=== PATIENT | female | born 1940 | race Caucasian/White ===

== ENCOUNTER 2020-07-10 09:45 | Outpatient (REF) | payer OTHER, SELFPAY ==
--- NOTE | 2020-07-10 10:57 | XR_ITS ---
EXAMINATION: XR LUMBOSACRAL SPINE CLINICAL INFORMATION: Unspecified fall, trauma, pain COMPARISON: None TECHNIQUE: Three views of the lumbosacral spine. FINDINGS: There is normal lumbar segmentation with 5 nonrib-bearing lumbar vertebrae of normal height and normal lumbar lordosis. There is a gentle levocurvature lower lumbar spine. There is no lumbar vertebral compression or destructive process. No spondylolisthesis. There are degenerative disc changes greatest at L5-S1 but also involving L2-L3 and L4-L5. There is multi level facet degeneration, greatest L4-S1. The SI joints and visualized sacrum are unremarkable. IMPRESSION: 1. No vertebral compression or visible fracture. 2. Degenerative disc and degenerative facet changes.
--- NOTE | 2020-07-10 10:57 | XR_ITS ---
EXAMINATION: XR HIP, RIGHT CLINICAL INFORMATION: Unspecified fall, trauma, pain COMPARISON: None TECHNIQUE: Two views of the right hip. FINDINGS: Right hip shows no fracture or dislocation. There is no joint narrowing or erosive change. Soft tissue planes are unremarkable. IMPRESSION: Unremarkable right hip.
[2020-07-10 12:02] LABS: Eosinophils Percent Auto 0.2 % (0-4); MANUAL DIFF FLAG SCAN; Mean Corpuscular Volume 97.3 fL (80-98); Neutrophils Percent Auto 80.1 % (45-73); SCAN SMEAR FLAG 1
[2020-07-10 12:04] LABS: Hematocrit 36.1 % (37-47); Hemoglobin 11.7 g/dl (12.0-16.0); Imm Gran Abs Auto 0.07 X10*3/uL (0.00-0.03); Imm Gran Pct Auto 1.3 % (0.0-0.4); Lymphocytes Absolute Auto 0.6 X10*3/uL (1.2-4.9); Lymphocytes Percent Auto 10.8 % (20-40); Mean Corpuscular HGB Conc 32.4 g/dl (31.0-35.0); Mean Corpuscular Hemoglobin 31.5 pg (27.0-33.0); Mean Platelet Volume 13.1 fL (9.4-12.3); Monocytes Absolute Auto 0.4 X10*3/uL (0.1-1.2); Monocytes Percent Auto 7.6 % (2-11); Neutrophils Absolute Auto 4.3 X10*3/uL (2.0-8.3); Platelet Count 141 X10*3/uL (160-400); Red Blood Count 3.71 X10*6/uL (4.20-5.50); Red Cell Distribution Width 12.7 % (11.0-16.0); White Blood Count 5.4 X10*3/uL (4.8-10.8)
[2020-07-10 12:06] LABS: PLT ABN DIST 1
[2020-07-10 12:28] LABS: SLIDE REVIEW VERIFIED
[2020-07-10 12:39] LABS: Albumin Level 4.7 g/dL (3.5-5.0); Anion Gap 14 (12-20); Blood Urea Nitrogen 32 mg/dL (9-16); Carbon Dioxide 26 mmol/L (22-29); Chloride 105 mmol/L (96-108); Estimated Glomerular Filt Rate 27; Magnesium 2.2 mg/dL (1.6-2.6); Phosphorus 2.8 mg/dL (2.7-4.5); Potassium 4.9 mmol/l (3.3-5.1); Sodium 140 mmol/L (135-145)
[2020-07-10 12:43] LABS: Alanine Aminotransferase 12 U/L (0-31); Albumin Level 4.6 g/dL (3.5-5.0); Alkaline Phosphatase 105 U/L (39-117); Anion Gap 13 (12-20); Aspartate Amino Transferase 16 U/L (5-31); Bilirubin Total 0.5 mg/dL (0.0-1.0); Blood Urea Nitrogen 32 mg/dL (9-16); Calcium 9.5 mg/dL (8.4-10.2); Carbon Dioxide 27 mmol/L (22-29); Chloride 105 mmol/L (96-108); Cholesterol 143 mg/dL; Estimated Glomerular Filt Rate 27; Glucose Fasting 93 mg/dL (60-99); HDL Cholesterol 42 mg/dL; LDL Cholesterol Calculated 68 mg/dl; Potassium 4.9 mmol/l (3.3-5.1); Sodium 140 mmol/L (135-145); Total Protein 6.9 g/dL (6.5-8.0); Triglycerides 167 mg/dL
[2020-07-13 19:16] LABS: Calcium (PTHI) 9.7 mg/dL (8.6-10.4); PTHI 67 pg/mL (14-64)
== END 2020-07-10 09:46 | disposition home or self-care (01) ==
LOC: HO.LAB 09:45
PROVIDERS: PCP Internal Medicine; Visit Provider Internal Medicine Hypertension Specialist
DX: I13.0 Hypertensive heart and chronic kidney disease with heart failure and stage 1 through stage 4 chronic kidney disease, or unspecified chronic kidney disease (principal); N18.30 Chronic kidney disease, stage 3 unspecified; I50.9 Heart failure, unspecified; N28.9 Disorder of kidney and ureter, unspecified; E87.3 Alkalosis; E87.6 Hypokalemia
CPT/HCPCS: 36415; 72100; 73502; 80051; 80053; 80061; 82040; 82565; 83735; 83970; 84100; 84520; 85025

== ENCOUNTER 2020-07-12 10:28 | Emergency (ER) | payer OTHER, SELFPAY ==
--- NOTE | 2020-07-12 | US_ITS ---
EXAMINATION: ULTRASOUND VENOUS DUPLEX LOWER EXTREMITY RIGHT CLINICAL INFORMATION: Swelling COMPARISON: None TECHNIQUE: Doppler, color and grayscale evaluation of the veins of the right lower extremity FINDINGS: The right common femoral, superficial femoral, profunda, popliteal and visualized posterior tibial and peroneal veins in the calf are patent. There is no evidence of DVT. There is no Figueredo's cyst. The left common femoral vein is patent IMPRESSION: No evidence of DVT.
[2020-07-12 10:39] VITALS: BP 143/59; PULSE 85; RESP 16; TEMP 36.7; O2SAT 100; BMI 30.8
--- NOTE | 2020-07-12 11:01 | ED_ITS ---
HPI - Fall General Chief Complaint: Fall Stated Complaint: fell Time Seen by Provider: 07/12/20 10:58 Related Data Allergies Allergy/AdvReac Type Severity Reaction Status Date / Time aspirin [ASPIRIN] Allergy Unknown ANAPHYLAXIS Unverified 06/25/20 15:28 meperidine [From DEMEROL] Allergy Unknown ANAPHYLAXIS Unverified 06/25/20 15:28 penicillin V Allergy Unknown Unverified 05/27/20 00:00 Penicillins [PENICILLINS] Allergy Unknown ANAPHYLAXIS Unverified 06/25/20 15:28 Sulfa (Sulfonamide Allergy Unknown UNKNOWN Unverified 06/25/20 15:28 Antibiotics) [SULFA (SULFONAMIDE ANTIBIOTICS)] dairy Allergy Unknown Uncoded 10/18/18 00:00 lactose intolerance Allergy Unknown Uncoded 05/27/20 00:00 Review of Systems Review of Systems: Yes all other systems are reviewed and are negative Constitutional: Constitutional: Reports as per HPI ENT: Reports system reviewed and no additional complaints, except as documented Respiratory: Respiratory: Reports no additional respiratory complaints Gastrointestinal: Gastrointestinal: Reports no additional gastrointestinal complaints Genitourinary: Genitourinary: Reports no additional female genitourinary complaints Musculoskeletal: Musculoskeletal: Reports as per HPI Psychiatric: Psychiatric: Reports no additional psychiatric complaints Endocrine: Endocrine: Reports no additional endocrine complaints [facility] Past Medical History Medical History (Updated 07/12/20 @ 13:20 by Dayron Vergara MD) Hyperlipidemia Hypertension Social History Social History Advance Directives: No Advance Directives Information Provided: No Physical Exam Vital Signs and I&O and Narrative: Vital Signs and I&O: Vital Signs Temp 98.8 F 07/12/20 12:00 Pulse 73 07/12/20 12:00 Resp 17 07/12/20 12:00 BP 117/50 L 07/12/20 12:00 Pulse Ox 98 07/12/20 12:00 Intake & Output 07/11/20 07/12/20 07/12/20 18:59 06:59 18:59 Weight 89.358 kg Body Mass Index 30.8 Const: General: cooperative and healthy appearing Orientation/consciousness: oriented to person, oriented to place and oriented to time Limitations: no limitations HENMT: Head: Yes normal to inspection Eyes: General: appearance normal, both eyes and all related structures Neck: Neck: Yes normal visual inspection Chest: Chest palpation & inspection: normal inspection of the chest Resp: Effort & Inspection: normal respiratory effort Auscultation: clear to auscultation bilaterally Percussion: percussion normal Cardio: Jugular venous distension: no JVD Palpation: normal PMI Rate: regular rate Rhythm: regular rhythm Heart sounds: S1 normal heart sound present and S2 normal heart sound present GI: Inspection: Yes normal to inspection Percussion: Yes normal to percussion Rectal Exam - Female: deferred : General: Yes CVA tenderness and Yes no CVA tenderness Back/Spine/Pelvis: Other: area of ecchymosis at lower lumbar area and sacral area. Back: no CVA tenderness and CVA tenderness Coccyx: Coccyx tenderness present Skin: General skin exam: no rashes or lesions noted Trauma: no lacerations or abrasions Neuro: General: oriented to person, oriented to place, oriented to time and gait normal Cranial nerves: Yes CN's II-XII intact bilaterally Cognition (Neuro): normal cognition Extrem: General: Yes normal to inspection Course Course Hospital Course: 79-year-old female states sustained a mechanical fall, going down stairs with a cane and patient fell about 2 steps of stairs landed on her right-side 4 days ago, patient was seen in the emergency department and had x-rays that were unre markable, also seen at urgent care who appreciated right leg swelling patient was sent from urgent care to rule out DVT and right leg. Reevaluation(s) Reevaluation #1: patient had ultrasound which showed no DVT. Patient has stable vital signs. MDM - Fall MDM Narrative Medical decision making narrative: 79-year-old female status post fall 4 days ago with big ecchymosis on the right buttock, patient was seen and evaluated at an urgent care today he will concern of right lower extremities DVT patient was sent to the emergency department for rule out DVT. It Medical Records Attestation: I reviewed the patient's medical records. Imaging Data Venous US: Radiologist's impression: The right common femoral, superficial femoral, profunda, popliteal and visualized posterior tibial and peroneal veins in the calf are patent. There is no evidence of DVT. There is no Figueredo's cyst. The left common femoral vein is patent Discharge Plan Discharge Clinical Impression: Fall, Contusion of soft tissue Patient Disposition: Home, Self-Care Instructions: Contusion in Adults (ED) Referrals: Ned Alcantara MD [Primary Care Provider] - 2 days
--- NOTE | 2020-07-12 11:03 | PC.NURSE ---
PT HAS A LARGE HEMATOMA AND PURPLE DISCOLORATION TO R BUTTOCKS. AWARE.
[2020-07-12 12:00] VITALS: BP 117/50; PULSE 73; RESP 17; TEMP 37.1; O2SAT 98
== END 2020-07-12 13:50 | disposition home or self-care (01) ==
PROVIDERS: Emergency Provider Emergency Medicine; PCP Internal Medicine
DX: S30.0XXA Contusion of lower back and pelvis, initial encounter (principal); W10.8XXA Fall (on) (from) other stairs and steps, initial encounter; M53.3 Sacrococcygeal disorders, not elsewhere classified; I10 Essential (primary) hypertension; Y93.89 Activity, other specified; Y92.019 Unspecified place in single-family (private) house as the place of occurrence of the external cause; Y99.9 Unspecified external cause status; Z91.81 History of falling
CPT/HCPCS: 93971; 99284

== ENCOUNTER 2020-09-08 08:13 | Outpatient (REF) | payer OTHER, SELFPAY ==
--- NOTE | 2020-09-08 08:20 | XR_ITS ---
EXAMINATION: XR CHEST CLINICAL INFORMATION: Fall. COMPARISON: Chest 12/31/2015 TECHNIQUE: 2 views of the chest were obtained. FINDINGS: No significant abnormality is noted involving the heart, lungs, mediastinum, bony thorax or soft tissues. XR/XR chest 2V IMPRESSION: Unremarkable chest
== END 2020-09-08 08:14 | disposition home or self-care (01) ==
LOC: HO.XRAY 08:13
PROVIDERS: PCP Internal Medicine; Visit Provider Internal Medicine
DX: T14.8XXA Other injury of unspecified body region, initial encounter (principal)
CPT/HCPCS: 71046

== ENCOUNTER 2020-10-26 08:30 | Outpatient (REF) | payer OTHER, SELFPAY ==
[2020-10-26 09:55] LABS: Basophils Percent Auto 0.2 % (0-2); Eosinophils Percent Auto 0.4 % (0-4); MANUAL DIFF FLAG SCAN; Red Cell Distribution Width 12.8 % (11.0-16.0); SCAN SMEAR FLAG 1
[2020-10-26 09:57] LABS: Hematocrit 35.4 % (37-47); Imm Gran Abs Auto 0.06 X10*3/uL (0.00-0.03); Imm Gran Pct Auto 1.3 % (0.0-0.4); Lymphocytes Absolute Auto 0.6 X10*3/uL (1.2-4.9); Lymphocytes Percent Auto 13.4 % (20-40); Mean Corpuscular HGB Conc 33.9 g/dl (31.0-35.0); Mean Corpuscular Hemoglobin 32.5 pg (27.0-33.0); Mean Corpuscular Volume 95.9 fL (80-98); Mean Platelet Volume 13.5 fL (9.4-12.3); Monocytes Absolute Auto 0.4 X10*3/uL (0.1-1.2); Monocytes Percent Auto 7.7 % (2-11); Neutrophils Absolute Auto 3.7 X10*3/uL (2.0-8.3); Platelet Count 130 X10*3/uL (160-400); Red Blood Count 3.69 X10*6/uL (4.20-5.50); White Blood Count 4.8 X10*3/uL (4.8-10.8)
[2020-10-26 09:59] LABS: PLT ABN DIST 1
[2020-10-26 10:19] LABS: Alanine Aminotransferase 15 U/L (0-31); Albumin Level 4.5 g/dL (3.5-5.0); Alkaline Phosphatase 113 U/L (39-117); Anion Gap 14 (12-20); Aspartate Amino Transferase 18 U/L (5-31); Bilirubin Total 0.5 mg/dL (0.0-1.0); Blood Urea Nitrogen 35 mg/dL (9-16); Calcium 9.5 mg/dL (8.4-10.2); Carbon Dioxide 28 mmol/L (22-29); Chloride 104 mmol/L (96-108); Cholesterol 135 mg/dL; Estimated Glomerular Filt Rate 31; Glucose Fasting 97 mg/dL (60-99); HDL Cholesterol 46 mg/dL; LDL Cholesterol Calculated 62 mg/dl; Potassium 5.2 mmol/l (3.3-5.1); Sodium 141 mmol/L (135-145); Triglycerides 138 mg/dL
[2020-10-26 10:36] LABS: SLIDE REVIEW VERIFIED
== END 2020-10-26 08:31 | disposition home or self-care (01) ==
LOC: HO.LAB 08:30
PROVIDERS: Absent Provider Internal Medicine Hypertension Specialist; PCP Internal Medicine; Visit Provider Internal Medicine
DX: Z00.00 Encounter for general adult medical examination without abnormal findings (principal); N28.9 Disorder of kidney and ureter, unspecified; I13.0 Hypertensive heart and chronic kidney disease with heart failure and stage 1 through stage 4 chronic kidney disease, or unspecified chronic kidney disease; N18.30 Chronic kidney disease, stage 3 unspecified
CPT/HCPCS: 36415; 80053; 80061; 85025

== ENCOUNTER 2020-11-11 | Outpatient (REF) | payer OTHER, SELFPAY | END 2020-11-11 00:01 | disposition home or self-care (01) | LOC: HO.VC | PROVIDERS: Visit Provider Internal Medicine | DX: Z23 Encounter for immunization (principal) | CPT/HCPCS: 0011A ==

== ENCOUNTER 2020-12-08 | Outpatient (REF) | payer OTHER, SELFPAY | END 2020-12-08 00:01 | disposition home or self-care (01) | LOC: HO.VC | PROVIDERS: Visit Provider Internal Medicine | DX: Z23 Encounter for immunization (principal) | CPT/HCPCS: 0012A ==

== ENCOUNTER 2020-12-09 09:00 | Outpatient (RCR) | payer OTHER, SELFPAY ==
[2020-11-13 07:44] VITALS: BP 138/61; PULSE 72; O2SAT 98
--- NOTE | 2020-11-13 10:38 | MHC.PT.EP ---
[facility] [place] Office [place] Office [place] Office [address] Wilson Bryan [address] [phone] F: [phone] F: [phone] F: [phone] F: [phone] Physical Therapy Plan of Care Date of Evaluation: 11/13/20 Date of Surgery: Diagnosis: DORSALGIA, FREQUENT FALLS Assessment: 79 YO FEMALE REF TO PT W H/O FALLING 07/09/20- SHE HAS A LONG H/O LBP AND MILD SCOLIOSIS W LLD- SHE CURRENTLY AMB W A 3 POINT CANE WHEN OUTDOORS HOWEVER, STATES SHE FURNITURE/WALL WALKS INDOORS. Pt RESIDES ALONE AND HAS A FRIEND ASSISTING HER W HIGHER LEVEL ADLs. SHE RATED 0/10 LBP THIS AM, HER AROM IN TRUNK AND LEs IS ADEQUATE, SHE HAS WEAKNESS IN BILAT HIPS, NO OBVIOUS SENSORY OR MOTOR DEFICITS AT CURRENT. FUNCTIONAL LIMITATIONS INCLUDE DECR JUAN TO STANDING / STATIC BALANCE, AMB- SHE REQUIRES A SHOPPING CART TO LEAN ON OR USE OF HER CANE FOR SHORT DISTANCES, AND H/O NONEPILEPTIC SEIZURES CAUSING HER TO FALL- SHE NOTES DIFFIC GETTING UP FROM THE FLOOR. Pt WOULD BENEFIT FROM PT TO ADDRESS LEs STRENGTH, SAFETY AWARENESS W FUNCTIONAL ADLs, AND STATIC-> DYNAMIC BALANCE. Frequency and Duration: The patient will be seen 2x WK x 5 WKS Short Term Goals: Pt ADDISON IMPROVED GAIT MECH ON LEVEL AND STAIR TECHN W HER CANE IN 2 WKS Pt'S LBP DECR TO 2-3/10 AT MAX W REG ADLs IN 3 WKS Pt CARYON SAFE STATIC STAND W NARROW KATHARINE-> TANDEM STANCE x 10 SEC EACH IN 3 WKS Fpc Goals: Pt CARYON INCR LEs STRENGTH EVIDENT W MOBILITY ON/OFF EQIOP, MATS, SQUATS, 1/2 KNEEL POSITIONS IN 5 WKS Pt CARYON IMPROVED STATIC -> DYNAMIC BALANCE W SIMUL ADLs IN 5 WKS Pt INDEP W HEP AND BALANCE STRATEGIES EVIDENT IN IMPROVED ABC SCALE AND 4 STAGE BALANCE TEST IN 5 WKS Treatment Plan: Modalities to reduce pain, spasms and effusion. Manual therapy to restore motion and function. Therapeutic exercise to improve strength and flexibility. Neuromuscular re-education for posture and balance. Therapeutic activities to return to functional activities of daily living. Electronically signed by: Chanda Blake PT Please sign and return to therapist. Thank you for your referral.
--- NOTE | 2020-12-09 11:03 | MHC.PT.DC ---
[facility] [place] Office [place] [facility] [place] Office [address] Wilson Bryan [address] [phone] F: [phone] F: [phone] F: [phone] F: [phone] Physical Therapy Discharge Report Diagnosis: DORSALGIA, FREQUENT FALLS Date of Surgery: Date of Evaluation: 11/13/20 Date of Discharge: Treatments to Date: 8 Cancellations to Date: 0 No Shows to Date: 0 Discharge Status: Achieved Goals Improved Function Independent with HEP Discharge Summary: Pt was able to tolerate light perturbations during NBOS balance. She demonstrated getting off of the floor from a side sitting position to standing bracing her arms in a BSC last visit. She demonstrated good static balance in standing with a narrow KATHARINE. She has good LE strength noted with good squat control during the movement. Pt seems to have some dyskinesia in her movement which seems to worsen with exertion. It was recommended the patient followup with her medical MD regarding this movement. Pt is independent with her current exercise program. Her LE strength in bilateral hips and knees, and ankle DF was 5/5 throughout. She has met her goals. She is d/c from skilled PT at this time. Electronically signed by: Sheri Rivera PT DPT Please sign and return to therapist. Thank you for your referral.
== END 2020-12-10 08:19 | disposition other institution (70) ==
LOC: HO.PT 09:00
PROVIDERS: PCP Internal Medicine; Visit Provider Internal Medicine
DX: M54.9 Dorsalgia, unspecified (principal); R29.6 Repeated falls
CPT/HCPCS: 97110; 97112; 97162; 97530; 97535

== ENCOUNTER 2020-12-30 08:48 | Outpatient (REF) | payer OTHER, SELFPAY ==
[2020-12-30 09:37] LABS: MANUAL DIFF FLAG NO
[2020-12-30 09:48] LABS: Basophils Percent Auto 0.2 % (0-2); Eosinophils Percent Auto 0.4 % (0-4); Hematocrit 36.9 % (37-47); Hemoglobin 12.2 g/dl (12.0-16.0); Imm Gran Abs Auto 0.08 X10*3/uL (0.00-0.03); Imm Gran Pct Auto 1.6 % (0.0-0.4); Lymphocytes Absolute Auto 0.8 X10*3/uL (1.2-4.9); Mean Corpuscular HGB Conc 33.1 g/dl (31.0-35.0); Mean Corpuscular Hemoglobin 31.9 pg (27.0-33.0); Mean Corpuscular Volume 96.6 fL (80-98); Mean Platelet Volume 13.2 fL (9.4-12.3); Monocytes Absolute Auto 0.4 X10*3/uL (0.1-1.2); Monocytes Percent Auto 7.8 % (2-11); Neutrophils Absolute Auto 3.6 X10*3/uL (2.0-8.3); Platelet Count 145 X10*3/uL (160-400); Red Blood Count 3.82 X10*6/uL (4.20-5.50); Red Cell Distribution Width 12.7 % (11.0-16.0); White Blood Count 4.9 X10*3/uL (4.8-10.8)
[2020-12-30 10:12] LABS: Alanine Aminotransferase 12 U/L (0-31); Albumin Level 4.7 g/dL (3.5-5.0); Alkaline Phosphatase 124 U/L (39-117); Anion Gap 15 (12-20); Aspartate Amino Transferase 18 U/L (5-31); Bilirubin Total 0.4 mg/dL (0.0-1.0); Blood Urea Nitrogen 39 mg/dL (9-16); Calcium 9.6 mg/dL (8.4-10.2); Carbon Dioxide 26 mmol/L (22-29); Chloride 104 mmol/L (96-108); Cholesterol 139 mg/dL; Estimated Glomerular Filt Rate 29; Glucose Fasting 99 mg/dL (60-99); HDL Cholesterol 46 mg/dL; LDL Cholesterol Calculated 62 mg/dl; Potassium 4.4 mmol/L (3.3-5.1); Sodium 141 mmol/L (135-145); Total Protein 7.1 g/dL (6.5-8.0); Triglycerides 157 mg/dL
== END 2020-12-30 08:49 | disposition home or self-care (01) ==
LOC: HO.LAB 08:48
PROVIDERS: Absent Provider Internal Medicine Hypertension Specialist; PCP Internal Medicine; Visit Provider Internal Medicine
DX: Z00.00 Encounter for general adult medical examination without abnormal findings (principal); I13.0 Hypertensive heart and chronic kidney disease with heart failure and stage 1 through stage 4 chronic kidney disease, or unspecified chronic kidney disease; N18.30 Chronic kidney disease, stage 3 unspecified; E11.22 Type 2 diabetes mellitus with diabetic chronic kidney disease; I50.9 Heart failure, unspecified
CPT/HCPCS: 36415; 80053; 80061; 85025

== ENCOUNTER 2021-04-26 08:55 | Outpatient (REF) | payer OTHER, SELFPAY ==
[2021-04-26 10:14] LABS: Mean Corpuscular Volume 96.4 fL (80-98); SCAN SMEAR FLAG 1
[2021-04-26 10:15] LABS: Eosinophils Percent Auto 0.2 % (0-4); Hematocrit 37.4 % (37-47); Hemoglobin 12.5 g/dl (12.0-16.0); Imm Gran Abs Auto 0.08 X10*3/uL (0.00-0.03); Imm Gran Pct Auto 1.7 % (0.0-0.4); Lymphocytes Absolute Auto 0.6 X10*3/uL (1.2-4.9); Lymphocytes Percent Auto 12.8 % (20-40); Mean Corpuscular HGB Conc 33.4 g/dl (31.0-35.0); Mean Corpuscular Hemoglobin 32.2 pg (27.0-33.0); Mean Platelet Volume 13.7 fL (9.4-12.3); Monocytes Absolute Auto 0.4 X10*3/uL (0.1-1.2); Monocytes Percent Auto 7.8 % (2-11); Neutrophils Absolute Auto 3.6 X10*3/uL (2.0-8.3); Neutrophils Percent Auto 77.5 % (45-73); Platelet Count 131 X10*3/uL (160-400); Red Blood Count 3.88 X10*6/uL (4.20-5.50); White Blood Count 4.6 X10*3/uL (4.8-10.8)
[2021-04-26 10:27] LABS: PLT ABN DIST 1
[2021-04-26 10:42] LABS: Anion Gap 13 (12-20); Blood Urea Nitrogen 33 mg/dL (9-16); Calcium 10.1 mg/dL (8.4-10.2); Carbon Dioxide 28 mmol/L (22-29); Chloride 106 mmol/L (96-108); Cholesterol 136 mg/dL; Estimated Glomerular Filt Rate 29; Glucose Random 99 mg/dL (60-115); HDL Cholesterol 41 mg/dL; LDL Cholesterol Calculated 63 mg/dl; Potassium 4.7 mmol/L (3.3-5.1); Sodium 142 mmol/L (135-145); Triglycerides 164 mg/dL
[2021-04-26 11:05] LABS: TSH reflex Free T4 1.63 uIU/mL (0.32-4.0)
== END 2021-04-26 08:56 | disposition home or self-care (01) ==
LOC: HO.LAB 08:55
PROVIDERS: PCP Internal Medicine; Visit Provider Internal Medicine
DX: Z00.00 Encounter for general adult medical examination without abnormal findings (principal); I10 Essential (primary) hypertension; E78.5 Hyperlipidemia, unspecified
CPT/HCPCS: 36415; 80048; 80061; 84443; 85025

== ENCOUNTER 2021-07-01 08:17 | Outpatient (REF) | payer OTHER, SELFPAY ==
[2021-07-01 10:33] LABS: Basophils Percent Auto 0.2 % (0-2); Eosinophils Percent Auto 0.6 % (0-4); MANUAL DIFF FLAG SCAN; SCAN SMEAR FLAG 1
[2021-07-01 10:35] LABS: Hematocrit 35.3 % (37-47); Hemoglobin 11.8 g/dl (12.0-16.0); Imm Gran Abs Auto 0.06 X10*3/uL (0.00-0.03); Imm Gran Pct Auto 1.3 % (0.0-0.4); Lymphocytes Absolute Auto 0.7 X10*3/uL (1.2-4.9); Lymphocytes Percent Auto 14.1 % (20-40); Mean Corpuscular HGB Conc 33.4 g/dl (31.0-35.0); Mean Corpuscular Hemoglobin 32.4 pg (27.0-33.0); Mean Platelet Volume 13.1 fL (9.4-12.3); Monocytes Absolute Auto 0.4 X10*3/uL (0.1-1.2); Monocytes Percent Auto 7.6 % (2-11); Neutrophils Absolute Auto 3.6 X10*3/uL (2.0-8.3); Neutrophils Percent Auto 76.2 % (45-73); Platelet Count 130 X10*3/uL (160-400); Red Blood Count 3.64 X10*6/uL (4.20-5.50); Red Cell Distribution Width 13.1 % (11.0-16.0); White Blood Count 4.8 X10*3/uL (4.8-10.8)
[2021-07-01 10:39] LABS: PLT ABN DIST 1
[2021-07-01 10:43] LABS: Alanine Aminotransferase 12 U/L (0-31); Albumin Level 4.5 g/dL (3.5-5.0); Alkaline Phosphatase 99 U/L (39-117); Anion Gap 15 (12-20); Aspartate Amino Transferase 18 U/L (5-31); Bilirubin Total 0.3 mg/dL (0.0-1.0); Blood Urea Nitrogen 31 mg/dL (9-16); Calcium 9.9 mg/dL (8.4-10.2); Carbon Dioxide 26 mmol/L (22-29); Chloride 105 mmol/L (96-108); Cholesterol 138 mg/dL; Estimated Glomerular Filt Rate 30; Glucose Fasting 93 mg/dL (60-99); HDL Cholesterol 37 mg/dL; LDL Cholesterol Calculated 64 mg/dl; Potassium 4.8 mmol/L (3.3-5.1); Sodium 141 mmol/L (135-145); Total Protein 6.9 g/dL (6.5-8.0); Triglycerides 185 mg/dL
[2021-07-01 10:57] LABS: Thyroid Stimulating Hormone 2.08 uIU/mL (0.32-4.0)
[2021-07-01 12:05] LABS: SLIDE REVIEW VERIFIED
== END 2021-07-01 08:18 | disposition home or self-care (01) ==
LOC: HO.LAB 08:17
PROVIDERS: PCP Internal Medicine; Visit Provider Internal Medicine
DX: Z00.00 Encounter for general adult medical examination without abnormal findings (principal); E03.9 Hypothyroidism, unspecified; E11.9 Type 2 diabetes mellitus without complications
CPT/HCPCS: 36415; 80053; 80061; 84443; 85025

== ENCOUNTER 2021-09-08 08:42 | Outpatient (REF) | payer OTHER, SELFPAY ==
--- NOTE | ~2021-09-08 | XR_ITS ---
EXAMINATION: 1. RADIOGRAPHS RIGHT WRIST 2. RADIOGRAPHS LEFT WRIST CLINICAL INFORMATION: Pain COMPARISON: None TECHNIQUE: 4 views of each wrist were obtained. FINDINGS: Left wrist: Visualized portion of the distal radius and ulna demonstrate no fracture. Carpal rows are maintained. No carpal bone fracture. Minimal degenerative changes of the first carpal metacarpal joint. Visualized metacarpals demonstrate no fracture. No focal soft tissue swelling of the wrist. No radiopaque foreign body. Right wrist: Visualized portions of the distal radius and ulna demonstrate no fracture. Carpal rows are maintained. No carpal bone fracture. Visualized metacarpals demonstrate no fracture. No focal soft tissue swelling of the wrist. No radiopaque foreign body. XR/XR wrist LT 2V IMPRESSION: Grossly unremarkable radiographs of the bilateral wrists.
--- NOTE | ~2021-09-08 | XR_ITS ---
EXAMINATION: 1. RADIOGRAPHS RIGHT WRIST 2. RADIOGRAPHS LEFT WRIST CLINICAL INFORMATION: Pain COMPARISON: None TECHNIQUE: 4 views of each wrist were obtained. FINDINGS: Left wrist: Visualized portion of the distal radius and ulna demonstrate no fracture. Carpal rows are maintained. No carpal bone fracture. Minimal degenerative changes of the first carpal metacarpal joint. Visualized metacarpals demonstrate no fracture. No focal soft tissue swelling of the wrist. No radiopaque foreign body. Right wrist: Visualized portions of the distal radius and ulna demonstrate no fracture. Carpal rows are maintained. No carpal bone fracture. Visualized metacarpals demonstrate no fracture. No focal soft tissue swelling of the wrist. No radiopaque foreign body. XR/XR wrist RT 2V IMPRESSION: Grossly unremarkable radiographs of the bilateral wrists.
[2021-09-08 09:56] LABS: Anion Gap 14 (12-20); Blood Urea Nitrogen 33 mg/dL (9-16); Carbon Dioxide 25 mmol/L (22-29); Chloride 107 mmol/L (96-108); Estimated Glomerular Filt Rate 30; Potassium 5.4 mmol/L (3.3-5.1); Sodium 141 mmol/L (135-145)
[2021-09-08 09:57] LABS: Cholesterol 130 mg/dL; HDL Cholesterol 37 mg/dL; LDL Cholesterol Calculated 58 mg/dl; Triglycerides 179 mg/dL
== END 2021-09-08 08:43 | disposition home or self-care (01) ==
LOC: HO.XRAY 08:42
PROVIDERS: Absent Provider Internal Medicine Hypertension Specialist; PCP Internal Medicine; Visit Provider Internal Medicine
DX: Z00.00 Encounter for general adult medical examination without abnormal findings (principal); N18.4 Chronic kidney disease, stage 4 (severe); M25.531 Pain in right wrist; M25.532 Pain in left wrist
CPT/HCPCS: 36415; 73100; 80051; 80061; 82310; 82565; 84520

== ENCOUNTER 2021-09-27 09:14 | Emergency (ER) | payer OTHER, SELFPAY ==
--- NOTE | ~2021-09-27 | XR_ITS ---
EXAMINATION: XR CHEST CLINICAL INFORMATION: Right-sided chest pain COMPARISON: Chest x-ray 09/08/2020 TECHNIQUE: 2 views of the chest were obtained. FINDINGS: No significant abnormality is noted involving the heart, lungs, mediastinum, bony thorax or soft tissues. XR/XR chest 2V IMPRESSION: Unremarkable chest examination.
--- NOTE | ~2021-09-27 | CT_ITS ---
EXAMINATION: CT CHEST WITHOUT CONTRAST CLINICAL INFORMATION: Right-sided rib pain COMPARISON: Previous chest x-ray most recent from earlier the same day TECHNIQUE: Multidetector volumetric CT imaging of the chest was done. Axial MIP volume rendering provided. Sagittal and coronal reformatted images were obtained. This CT examination was performed using dose optimization techniques as appropriate, variously including the following: *Automated exposure control *Adjustment of mA and/or kV according to patient size (this includes techniques or standardized protocols for targeted exams where dose is matched to indication/reason for exam; i.e. extremities or head) *Use of iterative reconstruction technique DLP: 289 mGy-cm FINDINGS: LUNGS: There is anterior segment right upper lobe and medial segment right middle lobe bronchiectasis and atelectasis/small infiltrate. There are subtler changes seen in the inferior segment of the lingula. The lungs are otherwise clear. MEDIASTINUM: There is coronary artery calcification. There may be a small esophageal hernia. The mediastinum is otherwise normal. PLEURA: There is no pleural effusion. No pleural mass or thickening. AXILLA: No lymphadenopathy. UPPER ABDOMEN: Gallbladder is not completely imaged but appears prominent measuring 5.6 cm in transverse dimension. There is a low-attenuation lesion exophytic to the upper pole of the right kidney. These findings are not completely visualized. OSSEOUS STRUCTURES: No rib fracture or bone lesion is seen. There are degenerative changes of the spine. CT/CT chest wo con IMPRESSION: Atelectasis/small infiltrates and mild bronchiectasis in the anterior segment of the right upper lobe and medial segment of the right middle lobe. Coronary artery calcification and small esophageal hernia. Prominent gallbladder and low-attenuation lesion exophytic to the upper pole of the right kidney incompletely visualized. Fleischner guidelines were followed.
--- NOTE | ~2021-09-27 | XR_ITS ---
EXAMINATION: BILATERAL HAND X-RAY CLINICAL INFORMATION: Pain and swelling COMPARISON: Previous wrist x-rays from earlier this month TECHNIQUE: 3 views of each hand FINDINGS: Right: The bones are osteopenic. No fracture or dislocation is seen. There is mild arthritis at the DIP joint of the fifth finger. There is slight extension of the DIP joint of the second finger. There may be small cysts in the third and fourth metacarpal heads. Carpal bones are normal. Soft tissues are normal. Left: The bones are osteopenic. Bone alignment is normal. No fracture or dislocation is seen. There is mild arthritis at the IP joint of the thumb. There is a small soft tissue calcification adjacent to the ulnar dorsal DIP joint of the fifth finger. Carpal bones are normal. Soft tissues are normal. XR/XR hand RT min 3V IMPRESSION: Osteopenia. Mild degenerative changes.
--- NOTE | ~2021-09-27 | XR_ITS ---
EXAMINATION: BILATERAL HAND X-RAY CLINICAL INFORMATION: Pain and swelling COMPARISON: Previous wrist x-rays from earlier this month TECHNIQUE: 3 views of each hand FINDINGS: Right: The bones are osteopenic. No fracture or dislocation is seen. There is mild arthritis at the DIP joint of the fifth finger. There is slight extension of the DIP joint of the second finger. There may be small cysts in the third and fourth metacarpal heads. Carpal bones are normal. Soft tissues are normal. Left: The bones are osteopenic. Bone alignment is normal. No fracture or dislocation is seen. There is mild arthritis at the IP joint of the thumb. There is a small soft tissue calcification adjacent to the ulnar dorsal DIP joint of the fifth finger. Carpal bones are normal. Soft tissues are normal. XR/XR hand LT min 3V IMPRESSION: Osteopenia. Mild degenerative changes.
--- NOTE | ~2021-09-27 | NM_ITS ---
EXAMINATION: PULMONARY PERFUSION STUDY CLINICAL INFORMATION: Chest pain, elevated d-dimer. COMPARISON: No previous lung scan is available for comparison. Radiographs of the chest dated 09/27/[address] scan of the chest on the same date are available for comparison. TECHNIQUE: Following the intravenous injection of 3.1 mCi Tc-99m MAA, an 8-view perfusion study was performed using a gamma scintillation camera. FINDINGS: No segmental perfusion defects are present. There is minimal heterogeneity in the distribution of activity bilaterally. There are no focal anatomic appearing perfusion defects present. NM/NM pul perfusion IMPRESSION: Very low probability of pulmonary embolism.
[2021-09-27 09:33] VITALS: BP 128/43; PULSE 90; RESP 18; TEMP 36.6; O2SAT 97; BMI 29.2
--- NOTE | 2021-09-27 09:34 | ED.CHESTPAIN ---
HPI - Chest Pain General Chief Complaint: General Medical <BELÉN Berger Last Filed: 09/27/21 09:38> Stated Complaint: MULTIPLE COMPLAINTS <BELÉN Berger Last Filed: 09/27/21 09:38> Time Seen by Provider: 09/27/21 09:31 <BELÉN Berger Last Filed: 09/27/21 09:38> Source: patient <Ofelia Alvarenga DO - Last Filed: 09/27/21 15:09> Mode of arrival: ambulatory <Ofelia Alvarenga DO - Last Filed: 09/27/21 15:09> Limitations: no limitations <Ofelia Alvarenga DO - Last Filed: 09/27/21 15:09> History of Present Illness MD complaint: other (R rib pain from a cough, L bilateral hand MCP pain and swelling) <Ofelia Alvarenga DO - Last Filed: 09/27/21 15:09> Onset (ago): week(s) (1) <Ofelia Alvarenga DO - Last Filed: 09/27/21 15:09> Timing of current episode: constant <Ofelia Alvarenga DO - Last Filed: 09/27/21 15:09> Prior episodes: No <Ofelia Alvarenga DO - Last Filed: 09/27/21 15:09> Onset: other (after a hard cough she felt a pop in right chest now has pain) <Ofelia Alvarenga DO - Last Filed: 09/27/21 15:09> Pain location: right chest <Ofelia Alvarenga DO - Last Filed: 09/27/21 15:09> Pain radiation: none <Ofelia Alvarenga DO - Last Filed: 09/27/21 15:09> Severity: moderate <Ofelia Alvarenga DO - Last Filed: 09/27/21 15:09> Quality: sharp (well localized) <Ofelia Alvarenga DO - Last Filed: 09/27/21 15:09> Relieving factors: nothing <Ofelia Alvarenga DO - Last Filed: 09/27/21 15:09> Exacerbating factors: inspiration and movement <Ofelia Alvarenga DO - Last Filed: 09/27/21 15:09> Context: other (after a cough) <Ofelia Alvarenga DO - Last Filed: 09/27/21 15:09> Associated symptoms: other (both hands MCP joints swollen and painful no prior hx of RA) <Ofelia Alvarenga DO - Last Filed: 09/27/21 15:09> Treatment prior to arrival: none <Ofelia Alvarenga DO - Last Filed: 09/27/21 15:09> Related Data Home Medications: Home Medications Medication Instructions Recorded Confirmed tizanidine 2 mg tablet 2 mg PO Q8H PRN 07/23/20 09/16/21 dexamethasone 0.5 mg/5 mL oral ml PO 01/28/21 09/16/21 solution Previous Rx's Medication Instructions Recorded bupropion HCl 150 mg 24 hr tablet, 150 mg PO QAM #90 tab 09/22/20 extended release omeprazole 20 mg capsule,delayed 20 mg PO BID #180 cap 10/28/20 release sertraline 100 mg tablet 200 mg PO DAILY PRN 90 Days #180 04/30/21 tab loperamide 2 mg capsule 2 mg PO Q6H PRN 30 Days #90 cap 07/26/21 lorazepam 0.5 mg tablet 0.5 mg PO BID PRN #60 tab 08/11/21 clopidogrel 75 mg tablet 75 mg PO DAILY #90 tab 08/16/21 amitriptyline 50 mg tablet 50 mg PO BEDTIME #90 tab 08/23/21 lovastatin 40 mg tablet 40 mg PO DAILY #90 tab 08/27/21 tramadol 50 mg tablet 50 mg PO Q8H PRN 7 Days #20 tab 09/16/21 levofloxacin 500 mg tablet 500 mg PO DAILY #6 tab 09/27/21 <BELÉN Berger - Last Filed: 09/27/21 09:38> Allergies/Adverse Reactions: Allergies Allergy/AdvReac Type Severity Reaction Status Date / Time aspirin [ASPIRIN] Allergy Unknown ANAPHYLAXIS Verified 09/16/21 09:36 meperidine [From DEMEROL] Allergy Unknown ANAPHYLAXIS Verified 09/16/21 09:36 Penicillins [PENICILLINS] Allergy Unknown ANAPHYLAXIS Verified 09/16/21 09:36 Sulfa (Sulfonamide Allergy Unknown UNKNOWN Verified 09/16/21 09:36 Antibiotics) [SULFA (SULFONAMIDE ANTIBIOTICS)] dairy Allergy Unknown unknown Uncoded 07/22/20 14:00 lactose intolerance Allergy Unknown Unknown Uncoded 07/22/20 14:00 <BELÉN Berger - Last Filed: 09/27/21 09:38> Review of Systems Review of Systems: Constitutional : No Weight loss, No Fever, No Chills ENT/Mouth : No sore throat, No Rhinorrhea Eyes: No Eye Pain, No Swelling Cardiovascular : pos Chest Pain, no SOB, no Dyspnea on Exertion, No Orthopnea, No Edema, No Palpitations Respiratory : No Cough, No Sputum Gastrointestinal : no Nausea, No Vomiting, No Diarrhea, No abdominal Pain, No Hematochezia, No Melena Genitourinary : No Dysuria, No Urinary Frequency Musculoskeletal : pos joint pain, No Myalgias, pos Joint Swelling Skin : No Skin Lesions, No rash Neuro : No Weakness, No Numbness, No Dizziness, No Headache Psych : No Anxiety/Panic, No Depression Heme/Lymph: No Bruising, No Lymphadenopathy Endocrine : No Polyuria, No Polydipsia All other systems reviewed and are negative <Ofelia Alvarenga DO - Last Filed: 09/27/21 15:09> [facility]LY [facility] Past Medical History Attestation statement: The following information was validated with the patient. <Ofelia Alvarenga DO - Last Filed: 09/27/21 15:09> Medical History: Medical History Depression Fall Hyperlipidemia Hypertension Obesity Wrist pain <BELÉN Berger - Last Filed: 09/27/21 09:38> Surgical History: Surgical History History of appendectomy History of biopsy History of hysterectomy History of surgical removal of lesion <BELÉN Berger - Last Filed: 09/27/21 09:38> Family History Family History: Family History Father History of heart attack Mother Colon cancer <BELÉN Berger - Last Filed: 09/27/21 09:38> Social History Social History: Social History Housing: House Alcohol intake: never Patient Tobacco Use Status: Never used Tobacco e-Cigarette/Vaping Use: Never Used Second Hand Smoke Exposure: No Use of substances other than those prescribed or required for medical reasons: No Advance Directives: No Advance Directives Information Provided: Yes service: No Current occupational status: retired Cognitive needs: No Hearing needs: No Vision needs: No <BELÉN Berger - Last Filed: 09/27/21 09:38> Physical Exam Vital Signs: Vital Signs: Last Vital Signs Temp 98.0 F 09/27/21 13:12 Pulse 71 09/27/21 13:12 Resp 16 09/27/21 13:12 BP 140/61 H 09/27/21 13:12 Pulse Ox 97 09/27/21 13:12 BMI result Body Mass Index 29.2 <BELÉN Berger - Last Filed: 09/27/21 09:38> Vital Signs: Last Vital Signs Temp 98.0 F 09/27/21 13:12 Pulse 71 09/27/21 13:12 Resp 16 09/27/21 13:12 BP 140/61 H 09/27/21 13:12 Pulse Ox 97 09/27/21 13:12 BMI result Body Mass Index 29.2 <Ofelia Alvarenga DO - Last Filed: 09/27/21 15:09> Vital Signs: Last Vital Signs Temp 98.0 F 09/27/21 13:12 Pulse 71 09/27/21 13:12 Resp 16 09/27/21 13:12 BP 140/61 H 09/27/21 13:12 Pulse Ox 97 09/27/21 13:12 BMI result Body Mass Index 29.2 <Jennifer Bennett MD - Last Filed: 09/27/21 17:17> Appearance: Alert. Oriented X3. No acute distress. Eyes: Pupils equal, round and reactive to light. ENT: Pharynx normal. Neck: Normal inspection. Neck supple. CVS: Normal heart rate and rhythm. Pulses normal. Respiratory: No respiratory distress. Breath sounds normal. Abdomen: Soft and nontender. Skin: Skin warm and dry. Normal skin color. Normal skin turgor. Extremities: No lower extremity edema. bilateral mild swelling and tenderness to MCPs mild erythema mild warmth localized R wrist very mild swelling mild painful ROM Neuro: Oriented X 3. No motor deficit. No sensory deficit. <Ofelia Alvarenga DO - Last Filed: 09/27/21 15:09> Course Course Course Narrative: 9:30am - quick assessment. Patient alert and oriented x3. Vital signs are stable within normal limits. No deficits noted. Patient presenting to the ED with complaints of right-sided chest discomfort that started approximately 1 week ago after she sneezed and since then she has been having pain that is not reproducible. Reports that it radiates to her back. Reports it is worse with deep inspiration. Denies any trauma. Also reports bilateral shoulder/hand/arm pain. Denies any dizziness, headaches, paresthesias, SOB/ROBERTS, palpitations or abd pain. At this time will obtain labs, EKG and chest x-ray patient will be sent back to the waiting room at this time and will be called back when there is a room available. Patient understands agrees with this plan. <BELÉN Berger - Last Filed: 09/27/21 09:38> 9:30am - quick assessment. Patient alert and oriented x3. Vital signs are stable within normal limits. No deficits noted. Patient presenting to the ED with complaints of right-sided chest discomfort that started approximately 1 week ago after she sneezed and since then she has been having pain that is not reproducible. Reports that it radiates to her back. Reports it is worse with deep inspiration. Denies any trauma. Also reports bilateral shoulder/hand/arm pain. Denies any dizziness, headaches, paresthesias, SOB/ROBERTS, palpitations or abd pain. At this time will obtain labs, EKG and chest x-ray patient will be sent back to the waiting room at this time and will be called back when there is a room available. Patient understands agrees with this plan. 226pm at this time possible infection suspected lactic acid, cultures IV ceftriaxone ordered <Ofelia Alvarenga DO - Last Filed: 09/27/21 15:09> 9:30am - quick assessment. Patient alert and oriented x3. Vital signs are stable within normal limits. No deficits noted. Patient presenting to the ED with complaints of right-sided chest discomfort that started approximately 1 week ago after she sneezed and since then she has been having pain that is not reproducible. Reports that it radiates to her back. Reports it is worse with deep inspiration. Denies any trauma. Also reports bilateral shoulder/hand/arm pain. Denies any dizziness, headaches, paresthesias, SOB/ROBERTS, palpitations or abd pain. At this time will obtain labs, EKG and chest x-ray patient will be sent back to the waiting room at this time and will be called back when there is a room available. Patient understands agrees with this plan. 226pm at this time possible infection suspected lactic acid, cultures IV ceftriaxone ordered <Jennifer Bennett MD - Last Filed: 09/27/21 17:17> Reevaluation(s) Reevaluation #1: I received sign-out from Dr. Alvarenga. Patient has no chest pain, no shortness of breath, no lung popping sensation. V/Q scan shows low probability for PE. Patient will be discharged with antibiotic. <Jennifer Bennett MD - Last Filed: 09/27/21 17:17> Reevaluation #2: I was informed by the patient's nurse that the patient refused a 2nd set of cultures, no IV Levaquin was given. Her antibiotics were switched to p.o., 1st dose given in the ED 500 mg <Jennifer Bennett MD - Last Filed: 09/27/21 17:17> MDM - Chest Pain MDM Narrative Medical decision making narrative: 80 yo female with HTN, HLD, back pain< TIAs on plavix prior oral ulcers notes 1 week of R sided chest pain post cough on R side that hurts and makes it hard to breathe at this time labs ordered from waiting room - CT chest to r/o rib fractures, EKG troponin x 2, possible PE workup given pleuritic chest pain. Hand xrays given swollen joints possible rheumatologic issues she has not had prior RA in the past. No UE swelling to suggest DVT. Cannot take oral steroids given prior reaction in the past that has caused oral issues and extensive ulcers in the mouth. <Ofelia Alvarenga DO - Last Filed: 09/27/21 15:09> Lab Data Result diagrams: : 09/27/21 09:43 09/27/21 09:43 <BELÉN Berger - Last Filed: 09/27/21 09:38> Labs: Lab Results 09/27/21 09/27/21 09/27/21 Range/Units 09:43 09:43 09:43 WBC 5.7 (4.8-10.8) X10*3/uL RBC 3.61 L (4.20-5.50) X10*6/uL Hgb 11.6 L (12.0-16.0) g/dl Hct 35.0 L (37.0-47.0) % MCV 97.0 (80.0-98.0) fL MCH 32.1 (27.0-33.0) pg MCHC 33.1 (31.0-35.0) g/dl RDW 13.2 (11.0-16.0) % Plt Count 153 L (160-400) X10*3/uL MPV 13.0 H (9.4-12.3) fL Immature Gran % (Auto) 1.4 H (0.0-0.4) % Neut % (Auto) 79.6 H (45-73) % Lymph % (Auto) 10.5 L (20-40) % [place] % (Auto) 8.1 (2-11) % Eos % (Auto) 0.2 (0-4) % Baso % (Auto) 0.2 (0-2) % Lymph # (Auto) 0.6 L (1.2-4.9) X10*3/uL [place] # (Auto) 0.5 (0.1-1.2) X10*3/uL Eos # (Auto) 0.0 (0.0-0.4) X10*3/uL Baso # (Auto) 0.0 (0.0-0.2) X10*3/uL Abs Immat Gran (auto) 0.08 H (0.00-0.03) X10*3/uL Absolute Neuts (auto) 4.5 (2.0-8.3) x10*3/uL Absolute Nucleated RBC 0.000 (0.0-0.012) X10*3/uL Nucleated RBC % (auto) 0.0 (0.0-0.2) /100WBC PT 11.2 (9.9-13.0) SEC INR 1.0 (0.9-1.1) D-Dimer High Sensitivty 322 NG/ML Sodium 139 (135-145) mmol/L Potassium 5.3 H (3.3-5.1) mmol/L Chloride 106 (96-108) mmol/L Carbon Dioxide 26 (22-29) mmol/L Anion Gap 12 (12-20) BUN 36 H (9-16) mg/dL Creatinine 1.46 H (0.5-1.4) mg/dL Estim Creat Clear Calc 34.3 Estimated GFR 34 Random Glucose 100 (60-115) mg/dL Lactic Acid (0.5-2.0) mmol/L Uric Acid 4.6 (2.4-5.7) mg/dL Calcium 9.6 (8.4-10.2) mg/dL Magnesium 2.3 (1.6-2.6) mg/dL Total Bilirubin 0.3 (0.0-1.0) mg/dL AST 19 (5-31) U/L ALT 14 (0-31) U/L Alkaline Phosphatase 119 H D (39-117) U/L Troponin I High Sens (<3.5-17.0) ng/L B-Natriuretic Peptide (<100) pg/mL Total Protein 7.0 (6.5-8.0) g/dL Albumin 4.4 (3.5-5.0) g/dL COVID-19 ([facility]) (Negative) COVID-19 Clin Com 09/27/21 09/27/21 09/27/21 Range/Units 09:43 09:43 12:50 WBC (4.8-10.8) X10*3/uL RBC (4.20-5.50) X10*6/uL Hgb (12.0-16.0) g/dl Hct (37.0-47.0) % MCV (80.0-98.0) fL MCH (27.0-33.0) pg MCHC (31.0-35.0) g/dl RDW (11.0-16.0) % Plt Count (160-400) X10*3/uL MPV (9.4-12.3) fL Immature Gran % (Auto) (0.0-0.4) % Neut % (Auto) (45-73) % Lymph % (Auto) (20-40) % [place] % (Auto) (2-11) % Eos % (Auto) (0-4) % Baso % (Auto) (0-2) % Lymph # (Auto) (1.2-4.9) X10*3/uL [place] # (Auto) (0.1-1.2) X10*3/uL Eos # (Auto) (0.0-0.4) X10*3/uL Baso # (Auto) (0.0-0.2) X10*3/uL Abs Immat Gran (auto) (0.00-0.03) X10*3/uL Absolute Neuts (auto) (2.0-8.3) x10*3/uL Absolute Nucleated RBC (0.0-0.012) X10*3/uL Nucleated RBC % (auto) (0.0-0.2) /100WBC PT (9.9-13.0) SEC INR (0.9-1.1) D-Dimer High Sensitivty NG/ML Sodium (135-145) mmol/L Potassium (3.3-5.1) mmol/L Chloride (96-108) mmol/L Carbon Dioxide (22-29) mmol/L Anion Gap (12-20) BUN (9-16) mg/dL Creatinine (0.5-1.4) mg/dL Estim Creat Clear Calc Estimated GFR Random Glucose (60-115) mg/dL Lactic Acid (0.5-2.0) mmol/L Uric Acid (2.4-5.7) mg/dL Calcium (8.4-10.2) mg/dL Magnesium (1.6-2.6) mg/dL Total Bilirubin (0.0-1.0) mg/dL AST (5-31) U/L ALT (0-31) U/L Alkaline Phosphatase (39-117) U/L Troponin I High Sens 10.2 10.1 (<3.5-17.0) ng/L B-Natriuretic Peptide 112 H (<100) pg/mL Total Protein (6.5-8.0) g/dL Albumin (3.5-5.0) g/dL COVID-19 ([facility]) (Negative) COVID-19 Clin Com 09/27/21 09/27/21 Range/Units 12:50 15:37 WBC (4.8-10.8) X10*3/uL RBC (4.20-5.50) X10*6/uL Hgb (12.0-16.0) g/dl Hct (37.0-47.0) % MCV (80.0-98.0) fL MCH (27.0-33.0) pg MCHC (31.0-35.0) g/dl RDW (11.0-16.0) % Plt Count (160-400) X10*3/uL MPV (9.4-12.3) fL Immature Gran % (Auto) (0.0-0.4) % Neut % (Auto) (45-73) % Lymph % (Auto) (20-40) % [place] % (Auto) (2-11) % Eos % (Auto) (0-4) % Baso % (Auto) (0-2) % Lymph # (Auto) (1.2-4.9) X10*3/uL [place] # (Auto) (0.1-1.2) X10*3/uL Eos # (Auto) (0.0-0.4) X10*3/uL Baso # (Auto) (0.0-0.2) X10*3/uL Abs Immat Gran (auto) (0.00-0.03) X10*3/uL Absolute Neuts (auto) (2.0-8.3) x10*3/uL Absolute Nucleated RBC (0.0-0.012) X10*3/uL Nucleated RBC % (auto) (0.0-0.2) /100WBC PT (9.9-13.0) SEC INR (0.9-1.1) D-Dimer High Sensitivty NG/ML Sodium (135-145) mmol/L Potassium (3.3-5.1) mmol/L Chloride (96-108) mmol/L Carbon Dioxide (22-29) mmol/L Anion Gap (12-20) BUN (9-16) mg/dL Creatinine (0.5-1.4) mg/dL Estim Creat Clear Calc Estimated GFR Random Glucose (60-115) mg/dL Lactic Acid 2.1 H* (0.5-2.0) mmol/L Uric Acid (2.4-5.7) mg/dL Calcium (8.4-10.2) mg/dL Magnesium (1.6-2.6) mg/dL Total Bilirubin (0.0-1.0) mg/dL AST (5-31) U/L ALT (0-31) U/L Alkaline Phosphatase (39-117) U/L Troponin I High Sens (<3.5-17.0) ng/L B-Natriuretic Peptide (<100) pg/mL Total Protein (6.5-8.0) g/dL Albumin (3.5-5.0) g/dL COVID-19 ([facility]) Negative (Negative) COVID-19 Clin Com See Note <BELÉN Berger - Last Filed: 09/27/21 09:38> Lab Results 09/27/21 09/27/21 09/27/21 Range/Units 09:43 09:43 09:43 WBC 5.7 (4.8-10.8) X10*3/uL RBC 3.61 L (4.20-5.50) X10*6/uL Hgb 11.6 L (12.0-16.0) g/dl Hct 35.0 L (37.0-47.0) % MCV 97.0 (80.0-98.0) fL MCH 32.1 (27.0-33.0) pg MCHC 33.1 (31.0-35.0) g/dl RDW 13.2 (11.0-16.0) % Plt Count 153 L (160-400) X10*3/uL MPV 13.0 H (9.4-12.3) fL Immature Gran % (Auto) 1.4 H (0.0-0.4) % Neut % (Auto) 79.6 H (45-73) % Lymph % (Auto) 10.5 L (20-40) % [place] % (Auto) 8.1 (2-11) % Eos % (Auto) 0.2 (0-4) % Baso % (Auto) 0.2 (0-2) % Lymph # (Auto) 0.6 L (1.2-4.9) X10*3/uL [place] # (Auto) 0.5 (0.1-1.2) X10*3/uL Eos # (Auto) 0.0 (0.0-0.4) X10*3/uL Baso # (Auto) 0.0 (0.0-0.2) X10*3/uL Abs Immat Gran (auto) 0.08 H (0.00-0.03) X10*3/uL Absolute Neuts (auto) 4.5 (2.0-8.3) x10*3/uL Absolute Nucleated RBC 0.000 (0.0-0.012) X10*3/uL Nucleated RBC % (auto) 0.0 (0.0-0.2) /100WBC PT 11.2 (9.9-13.0) SEC INR 1.0 (0.9-1.1) D-Dimer High Sensitivty 322 NG/ML Sodium 139 (135-145) mmol/L Potassium 5.3 H (3.3-5.1) mmol/L Chloride 106 (96-108) mmol/L Carbon Dioxide 26 (22-29) mmol/L Anion Gap 12 (12-20) BUN 36 H (9-16) mg/dL Creatinine 1.46 H (0.5-1.4) mg/dL Estim Creat Clear Calc 34.3 Estimated GFR 34 Random Glucose 100 (60-115) mg/dL Lactic Acid (0.5-2.0) mmol/L Uric Acid 4.6 (2.4-5.7) mg/dL Calcium 9.6 (8.4-10.2) mg/dL Magnesium 2.3 (1.6-2.6) mg/dL Total Bilirubin 0.3 (0.0-1.0) mg/dL AST 19 (5-31) U/L ALT 14 (0-31) U/L Alkaline Phosphatase 119 H D (39-117) U/L Troponin I High Sens (<3.5-17.0) ng/L B-Natriuretic Peptide (<100) pg/mL Total Protein 7.0 (6.5-8.0) g/dL Albumin 4.4 (3.5-5.0) g/dL COVID-19 ([facility]) (Negative) COVID-19 Clin Com 09/27/21 09/27/21 09/27/21 Range/Units 09:43 09:43 12:50 WBC (4.8-10.8) X10*3/uL RBC (4.20-5.50) X10*6/uL Hgb (12.0-16.0) g/dl Hct (37.0-47.0) % MCV (80.0-98.0) fL MCH (27.0-33.0) pg MCHC (31.0-35.0) g/dl RDW (11.0-16.0) % Plt Count (160-400) X10*3/uL MPV (9.4-12.3) fL Immature Gran % (Auto) (0.0-0.4) % Neut % (Auto) (45-73) % Lymph % (Auto) (20-40) % [place] % (Auto) (2-11) % Eos % (Auto) (0-4) % Baso % (Auto) (0-2) % Lymph # (Auto) (1.2-4.9) X10*3/uL [place] # (Auto) (0.1-1.2) X10*3/uL Eos # (Auto) (0.0-0.4) X10*3/uL Baso # (Auto) (0.0-0.2) X10*3/uL Abs Immat Gran (auto) (0.00-0.03) X10*3/uL Absolute Neuts (auto) (2.0-8.3) x10*3/uL Absolute Nucleated RBC (0.0-0.012) X10*3/uL Nucleated RBC % (auto) (0.0-0.2) /100WBC PT (9.9-13.0) SEC INR (0.9-1.1) D-Dimer High Sensitivty NG/ML Sodium (135-145) mmol/L Potassium (3.3-5.1) mmol/L Chloride (96-108) mmol/L Carbon Dioxide (22-29) mmol/L Anion Gap (12-20) BUN (9-16) mg/dL Creatinine (0.5-1.4) mg/dL Estim Creat Clear Calc Estimated GFR Random Glucose (60-115) mg/dL Lactic Acid (0.5-2.0) mmol/L Uric Acid (2.4-5.7) mg/dL Calcium (8.4-10.2) mg/dL Magnesium (1.6-2.6) mg/dL Total Bilirubin (0.0-1.0) mg/dL AST (5-31) U/L ALT (0-31) U/L Alkaline Phosphatase (39-117) U/L Troponin I High Sens 10.2 10.1 (<3.5-17.0) ng/L B-Natriuretic Peptide 112 H (<100) pg/mL Total Protein (6.5-8.0) g/dL Albumin (3.5-5.0) g/dL COVID-19 ([facility]) (Negative) COVID-19 Clin Com 09/27/21 09/27/21 Range/Units 12:50 15:37 WBC (4.8-10.8) X10*3/uL RBC (4.20-5.50) X10*6/uL Hgb (12.0-16.0) g/dl Hct (37.0-47.0) % MCV (80.0-98.0) fL MCH (27.0-33.0) pg MCHC (31.0-35.0) g/dl RDW (11.0-16.0) % Plt Count (160-400) X10*3/uL MPV (9.4-12.3) fL Immature Gran % (Auto) (0.0-0.4) % Neut % (Auto) (45-73) % Lymph % (Auto) (20-40) % [place] % (Auto) (2-11) % Eos % (Auto) (0-4) % Baso % (Auto) (0-2) % Lymph # (Auto) (1.2-4.9) X10*3/uL [place] # (Auto) (0.1-1.2) X10*3/uL Eos # (Auto) (0.0-0.4) X10*3/uL Baso # (Auto) (0.0-0.2) X10*3/uL Abs Immat Gran (auto) (0.00-0.03) X10*3/uL Absolute Neuts (auto) (2.0-8.3) x10*3/uL Absolute Nucleated RBC (0.0-0.012) X10*3/uL Nucleated RBC % (auto) (0.0-0.2) /100WBC PT (9.9-13.0) SEC INR (0.9-1.1) D-Dimer High Sensitivty NG/ML Sodium (135-145) mmol/L Potassium (3.3-5.1) mmol/L Chloride (96-108) mmol/L Carbon Dioxide (22-29) mmol/L Anion Gap (12-20) BUN (9-16) mg/dL Creatinine (0.5-1.4) mg/dL Estim Creat Clear Calc Estimated GFR Random Glucose (60-115) mg/dL Lactic Acid 2.1 H* (0.5-2.0) mmol/L Uric Acid (2.4-5.7) mg/dL Calcium (8.4-10.2) mg/dL Magnesium (1.6-2.6) mg/dL Total Bilirubin (0.0-1.0) mg/dL AST (5-31) U/L ALT (0-31) U/L Alkaline Phosphatase (39-117) U/L Troponin I High Sens (<3.5-17.0) ng/L B-Natriuretic Peptide (<100) pg/mL Total Protein (6.5-8.0) g/dL Albumin (3.5-5.0) g/dL COVID-19 ([facility]) Negative (Negative) COVID-19 Clin Com See Note <Ofelia Alvarenga, DO - Last Filed: 09/27/21 15:09> Lab Results 09/27/21 09/27/21 09/27/21 Range/Units 09:43 09:43 09:43 WBC 5.7 (4.8-10.8) X10*3/uL RBC 3.61 L (4.20-5.50) X10*6/uL Hgb 11.6 L (12.0-16.0) g/dl Hct 35.0 L (37.0-47.0) % MCV 97.0 (80.0-98.0) fL MCH 32.1 (27.0-33.0) pg MCHC 33.1 (31.0-35.0) g/dl RDW 13.2 (11.0-16.0) % Plt Count 153 L (160-400) X10*3/uL MPV 13.0 H (9.4-12.3) fL Immature Gran % (Auto) 1.4 H (0.0-0.4) % Neut % (Auto) 79.6 H (45-73) % Lymph % (Auto) 10.5 L (20-40) % [place] % (Auto) 8.1 (2-11) % Eos % (Auto) 0.2 (0-4) % Baso % (Auto) 0.2 (0-2) % Lymph # (Auto) 0.6 L (1.2-4.9) X10*3/uL [place] # (Auto) 0.5 (0.1-1.2) X10*3/uL Eos # (Auto) 0.0 (0.0-0.4) X10*3/uL Baso # (Auto) 0.0 (0.0-0.2) X10*3/uL Abs Immat Gran (auto) 0.08 H (0.00-0.03) X10*3/uL Absolute Neuts (auto) 4.5 (2.0-8.3) x10*3/uL Absolute Nucleated RBC 0.000 (0.0-0.012) X10*3/uL Nucleated RBC % (auto) 0.0 (0.0-0.2) /100WBC PT 11.2 (9.9-13.0) SEC INR 1.0 (0.9-1.1) D-Dimer High Sensitivty 322 NG/ML Sodium 139 (135-145) mmol/L Potassium 5.3 H (3.3-5.1) mmol/L Chloride 106 (96-108) mmol/L Carbon Dioxide 26 (22-29) mmol/L Anion Gap 12 (12-20) BUN 36 H (9-16) mg/dL Creatinine 1.46 H (0.5-1.4) mg/dL Estim Creat Clear Calc 34.3 Estimated GFR 34 Random Glucose 100 (60-115) mg/dL Lactic Acid (0.5-2.0) mmol/L Uric Acid 4.6 (2.4-5.7) mg/dL Calcium 9.6 (8.4-10.2) mg/dL Magnesium 2.3 (1.6-2.6) mg/dL Total Bilirubin 0.3 (0.0-1.0) mg/dL AST 19 (5-31) U/L ALT 14 (0-31) U/L Alkaline Phosphatase 119 H D (39-117) U/L Troponin I High Sens (<3.5-17.0) ng/L B-Natriuretic Peptide (<100) pg/mL Total Protein 7.0 (6.5-8.0) g/dL Albumin 4.4 (3.5-5.0) g/dL COVID-19 ([facility]) (Negative) COVID-19 Clin Com 09/27/21 09/27/21 09/27/21 Range/Units 09:43 09:43 12:50 WBC (4.8-10.8) X10*3/uL RBC (4.20-5.50) X10*6/uL Hgb (12.0-16.0) g/dl Hct (37.0-47.0) % MCV (80.0-98.0) fL MCH (27.0-33.0) pg MCHC (31.0-35.0) g/dl RDW (11.0-16.0) % Plt Count (160-400) X10*3/uL MPV (9.4-12.3) fL Immature Gran % (Auto) (0.0-0.4) % Neut % (Auto) (45-73) % Lymph % (Auto) (20-40) % [place] % (Auto) (2-11) % Eos % (Auto) (0-4) % Baso % (Auto) (0-2) % Lymph # (Auto) (1.2-4.9) X10*3/uL [place] # (Auto) (0.1-1.2) X10*3/uL Eos # (Auto) (0.0-0.4) X10*3/uL Baso # (Auto) (0.0-0.2) X10*3/uL Abs Immat Gran (auto) (0.00-0.03) X10*3/uL Absolute Neuts (auto) (2.0-8.3) x10*3/uL Absolute Nucleated RBC (0.0-0.012) X10*3/uL Nucleated RBC % (auto) (0.0-0.2) /100WBC PT (9.9-13.0) SEC INR (0.9-1.1) D-Dimer High Sensitivty NG/ML Sodium (135-145) mmol/L Potassium (3.3-5.1) mmol/L Chloride (96-108) mmol/L Carbon Dioxide (22-29) mmol/L Anion Gap (12-20) BUN (9-16) mg/dL Creatinine (0.5-1.4) mg/dL Estim Creat Clear Calc Estimated GFR Random Glucose (60-115) mg/dL Lactic Acid (0.5-2.0) mmol/L Uric Acid (2.4-5.7) mg/dL Calcium (8.4-10.2) mg/dL Magnesium (1.6-2.6) mg/dL Total Bilirubin (0.0-1.0) mg/dL AST (5-31) U/L ALT (0-31) U/L Alkaline Phosphatase (39-117) U/L Troponin I High Sens 10.2 10.1 (<3.5-17.0) ng/L B-Natriuretic Peptide 112 H (<100) pg/mL Total Protein (6.5-8.0) g/dL Albumin (3.5-5.0) g/dL COVID-19 ([facility]) (Negative) COVID-19 Clin Com 09/27/21 09/27/21 Range/Units 12:50 15:37 WBC (4.8-10.8) X10*3/uL RBC (4.20-5.50) X10*6/uL Hgb (12.0-16.0) g/dl Hct (37.0-47.0) % MCV (80.0-98.0) fL MCH (27.0-33.0) pg MCHC (31.0-35.0) g/dl RDW (11.0-16.0) % Plt Count (160-400) X10*3/uL MPV (9.4-12.3) fL Immature Gran % (Auto) (0.0-0.4) % Neut % (Auto) (45-73) % Lymph % (Auto) (20-40) % [place] % (Auto) (2-11) % Eos % (Auto) (0-4) % Baso % (Auto) (0-2) % Lymph # (Auto) (1.2-4.9) X10*3/uL [place] # (Auto) (0.1-1.2) X10*3/uL Eos # (Auto) (0.0-0.4) X10*3/uL Baso # (Auto) (0.0-0.2) X10*3/uL Abs Immat Gran (auto) (0.00-0.03) X10*3/uL Absolute Neuts (auto) (2.0-8.3) x10*3/uL Absolute Nucleated RBC (0.0-0.012) X10*3/uL Nucleated RBC % (auto) (0.0-0.2) /100WBC PT (9.9-13.0) SEC INR (0.9-1.1) D-Dimer High Sensitivty NG/ML Sodium (135-145) mmol/L Potassium (3.3-5.1) mmol/L Chloride (96-108) mmol/L Carbon Dioxide (22-29) mmol/L Anion Gap (12-20) BUN (9-16) mg/dL Creatinine (0.5-1.4) mg/dL Estim Creat Clear Calc Estimated GFR Random Glucose (60-115) mg/dL Lactic Acid 2.1 H* (0.5-2.0) mmol/L Uric Acid (2.4-5.7) mg/dL Calcium (8.4-10.2) mg/dL Magnesium (1.6-2.6) mg/dL Total Bilirubin (0.0-1.0) mg/dL AST (5-31) U/L ALT (0-31) U/L Alkaline Phosphatase (39-117) U/L Troponin I High Sens (<3.5-17.0) ng/L B-Natriuretic Peptide (<100) pg/mL Total Protein (6.5-8.0) g/dL Albumin (3.5-5.0) g/dL COVID-19 (SEAN) Negative (Negative) COVID-19 Clin Com See Note <Jennifer Bennett MD - Last Filed: 09/27/21 17:17> Imaging Data V/Q scan: Radiologist's impression: COMPARISON: No previous lung scan is available for comparison. Radiographs of the chest dated 09/27/[address] scan of the chest on the same date are available for comparison. TECHNIQUE: Following the intravenous injection of 3.1 mCi Tc-99m MAA,? an 8-view perfusion study was performed using a gamma scintillation camera. FINDINGS: No segmental perfusion defects are present. There is minimal heterogeneity in the distribution of activity bilaterally. There are no focal anatomic appearing perfusion defects present. NM/NM pul perfusion IMPRESSION: Very low probability of pulmonary embolism. <Jennifer Bennett MD - Last Filed: 09/27/21 17:17> ECG Data ECG #1: Attestation: I personally reviewed and interpreted this ECG as follows: <Ofelia Alvarenga DO - Last Filed: 09/27/21 15:09> ECG interpretation date: 09/27/21 <Ofelia Alvarenga DO - Last Filed: 09/27/21 15:09> ECG interpretation time: 12:40 <Ofelia Alvarenga DO - Last Filed: 09/27/21 15:09> Interpretation: Rate: 71 Rhythm: NSR [place]: normal Normal P waves. Normal OUSMANE. Normal QRS complex. ST T wave : normal no DEYANIRA qTC: normal prior studies: no acute ischemia The study has been interpreted contemporaneously by me. . <Ofelia Alvarenga DO - Last Filed: 09/27/21 15:09> Discharge Plan Discharge Clinical Impression: Pneumonia Qualifiers: Pneumonia type: due to unspecified organism Laterality: bilateral Lung location: unspecified part of lung Qualified Code(s): J18.9 - Pneumonia, unspecified organism <BELÉN Berger - Last Filed: 09/27/21 09:38> Patient Disposition: Home, Self-Care <BELÉN Berger - Last Filed: 09/27/21 09:38> Instructions: Pneumonia (ED) <BELÉN Berger - Last Filed: 09/27/21 09:38> Additional Instructions: Please follow-up with your primary care physician tomorrow. If you have any worsening or new symptoms, please return to the emergency room or call 911 <BELÉN Berger - Last Filed: 09/27/21 09:38> Prescriptions: New levofloxacin 500 mg tablet 500 mg PO DAILY Qty: 6 RF: 0 No Action bupropion HCl 150 mg tablet extended release 24 hr 150 mg PO QAM Qty: 90 RF: 8 omeprazole 20 mg capsule,delayed release(DR/EC) 20 mg PO BID Qty: 180 RF: 8 loperamide 2 mg capsule 2 mg PO Q6H PRN (Reason: loose stool) 30 Days Qty: 90 RF: 8 lorazepam 0.5 mg tablet 0.5 mg PO BID PRN (Reason: anxiety) Qty: 60 RF: 5 clopidogrel 75 mg tablet 75 mg PO DAILY Qty: 90 RF: 1 amitriptyline 50 mg tablet 50 mg PO BEDTIME Qty: 90 RF: 8 lovastatin 40 mg tablet 40 mg PO DAILY Qty: 90 RF: 8 tizanidine 2 mg tablet 2 mg PO Q8H PRNRF: 0 dexamethasone 0.5 mg/5 mL solution PO RF: 0 sertraline 100 mg tablet 200 mg PO DAILY PRN (Reason: depression) 90 Days Qty: 180 RF: 4 tramadol 50 mg tablet 50 mg PO Q8H PRN (Reason: pain) 7 Days Qty: 20 RF: 0 <BELÉN Berger - Last Filed: 09/27/21 09:38>
[2021-09-27 09:47] LABS: MANUAL DIFF FLAG NO
[2021-09-27 09:51] LABS: Basophils Percent Auto 0.2 % (0-2); Eosinophils Percent Auto 0.2 % (0-4); Hemoglobin 11.6 g/dl (12.0-16.0); Imm Gran Abs Auto 0.08 X10*3/uL (0.00-0.03); Imm Gran Pct Auto 1.4 % (0.0-0.4); Lymphocytes Absolute Auto 0.6 X10*3/uL (1.2-4.9); Lymphocytes Percent Auto 10.5 % (20-40); Mean Corpuscular HGB Conc 33.1 g/dl (31.0-35.0); Mean Corpuscular Hemoglobin 32.1 pg (27.0-33.0); Monocytes Absolute Auto 0.5 X10*3/uL (0.1-1.2); Monocytes Percent Auto 8.1 % (2-11); Neutrophils Absolute Auto 4.5 x10*3/uL (2.0-8.3); Neutrophils Percent Auto 79.6 % (45-73); Platelet Count 153 X10*3/uL (160-400); Red Blood Count 3.61 X10*6/uL (4.20-5.50); Red Cell Distribution Width 13.2 % (11.0-16.0); White Blood Count 5.7 X10*3/uL (4.8-10.8)
[2021-09-27 10:06] LABS: Prothrombin Time 11.2 SEC (9.9-13.0)
[2021-09-27 10:12] LABS: Alanine Aminotransferase 14 U/L (0-31); Albumin Level 4.4 g/dL (3.5-5.0); Alkaline Phosphatase 119 U/L (39-117); Anion Gap 12 (12-20); Aspartate Amino Transferase 19 U/L (5-31); Bilirubin Total 0.3 mg/dL (0.0-1.0); Blood Urea Nitrogen 36 mg/dL (9-16); Calcium 9.6 mg/dL (8.4-10.2); Carbon Dioxide 26 mmol/L (22-29); Chloride 106 mmol/L (96-108); Creatinine Clr Calc Pharmacy 34.3; Estimated Glomerular Filt Rate 34; Glucose Random 100 mg/dL (60-115); Magnesium 2.3 mg/dL (1.6-2.6); Potassium 5.3 mmol/L (3.3-5.1); Sodium 139 mmol/L (135-145)
[2021-09-27 10:13] LABS: B Type Natriuretic Peptide 112 pg/mL (<100); Troponin-I High Sensitivity 10.2 ng/L (<3.5-17.0)
--- NOTE | 2021-09-27 12:15 | ECG_ITS ---
Test Reason : Swollen hands/ difficulty with deep breaths Blood Pressure : / mmHG Vent. Rate : 071 BPM Atrial Rate : 071 BPM P-R Int : 182 ms QRS Dur : 072 ms QT Int : 398 ms P-R-T Axes : 006 010 046 degrees QTc Int : 432 ms Normal sinus rhythm Normal ECG When compared with ECG of 09-MAY-2018 09:56, No significant changes seen Referred By: Ofelia Alvarenga Electronically Signed By:DRE PAINTER
[2021-09-27 12:33] LABS: D Dimer High Sensitivity 322 NG/ML
[2021-09-27 12:41] VITALS: BP 141/67; PULSE 72; RESP 16; TEMP 36.7; O2SAT 98
[2021-09-27 13:12] VITALS: BP 140/61; PULSE 71; RESP 16; TEMP 36.7; O2SAT 97
[2021-09-27 13:23] LABS: Troponin-I High Sensitivity 10.1 ng/L (<3.5-17.0)
[2021-09-27 13:29] LABS: COVID-19 Test Negative (Negative)
[2021-09-27 15:26] LABS: Uric Acid 4.6 mg/dL (2.4-5.7)
--- NOTE | 2021-09-27 16:02 | PC.NURSE ---
assumed care of this PT at 1500 - pt refused IV and blood work. attempted by several RNs. pt finally agreeable to IV - 22G placed in L forearm, lactic and first set of cultures obtained. pt then transported to Nuclear Medicine. will attempt second culture draw when pt returns. Levaquin order late due to blood culture refusal.
[2021-09-27 16:17] LABS: Lactic Acid 2.1 mmol/L (0.5-2.0)
--- NOTE | 2021-09-27 17:16 | PC.NURSE ---
pt continues to refuse second set of cultures. back from nuclear medicine and pt continues to refuse. d/c paperwork in and Dr. Bennett made aware of pts refusal of second culture set. aware and oked PO abx without second culture set drawn.
--- NOTE | 2021-09-27 17:33 | PC.NURSE ---
PO Levaquin ordered instead of IV as pt is going to be d/c following nuc. med
[2021-09-27] MEDS: levoFLOXacin 500 MG TABLET PO (17:37)
[2021-09-27 17:40] LABS: Reflex Lactate? Lactic Acid Added
== END 2021-09-27 17:50 | disposition home or self-care (01) ==
PROVIDERS: Emergency Medicine; Physician Assistant Medical; Emergency Provider Emergency Medicine; PCP Internal Medicine
DX: J18.9 Pneumonia, unspecified organism (principal); Z20.822 Contact with and (suspected) exposure to COVID-19; I10 Essential (primary) hypertension; Z86.73 Personal history of transient ischemic attack (TIA), and cerebral infarction without residual deficits
CPT/HCPCS: 36415; 71046; 71250; 73130; 78580; 80053; 83605; 83735; 83880; 84484; 84550; 85025; 85379; 85610; 87040; 87635; 93005; 96365; 99284; 99285; A9540

== ENCOUNTER 2021-10-04 09:32 | Outpatient (REF) | payer OTHER, SELFPAY ==
--- NOTE | ~2021-10-04 | XR_ITS ---
EXAMINATION: XR SHOULDER, RIGHT XR SHOULDER, LEFT CLINICAL INFORMATION: Pain in unspecified shoulder. COMPARISON: None TECHNIQUE: AP external, Grashey, scapular Y and axillary views (5 images on each side) of each shoulder are obtained. FINDINGS: Right Shoulder: There is no acute fracture or malalignment. There are marginal osteophytes involving the glenohumeral joint with no definite joint space narrowing. There is minor osteoarthritis of the acromioclavicular joint. Left Shoulder: There is no acute fracture or malalignment. There are marginal osteophytes involving the glenohumeral joint with mild joint space narrowing. There is minor osteoarthritis of the acromioclavicular joint. XR/XR shoulder RT min 2V IMPRESSION: Right Shoulder: Mild osteoarthritis of the glenohumeral joint and minor osteoarthritis of the acromioclavicular joint. Left Shoulder: Mild osteoarthritis of the glenohumeral joint and minor osteoarthritis of the acromioclavicular joint.
--- NOTE | ~2021-10-04 | XR_ITS ---
EXAMINATION: XR SHOULDER, RIGHT XR SHOULDER, LEFT CLINICAL INFORMATION: Pain in unspecified shoulder. COMPARISON: None TECHNIQUE: AP external, Grashey, scapular Y and axillary views (5 images on each side) of each shoulder are obtained. FINDINGS: Right Shoulder: There is no acute fracture or malalignment. There are marginal osteophytes involving the glenohumeral joint with no definite joint space narrowing. There is minor osteoarthritis of the acromioclavicular joint. Left Shoulder: There is no acute fracture or malalignment. There are marginal osteophytes involving the glenohumeral joint with mild joint space narrowing. There is minor osteoarthritis of the acromioclavicular joint. XR/XR shoulder LT min 2V IMPRESSION: Right Shoulder: Mild osteoarthritis of the glenohumeral joint and minor osteoarthritis of the acromioclavicular joint. Left Shoulder: Mild osteoarthritis of the glenohumeral joint and minor osteoarthritis of the acromioclavicular joint.
== END 2021-10-04 09:33 | disposition home or self-care (01) ==
LOC: HO.XRAY 09:32
PROVIDERS: PCP Internal Medicine; Visit Provider Internal Medicine
DX: M25.511 Pain in right shoulder (principal); M25.512 Pain in left shoulder; G89.29 Other chronic pain
CPT/HCPCS: 73030

== ENCOUNTER 2022-01-06 09:55 | Outpatient (REF) | payer OTHER, SELFPAY ==
[2022-01-06 10:37] LABS: MANUAL DIFF FLAG NO
[2022-01-06 11:04] LABS: Basophils Percent Auto 0.2 % (0-2); Eosinophils Absolute Auto 0.1 X10*3/uL (0.0-0.4); Eosinophils Percent Auto 1.3 % (0-4); Hematocrit 35.2 % (37.0-47.0); Hemoglobin 11.7 g/dl (12.0-16.0); Imm Gran Abs Auto 0.06 X10*3/uL (0.00-0.03); Imm Gran Pct Auto 1.3 % (0.0-0.4); Lymphocytes Absolute Auto 0.6 X10*3/uL (1.2-4.9); Lymphocytes Percent Auto 13.1 % (20-40); Mean Corpuscular HGB Conc 33.2 g/dl (31.0-35.0); Mean Corpuscular Hemoglobin 32.6 pg (27.0-33.0); Mean Corpuscular Volume 98.1 fL (80.0-98.0); Mean Platelet Volume 13.4 fL (9.4-12.3); Monocytes Absolute Auto 0.4 X10*3/uL (0.1-1.2); Monocytes Percent Auto 8.6 % (2-11); Neutrophils Absolute Auto 3.5 x10*3/uL (2.0-8.3); Neutrophils Percent Auto 75.5 % (45-73); Platelet Count 109 X10*3/uL (160-400); Red Blood Count 3.59 X10*6/uL (4.20-5.50); Red Cell Distribution Width 13.1 % (11.0-16.0); White Blood Count 4.7 X10*3/uL (4.8-10.8)
[2022-01-06 11:48] LABS: Alanine Aminotransferase 15 U/L (0-31); Albumin Level 4.7 g/dL (3.5-5.0); Alkaline Phosphatase 108 U/L (39-117); Anion Gap 15 (12-20); Aspartate Amino Transferase 19 U/L (5-31); Bilirubin Total 0.4 mg/dL (0.0-1.0); Blood Urea Nitrogen 42 mg/dL (9-16); Calcium 10.4 mg/dL (8.4-10.2); Carbon Dioxide 26 mmol/L (22-29); Chloride 104 mmol/L (96-108); Cholesterol 125 mg/dL; Estimated Glomerular Filt Rate 30; Glucose Fasting 99 mg/dL (60-99); HDL Cholesterol 39 mg/dL; LDL Cholesterol Calculated 60 mg/dl; Potassium 4.9 mmol/L (3.3-5.1); Sodium 140 mmol/L (135-145); Total Protein 7.3 g/dL (6.5-8.0); Triglycerides 132 mg/dL
[2022-01-06 11:54] LABS: Thyroid Stimulating Hormone 1.27 uIU/mL (0.32-4.0)
== END 2022-01-06 09:56 | disposition home or self-care (01) ==
LOC: HO.LAB 09:55
PROVIDERS: PCP Internal Medicine; Visit Provider Internal Medicine
DX: Z00.00 Encounter for general adult medical examination without abnormal findings (principal); Z13.0 Encounter for screening for diseases of the blood and blood-forming organs and certain disorders involving the immune mechanism
CPT/HCPCS: 36415; 80053; 80061; 84443; 85025

== ENCOUNTER 2022-04-07 09:54 | Outpatient (REF) | payer OTHER, SELFPAY ==
[2022-04-07 10:07] LABS: MANUAL DIFF FLAG NO
[2022-04-07 10:59] LABS: Basophils Percent Auto 0.2 % (0-2); Eosinophils Percent Auto 0.4 % (0-4); Hematocrit 35.6 % (37.0-47.0); Hemoglobin 11.7 g/dl (12.0-16.0); Imm Gran Abs Auto 0.07 X10*3/uL (0.00-0.03); Imm Gran Pct Auto 1.4 % (0.0-0.4); Lymphocytes Absolute Auto 0.6 X10*3/uL (1.2-4.9); Lymphocytes Percent Auto 12.2 % (20-40); Mean Corpuscular HGB Conc 32.9 g/dl (31.0-35.0); Mean Corpuscular Hemoglobin 32.3 pg (27.0-33.0); Mean Corpuscular Volume 98.3 fL (80.0-98.0); Mean Platelet Volume 13.2 fL (9.4-12.3); Monocytes Absolute Auto 0.4 X10*3/uL (0.1-1.2); Monocytes Percent Auto 8.7 % (2-11); Neutrophils Absolute Auto 3.7 x10*3/uL (2.0-8.3); Neutrophils Percent Auto 77.1 % (45-73); Platelet Count 129 X10*3/uL (160-400); Red Blood Count 3.62 X10*6/uL (4.20-5.50); Red Cell Distribution Width 13.6 % (11.0-16.0); White Blood Count 4.9 X10*3/uL (4.8-10.8)
[2022-04-07 11:47] LABS: Thyroid Stimulating Hormone 1.57 uIU/mL (0.32-4.0)
[2022-04-07 11:47] LABS: Anion Gap 14 (12-20); Blood Urea Nitrogen 44 mg/dL (9-16); Calcium 10.3 mg/dL (8.4-10.2); Carbon Dioxide 25 mmol/L (22-29); Chloride 106 mmol/L (96-108); Estimated Glomerular Filt Rate 28; Glucose Random 98 mg/dL (60-115); Potassium 4.9 mmol/L (3.3-5.1); Sodium 140 mmol/L (135-145)
[2022-04-07 11:50] LABS: Cholesterol 138 mg/dL; HDL Cholesterol 46 mg/dL; LDL Cholesterol Calculated 62 mg/dl; Triglycerides 151 mg/dL
== END 2022-04-07 09:55 | disposition home or self-care (01) ==
LOC: HO.LAB 09:54
PROVIDERS: Absent Provider Internal Medicine Hypertension Specialist; PCP Internal Medicine; Visit Provider Internal Medicine
DX: E03.9 Hypothyroidism, unspecified (principal); E78.5 Hyperlipidemia, unspecified; N18.32 Chronic kidney disease, stage 3b
CPT/HCPCS: 36415; 80048; 80061; 84443; 85025

== ENCOUNTER 2022-07-11 08:21 | Outpatient (REF) | payer OTHER, SELFPAY ==
[2022-07-11 10:08] LABS: Cholesterol 127 mg/dL; HDL Cholesterol 44 mg/dL; LDL Cholesterol Calculated 58 mg/dl; Triglycerides 128 mg/dL
== END 2022-07-11 08:22 | disposition home or self-care (01) ==
LOC: HO.LAB 08:21
PROVIDERS: Visit Provider Internal Medicine
DX: E78.5 Hyperlipidemia, unspecified (principal)
CPT/HCPCS: 36415; 80061

== ENCOUNTER 2022-09-19 09:55 | Outpatient (REF) | payer OTHER, SELFPAY ==
--- NOTE | 2022-09-19 11:46 | PFT_ITS ---
INDICATION: Dyspnea. SPIROMETRY: FEV1 to FVC of 85% with an FEV1 of 2.36 L, which is 109% predicted; FVC of 2.77 L, which is 95% predicted. No significant response to bronchodilators noted. Maximum voluntary ventilation 68% predicted. LUNG VOLUMES: Total lung capacity 92% predicted with an expiratory reserve volume of 21% predicted. DIFFUSION CAPACITY: DLCO of 59% predicted. COMPARISONS: None available. INTERPRETATION: No obstructive nor restrictive ventilatory defects identified. No significant response to bronchodilators noted. However, the patient does have a mild to moderate decrease in maximum voluntary ventilation secondary to deconditioning although cannot rule out neuromuscular conditions. Lung volumes are within normal limits except for decrease in the expiratory reserve volume, likely secondary to an elevated BMI. The patient, however, has isolated moderate diffusion impairment. Need to consider underlying pulmonary vascular conditions and/or occult interstitial lung conditions. Should also correct for hemoglobin. Clinical correlation warranted. MD KEANU Shultz/CHASE / [id number]
== END 2022-09-19 09:56 | disposition home or self-care (01) ==
LOC: HO.RESP 09:55
PROVIDERS: PCP Internal Medicine; Visit Provider Internal Medicine
DX: R06.09 Other forms of dyspnea (principal)
CPT/HCPCS: 94060; 94727; 94729

== ENCOUNTER 2022-10-14 09:22 | Outpatient (REF) | payer OTHER, SELFPAY ==
[2022-10-14 10:22] LABS: Basophils Percent Auto 0.4 % (0-2); Eosinophils Percent Auto 0.4 % (0-4); Hematocrit 34.1 % (37.0-47.0); Hemoglobin 11.4 g/dl (12.0-16.0); Imm Gran Pct Auto 1.8 % (0.0-0.4); Lymphocytes Absolute Auto 0.6 X10*3/uL (1.2-4.9); Lymphocytes Percent Auto 10.5 % (20-40); MANUAL DIFF FLAG SCAN; Mean Corpuscular HGB Conc 33.4 g/dl (31.0-35.0); Mean Corpuscular Hemoglobin 33.7 pg (27.0-33.0); Mean Corpuscular Volume 100.9 fL (80.0-98.0); Mean Platelet Volume 14.3 fL (9.4-12.3); Monocytes Absolute Auto 0.5 X10*3/uL (0.1-1.2); Monocytes Percent Auto 8.5 % (2-11); NRBC Pct Auto 0.4 /100WBC (0.0-0.2); Neutrophils Absolute Auto 4.4 x10*3/uL (2.0-8.3); Neutrophils Percent Auto 78.4 % (45-73); PLT CLUMP 1; Red Blood Count 3.38 X10*6/uL (4.20-5.50); SCAN SMEAR FLAG 1
[2022-10-14 10:23] LABS: White Blood Count 5.6 X10*3/uL (4.8-10.8)
[2022-10-14 10:24] LABS: Red Cell Distribution Width 13.1 % (11.0-16.0)
[2022-10-14 10:45] LABS: Platelet Count 112 X10*3/uL (160-400); SLIDE REVIEW VERIFIED
[2022-10-14 11:18] LABS: Alanine Aminotransferase 16 U/L (0-31); Albumin Level 4.8 g/dL (3.5-5.0); Alkaline Phosphatase 122 U/L (39-117); Anion Gap 17 (12-20); Aspartate Amino Transferase 20 U/L (5-31); Bilirubin Total 0.5 mg/dL (0.0-1.0); Blood Urea Nitrogen 41 mg/dL (9-16); Calcium 10.1 mg/dL (8.4-10.2); Carbon Dioxide 25 mmol/L (22-29); Chloride 106 mmol/L (96-108); Cholesterol 119 mg/dL; Estimated Glomerular Filt Rate 30; Glucose Fasting 100 mg/dL (60-99); HDL Cholesterol 43 mg/dL; LDL Cholesterol Calculated 48 mg/dl; Potassium 4.9 mmol/L (3.3-5.1); Sodium 143 mmol/L (135-145); Total Protein 7.2 g/dL (6.5-8.0); Triglycerides 140 mg/dL
== END 2022-10-14 09:23 | disposition home or self-care (01) ==
LOC: HO.LAB 09:22
PROVIDERS: PCP Internal Medicine; Visit Provider Internal Medicine
DX: E78.5 Hyperlipidemia, unspecified (principal); N28.9 Disorder of kidney and ureter, unspecified; D64.9 Anemia, unspecified
CPT/HCPCS: 36415; 80053; 80061; 85025

== ENCOUNTER → 2023-01-11 11:55 | Outpatient (BNVA) | payer OTHER, SELFPAY | PROVIDERS: PCP Internal Medicine; Referring Provider Internal Medicine; Visit Provider Internal Medicine | DX: Z13.89 Encounter for screening for other disorder (principal) ==

== ENCOUNTER 2023-01-20 08:52 | Outpatient (REF) | payer OTHER, SELFPAY ==
[2023-01-20 11:43] LABS: Cholesterol 120 mg/dL; HDL Cholesterol 40 mg/dL; LDL Cholesterol Calculated 51 mg/dl; Triglycerides 147 mg/dL
[2023-01-20 11:58] LABS: Alanine Aminotransferase 15 U/L (0-31); Albumin Level 4.8 g/dL (3.5-5.0); Alkaline Phosphatase 120 U/L (39-117); Anion Gap 16 (12-20); Aspartate Amino Transferase 21 U/L (5-31); Bilirubin Total 0.7 mg/dL (0.0-1.0); Blood Urea Nitrogen 35 mg/dL (9-16); Calcium 9.7 mg/dL (8.4-10.2); Carbon Dioxide 22 mmol/L (22-29); Chloride 109 mmol/L (96-108); Cholesterol 120 mg/dL; Estimated Glomerular Filt Rate 27; Glucose Fasting 98 mg/dL (60-99); HDL Cholesterol 39 mg/dL; LDL Cholesterol Calculated 52 mg/dl; Potassium 4.8 mmol/L (3.3-5.1); Sodium 142 mmol/L (135-145); Thyroid Stimulating Hormone 1.59 uIU/mL (0.32-4.0); Total Protein 7.1 g/dL (6.5-8.0); Triglycerides 149 mg/dL
[2023-01-20 12:06] LABS: Thyroid Stimulating Hormone 1.75 uIU/mL (0.32-4.0)
== END 2023-01-20 08:53 | disposition home or self-care (01) ==
LOC: HO.LAB 08:52
PROVIDERS: PCP Internal Medicine; Visit Provider Internal Medicine
DX: N28.9 Disorder of kidney and ureter, unspecified (principal); E03.9 Hypothyroidism, unspecified; E78.5 Hyperlipidemia, unspecified
CPT/HCPCS: 36415; 80053; 80061; 84443

== ENCOUNTER 2023-03-28 11:53 | Outpatient (REF) | payer OTHER, SELFPAY | END 2023-03-28 11:54 | disposition home or self-care (01) | LOC: HO.XRAY 11:53 | PROVIDERS: PCP Internal Medicine; Visit Provider Internal Medicine | DX: M25.551 Pain in right hip (principal) | CPT/HCPCS: 73502 ==

== ENCOUNTER 2023-04-20 10:22 | Outpatient (RCR) | payer OTHER, SELFPAY | END 2023-04-20 11:31 | disposition home or self-care (01) | LOC: HO.PT 10:22 | PROVIDERS: PCP Internal Medicine; Visit Provider Internal Medicine | DX: M25.551 Pain in right hip (principal) ==

== ENCOUNTER 2023-06-08 09:25 | Outpatient (AMB) | payer OTHER, SELFPAY ==
--- NOTE | 2023-06-08 09:34 | MHC.OFFVIS ---
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 Patient reports about 4 months ago she woke up to a loud snap in her right leg and felt a pulling sensation. Currently constant pain in her right groin area that travels to right hip area. Difficulty with lifting leg. She thinks its a tear and is requesting to have an MRI. Referred to PT but was not able to attend due to her pain. Tylenol with little to no relief. 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 in her right leg and felt a puling sensation, about 4 months ago. She states she has constant pain in her right groin region which radiates to her right hip. Her pain is aggravated with lifting and getting in the car. She also experiences difficulty lifting her leg. She was referred to physical therapy but was unable to attend due to her pain. She finds minimal relief with Tylenol. She would like to have an MRI performed on her right leg. [facility] Medical History Chronic pain of both shoulders Depression Dyspnea on exertion Fall Hyperlipidemia Hypertension Obesity Wrist pain Surgical History History of appendectomy History of biopsy History of hysterectomy History of surgical removal of lesion Hx of colonoscopy Family History Father History of heart attack Mother Colon cancer Social History Housing: House Alcohol intake: never Patient Tobacco Use Status: Never used Tobacco e-Cigarette/Vaping Use: Never Used Second Hand Smoke Exposure: No service: No Current occupational status: retired Cognitive needs: Yes (cane) Hearing needs: No Vision needs: Yes Review of Systems Const All systems reviewed & are unremarkable except as noted in HPI and below Physical Exam Vital Signs: BMI result Body Mass Index 30.2 Const General: cooperative, healthy appearing, comfortable, no acute distress, well developed and alert Orientation/consciousness: patient oriented x3 HEENT Head: Yes normal to inspection, Yes normocephalic and Yes atraumatic Eyes General: appearance normal, both eyes and all related structures Resp Effort & Inspection: normal respiratory effort and able to speak in complete sentences Cardio Rate: regular rate Peripheral pulses: Peripheral pulses 2+ throughout GI Palpation (GI): Soft to palpation Skin Lesions: no lesions Rashes: no rashes Neuro General: patient oriented x3 Extrem Other: Right hip: Normal to inspection. She has no pain with ROM of hip. She is unable to actively flex the hip. She can passively flex to 90 degrees. She has pain with extension of the knee. NVI. Results Reviewed Results Reviewed: X-rays of the right hip obtained on March 28 are negative for any acute fracture or dislocations. She does have osteophyte formation within the joint with some sclerosis formation. Assessment & Plan Assessment & Plan (1) Strain of right groin: Code(s): S76.211A - Strain of adductor muscle, fascia and tendon of right thigh, initial encounter Plan She was given a order for physical therapy by her PCP which she is been unable to attend because of her pain. I will order an MRI of the right hip to further evaluate the source of her pain. Once this is complete, I will see her back for the results. In the meantime, she will continue to use the voltaren gel which does seem to provide her relief. She will see me back as planned. Orders: Orders MR hip RT wo con Today S76.211A - Strain of adductor muscle, fascia and tendon of right thigh, initial encounter Patient Instructions: Scribed for Anca Kelly PA-C, by Mich Abhang, medical cost consultant, on 06/08/2023 at 10:00 AM Anca COLLINS PA-C, have personally reviewed and agree with the information entered by the scribe. Coding Level of Care Code New Pt Level 3 (38255) Diagnoses Strain of right groin S76.211A
[2023-06-08 09:43] VITALS: BMI 30.2
== END 2023-06-08 10:49 | disposition home or self-care (01) ==
PROVIDERS: PCP Internal Medicine; Visit Provider Physician Assistant
DX: S76.211A Strain of adductor muscle, fascia and tendon of right thigh, initial encounter (principal)
CPT/HCPCS: 99204

== ENCOUNTER → 2023-06-08 09:25 | Outpatient (BNVA) | payer OTHER, SELFPAY | PROVIDERS: PCP Internal Medicine; Visit Provider Physician Assistant ==

== ENCOUNTER 2023-06-30 12:55 | Outpatient (AMB) | payer OTHER, SELFPAY ==
[2023-06-30 13:00] VITALS: BP 126/62; PULSE 93; O2SAT 97; BMI 29.8
--- NOTE | 2023-06-30 13:00 | MHC.PC.OV ---
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 Accompanied by: Self / Same As Patient Allergies aspirin [ASPIRIN] Allergy (Unknown, Verified 06/30/23 13:01) ANAPHYLAXIS meperidine [From DEMEROL] Allergy (Unknown, Verified 06/30/23 13:01) ANAPHYLAXIS Penicillins [PENICILLINS] Allergy (Unknown, Verified 06/30/23 13:01) ANAPHYLAXIS Sulfa (Sulfonamide Antibiotics) [SULFA (SULFONAMIDE ANTIBIOTICS)] Allergy (Unknown, Verified 06/30/23 13:01) UNKNOWN dairy Allergy (Unknown, Uncoded 06/30/23 13:01) unknown lactose intolerance Allergy (Unknown, Uncoded 06/30/23 13:01) Unknown Medication List - Last Reconciled 06/30/23 by Ned Alcantara MD amitriptyline 50 mg PO BEDTIME bupropion HCl 150 mg PO QAM buspirone 10 mg PO BID clopidogrel 75 mg PO DAILY hydrochlorothiazide 25 mg PO DAILY lorazepam 0.5 mg PO BID lovastatin 40 mg PO DAILY omeprazole 20 mg PO BID 90 days oxcarbazepine 300 mg PO BID sertraline 200 mg (2 x 100 mg) PO DAILY PRN 90 days Tobacco use date assessed: 10/14/22 Fall risk assessment: No Falls in past year Last assessed Fall Risk: 06/30/23 Dental Screening Dental Screen Date: 06/30/23 Did you have a dental visit in the last 12 months?: Yes Did you have a dental problem in the last 6 months where you did not have access to dental care?: No Was dental information given to patient?: Patient has dentist HPI 3mth f/u HPI Details has HTN which has resolved and she should stop her HCTZ PFSH Medical History Dyspnea on exertion Chronic pain of both shoulders Wrist pain Obesity Depression Hyperlipidemia Hypertension Fall Surgical History Hx of colonoscopy History of biopsy History of surgical removal of lesion History of hysterectomy History of appendectomy Family History Father History of heart attack Mother Colon cancer Social History Housing: House Alcohol intake: never Patient Tobacco Use Status: Never used Tobacco e-Cigarette/Vaping Use: Never Used Second Hand Smoke Exposure: No service: No Current occupational status: retired Cognitive needs: Yes (cane) Hearing needs: No Vision needs: Yes Questionnaire PHQ-9 Over the last 2 weeks, how often have you been bothered by any of the following problems? 1. Little interest or pleasure in doing things: not at all 2. Feeling down, depressed, or hopeless: not at all 3. Trouble falling or staying asleep, or sleeping too much: not at all 4. Feeling tired or having little energy: not at all 5. Poor appetite or overeating: not at all 6. Feeling bad about yourself - or that you are a failure or have let yourself or your family down: not at all 7. Trouble concentrating on things, such as reading the newspaper or watching television: not at all 8. Moving or speaking so slowly that other people could have noticed. Or the opposite - being so fidgety or restless that you have been moving around a lot more than usual: not at all 9. Thoughts that you would be better off or of hurting yourself in some way: not at all Total score: 0 Depression Screening Interpretation: Negative Source: Developed by Drs. Mitchell De Oliveira, Rigoberto Morley and colleagues, with an educational romi from [employer]. Thrive Questionnaire Date Thrive assessed: 10/14/22 AUDIT C Alcohol Use Questionnaire (AUDIT-C) 1. How often do you have a drink containing alcohol?: Never 3. How often do you have six or more drinks on one occasion?: Never Total Score: 0 Score Reviewed/Action Taken: Yes HUMBERTO-7 AMB Questionnaire HUMBERTO-7 Date HUMBERTO - 7 assessed: 10/14/22 Source: Developed by Drs. Mitchell De Oliveira, Rigoberto Morley and colleagues, with an educational romi from [employer]. Review of Systems Const Denies chills, Denies headache(s) and Denies weight loss ENT Denies headache(s) Card Denies chest pain, Denies syncope, Denies irregular heart rhythm and Denies dyspnea Resp Denies chest congestion, Denies cough and Denies dyspnea GI Denies abdominal pain, Denies change in stool character, Denies nausea and Denies vomiting Musc Denies deformity and Denies joint swelling Neuro Denies syncope and Denies headache(s) Physical exam (Primary Care) Vital Signs: Last Vital Signs Pulse 93 06/30/23 13:00 BP 126/62 06/30/23 13:00 Pulse Ox 97 06/30/23 13:00 Oxygen Delivery Method Room Air 06/30/23 13:00 BMI result Body Mass Index 29.8 Tobacco/Smoking Status: Tobacco use Status Tobacco use date assessed 10/14/22 06/30/23 13:05 Patient Tobacco Use Status Never used Tobacco 06/30/23 13:05 e-Cigarette/Vaping Use Never Used 06/30/23 13:05 PHQ-9: PHQ-9 Score PHQ-9: Total score 0 06/30/23 13:05 Depression Screening Interpretation: Negative Thrive Assessment: Date of Thrive Assessment Date Thrive assessed 10/14/22 06/30/23 13:05 Const General: cooperative, comfortable, no acute distress and alert Neck Neck: Yes no lymphadenopathy Thyroid: Thyroid normal Resp Effort & Inspection: normal respiratory effort Auscultation: clear to auscultation bilaterally Percussion: percussion normal Cardio Jugular venous distension: no JVD Palpation: normal PMI Rate: regular rate Rhythm: regular rhythm Heart sounds: S1 normal heart sound present and S2 normal heart sound present GI Inspection: Yes normal to inspection Palpation (GI): No hepatosplenomegaly present Skin General skin exam: no rashes or lesions noted Extrem General: Yes no clubbing, cyanosis or edema Assessment and Plan Assessment & Plan (1) Hypertension: Code(s): I10 - Essential (primary) hypertension Plan: resolved; stop rx Coding Level of Care Code Est Pt Level 3 (46463) Diagnoses Hypertension I10
== END 2023-06-30 13:37 | disposition home or self-care (01) ==
PROVIDERS: PCP Internal Medicine; Visit Provider Internal Medicine
DX: I10 Essential (primary) hypertension (principal)
CPT/HCPCS: 99213

== ENCOUNTER 2023-07-15 13:17 | Outpatient (REF) | payer OTHER, SELFPAY | END 2023-07-15 13:18 | disposition home or self-care (01) | LOC: HO.MRI 13:17 | PROVIDERS: PCP Internal Medicine; Visit Provider Physician Assistant | DX: S76.211A Strain of adductor muscle, fascia and tendon of right thigh, initial encounter (principal) | CPT/HCPCS: 73721 ==

== ENCOUNTER 2023-08-21 09:37 | Outpatient (REF) | payer OTHER, SELFPAY ==
[2023-08-21 10:24] LABS: Basophils Percent Auto 0.4 % (0-2); Eosinophils Percent Auto 0.2 % (0-4); Hematocrit 34.6 % (37.0-47.0); Hemoglobin 11.4 g/dl (12.0-16.0); Imm Gran Abs Auto 0.15 X10*3/uL (0.00-0.03); Imm Gran Pct Auto 1.9 % (0.0-0.4); Lymphocytes Percent Auto 12.2 % (20-40); MANUAL DIFF FLAG SCAN; Mean Corpuscular HGB Conc 32.9 g/dl (31.0-35.0); Mean Corpuscular Hemoglobin 34.1 pg (27.0-33.0); Mean Corpuscular Volume 103.6 fL (80.0-98.0); Monocytes Absolute Auto 0.6 X10*3/uL (0.1-1.2); Monocytes Percent Auto 7.1 % (2-11); NRBC Pct Auto 0.5 /100WBC (0.0-0.2); Neutrophils Absolute Auto 6.3 x10*3/uL (2.0-8.3); Neutrophils Percent Auto 78.2 % (45-73); PLT CLUMP 1; Red Blood Count 3.34 X10*6/uL (4.20-5.50); Red Cell Distribution Width 14.1 % (11.0-16.0); SCAN SMEAR FLAG 1
[2023-08-21 10:47] LABS: Mean Platelet Volume 14.4 fL (9.4-12.3); Platelet Count 144 X10*3/uL (160-400); SLIDE REVIEW VERIFIED
[2023-08-21 10:54] LABS: Anion Gap 17 (12-20); Blood Urea Nitrogen 34 mg/dL (9-16); Calcium 10.4 mg/dL (8.4-10.2); Carbon Dioxide 25 mmol/L (22-29); Chloride 104 mmol/L (96-108); Cholesterol 130 mg/dL (<200); Estimated Glomerular Filt Rate 31; HDL Cholesterol 45 mg/dL (>40); Potassium 4.3 mmol/L (3.3-5.1); Sodium 142 mmol/L (135-145)
[2023-08-21 11:22] LABS: LDL Cholesterol Calculated 54 mg/dL (<100); Triglycerides 155 mg/dL (<150)
== END 2023-08-21 09:38 | disposition home or self-care (01) ==
LOC: HO.LAB 09:37
PROVIDERS: PCP Internal Medicine; Visit Provider Internal Medicine Hypertension Specialist
DX: E78.5 Hyperlipidemia, unspecified (principal); I12.9 Hypertensive chronic kidney disease with stage 1 through stage 4 chronic kidney disease, or unspecified chronic kidney disease; N18.30 Chronic kidney disease, stage 3 unspecified; I95.1 Orthostatic hypotension; E83.52 Hypercalcemia; D63.1 Anemia in chronic kidney disease
CPT/HCPCS: 36415; 80051; 80061; 82310; 82565; 84520; 85025

== ENCOUNTER 2023-08-21 13:29 | Outpatient (AMB) | payer OTHER, SELFPAY ==
--- NOTE | 2023-08-21 13:41 | HO.NEPHOV ---
HPI HPI Comments History of Present Illness Details Sarahy is a 82-year-old woman with a history of for CKD in a setting loss hypertension. In the past she had significant involuntary movements and she was on high dose of Neurontin. After stopping Neurontin the involuntary movements resolved. Recently she has been lightheadedness and she has imbalance when she walks. She is being evaluated by Cardiology Dr. Nieto [facility] Medical History Dyspnea on exertion Chronic pain of both shoulders Wrist pain Obesity Depression Hyperlipidemia Hypertension Fall Surgical History Hx of colonoscopy History of biopsy History of surgical removal of lesion History of hysterectomy History of appendectomy Family History Father History of heart attack Mother Colon cancer Social History Housing: House Alcohol intake: never Patient Tobacco Use Status: Never used Tobacco e-Cigarette/Vaping Use: Never Used Second Hand Smoke Exposure: No service: No Current occupational status: retired Cognitive needs: Yes (cane) Hearing needs: No Vision needs: Yes Vital Signs 08/21/23 13:43 Height 5 ft 7 in Weight 225 lb BMI 35.2 BP 112/62 Blood Pressure Location Lt brachial Position Sitting Pulse 94 Pulse Source Pulse Oximeter Pulse Oximetry (%) 97 Oxygen Delivery Method Room Air Physical Exam Vital Signs: Last Vital Signs Pulse 94 08/21/23 13:43 BP 112/62 08/21/23 13:43 Pulse Ox 97 08/21/23 13:43 Oxygen Delivery Method Room Air 08/21/23 13:43 BMI result Body Mass Index 35.2 Supine blood pressure 110/70 Sitting blood pressure 100/60 Standing blood pressure 80/50. Const General: comfortable Nutritional Appearance: well nourished Orientation/consciousness: patient oriented x3 HEENT Head: No normal to inspection Mouth: moist mucous membranes Neck Neck: Yes supple and Yes no JVD Resp Auscultation: clear to auscultation bilaterally, no rales and rub present Cardio Jugular venous distension: no JVD Palpation: no palpable S3 and no palpable S4 Heart sounds: no rubs GI Palpation (GI): Soft to palpation and nontender Percussion: No Fluid wave present General: Yes no CVA tenderness Back/Spine/Pelvis Back: no CVA tenderness Skin General skin exam: no rashes or lesions noted Neuro General: patient oriented x3 Extrem General: Yes no pedal edema and No clubbing Results Reviewed Results Reviewed: All results were reviewed Assessment & Plan Assessment & Plan (1) CKD (chronic kidney disease): Code(s): N18.9 - Chronic kidney disease, unspecified Plan: Chronic disease in the setting of longstanding hypertension. Renal function stable she has stage III B /stage IV CKD. Renal function is close to baseline. Goal is to slow the progression of renal disease. (2) Postural hypotension: Code(s): I95.1 - Orthostatic hypotension Plan: Significant orthostatic hypotension. This could be the reason for her dizziness. I will stop amitriptyline which she has been taking at nighttime for sleeping Add midodrine 2.5 mg once a day in the morning and reassess her blood pressure. Titrate dose as indicated. Check cortisol levels. Await Cardiology workup as well. (3) Hypercalcemia: Code(s): E83.52 - Hypercalcemia Plan: Mild asymptomatic hypercalcemia Check PTH prior to next visit (4) Anemia: Code(s): D64.9 - Anemia, unspecified Plan: Mild asymptomatic anemia with thrombocytopenia. Both are chronic. No indication for Epogen. Orders: Orders Electrolytes Today N18.9 - Chronic kidney disease, unspecified Blood Urea Nitrogen Today N18.9 - Chronic kidney disease, unspecified Creatinine Today N18.9 - Chronic kidney disease, unspecified Calcium Today N18.9 - Chronic kidney disease, unspecified Complete Blood Count Auto Diff Today N18.30 - Chronic kidney disease, stage 3 unspecified, N18.9 - Chronic kidney disease, unspecified Medications: New midodrine 2.5 mg PO DAILY 30 tabs 1RF Discontinued amitriptyline Discontinued Reason: Doctor's Order 50 mg PO BEDTIME 90 tabs 8RF Coding Level of Care Code Est Pt Level 4 (31696) Diagnoses CKD (chronic kidney disease) N18.9 Postural hypotension I95.1 Hypercalcemia E83.52 Anemia D64.9
[2023-08-21 13:43] VITALS: BP 112/62; PULSE 94; O2SAT 97; BMI 35.2
== END 2023-08-21 14:01 | disposition home or self-care (01) ==
PROVIDERS: PCP Internal Medicine; Visit Provider Internal Medicine Hypertension Specialist
DX: N18.4 Chronic kidney disease, stage 4 (severe) (principal); I95.1 Orthostatic hypotension; E83.52 Hypercalcemia; D63.1 Anemia in chronic kidney disease
CPT/HCPCS: 99214

== ENCOUNTER 2023-08-23 12:41 | Outpatient (AMB) | payer OTHER, SELFPAY ==
--- NOTE | 2023-08-23 12:45 | A.OFFVIS_ITS ---
Intake Vital Signs 08/23/23 12:48 Height 5 ft 7 in Weight 225 lb BMI 35.2 Intake Visit Reasons: MRI Results Intake Note: Liliana templeton 82 year old female presents today for an MRI review of right hip. Patient reports she is doing well, states her pain/discomfort has subsided. Allergies aspirin [ASPIRIN] Allergy (Unknown, Verified 08/23/23 12:48) ANAPHYLAXIS meperidine [From DEMEROL] Allergy (Unknown, Verified 08/23/23 12:48) ANAPHYLAXIS Penicillins [PENICILLINS] Allergy (Unknown, Verified 08/23/23 12:48) ANAPHYLAXIS Sulfa (Sulfonamide Antibiotics) [SULFA (SULFONAMIDE ANTIBIOTICS)] Allergy (Unknown, Verified 08/23/23 12:48) UNKNOWN dairy Allergy (Unknown, Uncoded 08/23/23 12:48) unknown lactose intolerance Allergy (Unknown, Uncoded 08/23/23 12:48) Unknown HPI MRI Results HPI Details 82-year-old female [facility]. She states she has improvement in her symptoms and reports her pain and discomfort has subsided. She is doing well overall. [facility] Medical History Dyspnea on exertion Chronic pain of both shoulders Wrist pain Obesity Depression Hyperlipidemia Hypertension Fall Surgical History Hx of colonoscopy History of biopsy History of surgical removal of lesion History of hysterectomy History of appendectomy Family History Father History of heart attack Mother Colon cancer Social History Housing: House Alcohol intake: never Patient Tobacco Use Status: Never used Tobacco e-Cigarette/Vaping Use: Never Used Second Hand Smoke Exposure: No service: No Current occupational status: retired Cognitive needs: Yes (cane) Hearing needs: No Vision needs: Yes Review of Systems Const All systems reviewed & are unremarkable except as noted in HPI and below Physical Exam Vital Signs: BMI result Body Mass Index 35.2 Extrem Other: Right hip: Normal to inspection. No pain with ROM of hip. No pain with hip flexion. NVI. Results Reviewed Results Reviewed: /MR hip RT wo con 07/15/23 IMPRESSION: 1. Nondisplaced undersurface tear of the anterosuperior labrum. 2. Mild right hip osteoarthritis and trace joint effusion. No stress reaction, fracture, or avascular necrosis. 3. Partially visualized degenerative disc disease and facet arthropathy within the lower lumbar spine. Assessment & Plan Assessment & Plan (1) Strain of right groin: Code(s): S76.211A - Strain of adductor muscle, fascia and tendon of right thigh, initial encounter Plan She will continue with increasing activity as tolerated. She does not need to see us back unless there are any questions or concerns. Patient Instructions: Scribed for Anca Kelly PA-C, by Mich Cali medical care administrator, on 08/23/2023 at 12:45 PM EST. I, Anca Kelly PA-C, have personally reviewed and agree with the information entered by the scribe. Coding Level of Care Code Est Pt Level 3 (72138) Diagnoses Strain of right groin S76.211A
[2023-08-23 12:48] VITALS: BMI 35.2
== END 2023-08-23 13:44 | disposition home or self-care (01) ==
PROVIDERS: PCP Internal Medicine; Visit Provider Physician Assistant
DX: S76.211A Strain of adductor muscle, fascia and tendon of right thigh, initial encounter (principal)
CPT/HCPCS: 99213

== ENCOUNTER → 2023-08-23 12:41 | Outpatient (BNVA) | payer OTHER, SELFPAY | PROVIDERS: PCP Internal Medicine; Visit Provider Physician Assistant ==

== ENCOUNTER 2023-09-06 08:52 | Outpatient (AMB) | payer OTHER, SELFPAY ==
[2023-09-06 08:54] VITALS: BP 124/62; PULSE 84; O2SAT 97
--- NOTE | 2023-09-06 08:54 | A.OFFPC_ITS ---
Vital Signs 09/06/23 08:54 Height 5 ft 7 in BP 124/62 Blood Pressure Location Lt brachial Position Sitting Pulse 84 Pulse Source Pulse Oximeter Pulse Oximetry (%) 97 Oxygen Delivery Method Room Air Intake Visit Reasons: concerns about growth on back Padder Cushion Required: No Software Test Specialist: Not Required per policy Accompanied by: Self / Same As Patient Allergies aspirin [ASPIRIN] Allergy (Unknown, Verified 09/06/23 08:54) ANAPHYLAXIS meperidine [From DEMEROL] Allergy (Unknown, Verified 09/06/23 08:54) ANAPHYLAXIS Penicillins [PENICILLINS] Allergy (Unknown, Verified 09/06/23 08:54) ANAPHYLAXIS Sulfa (Sulfonamide Antibiotics) [SULFA (SULFONAMIDE ANTIBIOTICS)] Allergy (Unknown, Verified 09/06/23 08:54) UNKNOWN dairy Allergy (Unknown, Uncoded 09/06/23 08:54) unknown lactose intolerance Allergy (Unknown, Uncoded 09/06/23 08:54) Unknown Medication List - Last Reconciled 09/06/23 by Ned Alcantara MD bupropion HCl 150 mg PO QAM buspirone 10 mg PO BID clopidogrel 75 mg PO DAILY lovastatin 40 mg PO DAILY midodrine 2.5 mg PO DAILY omeprazole 20 mg PO BID 90 days oxcarbazepine 300 mg PO BID sertraline 200 mg (2 x 100 mg) PO DAILY PRN 90 days Tobacco use date assessed: 10/14/22 Fall risk assessment: No Falls in past year Last assessed Fall Risk: 09/06/23 Dental Screening Dental Screen Date: 09/06/23 Did you have a dental visit in the last 12 months?: Yes Did you have a dental problem in the last 6 months where you did not have access to dental care?: No Was dental information given to patient?: Patient has dentist HPI concerns about growth on back HPI Details has a skin malignancy on her back which requires a topical cream from dermatology but patient unable to physically reach the area to apply the rx and has no social network to assist her [facility] Medical History Dyspnea on exertion Chronic pain of both shoulders Wrist pain Obesity Depression Hyperlipidemia Hypertension Fall Surgical History Hx of colonoscopy History of biopsy History of surgical removal of lesion History of hysterectomy History of appendectomy Family History Father History of heart attack Mother Colon cancer Social History Housing: House Alcohol intake: never Patient Tobacco Use Status: Never used Tobacco e-Cigarette/Vaping Use: Never Used Second Hand Smoke Exposure: No service: No Current occupational status: retired Cognitive needs: Yes (cane) Hearing needs: No Vision needs: Yes Questionnaire Thrive Questionnaire Date Thrive assessed: 10/14/22 HUMBERTO-7 AMB Questionnaire HUMBERTO-7 Date HUMBERTO - 7 assessed: 10/14/22 Source: Developed by Drs. Mitchell De Oliveira, Meryl Garcia, Rigoberto Post and colleagues, with an educational romi from [employer]. Review of Systems Const Denies chills, Denies headache(s) and Denies weight loss ENT Denies headache(s) Card Denies chest pain, Denies syncope, Denies irregular heart rhythm and Denies dyspnea Resp Denies chest congestion, Denies cough and Denies dyspnea GI Denies abdominal pain, Denies change in stool character, Denies nausea and Denies vomiting Musc Denies deformity and Denies joint swelling Neuro Denies syncope and Denies headache(s) Physical exam (Primary Care) Vital Signs: Last Vital Signs Pulse 84 09/06/23 08:54 BP 124/62 09/06/23 08:54 Pulse Ox 97 09/06/23 08:54 Oxygen Delivery Method Room Air 09/06/23 08:54 Tobacco/Smoking Status: Tobacco use Status Tobacco use date assessed 10/14/22 09/06/23 08:55 Patient Tobacco Use Status Never used Tobacco 09/06/23 08:55 e-Cigarette/Vaping Use Never Used 09/06/23 08:55 Thrive Assessment: Date of Thrive Assessment Date Thrive assessed 10/14/22 09/06/23 08:55 Const General: cooperative, comfortable, no acute distress and alert Neck Neck: Yes no lymphadenopathy Thyroid: Thyroid normal Resp Effort & Inspection: normal respiratory effort Auscultation: clear to auscultation bilaterally Percussion: percussion normal Cardio Jugular venous distension: no JVD Palpation: normal PMI Rate: regular rate Rhythm: regular rhythm Heart sounds: S1 normal heart sound present and S2 normal heart sound present GI Inspection: Yes normal to inspection Palpation (GI): No hepatosplenomegaly present Skin Other: quarter sized lesion on upper back Extrem General: Yes no clubbing, cyanosis or edema Assessment and Plan Assessment & Plan (1) Skin cancer: Code(s): C44.90 - Unspecified malignant neoplasm of skin, unspecified Plan: arrange vna for assistance Coding Level of Care Code Est Pt Level 3 (37959) Diagnoses Skin cancer C44.90
== END 2023-09-06 10:10 | disposition home or self-care (01) ==
PROVIDERS: PCP Internal Medicine; Visit Provider Internal Medicine
DX: C44.90 Unspecified malignant neoplasm of skin, unspecified (principal)
CPT/HCPCS: 99213

== ENCOUNTER 2023-10-06 13:08 | Outpatient (AMB) | payer OTHER, SELFPAY ==
[2023-10-06 13:26] VITALS: BP 130/58; PULSE 79; O2SAT 97; BMI 29.8
--- NOTE | 2023-10-06 13:26 | A.OFFPC_ITS ---
Vital Signs 10/06/23 13:26 Height 5 ft 7 in Weight 190 lb BMI 29.8 BP 130/58 L Blood Pressure Location Lt brachial Position Sitting Pulse 79 Pulse Source Pulse Oximeter Pulse Oximetry (%) 97 Oxygen Delivery Method Room Air Intake Visit Reasons: 3 Months F/U Workers Compensation Coordinator Required: No Panel Machine Operator: Not Required per policy Accompanied by: Self / Same As Patient Allergies aspirin [ASPIRIN] Allergy (Unknown, Verified 10/06/23 13:27) ANAPHYLAXIS meperidine [From DEMEROL] Allergy (Unknown, Verified 10/06/23 13:27) ANAPHYLAXIS Penicillins [PENICILLINS] Allergy (Unknown, Verified 10/06/23 13:27) ANAPHYLAXIS Sulfa (Sulfonamide Antibiotics) [SULFA (SULFONAMIDE ANTIBIOTICS)] Allergy (Unknown, Verified 10/06/23 13:27) UNKNOWN dairy Allergy (Unknown, Uncoded 10/06/23 13:27) unknown lactose intolerance Allergy (Unknown, Uncoded 10/06/23 13:27) Unknown Tobacco use date assessed: 10/14/22 Fall risk assessment: No Falls in past year Last assessed Fall Risk: 10/06/23 Dental Screening Dental Screen Date: 10/06/23 Did you have a dental visit in the last 12 months?: Yes Did you have a dental problem in the last 6 months where you did not have access to dental care?: No Was dental information given to patient?: Patient has dentist HPI 3 Months F/U HPI Details hyperlipidemia on rx; doing well; compliant [facility] Medical History Dyspnea on exertion Chronic pain of both shoulders Wrist pain Obesity Depression Hyperlipidemia Hypertension Fall Surgical History Hx of colonoscopy History of biopsy History of surgical removal of lesion History of hysterectomy History of appendectomy Family History Father History of heart attack Mother Colon cancer Social History Housing: House Alcohol intake: never Patient Tobacco Use Status: Never used Tobacco e-Cigarette/Vaping Use: Never Used Second Hand Smoke Exposure: No service: No Current occupational status: retired Cognitive needs: Yes (cane) Hearing needs: No Vision needs: Yes Questionnaire Thrive Questionnaire Date Thrive assessed: 10/14/22 HUMBERTO-7 AMB Questionnaire HUMBERTO-7 Date HUMBERTO - 7 assessed: 10/14/22 Source: Developed by Drs. Mitchell De Oliveira, Meryl Garcia, Rigoberto Post and colleagues, with an educational romi from [employer]. Review of Systems Const Denies chills, Denies headache(s) and Denies weight loss ENT Denies headache(s) Card Denies chest pain, Denies syncope, Denies irregular heart rhythm and Denies dyspnea Resp Denies chest congestion, Denies cough and Denies dyspnea GI Denies abdominal pain, Denies change in stool character, Denies nausea and Denies vomiting Musc Denies deformity and Denies joint swelling Neuro Denies syncope and Denies headache(s) Physical exam (Primary Care) Vital Signs: Last Vital Signs Pulse 79 10/06/23 13:26 BP 130/58 L 10/06/23 13:26 Pulse Ox 97 10/06/23 13:26 Oxygen Delivery Method Room Air 10/06/23 13:26 BMI result Body Mass Index 29.8 Tobacco/Smoking Status: Tobacco use Status Tobacco use date assessed 10/14/22 10/06/23 13:28 Patient Tobacco Use Status Never used Tobacco 10/06/23 13:28 e-Cigarette/Vaping Use Never Used 10/06/23 13:28 Thrive Assessment: Date of Thrive Assessment Date Thrive assessed 10/14/22 10/06/23 13:28 Const General: cooperative, comfortable, no acute distress and alert Neck Neck: Yes no lymphadenopathy Thyroid: Thyroid normal Resp Effort & Inspection: normal respiratory effort Auscultation: clear to auscultation bilaterally Percussion: percussion normal Cardio Jugular venous distension: no JVD Palpation: normal PMI Rate: regular rate Rhythm: regular rhythm Heart sounds: S1 normal heart sound present and S2 normal heart sound present GI Inspection: Yes normal to inspection Palpation (GI): No hepatosplenomegaly present Skin General skin exam: no rashes or lesions noted Extrem General: Yes no clubbing, cyanosis or edema Assessment and Plan Assessment & Plan (1) Hyperlipidemia: Code(s): E78.5 - Hyperlipidemia, unspecified Plan: stable; same rx Orders: Orders Lipid Panel Today E78.5 - Hyperlipidemia, unspecified Coding Level of Care Code Est Pt Level 3 (36178) Diagnoses Hyperlipidemia E78.5
== END 2023-10-06 14:01 | disposition home or self-care (01) ==
PROVIDERS: PCP Internal Medicine; Visit Provider Internal Medicine
DX: E78.5 Hyperlipidemia, unspecified (principal)
CPT/HCPCS: 99213

== ENCOUNTER 2023-10-10 14:00 | Outpatient (RCR) | payer OTHER, SELFPAY | END 2023-11-03 11:10 | disposition home or self-care (01) | LOC: HO.PT 14:00 | PROVIDERS: PCP Internal Medicine; Visit Provider Internal Medicine Cardiovascular Disease | DX: R55 Syncope and collapse (principal); R26.81 Unsteadiness on feet | CPT/HCPCS: 97110; 97162; 97530 ==

== ENCOUNTER 2023-10-13 12:22 | Outpatient (AMB) | payer OTHER, SELFPAY ==
--- NOTE | 2023-10-13 12:50 | MHC.PC.OV ---
Vital Signs 10/13/23 12:52 Height 5 ft 7 in BP 118/62 Blood Pressure Location Lt brachial Position Sitting Pulse 71 Pulse Source Pulse Oximeter Pulse Oximetry (%) 98 Oxygen Delivery Method Room Air Intake Visit Reasons: evaluation before continuing rehab CORE Intake Note: Patient is here today for evaluation before continuing CORE Rehab Professor Of Biological Sciences Required: No Size Changer: Not Required per policy Accompanied by: Self / Same As Patient Allergies aspirin [ASPIRIN] Allergy (Unknown, Verified 10/13/23 12:52) ANAPHYLAXIS meperidine [From DEMEROL] Allergy (Unknown, Verified 10/13/23 12:52) ANAPHYLAXIS Penicillins [PENICILLINS] Allergy (Unknown, Verified 10/13/23 12:52) ANAPHYLAXIS Sulfa (Sulfonamide Antibiotics) [SULFA (SULFONAMIDE ANTIBIOTICS)] Allergy (Unknown, Verified 10/13/23 12:52) UNKNOWN dairy Allergy (Unknown, Uncoded 10/13/23 12:52) unknown lactose intolerance Allergy (Unknown, Uncoded 10/13/23 12:52) Unknown Medication List - Last Reconciled 10/13/23 by Ned Alacntara MD bupropion HCl 150 mg PO QAM buspirone 10 mg PO BID clopidogrel 75 mg PO DAILY lovastatin 40 mg PO DAILY midodrine 2.5 mg PO DAILY omeprazole 20 mg PO BID 90 days oxcarbazepine 300 mg PO BID sertraline 200 mg (2 x 100 mg) PO DAILY PRN 90 days Tobacco use date assessed: 10/13/23 Fall risk assessment: No Falls in past year Last assessed Fall Risk: 10/13/23 Dental Screening Dental Screen Date: 10/13/23 Did you have a dental visit in the last 12 months?: Yes Did you have a dental problem in the last 6 months where you did not have access to dental care?: No Was dental information given to patient?: Patient has dentist HPI evaluation before continuing rehab CORE HPI Details pain left shoulder over deltoid; had a fall; abduction increases pain PFSH Medical History Dyspnea on exertion Chronic pain of both shoulders Wrist pain Obesity Depression Hyperlipidemia Hypertension Fall Surgical History Hx of colonoscopy History of biopsy History of surgical removal of lesion History of hysterectomy History of appendectomy Family History Father History of heart attack Mother Colon cancer Social History Housing: House Alcohol intake: never Patient Tobacco Use Status: Never used Tobacco e-Cigarette/Vaping Use: Never Used Second Hand Smoke Exposure: No service: No Current occupational status: retired Cognitive needs: Yes (cane) Hearing needs: No Vision needs: Yes Questionnaire PHQ-9 Over the last 2 weeks, how often have you been bothered by any of the following problems? 1. Little interest or pleasure in doing things: not at all 2. Feeling down, depressed, or hopeless: not at all 3. Trouble falling or staying asleep, or sleeping too much: not at all 4. Feeling tired or having little energy: not at all 5. Poor appetite or overeating: not at all 6. Feeling bad about yourself - or that you are a failure or have let yourself or your family down: not at all 7. Trouble concentrating on things, such as reading the newspaper or watching television: not at all 8. Moving or speaking so slowly that other people could have noticed. Or the opposite - being so fidgety or restless that you have been moving around a lot more than usual: not at all 9. Thoughts that you would be better off or of hurting yourself in some way: not at all Total score: 0 Depression Screening Interpretation: Negative Depression Screening Done: Yes Source: Developed by Drs. Mitchell De Oliveira, Meryl Garcia, Rigoberto Post and colleagues, with an educational romi from [employer]. Thrive Questionnaire Date Thrive assessed: 10/13/23 I am a: Patient What is your living situation today?: I have a steady place to live Within the past 12 months, did the food you bought not last and you didn't have the money to get more?: Never true Within the past 12 months, did you worry whether your food would run out before you got money to buy more?: Never true Do you have trouble paying for medicines?: No Do you have trouble getting transportation to medical appointments?: No Do you have trouble paying your heating and electricity bill?: No Do you have trouble taking care of your child, family member or friend?: No Do you have trouble with day-to-day activities such as bathing, preparing meals, shopping, managing finances, etc.?: No Are you currently unemployed and looking for a job?: No Are you interested in more education?: No Currently or been in a relationship where the following occur: no concerns reported AUDIT C Alcohol Use Questionnaire (AUDIT-C) 1. How often do you have a drink containing alcohol?: Never Total Score: 0 HUMBERTO-7 AMB Questionnaire HUMBERTO-7 Date HUMBERTO - 7 assessed: 10/13/23 Feeling nervous, anxious, or on edge: 0 = Not at all Not being able to stop or control worryin = Not at all Worrying too much about different things: 0 = Not at all Trouble relaxin = Not at all Being so restless that it is hard to sit still: 0 = Not at all Becoming easily annoyed or irritable: 0 = Not at all Feeling afraid as if something awful might happen: 0 = Not at all Total HUMBERTO-7 score (0-4 normal; 5-9 mild; 10-14 moderate; 15-21 severe): 0 Source: Developed by Drs. Mitchell De Oliveira, Meryl Garcia, Rigoberto Post and colleagues, with an educational romi from [employer]. Review of Systems Const Denies chills, Denies headache(s) and Denies weight loss ENT Denies headache(s) Card Denies chest pain, Denies syncope, Denies irregular heart rhythm and Denies dyspnea Resp Denies chest congestion, Denies cough and Denies dyspnea GI Denies abdominal pain, Denies change in stool character, Denies nausea and Denies vomiting Musc Denies deformity and Denies joint swelling Neuro Denies syncope and Denies headache(s) Physical exam (Primary Care) Vital Signs: Last Vital Signs Pulse 71 10/13/23 12:52 BP 118/62 10/13/23 12:52 Pulse Ox 98 10/13/23 12:52 Oxygen Delivery Method Room Air 10/13/23 12:52 Tobacco/Smoking Status: Tobacco use Status Tobacco use date assessed 10/13/23 10/13/23 12:55 Patient Tobacco Use Status Never used Tobacco 10/13/23 12:55 e-Cigarette/Vaping Use Never Used 10/13/23 12:55 PHQ-9: PHQ-9 Score PHQ-9: Total score 0 10/13/23 12:55 Depression Screening Interpretation: Negative Thrive Assessment: Date of Thrive Assessment Date Thrive assessed 10/13/23 10/13/23 12:55 Currently or been in a relationship where the following occur: no concerns reported Const General: cooperative, comfortable, no acute distress and alert Neck Neck: Yes no lymphadenopathy Thyroid: Thyroid normal Resp Effort & Inspection: normal respiratory effort Auscultation: clear to auscultation bilaterally Percussion: percussion normal Cardio Jugular venous distension: no JVD Palpation: normal PMI Rate: regular rate Rhythm: regular rhythm Heart sounds: S1 normal heart sound present and S2 normal heart sound present GI Inspection: Yes normal to inspection Palpation (GI): No hepatosplenomegaly present Skin General skin exam: no rashes or lesions noted Extrem Other: abduction left shoulder difficulat due to pain Assessment and Plan Assessment & Plan (1) Shoulder pain: Code(s): M25.519 - Pain in unspecified shoulder Orders: Orders XR shoulder LT min 2V Today M25.519 - Pain in unspecified shoulder Coding Level of Care Code Est Pt Level 3 (16164) Diagnoses Shoulder pain M25.519
[2023-10-13 12:52] VITALS: BP 118/62; PULSE 71; O2SAT 98
== END 2023-10-13 13:02 | disposition home or self-care (01) ==
PROVIDERS: PCP Internal Medicine; Visit Provider Internal Medicine
DX: M25.519 Pain in unspecified shoulder (principal)
CPT/HCPCS: 99213

== ENCOUNTER 2023-10-13 13:06 | Outpatient (REF) | payer OTHER, SELFPAY | END 2023-10-13 13:07 | disposition home or self-care (01) | LOC: HO.XRAY 13:06 | PROVIDERS: PCP Internal Medicine; Visit Provider Internal Medicine | DX: M25.512 Pain in left shoulder (principal) | CPT/HCPCS: 73030 ==

== ENCOUNTER 2023-10-31 13:10 | Outpatient (REF) | payer OTHER, SELFPAY ==
[2023-10-31 15:02] LABS: Parathyroid Hormone Intact 107.2 pg/mL (8.7-77.1)
[2023-10-31 15:11] LABS: Alanine Aminotransferase 12 U/L (0-31); Albumin Level 4.7 g/dL (3.5-5.0); Alkaline Phosphatase 101 U/L (39-117); Anion Gap 12 (12-20); Aspartate Amino Transferase 18 U/L (5-31); Bilirubin Total 0.4 mg/dL (0.0-1.0); Blood Urea Nitrogen 44 mg/dL (9-16); Calcium 10.4 mg/dL (8.4-10.2); Carbon Dioxide 25 mmol/L (22-29); Chloride 104 mmol/L (96-108); Estimated Glomerular Filt Rate 28; Glucose Random 102 mg/dL (60-115); Potassium 4.4 mmol/L (3.3-5.1); Sodium 137 mmol/L (135-145); Total Protein 7.5 g/dL (6.5-8.0)
[2023-10-31 15:33] LABS: Appearance Urine Cloudy; Color Urine Dark Yellow; Glucose Urine UA Negative (Negative); Leukocyte Esterase Urine Large (3+) (Negative); Nitrite Urine Negative (Negative); PH 5.5 (5.0-9.0); UMIC TRIGGER UA YES; Urine Blood Negative (Negative); Urine Ketones Negative (Negative); Urine Protein Negative (Neg-Trace)
[2023-10-31 16:50] LABS: Bacteria Urine Trace (None Seen); RBC Urine 0-2 /HPF (0-2); WBC Urine >50 /HPF (0-5)
[2023-11-05 15:54] LABS: Vitamin D 25-OH, D2 <4 ng/mL; Vitamin D 25-OH, D3 82 ng/mL; Vitamin D 25-OH, Total 82 ng/mL (30-100)
== END 2023-10-31 13:11 | disposition home or self-care (01) ==
LOC: HO.LAB 13:10
PROVIDERS: PCP Internal Medicine; Visit Provider Internal Medicine Hypertension Specialist
DX: N18.9 Chronic kidney disease, unspecified (principal); I95.1 Orthostatic hypotension; E83.52 Hypercalcemia; D64.9 Anemia, unspecified
CPT/HCPCS: 36415; 80053; 81001; 82306; 83970

== ENCOUNTER 2023-10-31 13:10 | Outpatient (AMB) | payer OTHER, SELFPAY ==
--- NOTE | 2023-10-31 13:29 | HO.NEPHOV_ITS ---
HPI HPI Comments History of Present Illness Details Sarahy is a 82-year-old woman with a history of for CKD in a setting loss hypertension. In the past she had significant involuntary movements and she was on high dose of Neurontin. After stopping Neurontin the involuntary movements resolved. Recently she has been lightheadedness and she has imbalance when she walks. She is being evaluated by Cardiology Dr. Nieto After adding Midodrine 2.5 mg QD, she feels much better c/o increased urinary frequency PFSH Medical History Dyspnea on exertion Chronic pain of both shoulders Wrist pain Obesity Depression Hyperlipidemia Hypertension Fall Surgical History Hx of colonoscopy History of biopsy History of surgical removal of lesion History of hysterectomy History of appendectomy Family History Father History of heart attack Mother Colon cancer Social History Housing: House Alcohol intake: never Patient Tobacco Use Status: Never used Tobacco e-Cigarette/Vaping Use: Never Used Second Hand Smoke Exposure: No service: No Current occupational status: retired Cognitive needs: Yes (cane) Hearing needs: No Vision needs: Yes Vital Signs 10/31/23 13:30 Height 5 ft 7 in Weight 187 lb BMI 29.3 BP 116/64 Blood Pressure Location Lt brachial Position Sitting Pulse 69 Pulse Source Pulse Oximeter Pulse Oximetry (%) 96 Oxygen Delivery Method Room Air Physical Exam Vital Signs: Last Vital Signs Pulse 69 10/31/23 13:30 BP 116/64 10/31/23 13:30 Pulse Ox 96 10/31/23 13:30 Oxygen Delivery Method Room Air 10/31/23 13:30 BMI result Body Mass Index 29.3 Supine blood pressure 110/70 Sitting blood pressure 100/60 Standing blood pressure 80/50. Const General: comfortable Nutritional Appearance: well nourished Orientation/consciousness: patient oriented x3 HEENT Head: No normal to inspection Mouth: moist mucous membranes Neck Neck: Yes supple and Yes no JVD Resp Auscultation: clear to auscultation bilaterally, no rales and rub present Cardio Jugular venous distension: no JVD Palpation: no palpable S3 and no palpable S4 Heart sounds: no rubs GI Palpation (GI): Soft to palpation and nontender Percussion: No Fluid wave present General: Yes no CVA tenderness Back/Spine/Pelvis Back: no CVA tenderness Skin General skin exam: no rashes or lesions noted Neuro General: patient oriented x3 Extrem General: Yes no pedal edema and No clubbing Assessment & Plan Assessment & Plan (1) CKD (chronic kidney disease): Code(s): N18.9 - Chronic kidney disease, unspecified Plan: Chronic disease in the setting of longstanding hypertension. Renal function stable she has stage III B /stage IV CKD. Renal function is close to baseline. Goal is to slow the progression of renal disease. (2) Postural hypotension: Code(s): I95.1 - Orthostatic hypotension Plan: h/o Significant orthostatic hypotension. Keep midodrine 2.5 mg once a day in the morning and reassess her blood pressure . Titrate dose as indicated. (3) Hypercalcemia: Code(s): E83.52 - Hypercalcemia Plan: Mild asymptomatic hypercalcemia Check PTH prior to next visit ? potential cause for increased urination. URine studies ordered (4) Anemia: Code(s): D64.9 - Anemia, unspecified Plan: Mild asymptomatic anemia with thrombocytopenia. Both are chronic. No indication for Epogen. Orders: Orders Parathyroid Hormone Intact Today E83.52 - Hypercalcemia, N18.9 - Chronic kidney disease, unspecified UA and rflx microscopic Today E83.52 - Hypercalcemia, N18.9 - Chronic kidney disease, unspecified Comprehensive Met. Panel Today E83.52 - Hypercalcemia, N18.9 - Chronic kidney disease, unspecified Vitamin D 25-OH (D2 and D3) Today E83.52 - Hypercalcemia, N18.9 - Chronic kidney disease, unspecified Coding Level of Care Code Est Pt Level 4 (87684) Diagnoses CKD (chronic kidney disease) N18.9 Postural hypotension I95.1 Hypercalcemia E83.52 Anemia D64.9 Results Reviewed Nephrology Results: Hgb 11.4 g/dl (12.0-16.0) L 08/21/23 WBC 8.0 X10*3/uL (4.8-10.8) 08/21/23 Plt Count 144 X10*3/uL (160-400) L 08/21/23 Sodium 142 mmol/L (135-145) 08/21/23 Potassium 4.3 mmol/L (3.3-5.1) 08/21/23 Chloride 104 mmol/L (96-108) 08/21/23 Carbon Dioxide 25 mmol/L (22-29) 08/21/23 BUN 34 mg/dL (9-16) H 08/21/23 Creatinine 1.61 mg/dL (0.5-1.4) H 08/21/23 Calcium 10.4 mg/dL (8.4-10.2) H 08/21/23
[2023-10-31 13:30] VITALS: BP 116/64; PULSE 69; O2SAT 96; BMI 29.3
== END 2023-10-31 13:51 | disposition home or self-care (01) ==
PROVIDERS: PCP Internal Medicine; Visit Provider Internal Medicine Hypertension Specialist
DX: N18.9 Chronic kidney disease, unspecified (principal); I95.1 Orthostatic hypotension; E83.52 Hypercalcemia; D64.9 Anemia, unspecified
CPT/HCPCS: 99214

== ENCOUNTER 2023-11-09 11:00 | Outpatient (RCR) | payer OTHER, SELFPAY ==
--- NOTE | 2023-11-03 10:49 | MHC.PT.EP ---
[facility] [place] Office [place] Office [place] Office [address] [place] [address] Dr Wilson Bryan [address] [phone] F: [phone] F: [phone] F: [phone] F: [phone] Physical Therapy Plan of Care Date of Evaluation: 11/03/23 Date of Surgery: NA Diagnosis: L SHOULDER PAIN Assessment: Pt IS 82 YO F REFERRED TO PT FROM DR DO WITH L SHLDER PAIN SEEMINGLY MUSCULAR IN NATURE (NEG XRAY, NEG IMPINGEMENT). 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 REPORTS AN INCIDENT WHEN SHE GOT STUCK BETWEEN COUCH AND WALL INJURING HER L SHLDER. PRESENTS WITH DECREASED END ROM L SHLDER AND DECREASED L SHLDER STRENGTH WITH PAIN REPORTED. SHOULD BENEFIT FROM PT TO ADDRESS THESE ISSUES. OF NOTE, Pt HAS VACATION (FLA/WATER) SCHEDULED December Frequency and Duration: The patient will be seen 2X/WK X 3 WKS THEN 1X/WK X 3 WKS Short Term Goals: 1. INCREASED POSTURE AWARENESS AND AWARENESS SHOULDER CARE 2. I HEP WITH DC EX PLAN Prison Goals: 1. INCREASED L SHLDER ROM 10 DEGREES ABDUCTION AND ER 2. DECREASED L SHLDER PAIN AT LEAST 50% WITH ADLS Treatment Plan: Modalities to reduce pain, spasms and effusion. Manual therapy to restore motion and function. Therapeutic exercise to improve strength and flexibility. Neuromuscular re-education for posture and balance. Therapeutic activities to return to functional activities of daily living. Electronically signed by: TAMMIE MORRISON PT Please sign and return to therapist. Thank you for your referral.
== END 2024-01-15 13:52 | disposition home or self-care (01) ==
LOC: HO.PT 11:00
PROVIDERS: PCP Internal Medicine; Visit Provider Internal Medicine
DX: M25.511 Pain in right shoulder (principal); M25.512 Pain in left shoulder; G89.29 Other chronic pain
CPT/HCPCS: 97110; 97161; 97535

== ENCOUNTER 2023-11-22 12:51 | Outpatient (AMB) | payer OTHER, SELFPAY ==
[2023-11-22 12:56] VITALS: BP 120/70; PULSE 73; O2SAT 98; BMI 28.8
--- NOTE | 2023-11-22 12:56 | A.OFFPC_ITS ---
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: Not Required per policy Accompanied by: Self / Same As Patient Allergies aspirin [ASPIRIN] Allergy (Unknown, Verified 11/22/23 12:57) ANAPHYLAXIS meperidine [From DEMEROL] Allergy (Unknown, Verified 11/22/23 12:57) ANAPHYLAXIS Penicillins [PENICILLINS] Allergy (Unknown, Verified 11/22/23 12:57) ANAPHYLAXIS Sulfa (Sulfonamide Antibiotics) [SULFA (SULFONAMIDE ANTIBIOTICS)] Allergy (Unknown, Verified 11/22/23 12:57) UNKNOWN dairy Allergy (Unknown, Uncoded 11/22/23 12:57) unknown lactose intolerance Allergy (Unknown, Uncoded 11/22/23 12:57) Unknown Medication List - Last Reconciled 11/23/23 by Ned Alcantara MD bupropion HCl 150 mg PO QAM buspirone 10 mg PO BID clopidogrel 75 mg PO DAILY lovastatin 40 mg PO DAILY midodrine 2.5 mg PO DAILY omeprazole 20 mg PO BID 90 days oxcarbazepine 300 mg PO BID sertraline 200 mg (2 x 100 mg) PO DAILY PRN 90 days Tobacco use date assessed: 10/13/23 Fall risk assessment: No Falls in past year Last assessed Fall Risk: 11/22/23 HPI 11/24 tooth extraction HPI Details having a tooth extracted under local anesth. Hypertension, hyperlipidemia and severe depression on rx; remote history of Sz but has a psychological overtone [facility] Medical History Dyspnea on exertion Chronic pain of both shoulders Wrist pain Obesity Depression Hyperlipidemia Hypertension Fall Surgical History Hx of colonoscopy History of biopsy History of surgical removal of lesion History of hysterectomy History of appendectomy Family History Father History of heart attack Mother Colon cancer Social History Housing: House Alcohol intake: never Patient Tobacco Use Status: Never used Tobacco e-Cigarette/Vaping Use: Never Used Second Hand Smoke Exposure: No service: No Current occupational status: retired Cognitive needs: Yes (cane) Hearing needs: No Vision needs: Yes Questionnaire Thrive Questionnaire Date Thrive assessed: 10/13/23 HUMBERTO-7 AMB Questionnaire HUMBERTO-7 Date HUMBERTO - 7 assessed: 10/13/23 Source: Developed by Drs. Mitchell De Oliveira, Meryl Garcia, Rigoberto Post and colleagues, with an educational romi from [email or web address]. Review of Systems Const Denies chills, Denies fatigue, Denies headache(s) and Denies weight loss Eyes Denies change in vision, Denies diplopia and Denies eye pain ENT Denies vertigo, Denies dizziness, Denies headache(s) and Denies nasal discharge Card Denies chest pain, Denies rapid heart rate and Denies dyspnea on exertion Resp Denies chest congestion, Denies cough, Denies pain with cough and Denies dyspnea on exertion GI Denies abdominal pain, Denies hematochezia and Denies change in bowel habits Musc Denies myalgias, Denies arthralgias and Denies joint swelling Skin/Breast Denies lesions and Denies unusual bruising Neuro Denies vertigo, Denies dizziness, Denies headache(s) and Denies focal weakness Endo Denies fatigue Physical exam (Primary Care) Vital Signs: Last Vital Signs Pulse 73 11/22/23 12:56 BP 120/70 11/22/23 12:56 Pulse Ox 98 11/22/23 12:56 Oxygen Delivery Method Room Air 11/22/23 12:56 BMI result Body Mass Index 28.8 Tobacco/Smoking Status: Tobacco use Status Tobacco use date assessed 10/13/23 11/22/23 12:58 Patient Tobacco Use Status Never used Tobacco 11/22/23 12:58 e-Cigarette/Vaping Use Never Used 11/22/23 12:58 Thrive Assessment: Date of Thrive Assessment Date Thrive assessed 10/13/23 11/22/23 12:58 Const General: cooperative, healthy appearing and no acute distress Orientation/consciousness: oriented to person, oriented to place and oriented to time HENMT Head: Yes normal to inspection, Yes normocephalic and Yes atraumatic Mouth: Normal oral and palatal mucosa present and tongue normal Throat: Yes posterior oropharynx normal and Yes uvula midline Eyes General: appearance normal, both eyes and all related structures Neck Neck: Yes normal visual inspection, Yes full ROM and Yes no lymphadenopathy Thyroid: Thyroid normal Carotids: normal carotid upstroke Chest Chest palpation & inspection: normal inspection of the chest Resp Effort & Inspection: normal respiratory effort and able to speak in complete sentences Auscultation: clear to auscultation bilaterally Cardio Jugular venous distension: no JVD Palpation: normal PMI Rate: regular rate Rhythm: regular rhythm Heart sounds: S1 normal heart sound present and S2 normal heart sound present GI Inspection: Yes normal to inspection Palpation (GI): Soft to palpation and No hepatosplenomegaly present Auscultation: normal bowel sounds General: Yes no CVA tenderness Back/Spine/Pelvis Back: no CVA tenderness Skin General skin exam: no rashes or lesions noted Neuro General: oriented to person, oriented to place and oriented to time Extrem General: Yes normal to inspection and Yes full ROM Assessment and Plan Assessment & Plan (1) Preop exam for internal medicine: Code(s): Z01.818 - Encounter for other preprocedural examination Plan: low risk of cardiovascular complications; cleared for extraction (2) Depression: Code(s): F32.9 - Major depressive disorder, single episode, unspecified Plan: stable; same rx (3) Hyperlipidemia: Code(s): E78.5 - Hyperlipidemia, unspecified Plan: stable; same rx (4) Hypertension: Code(s): I10 - Essential (primary) hypertension Plan: stable; same rx Coding Level of Care Code Est Pt Level 4 (40920) Diagnoses Preop exam for internal medicine Z01.818 Depression F32.9 Hyperlipidemia E78.5 Hypertension I10
== END 2023-11-22 13:24 | disposition home or self-care (01) ==
PROVIDERS: PCP Internal Medicine; Visit Provider Internal Medicine
DX: Z01.818 Encounter for other preprocedural examination (principal); E78.5 Hyperlipidemia, unspecified; I10 Essential (primary) hypertension; F33.2 Major depressive disorder, recurrent severe without psychotic features
CPT/HCPCS: 99214

== ENCOUNTER 2024-01-04 10:35 | Outpatient (AMB) | payer OTHER, SELFPAY ==
--- NOTE | 2024-01-04 10:38 | MHC.PC.OV ---
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: Not Required per policy Accompanied by: Self / Same As Patient Allergies aspirin [ASPIRIN] Allergy (Unknown, Verified 01/04/24 10:59) ANAPHYLAXIS meperidine [From DEMEROL] Allergy (Unknown, Verified 01/04/24 10:59) ANAPHYLAXIS Penicillins [PENICILLINS] Allergy (Unknown, Verified 01/04/24 10:59) ANAPHYLAXIS Sulfa (Sulfonamide Antibiotics) [SULFA (SULFONAMIDE ANTIBIOTICS)] Allergy (Unknown, Verified 01/04/24 10:59) UNKNOWN dairy Allergy (Unknown, Uncoded 01/04/24 10:59) unknown lactose intolerance Allergy (Unknown, Uncoded 01/04/24 10:59) Unknown Medication List - Last Reconciled 01/04/24 by Ned Alcantara MD bupropion HCl 150 mg PO QAM buspirone 10 mg PO BID clopidogrel 75 mg PO DAILY lorazepam 0.5 mg PO BID PRN lovastatin 40 mg PO DAILY midodrine 2.5 mg PO DAILY omeprazole 20 mg PO BID 90 days oxcarbazepine 300 mg PO BID sertraline 200 mg (2 x 100 mg) PO DAILY PRN 90 days Tobacco use date assessed: 10/13/23 HPI 3 month f/u HPI Details hyperlipidemia on rx; doing well and compliant [facility] Medical History Dyspnea on exertion Chronic pain of both shoulders Wrist pain Obesity Depression Hyperlipidemia Hypertension Fall Surgical History Hx of colonoscopy History of biopsy History of surgical removal of lesion History of hysterectomy History of appendectomy Family History Father History of heart attack Mother Colon cancer Social History Housing: House Alcohol intake: never Patient Tobacco Use Status: Never used Tobacco e-Cigarette/Vaping Use: Never Used Second Hand Smoke Exposure: No service: No Current occupational status: retired Cognitive needs: Yes (cane) Hearing needs: No Vision needs: Yes Questionnaire Thrive Questionnaire Date Thrive assessed: 10/13/23 HUMBERTO-7 AMB Questionnaire HUMBERTO-7 Date HUMBERTO - 7 assessed: 10/13/23 Source: Developed by Drs. Mitchell De Oliveira, Meryl Garcia, Rigoberto Post and colleagues, with an educational romi from [employer]. Review of Systems Const Denies chills, Denies headache(s) and Denies weight loss ENT Denies headache(s) Card Denies chest pain, Denies syncope, Denies irregular heart rhythm and Denies dyspnea Resp Denies chest congestion, Denies cough and Denies dyspnea GI Denies abdominal pain, Denies change in stool character, Denies nausea and Denies vomiting Musc Denies deformity and Denies joint swelling Neuro Denies syncope and Denies headache(s) Physical exam (Primary Care) Vital Signs: Last Vital Signs Pulse 63 01/04/24 10:39 BP 132/62 01/04/24 10:39 Pulse Ox 98 01/04/24 10:39 Oxygen Delivery Method Room Air 01/04/24 10:39 BMI result Body Mass Index 27.7 Tobacco/Smoking Status: Tobacco use Status Tobacco use date assessed 10/13/23 01/04/24 10:41 Patient Tobacco Use Status Never used Tobacco 01/04/24 10:41 e-Cigarette/Vaping Use Never Used 01/04/24 10:41 Thrive Assessment: Date of Thrive Assessment Date Thrive assessed 10/13/23 01/04/24 10:41 Const General: cooperative, comfortable, no acute distress and alert Neck Neck: Yes no lymphadenopathy Thyroid: Thyroid normal Resp Effort & Inspection: normal respiratory effort Auscultation: clear to auscultation bilaterally Percussion: percussion normal Cardio Jugular venous distension: no JVD Palpation: normal PMI Rate: regular rate Rhythm: regular rhythm Heart sounds: S1 normal heart sound present and S2 normal heart sound present GI Inspection: Yes normal to inspection Palpation (GI): No hepatosplenomegaly present Skin General skin exam: no rashes or lesions noted Extrem General: Yes no clubbing, cyanosis or edema Assessment and Plan Assessment & Plan (1) Hypertension: Code(s): I10 - Essential (primary) hypertension Plan: stabke Coding Level of Care Code Est Pt Level 3 (41029) Diagnoses Hypertension I10
[2024-01-04 10:39] VITALS: BP 132/62; PULSE 63; O2SAT 98; BMI 27.7
== END 2024-01-04 10:56 | disposition home or self-care (01) ==
PROVIDERS: PCP Internal Medicine; Visit Provider Internal Medicine
DX: I10 Essential (primary) hypertension (principal)
CPT/HCPCS: 99213

== ENCOUNTER 2024-01-04 11:22 | Outpatient (REF) | payer OTHER, SELFPAY ==
[2024-01-04 12:55] LABS: Cholesterol 115 mg/dL (<200); HDL Cholesterol 42 mg/dL (>40); LDL Cholesterol Calculated 47 mg/dL (<100); Triglycerides 134 mg/dL (<150)
== END 2024-01-04 11:23 | disposition home or self-care (01) ==
LOC: HO.LAB 11:22
PROVIDERS: PCP Internal Medicine; Visit Provider Internal Medicine
DX: E78.5 Hyperlipidemia, unspecified (principal)
CPT/HCPCS: 36415; 80061

== ENCOUNTER 2024-02-02 12:45 | Outpatient (AMB) | payer OTHER, SELFPAY ==
--- NOTE | 2024-02-02 12:52 | MHC.PC.OV ---
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 Required: No Accompanied by: Self / Same As Patient Allergies aspirin [ASPIRIN] Allergy (Unknown, Verified 02/02/24 12:57) ANAPHYLAXIS meperidine [From DEMEROL] Allergy (Unknown, Verified 02/02/24 12:57) ANAPHYLAXIS Penicillins [PENICILLINS] Allergy (Unknown, Verified 02/02/24 12:57) ANAPHYLAXIS Sulfa (Sulfonamide Antibiotics) [SULFA (SULFONAMIDE ANTIBIOTICS)] Allergy (Unknown, Verified 02/02/24 12:57) UNKNOWN dairy Allergy (Unknown, Uncoded 02/02/24 12:57) unknown lactose intolerance Allergy (Unknown, Uncoded 02/02/24 12:57) Unknown Medication List - Last Reconciled 02/02/24 by Ned Aclantara MD bupropion HCl XL 150 mg PO QAM buspirone 10 mg PO BID clopidogrel 75 mg PO DAILY lorazepam 0.5 mg PO BID PRN lovastatin 40 mg PO DAILY midodrine 2.5 mg PO DAILY omeprazole 20 mg PO BID 90 days oxcarbazepine 300 mg PO BID sertraline 200 mg (2 x 100 mg) PO DAILY PRN 90 days Tobacco use date assessed: 10/13/23 Fall risk assessment: No Falls in past year Last assessed Fall Risk: 02/02/24 Dental Screening Dental Screen Date: 02/02/24 Did you have a dental visit in the last 12 months?: No Did you have a dental problem in the last 6 months where you did not have access to dental care?: No Was dental information given to patient?: No HPI patient wants to discuss GI issues HPI Details intermittent lower abd cramps and diarrhea for several months; history of ulcerative colitis; no bleeding PFSH Medical History Dyspnea on exertion Chronic pain of both shoulders Wrist pain Obesity Depression Hyperlipidemia Hypertension Fall Surgical History Hx of colonoscopy History of biopsy History of surgical removal of lesion History of hysterectomy History of appendectomy Family History Father History of heart attack Mother Colon cancer Social History Housing: House Alcohol intake: never Patient Tobacco Use Status: Never used Tobacco e-Cigarette/Vaping Use: Never Used Second Hand Smoke Exposure: No service: No Current occupational status: retired Cognitive needs: Yes (cane) Hearing needs: No Vision needs: Yes Questionnaire Thrive Questionnaire Date Thrive assessed: 10/13/23 HUMBERTO-7 AMB Questionnaire HUMBERTO-7 Date HUMBERTO - 7 assessed: 10/13/23 Source: Developed by Drs. Mitchell De Oliveira, Meryl Garcia, Rigoberto Post and colleagues, with an educational romi from [employer]. Review of Systems Const Denies chills, Denies headache(s) and Denies weight loss ENT Denies headache(s) Card Denies chest pain, Denies syncope, Denies irregular heart rhythm and Denies dyspnea Resp Denies chest congestion, Denies cough and Denies dyspnea GI Denies nausea and Denies vomiting Musc Denies deformity and Denies joint swelling Neuro Denies syncope and Denies headache(s) Physical exam (Primary Care) Vital Signs: Last Vital Signs Pulse 83 02/02/24 12:53 BP 126/60 02/02/24 12:53 Pulse Ox 98 02/02/24 12:53 Oxygen Delivery Method Room Air 02/02/24 12:53 BMI result Body Mass Index 27.6 Tobacco/Smoking Status: Tobacco use Status Tobacco use date assessed 10/13/23 02/02/24 12:52 Patient Tobacco Use Status Never used Tobacco 02/02/24 12:52 e-Cigarette/Vaping Use Never Used 02/02/24 12:52 Thrive Assessment: Date of Thrive Assessment Date Thrive assessed 10/13/23 02/02/24 12:52 Assessment and Plan Assessment & Plan (1) Ulcerative colitis: Code(s): K51.90 - Ulcerative colitis, unspecified, without complications Plan: rx sent ; ref gi Orders: Referrals Gastroenterology Referral K51.90 - Ulcerative colitis, unspecified, without complications Medications: New diphenoxylate-atropine 2.5-0.025 mg (Lomotil) 1 tab PO TID PRN 30 tabs 0RF diarrhea Coding Level of Care Code Est Pt Level 3 (09165) Diagnoses Ulcerative colitis K51.90
[2024-02-02 12:53] VITALS: BP 126/60; PULSE 83; O2SAT 98; BMI 27.6
== END 2024-02-02 13:13 | disposition home or self-care (01) ==
PROVIDERS: PCP Internal Medicine; Visit Provider Internal Medicine
DX: K51.90 Ulcerative colitis, unspecified, without complications (principal)
CPT/HCPCS: 99213

== ENCOUNTER 2024-02-06 13:39 | Outpatient (AMB) | payer OTHER, SELFPAY ==
--- NOTE | 2024-02-06 13:41 | HO.NEPHOV ---
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: No Accompanied by: Self / Same As Patient Allergies aspirin [ASPIRIN] Allergy (Unknown, Verified 02/06/24 13:45) ANAPHYLAXIS meperidine [From DEMEROL] Allergy (Unknown, Verified 02/06/24 13:45) ANAPHYLAXIS Penicillins [PENICILLINS] Allergy (Unknown, Verified 02/06/24 13:45) ANAPHYLAXIS Sulfa (Sulfonamide Antibiotics) [SULFA (SULFONAMIDE ANTIBIOTICS)] Allergy (Unknown, Verified 02/06/24 13:45) UNKNOWN dairy Allergy (Unknown, Uncoded 02/02/24 12:57) unknown lactose intolerance Allergy (Unknown, Uncoded 02/02/24 12:57) Unknown HPI Comments Details: Sarahy is a 82-year-old woman with a history of for CKD in a setting loss hypertension. In the past she had significant involuntary movements and she was on high dose of Neurontin. After stopping Neurontin the involuntary movements resolved. Recently she has been lightheadedness and she has imbalance when she walks. She is being evaluated by Cardiology Dr. Nieto After adding Midodrine 2.5 mg QD, she feels much better 02/06/24 Having issues with UC Lomotil has been added [facility] Medical History Dyspnea on exertion Chronic pain of both shoulders Wrist pain Obesity Depression Hyperlipidemia Hypertension Fall Surgical History Hx of colonoscopy History of biopsy History of surgical removal of lesion History of hysterectomy History of appendectomy Family History Father History of heart attack Mother Colon cancer Social History Housing: House Alcohol intake: never Patient Tobacco Use Status: Never used Tobacco e-Cigarette/Vaping Use: Never Used Second Hand Smoke Exposure: No service: No Current occupational status: retired Cognitive needs: Yes (cane) Hearing needs: No Vision needs: Yes Physical Exam Vital Signs: Last Vital Signs Pulse 72 02/06/24 13:42 BP 124/60 02/06/24 13:42 Pulse Ox 96 02/06/24 13:42 Oxygen Delivery Method Room Air 02/06/24 13:42 BMI result Body Mass Index 28.0 Const General: comfortable Nutritional Appearance: well nourished Orientation/consciousness: patient oriented x3 HEENT Head: No normal to inspection Mouth: moist mucous membranes Neck Neck: Yes supple and Yes no JVD Resp Auscultation: clear to auscultation bilaterally, no rales and rub present Cardio Jugular venous distension: no JVD Palpation: no palpable S3 and no palpable S4 Heart sounds: no rubs GI Palpation (GI): Soft to palpation and nontender Percussion: No Fluid wave present General: Yes no CVA tenderness Back/Spine/Pelvis Back: no CVA tenderness Skin General skin exam: no rashes or lesions noted Neuro General: patient oriented x3 Extrem General: Yes no pedal edema and No clubbing Results Reviewed Nephrology Results: Sodium 137 mmol/L (135-145) 10/31/23 Potassium 4.4 mmol/L (3.3-5.1) 10/31/23 Chloride 104 mmol/L (96-108) 10/31/23 Carbon Dioxide 25 mmol/L (22-29) 10/31/23 BUN 44 mg/dL (9-16) H 10/31/23 Creatinine 1.76 mg/dL (0.5-1.4) H 10/31/23 Calcium 10.4 mg/dL (8.4-10.2) H 10/31/23 PTH Intact 107.2 pg/mL (8.7-77.1) H 10/31/23 Urine Protein Negative mg/dL (Neg-Trace) 10/31/23 Assessment & Plan Assessment & Plan (1) CKD (chronic kidney disease): Code(s): N18.9 - Chronic kidney disease, unspecified Category: Medical Plan: Chronic disease in the setting of longstanding hypertension. Renal function stable she has stage III B /stage IV CKD. Renal function is close to baseline. Goal is to slow the progression of renal disease. (2) Postural hypotension: Code(s): I95.1 - Orthostatic hypotension Category: Medical Plan: h/o Significant orthostatic hypotension. Keep midodrine 2.5 mg once a day in the morning and reassess her blood pressure. Titrate dose as indicated. (3) Hypercalcemia: Code(s): E83.52 - Hypercalcemia Category: Medical Plan: Mild asymptomatic hypercalcemia Mild hyperparathyroidism Follow PTH and Ca and will add Sensipar if needed (4) Anemia: Code(s): D64.9 - Anemia, unspecified Category: Medical Plan: Mild asymptomatic anemia with thrombocytopenia. Both are chronic. No indication for Epogen. Orders: Orders Complete Blood Count Auto Diff 4 Months N18.30 - Chronic kidney disease, stage 3 unspecified Comprehensive Met. Panel 4 Months N18.9 - Chronic kidney disease, unspecified Phosphorus 4 Months E83.52 - Hypercalcemia Parathyroid Hormone Intact 4 Months E83.52 - Hypercalcemia Coding Level of Care Code Est Pt Level 4 (99695) Diagnoses CKD (chronic kidney disease) N18.9 Postural hypotension I95.1 Hypercalcemia E83.52 Anemia D64.9
[2024-02-06 13:42] VITALS: BP 124/60; PULSE 72; O2SAT 96; BMI 28.0
== END 2024-02-06 14:18 | disposition home or self-care (01) ==
PROVIDERS: PCP Internal Medicine; Visit Provider Internal Medicine Hypertension Specialist
DX: N18.9 Chronic kidney disease, unspecified (principal); I95.1 Orthostatic hypotension; E83.52 Hypercalcemia; D64.9 Anemia, unspecified
CPT/HCPCS: 99214

== ENCOUNTER → 2024-02-06 13:39 | Outpatient (BNVA) | payer OTHER, SELFPAY | PROVIDERS: PCP Internal Medicine; Visit Provider Internal Medicine Hypertension Specialist ==

== ENCOUNTER 2024-03-20 08:12 | Outpatient (AMB) | payer OTHER, SELFPAY ==
[2024-03-20 08:14] VITALS: BP 110/52; PULSE 57; O2SAT 97; BMI 27.7
--- NOTE | 2024-03-20 08:14 | MHC.PC.OV ---
Vital Signs 03/20/24 08:14 Height 5 ft 7 in Weight 177 lb BMI 27.7 BP 110/52 L Blood Pressure Location Lt brachial Position Sitting Pulse 57 Pulse Source Pulse Oximeter Pulse Oximetry (%) 97 Oxygen Delivery Method Room Air Intake Visit Reasons: ed follow up ([facility]) Allergies aspirin [ASPIRIN] Allergy (Unknown, Verified 03/20/24 08:15) ANAPHYLAXIS meperidine [From DEMEROL] Allergy (Unknown, Verified 03/20/24 08:15) ANAPHYLAXIS Penicillins [PENICILLINS] Allergy (Unknown, Verified 03/20/24 08:15) ANAPHYLAXIS Sulfa (Sulfonamide Antibiotics) [SULFA (SULFONAMIDE ANTIBIOTICS)] Allergy (Unknown, Verified 03/20/24 08:15) UNKNOWN dairy Allergy (Unknown, Uncoded 03/20/24 08:15) unknown lactose intolerance Allergy (Unknown, Uncoded 03/20/24 08:15) Unknown Medication List - Last Reconciled 03/20/24 by Ned Alcantara MD bupropion HCl XL 150 mg PO QAM buspirone 10 mg PO BID clopidogrel 75 mg PO DAILY diphenoxylate-atropine 2.5-0.025 mg (Lomotil) 1 tab PO TID PRN lorazepam 0.5 mg PO BID PRN lovastatin 40 mg PO DAILY midodrine 2.5 mg PO DAILY omeprazole 20 mg PO BID 90 days oxcarbazepine 300 mg PO BID prednisolone 5 mg PO DAILY sertraline 200 mg (2 x 100 mg) PO DAILY PRN 90 days Tobacco use date assessed: 10/13/23 Fall risk assessment: No Falls in past year Last assessed Fall Risk: 03/20/24 Dental Screening Dental Screen Date: 02/02/24 HPI ed follow up ([facility]) HPI Details rash on upper back for a week PFSH Medical History Dyspnea on exertion Chronic pain of both shoulders Wrist pain Obesity Depression Hyperlipidemia Hypertension Fall Surgical History Hx of colonoscopy History of biopsy History of surgical removal of lesion History of hysterectomy History of appendectomy Family History Father History of heart attack Mother Colon cancer Social History Housing: House Alcohol intake: never Patient Tobacco Use Status: Never used Tobacco e-Cigarette/Vaping Use: Never Used Second Hand Smoke Exposure: No service: No Current occupational status: retired Cognitive needs: Yes (cane) Hearing needs: No Vision needs: Yes Questionnaire PHQ-9 Over the last 2 weeks, how often have you been bothered by any of the following problems? 1. Little interest or pleasure in doing things: not at all 2. Feeling down, depressed, or hopeless: not at all 3. Trouble falling or staying asleep, or sleeping too much: not at all 4. Feeling tired or having little energy: not at all 5. Poor appetite or overeating: not at all 6. Feeling bad about yourself - or that you are a failure or have let yourself or your family down: not at all 7. Trouble concentrating on things, such as reading the newspaper or watching television: not at all 8. Moving or speaking so slowly that other people could have noticed. Or the opposite - being so fidgety or restless that you have been moving around a lot more than usual: not at all 9. Thoughts that you would be better off or of hurting yourself in some way: not at all Total score: 0 Depression Screening Interpretation: Negative Depression Screening Done: Yes Source: Developed by Drs. Mitchell De Oliveira, Meryl Garcia, Rigoberto Post and colleagues, with an educational romi from [employer]. Thrive Questionnaire Date Thrive assessed: 10/13/23 AUDIT C Alcohol Use Questionnaire (AUDIT-C) 1. How often do you have a drink containing alcohol?: Never Total Score: 0 HUMBERTO-7 AMB Questionnaire HUMBERTO-7 Date HUMBERTO - 7 assessed: 10/13/23 Source: Developed by Drs. Mitchell De Oliveira, Meryl Garcia, Rigoberto Post and colleagues, with an educational romi from [employer]. Review of Systems Const Denies chills, Denies headache(s) and Denies weight loss ENT Denies headache(s) Card Denies chest pain, Denies syncope, Denies irregular heart rhythm and Denies dyspnea Resp Denies chest congestion, Denies cough and Denies dyspnea GI Denies abdominal pain, Denies change in stool character, Denies nausea and Denies vomiting Musc Denies deformity and Denies joint swelling Neuro Denies syncope and Denies headache(s) Physical exam (Primary Care) Vital Signs: Last Vital Signs Pulse 57 03/20/24 08:14 BP 110/52 L 03/20/24 08:14 Pulse Ox 97 03/20/24 08:14 Oxygen Delivery Method Room Air 03/20/24 08:14 BMI result Body Mass Index 27.7 Tobacco/Smoking Status: Tobacco use Status Tobacco use date assessed 10/13/23 03/20/24 08:21 Patient Tobacco Use Status Never used Tobacco 03/20/24 08:21 e-Cigarette/Vaping Use Never Used 03/20/24 08:21 PHQ-9: PHQ-9 Score PHQ-9: Total score 0 03/20/24 08:21 Depression Screening Interpretation: Negative Thrive Assessment: Date of Thrive Assessment Date Thrive assessed 10/13/23 03/20/24 08:21 Const General: cooperative, comfortable, no acute distress and alert Neck Neck: Yes no lymphadenopathy Thyroid: Thyroid normal Resp Effort & Inspection: normal respiratory effort Auscultation: clear to auscultation bilaterally Percussion: percussion normal Cardio Jugular venous distension: no JVD Palpation: normal PMI Rate: regular rate Rhythm: regular rhythm Heart sounds: S1 normal heart sound present and S2 normal heart sound present GI Inspection: Yes normal to inspection Palpation (GI): No hepatosplenomegaly present Skin Other: folliculitis on upper back Extrem General: Yes no clubbing, cyanosis or edema Assessment and Plan Assessment & Plan (1) Folliculitis: Code(s): L73.9 - Follicular disorder, unspecified Medications: New azithromycin take 500 mg today (day 1), then 250 mg for 4 days (days 2-5) PO 6 tabs 0RF Refilled bupropion HCl XL 150 mg PO QAM 90 tabs 8RF lovastatin 40 mg PO DAILY 90 tabs 8RF midodrine 2.5 mg PO DAILY 90 tabs 1RF Patient Instructions: rx sent Coding Level of Care Code Est Pt Level 3 (11646) Diagnoses Folliculitis L73.9
== END 2024-03-20 08:36 | disposition home or self-care (01) ==
PROVIDERS: PCP Internal Medicine; Visit Provider Internal Medicine
DX: L73.9 Follicular disorder, unspecified (principal)
CPT/HCPCS: 99213

== ENCOUNTER 2024-05-27 10:04 | Outpatient (REF) | payer OTHER, SELFPAY ==
[2024-05-27 10:58] LABS: Appearance Urine Cloudy; Color Urine Yellow; Glucose Urine UA Negative (Negative); Leukocyte Esterase Urine Large (3+) (Negative); Nitrite Urine Positive (Negative); PH 5.5 (5.0-9.0); Specific Gravity - Urine 1.015 (1.005-1.025); UMIC TRIGGER UA YES; Urine Blood Small (1+) (Negative); Urine Ketones Negative (Negative); Urine Protein Trace mg/dL (Neg-Trace)
[2024-05-27 11:03] LABS: Basophils Percent Auto 0.3 % (0-2); Eosinophils Percent Auto 0.3 % (0-4); Hemoglobin 10.6 g/dl (12.0-16.0); MANUAL DIFF FLAG SCAN; Mean Corpuscular Hemoglobin 36.2 pg (27.0-33.0); Monocytes Absolute Auto 0.5 X10*3/uL (0.1-1.2); Neutrophils Absolute Auto 4.3 x10*3/uL (2.0-8.3); Red Blood Count 2.93 X10*6/uL (4.20-5.50); SCAN SMEAR FLAG 1; White Blood Count 5.9 X10*3/uL (4.8-10.8)
[2024-05-27 11:04] LABS: PLT ABN DIST 1
[2024-05-27 11:07] LABS: Hematocrit 30.8 % (37.0-47.0); Imm Gran Abs Auto 0.09 X10*3/uL (0.00-0.03); Imm Gran Pct Auto 1.5 % (0.0-0.4); Lymphocytes Percent Auto 17.2 % (20-40); Mean Corpuscular HGB Conc 34.4 g/dl (31.0-35.0); Mean Corpuscular Volume 105.1 fL (80.0-98.0); Monocytes Percent Auto 8.6 % (2-11); NRBC Pct Auto 0.5 /100WBC (0.0-0.2); Neutrophils Percent Auto 72.1 % (45-73); PLT CLUMP 1
[2024-05-27 11:18] LABS: Bacteria Urine 4+ (None Seen); Hyaline Casts Urine 0-2 /LPF (0-2); RBC Urine 0-2 /HPF (0-2); WBC Urine >50 /HPF (0-5)
[2024-05-27 11:24] LABS: Parathyroid Hormone Intact 96.8 pg/mL (8.7-77.1)
[2024-05-27 11:26] LABS: Alanine Aminotransferase 9 U/L (0-31); Albumin Level 4.5 g/dL (3.5-5.0); Alkaline Phosphatase 97 U/L (39-117); Anion Gap 13 (12-20); Aspartate Amino Transferase 15 U/L (5-31); Bilirubin Total 0.5 mg/dL (0.0-1.0); Blood Urea Nitrogen 39 mg/dL (9-16); Calcium 10.5 mg/dL (8.4-10.2); Carbon Dioxide 27 mmol/L (22-29); Chloride 107 mmol/L (96-108); Estimated Glomerular Filt Rate 31; Glucose Random 102 mg/dL (60-115); Phosphorus 3.3 mg/dL (2.7-4.5); Potassium 4.6 mmol/L (3.3-5.1); Sodium 142 mmol/L (135-145); Total Protein 7.2 g/dL (6.5-8.0)
[2024-05-27 11:27] LABS: Platelet Count 112 X10*3/uL (160-400)
[2024-05-27 11:28] LABS: SLIDE REVIEW VERIFIED
== END 2024-05-27 10:05 | disposition home or self-care (01) ==
LOC: HO.LAB 10:04
PROVIDERS: PCP Internal Medicine; Visit Provider Internal Medicine Hypertension Specialist
DX: E83.52 Hypercalcemia (principal); N18.9 Chronic kidney disease, unspecified; N18.30 Chronic kidney disease, stage 3 unspecified
CPT/HCPCS: 36415; 80053; 81001; 83970; 84100; 85025

== ENCOUNTER 2024-06-04 14:50 | Outpatient (AMB) | payer OTHER, SELFPAY ==
--- NOTE | 2024-06-04 14:52 | HO.NEPHOV ---
Vital Signs 06/04/24 14:53 Height 5 ft 7 in Weight 175 lb BMI 27.4 BP 140/70 H Blood Pressure Location Lt brachial Position Sitting Pulse 71 Pulse Source Pulse Oximeter Pulse Oximetry (%) 96 Oxygen Delivery Method Room Air Intake Visit Reasons: CKD/ Conf [employer] Coxswain Required: No Accompanied by: Self / Same As Patient Allergies aspirin [ASPIRIN] Allergy (Unknown, Verified 06/04/24 14:55) ANAPHYLAXIS meperidine [From DEMEROL] Allergy (Unknown, Verified 06/04/24 14:55) ANAPHYLAXIS Penicillins [PENICILLINS] Allergy (Unknown, Verified 06/04/24 14:55) ANAPHYLAXIS Sulfa (Sulfonamide Antibiotics) [SULFA (SULFONAMIDE ANTIBIOTICS)] Allergy (Unknown, Verified 06/04/24 14:55) UNKNOWN dairy Allergy (Unknown, Uncoded 03/20/24 08:15) unknown lactose intolerance Allergy (Unknown, Uncoded 03/20/24 08:15) Unknown HPI Comments Details: Sarahy is a 82-year-old woman with a history of for CKD in a setting loss hypertension. In the past she had significant involuntary movements and she was on high dose of Neurontin. After stopping Neurontin the involuntary movements resolved. Recently she has been lightheadedness and she has imbalance when she walks. She is being evaluated by Cardiology Dr. Nieto After adding Midodrine 2.5 mg QD, she feels much better 02/06/24 Having issues with UC Lomotil has been added 06/04/2024 She is having difficulty walking with unsteady gait. [facility] Medical History Dyspnea on exertion Chronic pain of both shoulders Wrist pain Obesity Depression Hyperlipidemia Hypertension Fall Surgical History Hx of colonoscopy History of biopsy History of surgical removal of lesion History of hysterectomy History of appendectomy Family History Father History of heart attack Mother Colon cancer Social History Housing: House Alcohol intake: never Patient Tobacco Use Status: Never used Tobacco e-Cigarette/Vaping Use: Never Used Second Hand Smoke Exposure: No service: No Current occupational status: retired Cognitive needs: Yes (cane) Hearing needs: No Vision needs: Yes Physical Exam Vital Signs: Last Vital Signs Pulse 71 06/04/24 14:53 BP 140/70 H 06/04/24 14:53 Pulse Ox 96 06/04/24 14:53 Oxygen Delivery Method Room Air 06/04/24 14:53 BMI result Body Mass Index 27.4 Const General: comfortable Nutritional Appearance: well nourished Orientation/consciousness: patient oriented x3 HEENT Head: No normal to inspection Mouth: moist mucous membranes Neck Neck: Yes supple and Yes no JVD Resp Auscultation: clear to auscultation bilaterally, no rales and rub present Cardio Jugular venous distension: no JVD Palpation: no palpable S3 and no palpable S4 Heart sounds: no rubs GI Palpation (GI): Soft to palpation and nontender Percussion: No Fluid wave present General: Yes no CVA tenderness Back/Spine/Pelvis Back: no CVA tenderness Skin General skin exam: no rashes or lesions noted Neuro General: patient oriented x3 Extrem General: Yes no pedal edema and No clubbing Results Reviewed Nephrology Results: Hgb 10.6 g/dl (12.0-16.0) L 05/27/24 WBC 5.9 X10*3/uL (4.8-10.8) 05/27/24 Plt Count 112 X10*3/uL (160-400) L 05/27/24 Sodium 142 mmol/L (135-145) 05/27/24 Potassium 4.6 mmol/L (3.3-5.1) 05/27/24 Chloride 107 mmol/L (96-108) 05/27/24 Carbon Dioxide 27 mmol/L (22-29) 05/27/24 BUN 39 mg/dL (9-16) H 05/27/24 Creatinine 1.59 mg/dL (0.5-1.4) H 05/27/24 Calcium 10.5 mg/dL (8.4-10.2) H 05/27/24 Phosphorus 3.3 mg/dL (2.7-4.5) 05/27/24 PTH Intact 96.8 pg/mL (8.7-77.1) H 05/27/24 Urine Protein Trace mg/dL (Neg-Trace) 05/27/24 Assessment & Plan Assessment & Plan (1) CKD (chronic kidney disease): Code(s): N18.9 - Chronic kidney disease, unspecified Category: Medical Plan: Chronic disease in the setting of longstanding hypertension. Renal function stable she has stage III B /stage IV CKD. Renal function is close to baseline. Goal is to slow the progression of renal disease. (2) Postural hypotension: Code(s): I95.1 - Orthostatic hypotension Category: Medical Plan: h/o Significant orthostatic hypotension. Keep midodrine 2.5 mg once a day in the morning and reassess her blood pressure. Titrate dose as indicated. (3) Hypercalcemia: Code(s): E83.52 - Hypercalcemia Category: Medical Plan: Mild asymptomatic hypercalcemia Mild hyperparathyroidism Follow PTH and Ca and will add Sensipar if needed (4) Anemia: Code(s): D64.9 - Anemia, unspecified Category: Medical Plan: Mild asymptomatic anemia with thrombocytopenia. Both are chronic. No indication for Epogen. Plan Unsteady gait. 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
[2024-06-04 14:53] VITALS: BP 140/70; PULSE 71; O2SAT 96; BMI 27.4
== END 2024-06-04 15:09 | disposition home or self-care (01) ==
PROVIDERS: PCP Internal Medicine; Visit Provider Internal Medicine Hypertension Specialist
DX: N18.9 Chronic kidney disease, unspecified (principal); I95.1 Orthostatic hypotension; E83.52 Hypercalcemia; D64.9 Anemia, unspecified
CPT/HCPCS: 99214

== ENCOUNTER → 2024-06-04 14:50 | Outpatient (BNVA) | payer OTHER, SELFPAY | PROVIDERS: PCP Internal Medicine; Visit Provider Internal Medicine Hypertension Specialist ==

== ENCOUNTER 2024-07-09 15:43 | Outpatient (AMB) | payer OTHER, SELFPAY ==
[2024-07-09 15:51] VITALS: BP 138/62; PULSE 83; O2SAT 97; BMI 27.1
--- NOTE | 2024-07-09 15:51 | HO.NEPHOV ---
Vital Signs 07/09/24 15:51 Height 5 ft 7 in Weight 173 lb BMI 27.1 BP 138/62 Blood Pressure Location Rt brachial Position Sitting Pulse 83 Pulse Source Pulse Oximeter Pulse Oximetry (%) 97 Oxygen Delivery Method Room Air Intake Visit Reasons: Pt was admitted to [facility] ER 07/07/24 Compliance Officer Required: No Accompanied by: Self / Same As Patient Allergies aspirin [ASPIRIN] Allergy (Unknown, Verified 07/09/24 15:55) ANAPHYLAXIS meperidine [From DEMEROL] Allergy (Unknown, Verified 07/09/24 15:55) ANAPHYLAXIS Penicillins [PENICILLINS] Allergy (Unknown, Verified 07/09/24 15:55) ANAPHYLAXIS Sulfa (Sulfonamide Antibiotics) [SULFA (SULFONAMIDE ANTIBIOTICS)] Allergy (Unknown, Verified 07/09/24 15:55) UNKNOWN dairy Allergy (Unknown, Uncoded 03/20/24 08:15) unknown lactose intolerance Allergy (Unknown, Uncoded 03/20/24 08:15) Unknown Medication List - Last Reconciled 07/09/24 by Ronald Hunt MD bupropion HCl XL 150 mg PO QAM buspirone 10 mg PO BID cefdinir 300 mg PO BID clopidogrel 75 mg PO DAILY diphenoxylate-atropine 2.5-0.025 mg (Lomotil) 1 tab PO TID PRN lorazepam 0.5 mg PO BID PRN lovastatin 40 mg PO DAILY midodrine 2.5 mg PO DAILY omeprazole 20 mg PO BID 90 days oxcarbazepine 300 mg PO BID prednisolone 5 mg PO DAILY sertraline 200 mg (2 x 100 mg) PO DAILY PRN 90 days valacyclovir mg PO HPI Comments Details: Sarahy is a 82-year-old woman with a history of for CKD in a setting loss hypertension. In the past she had significant involuntary movements and she was on high dose of Neurontin. After stopping Neurontin the involuntary movements resolved. Recently she has been lightheadedness and she has imbalance when she walks. She is being evaluated by Cardiology Dr. Nieto After adding Midodrine 2.5 mg QD, she feels much better 02/06/24 Having issues with UC Lomotil has been added 06/04/2024 She is having difficulty walking with unsteady gait. 07/09/24 Recently in [facility] for UTI Says she has had 2 seizures [facility] Medical History Dyspnea on exertion Chronic pain of both shoulders Wrist pain Obesity Depression Hyperlipidemia Hypertension Fall Surgical History Hx of colonoscopy History of biopsy History of surgical removal of lesion History of hysterectomy History of appendectomy Family History Father History of heart attack Mother Colon cancer Social History Housing: House Alcohol intake: never Patient Tobacco Use Status: Never used Tobacco e-Cigarette/Vaping Use: Never Used Second Hand Smoke Exposure: No service: No Current occupational status: retired Cognitive needs: Yes (cane) Hearing needs: No Vision needs: Yes Physical Exam Vital Signs: Last Vital Signs Pulse 83 07/09/24 15:51 BP 138/62 07/09/24 15:51 Pulse Ox 97 07/09/24 15:51 Oxygen Delivery Method Room Air 07/09/24 15:51 BMI result Body Mass Index 27.1 Results Reviewed Nephrology Results: Hgb 10.6 g/dl (12.0-16.0) L 05/27/24 WBC 5.9 X10*3/uL (4.8-10.8) 05/27/24 Plt Count 112 X10*3/uL (160-400) L 05/27/24 Sodium 142 mmol/L (135-145) 05/27/24 Potassium 4.6 mmol/L (3.3-5.1) 05/27/24 Chloride 107 mmol/L (96-108) 05/27/24 Carbon Dioxide 27 mmol/L (22-29) 05/27/24 BUN 39 mg/dL (9-16) H 05/27/24 Creatinine 1.59 mg/dL (0.5-1.4) H 05/27/24 Calcium 10.5 mg/dL (8.4-10.2) H 05/27/24 Phosphorus 3.3 mg/dL (2.7-4.5) 05/27/24 PTH Intact 96.8 pg/mL (8.7-77.1) H 05/27/24 Urine Protein Trace mg/dL (Neg-Trace) 05/27/24 Assessment & Plan Assessment & Plan (1) CKD (chronic kidney disease): Code(s): N18.9 - Chronic kidney disease, unspecified Category: Medical Plan: Chronic disease in the setting of longstanding hypertension. Renal function stable she has stage III B /stage IV CKD. Renal function is close to baseline. Goal is to slow the progression of renal disease. (2) Postural hypotension: Code(s): I95.1 - Orthostatic hypotension Category: Medical Plan: h/o Significant orthostatic hypotension. Keep midodrine 2.5 mg once a day in the morning and reassess her blood pressure. Titrate dose as indicated. (3) Hypercalcemia: Code(s): E83.52 - Hypercalcemia Category: Medical Plan: Mild asymptomatic hypercalcemia Mild hyperparathyroidism Follow PTH and Ca and will add Sensipar if needed (4) Anemia: Code(s): D64.9 - Anemia, unspecified Category: Medical Plan: Mild asymptomatic anemia with thrombocytopenia. Both are chronic. No indication for Epogen. Plan Unsteady gait. With the permission I have referred her for Neurology evaluation Coding Level of Care Code Est Pt Level 4 (87968) Diagnoses CKD (chronic kidney disease) N18.9 Postural hypotension I95.1 Hypercalcemia E83.52 Anemia D64.9
== END 2024-07-09 16:15 | disposition home or self-care (01) ==
PROVIDERS: PCP Internal Medicine; Visit Provider Internal Medicine Hypertension Specialist
DX: N18.4 Chronic kidney disease, stage 4 (severe) (principal); I95.1 Orthostatic hypotension; E83.52 Hypercalcemia; D63.1 Anemia in chronic kidney disease
CPT/HCPCS: 99214

== ENCOUNTER → 2024-07-09 15:43 | Outpatient (BNVA) | payer OTHER, SELFPAY | PROVIDERS: PCP Internal Medicine; Visit Provider Internal Medicine Hypertension Specialist ==

== ENCOUNTER 2024-07-18 10:20 | Outpatient (REF) | payer OTHER, SELFPAY ==
--- NOTE | ~2024-07-18 | XR_ITS ---
EXAMINATION: XR RIBS, LEFT CLINICAL INFORMATION: Pain. COMPARISON: CT chest dated 09/27/2021. TECHNIQUE: 3 views of the left ribs were obtained. FINDINGS: No displaced fracture. No concerning lytic or blastic osseous lesion. No abnormal soft tissue calcification. The visualized lungs are clear. XR/XR ribs LT 2V IMPRESSION: No displaced fracture. Electronically signed by: Danielito Londono MD 07/18/2024 12:36 PM EDT
--- NOTE | ~2024-07-18 | XR_ITS ---
EXAMINATION: XR STERNUM CLINICAL INFORMATION: Chest pain. COMPARISON: CT chest dated 09/27/2021. TECHNIQUE: 2 views of the sternum were obtained. FINDINGS: No displaced fracture. No concerning lytic or blastic osseous lesion. Unremarkable sternoclavicular alignment. No abnormal soft tissue calcification. The visualized lungs are clear. XR/XR sternum min 2V IMPRESSION: No displaced fracture. Electronically signed by: Danielito Londono MD 07/18/2024 12:34 PM EDT
--- NOTE | ~2024-07-18 | XR_ITS ---
EXAMINATION: XR THORACIC SPINE CLINICAL INFORMATION: Back pain. COMPARISON: CT chest dated 09/27/2021. TECHNIQUE: 3 views of the thoracic spine were obtained. FINDINGS: Normal vertebral body alignment. The thoracic kyphosis is maintained. No acute fracture or subluxation. No loss of vertebral body height. Multilevel loss of intervertebral disc height with degenerative endplate osteophytes, unchanged. No concerning lytic or blastic osseous lesion. The visualized lungs are clear. XR/XR thoracic spine 2V IMPRESSION: Moderate multilevel degenerative disc disease, unchanged. Electronically signed by: Danielito Londono MD 07/18/2024 12:48 PM EDT
== END 2024-07-18 10:21 | disposition home or self-care (01) ==
LOC: HO.XRAY 10:20
PROVIDERS: PCP Internal Medicine; Visit Provider Internal Medicine
DX: R07.89 Other chest pain (principal); M54.9 Dorsalgia, unspecified; R07.81 Pleurodynia
CPT/HCPCS: 71100; 71120; 72070

== ENCOUNTER 2024-07-18 10:20 | Outpatient (AMB) | payer OTHER, SELFPAY ==
--- NOTE | 2024-07-18 10:22 | A.OFFPC_ITS ---
Vital Signs 07/18/24 10:23 Height 5 ft 7 in Weight 170 lb BMI 26.6 BP 142/64 H Blood Pressure Location Lt brachial Position Sitting Pulse 74 Pulse Source Pulse Oximeter Pulse Oximetry (%) 96 Oxygen Delivery Method Room Air Intake Visit Reasons: 3mo f/u Intake Note: Pt is here for ED f/u; was at [facility] ED 07/06. 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 Accompanied by: Self / Same As Patient Allergies aspirin [ASPIRIN] Allergy (Unknown, Verified 07/09/24 15:55) ANAPHYLAXIS meperidine [From DEMEROL] Allergy (Unknown, Verified 07/09/24 15:55) ANAPHYLAXIS Penicillins [PENICILLINS] Allergy (Unknown, Verified 07/09/24 15:55) ANAPHYLAXIS Sulfa (Sulfonamide Antibiotics) [SULFA (SULFONAMIDE ANTIBIOTICS)] Allergy (Unknown, Verified 07/09/24 15:55) UNKNOWN dairy Allergy (Unknown, Uncoded 03/20/24 08:15) unknown lactose intolerance Allergy (Unknown, Uncoded 03/20/24 08:15) Unknown Medication List - Last Reconciled 07/18/24 by Ned Alcantara MD bupropion HCl XL 150 mg PO QAM buspirone 10 mg PO BID cefdinir 300 mg PO BID clopidogrel 75 mg PO DAILY diphenoxylate-atropine 2.5-0.025 mg (Lomotil) 1 tab PO TID PRN lorazepam 0.5 mg PO BID PRN lovastatin 40 mg PO DAILY midodrine 2.5 mg PO DAILY omeprazole 20 mg PO BID 90 days oxcarbazepine 300 mg PO BID sertraline 200 mg (2 x 100 mg) PO DAILY PRN 90 days valacyclovir mg PO Tobacco use date assessed: 10/13/23 Fall risk assessment: 2 + Falls in past year Last assessed Fall Risk: 07/18/24 Dental Screening Dental Screen Date: 02/02/24 HPI 3mo f/u HPI Details pain over lower sternum for a week; no trauma PFSH Medical History Dyspnea on exertion Chronic pain of both shoulders Wrist pain Obesity Depression Hyperlipidemia Hypertension Fall Surgical History Hx of colonoscopy History of biopsy History of surgical removal of lesion History of hysterectomy History of appendectomy Family History Father History of heart attack Mother Colon cancer Social History Housing: House Alcohol intake: never Patient Tobacco Use Status: Never used Tobacco Tobacco use type: Cigarette e-Cigarette/Vaping Use: Never Used Second Hand Smoke Exposure: No service: No Current occupational status: retired Cognitive needs: Yes (cane) Hearing needs: No Vision needs: Yes Questionnaire Thrive Questionnaire Date Thrive assessed: 10/13/23 Are you currently unemployed and looking for a job?: Yes HUMBERTO-7 AMB Questionnaire HUMBERTO-7 Date HUMBERTO - 7 assessed: 10/13/23 Source: Developed by Drs. Mitchell De Oliveira, Meryl Garcia, Rigoberto Post and colleagues, with an educational romi from [employer]. Review of Systems Const Denies chills, Denies headache(s) and Denies weight loss ENT Denies headache(s) Card Denies chest pain, Denies syncope, Denies irregular heart rhythm and Denies dyspnea Resp Denies chest congestion, Denies cough and Denies dyspnea GI Denies abdominal pain, Denies change in stool character, Denies nausea and Denies vomiting Musc Denies deformity and Denies joint swelling Neuro Denies syncope and Denies headache(s) Physical exam (Primary Care) Vital Signs: Last Vital Signs Pulse 74 07/18/24 10:23 BP 142/64 H 07/18/24 10:23 Pulse Ox 96 07/18/24 10:23 Oxygen Delivery Method Room Air 07/18/24 10:23 BMI result Body Mass Index 26.6 Tobacco/Smoking Status: Tobacco use Status Tobacco use date assessed 10/13/23 07/18/24 10:26 Patient Tobacco Use Status Never used Tobacco 07/18/24 10:26 Tobacco use type Cigarette 07/18/24 10:31 e-Cigarette/Vaping Use Never Used 07/18/24 10:26 Thrive Assessment: Date of Thrive Assessment Date Thrive assessed 10/13/23 07/18/24 10:26 Const General: cooperative, comfortable, no acute distress and alert Neck Neck: Yes no lymphadenopathy Thyroid: Thyroid normal Resp Effort & Inspection: normal respiratory effort Auscultation: clear to auscultation bilaterally Percussion: percussion normal Cardio Jugular venous distension: no JVD Palpation: normal PMI Rate: regular rate Rhythm: regular rhythm Heart sounds: S1 normal heart sound present and S2 normal heart sound present GI Inspection: Yes normal to inspection Palpation (GI): No hepatosplenomegaly present Skin General skin exam: no rashes or lesions noted Extrem General: Yes no clubbing, cyanosis or edema Coding Level of Care Code Est Pt Level 3 (76127) Diagnoses Sternum pain R07.89 Assessment & Plan Assessment & Plan (1) Sternum pain: Code(s): R07.89 - Other chest pain Plan: xr ordered Orders: Orders XR thoracic spine 2V Today M54.9 - Dorsalgia, unspecified XR sternum min 2V Today R07.89 - Other chest pain XR ribs LT 2V Today R07.81 - Pleurodynia
[2024-07-18 10:23] VITALS: BP 142/64; PULSE 74; O2SAT 96; BMI 26.6
== END 2024-07-18 10:47 | disposition home or self-care (01) ==
PROVIDERS: PCP Internal Medicine; Visit Provider Internal Medicine
DX: R07.89 Other chest pain (principal)

== ENCOUNTER 2024-09-18 07:54 | Outpatient (REF) | payer OTHER, SELFPAY ==
[2024-09-18 10:21] LABS: Hematocrit 28.8 % (37.0-47.0); Hemoglobin 9.7 g/dl (12.0-16.0); Mean Corpuscular HGB Conc 33.7 g/dl (31.0-35.0); Mean Corpuscular Hemoglobin 33.7 pg (27.0-33.0); Mean Platelet Volume 14.1 fL (9.4-12.3); NRBC Pct Auto 0.5 /100WBC (0.0-0.2); Platelet Count 169 X10*3/uL (160-400); Red Blood Count 2.88 X10*6/uL (4.20-5.50); Red Cell Distribution Width 16.6 % (11.0-16.0); White Blood Count 6.7 X10*3/uL (4.8-10.8)
[2024-09-18 10:47] LABS: Parathyroid Hormone Intact 107.5 pg/mL (8.7-77.1)
[2024-09-18 10:56] LABS: Alanine Aminotransferase 15 U/L (0-31); Albumin Level 4.2 g/dL (3.5-5.0); Alkaline Phosphatase 91 U/L (39-117); Anion Gap 13 (12-20); Aspartate Amino Transferase 19 U/L (5-31); Bilirubin Total 0.4 mg/dL (0.0-1.0); Blood Urea Nitrogen 34 mg/dL (9-16); Calcium 10.4 mg/dL (8.4-10.2); Carbon Dioxide 24 mmol/L (22-29); Chloride 109 mmol/L (96-108); Cholesterol 111 mg/dL (<200); Estimated Glomerular Filt Rate 31; Glucose Fasting 105 mg/dL (60-99); HDL Cholesterol 30 mg/dL (>40); LDL Cholesterol Calculated 50 mg/dL (<100); Potassium 4.3 mmol/L (3.3-5.1); Sodium 142 mmol/L (135-145); Total Protein 7.3 g/dL (6.5-8.0); Triglycerides 157 mg/dL (<150)
[2024-09-18 10:59] LABS: SLIDE REVIEW MANUAL DIFF
[2024-09-18 11:07] LABS: Atypical Lymph Absolute Manual 0.3 x10*3/uL; Atypical Lymphs Percent Manual 5 % (0-6); Band Neutrophils Percent 16 % (3-5); Basophils Abs Manual 0.1 X10*3/uL (0.0-0.2); Basophils Percent Manual 1 % (0-2); Lymphocytes Absolute Manual 0.9 X10*3/uL (1.2-4.9); Lymphocytes Percent Manual 13 % (20-40); Myelocytes Absolute 0.1 X10*/uL; Myelocytes Percent 1 %; Neutrophils Absolute Manual 5.4 X10*3/uL (2.0-8.3); Neutrophils Percent Manual 64 % (45-73); Nucleated Red Blood Cells 4 /100WBC (0-0)
[2024-09-18 11:08] LABS: RBC Morphology NOTED
[2024-09-18 11:12] LABS: Macrocytosis 1+ (5-14) /OIF; Polychromasia 1+ (0-2) /OIF; Spherocytes 3+ (>5) /OIF; Tear Drop Cells 1+ (0-2) /OIF
[2024-09-18 11:13] LABS: Large Platelet PRESENT; Platelet Estimate NORMAL (NORMAL); Platelet Morphology Comment NOTED; Thyroid Stimulating Hormone 1.46 uIU/mL (0.32-4.0)
== END 2024-09-18 07:55 | disposition home or self-care (01) ==
LOC: HO.LAB 07:54
PROVIDERS: PCP Internal Medicine; Referring Provider Internal Medicine Hypertension Specialist; Visit Provider Internal Medicine
DX: E83.52 Hypercalcemia (principal); Z13.220 Encounter for screening for lipoid disorders; Z13.29 Encounter for screening for other suspected endocrine disorder; Z13.9 Encounter for screening, unspecified
CPT/HCPCS: 36415; 80053; 80061; 83970; 84443; 85007; 85025; 85027

== ENCOUNTER 2024-09-18 07:56 | Outpatient (AMB) | payer OTHER, SELFPAY ==
[2024-09-18 08:10] VITALS: BP 124/70; PULSE 93; O2SAT 97; BMI 25.8
--- NOTE | 2024-09-18 08:10 | MHC.PC.OV ---
Vital Signs 09/18/24 08:10 Height 5 ft 7 in Weight 165 lb BMI 25.8 BP 124/70 Blood Pressure Location Lt brachial Position Sitting Pulse 93 Pulse Source Pulse Oximeter Pulse Oximetry (%) 97 Oxygen Delivery Method Room Air Intake Visit Reasons: Med Review Allergies aspirin [ASPIRIN] Allergy (Unknown, Verified 09/18/24 08:10) ANAPHYLAXIS meperidine [From DEMEROL] Allergy (Unknown, Verified 09/18/24 08:10) ANAPHYLAXIS Penicillins [PENICILLINS] Allergy (Unknown, Verified 09/18/24 08:10) ANAPHYLAXIS Sulfa (Sulfonamide Antibiotics) [SULFA (SULFONAMIDE ANTIBIOTICS)] Allergy (Unknown, Verified 09/18/24 08:10) UNKNOWN dairy Allergy (Unknown, Uncoded 09/18/24 08:10) unknown lactose intolerance Allergy (Unknown, Uncoded 09/18/24 08:10) Unknown Medication List - Last Reconciled 09/18/24 by Ned Alcantara MD bupropion HCl XL 150 mg PO QAM buspirone 10 mg PO BID cefdinir 300 mg PO BID clopidogrel 75 mg PO DAILY diphenoxylate-atropine 2.5-0.025 mg (Lomotil) 1 tab PO TID PRN lorazepam 0.5 mg PO BID PRN lovastatin 40 mg PO DAILY midodrine 2.5 mg PO DAILY omeprazole 20 mg PO BID 90 days 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 As directed sertraline 200 mg (2 x 100 mg) PO DAILY PRN 90 days valacyclovir mg PO Tobacco use date assessed: 10/13/23 Fall risk assessment: No Falls in past year Last assessed Fall Risk: 09/18/24 Dental Screening Dental Screen Date: 02/02/24 HPI Med Review HPI Details went to [facility] ER with a cough and congestion; w/u neg and feels well now [facility] Medical History Dyspnea on exertion Chronic pain of both shoulders Wrist pain Obesity Depression Hyperlipidemia Hypertension Fall Surgical History Hx of colonoscopy History of biopsy History of surgical removal of lesion History of hysterectomy History of appendectomy Family History Father History of heart attack Mother Colon cancer Social History Housing: House Alcohol intake: never Patient Tobacco Use Status: Never used Tobacco Tobacco use type: Cigarette e-Cigarette/Vaping Use: Never Used Second Hand Smoke Exposure: No service: No Current occupational status: retired Cognitive needs: Yes (cane) Hearing needs: No Vision needs: Yes Questionnaire PHQ-9 Over the last 2 weeks, how often have you been bothered by any of the following problems? 1. Little interest or pleasure in doing things: not at all 2. Feeling down, depressed, or hopeless: not at all 3. Trouble falling or staying asleep, or sleeping too much: not at all 4. Feeling tired or having little energy: not at all 5. Poor appetite or overeating: not at all 6. Feeling bad about yourself - or that you are a failure or have let yourself or your family down: not at all 7. Trouble concentrating on things, such as reading the newspaper or watching television: not at all 8. Moving or speaking so slowly that other people could have noticed. Or the opposite - being so fidgety or restless that you have been moving around a lot more than usual: not at all 9. Thoughts that you would be better off or of hurting yourself in some way: not at all Total score: 0 Depression Screening Interpretation: Negative Depression Screening Done: Yes Source: Developed by Drs. Mitchell De Oliveira, Meryl Garcia, Rigoberto Post and colleagues, with an educational romi from [employer]. Thrive Questionnaire Date Thrive assessed: 10/13/23 Are you currently unemployed and looking for a job?: Yes AUDIT C Alcohol Use Questionnaire (AUDIT-C) 1. How often do you have a drink containing alcohol?: Never Total Score: 0 HUMBERTO-7 AMB Questionnaire HUMBERTO-7 Date HUMBERTO - 7 assessed: 10/13/23 Source: Developed by Drs. Mitchell De Oliveira, Meryl Garcia, Rigoberto Post and colleagues, with an educational romi from [employer]. Review of Systems Const Denies chills, Denies headache(s) and Denies weight loss ENT Denies headache(s) Card Denies chest pain, Denies syncope, Denies irregular heart rhythm and Denies dyspnea Resp Denies chest congestion, Denies cough and Denies dyspnea GI Denies abdominal pain, Denies change in stool character, Denies nausea and Denies vomiting Musc Denies deformity and Denies joint swelling Neuro Denies syncope and Denies headache(s) Physical exam (Primary Care) Vital Signs: Last Vital Signs Pulse 93 09/18/24 08:10 BP 124/70 09/18/24 08:10 Pulse Ox 97 09/18/24 08:10 Oxygen Delivery Method Room Air 09/18/24 08:10 BMI result Body Mass Index 25.8 Tobacco/Smoking Status: Tobacco use Status Tobacco use date assessed 10/13/23 09/18/24 08:15 Patient Tobacco Use Status Never used Tobacco 09/18/24 08:15 Tobacco use type Cigarette 09/18/24 08:15 e-Cigarette/Vaping Use Never Used 09/18/24 08:15 PHQ-9: PHQ-9 Score PHQ-9: Total score 0 09/18/24 08:15 Depression Screening Interpretation: Negative Thrive Assessment: Date of Thrive Assessment Date Thrive assessed 10/13/23 09/18/24 08:15 Const General: cooperative, comfortable, no acute distress and alert Neck Neck: Yes no lymphadenopathy Thyroid: Thyroid normal Resp Effort & Inspection: normal respiratory effort Auscultation: clear to auscultation bilaterally Percussion: percussion normal Cardio Jugular venous distension: no JVD Palpation: normal PMI Rate: regular rate Rhythm: regular rhythm Heart sounds: S1 normal heart sound present and S2 normal heart sound present GI Inspection: Yes normal to inspection Palpation (GI): No hepatosplenomegaly present Skin General skin exam: no rashes or lesions noted Extrem General: Yes no clubbing, cyanosis or edema Coding Level of Care Code Est Pt Level 3 (81343) Diagnoses Bronchitis J40 Assessment & Plan Assessment & Plan (1) Bronchitis: Code(s): J40 - Bronchitis, not specified as acute or chronic Plan: resolved Orders: Orders Lipid Panel Today Z13.220 - Encounter for screening for lipoid disorders Thyroid Stimulating Hormone Today Z13.29 - Encounter for screening for other suspected endocrine disorder Complete Blood Count Auto Diff Today Z13.0 - Encounter for screening for diseases of the blood and blood-forming organs and certain disorders involving the immune mechanism Comprehensive [place]. Panel Fast Today Z13.9 - Encounter for screening, unspecified
--- OUTSIDE RECORDS SUMMARY | 2024-09-18 22:54 | XMS_ITS | Data Portability ---
Author Organization BELÉN Mcginnis zeina [address] Address [address] [place] [address] Assessment No assessment recorded. Plan of Treatment Reminders Order Date Submit Date Provider Last Modified By Organization Details Last Modified Time Details Appointments None record ed. Lab None record ed. Referral None record ed. Procedures None record ed. Surgeries None record ed. Imaging None record ed. Medication Orders None record ed. Patient TargetsNo targets recorded. Patient Instructions Encounter Date Encounter Id Patient Instructions Last Modified By Organization Details Last Modified Time 01/31/2023 [id number] Exercise. Its important to have a regular exercise routine for many reasons, and decreasing pain is one of them. May take OTC Motrin/Tylenol when applicable as directed. Get some Rest. Drink plenty of fluids/stay hydrated. Apply Ice to affected region, or may try in-directed heat the the region. Elevate the injury of affected region. Do stretches. f/u with your pcp for complete resolution of your symptoms. [facility]2 weeks as needed. [email or web address] Not available 01/31/2023 16:45:07 Reason for Referral None Reported. Problems Name Problem SNOMED Code Status Onset Date Resolution Date Notes Provider Name and Address Organization Details Recorded Time Hyperlip idemia 84758701 Active 2022 BELÉN Eaton [facility] 16:32:31 Anxiety 60139867 Active 2022 BELÉN Eaton [facility] 3 16:37:20 Autoimmu ne disease 72322690 Active 2022 BELÉN Eaton [facility] 3 16:37:42 Chronic kidney disease stage 3 649150093 Active 2022 BELÉN Eaton [facility] 16:38:41 Clostrid ium difficil e colitis 427532059 Completed 202201/31/2023 Shayna mclcellan PA - [facility] 16:40:26 Seizure disorder 139911384 Active 2022 Psychogen ic Shayna mcclellan PA - [facility] 16:52:21 Depressi ve disorder 67771052 Active 2022 Shayna mcclellan PA - [facility] 16:39:44 Gastroes ophageal reflux disease 218819132 Active 2022 Shayna mcclellan PA - [facility] 16:39:51 Toxic shock syndrome 20918597 Completed 202201/31/2023 Shayna mcclellan PA - [facility] 16:40:20 Hyperten sive heart disease 52788570 Active 2022 Shayna mcclellan PA - [facility] 16:40:49 Dissocia tive convulsi ons 002419935 Active 2022 Shayna mcclellan PA - [facility] 16:41:14 Panic attack 828482566 Active 2022 Shayna mcclellan PA - [facility] 16:41:30 Pyogenic granulom a 423658157 Active 2022 Shayna mcclellan PA - [facility] 16:41:48 Orthosta tic hypotens ion 53706508 Active 2022 Shayna mcclellan, PA - [facility] 16:41:59 Problem Notes None recorded. Procedures Surgical History Date Name Laterality Status Provider Name and Address Organization Details Recorded Time Appendectomy completed Shayna Sorenson PA - [facility] 01/31/2023 16:42:52 arthroscopy of knee with lateral meniscectomy completed Shayna Sorenson PA - [facility] 01/31/2023 16:43:09 oophorectomy completed Shayna Sorenson PA - [facility] 01/31/2023 16:43:42 Xcapsl ctrc rmvl cplx wo ecp completed Shayna Sorenson PA - [facility] 01/31/2023 16:43:50 hysterectomy completed Shayna Sorenson PA - [facility] 01/31/2023 16:44:12 repair of musculotendinous cuff of shoulder completed Shayna Sorenson PA - [facility] 01/31/2023 16:44:23 tonsillectomy completed Shayna Sorenson PA - [facility] 01/31/2023 16:44:34 Imaging Results None recorded. Procedure Notes None recorded. Medical Equipment None Reported. Allergies Allergen ID Allergen Name Allergen Category Reaction Reaction Severity Criticality Documentation Date Start Date Code Code System Note Provider Name and Address Organization Details Recorded Time 595520 aspirin medicatio n Not available Not available Not available 01/31/2023 1191 RxNorm Shayna mcclellan, PA - [facility] 16:35:27 178585 lactase medicatio n Not available Not available Not available 01/31/2023 99452 RxNorm Shayna mcclellan, PA - [facility] 16:35:32 707152 Demerol medicatio n Not available Not available Not available 01/31/2023 72478 1 RxNorm Shayna mcclellan, PA - [facility] 16:36:41 738070 Medicinal product containin g penicilli n and acting as antibacte rial agent (product) medicatio n Not available Not available Not available 01/31/2023 15012 05 SNOMED Shayna mcclellan, PA - [facility] 16:36:58 Medications Name Sig Start Date Stop Date Status Note LastModified by Organization Details LastModified Time lovastatin 40 mg tablet TAKE 1 TABLET BY MOUTH EVERY DAY active Not Available Not Available No t Available sertraline 100 mg tablet TAKE 2 TABLETS BY MOUTH DAILY NEEDED FOR DEPRESSION FOR 90 DAYS active Not Available Not Available Not Available clopidogrel 75 mg tablet TAKE 1 TABLET BY MOUTH EVERY DAY active Not Available Not Available No t Available amitriptylin e 50 mg tablet TAKE 1 TABLET BY MOUTH AT BEDTIME active Not Available Not Available No t Available triamcinolon e acetonide 0.1 % topical cream APPLY 1 APPLICATION TOPICALLY TO THE RASH ON ARMS AND LEGS TWICE DAILY active Not Available Not Available No t Available dexamethason e 0.5 mg/5 mL oral solution SWISH 5 ML BY MOUTH TWICE A DAY FOR 2 MINS THEN EXPECTORATE active Not Available Not Available Not Available lorazepam 0.5 mg tablet TAKE 1 TABLET BY MOUTH 2 TIMES A DAY NEEDED FOR ANXIETY active Not Available Not Available Not Available triamcinolon e acetonide 0.1 % dental paste APPLY THIN SMEAR TO TONGUE LESIONS TWICE A DAY X 14 DAYS active Not Available Not Available No t Available omeprazole 20 mg capsule,ethan yed release TAKE 1 CAPSULE BY MOUTH TWICE A DAY active Not Available Not Available No t Available clobetasol 0.05 % topical ointment APPLY THIN SMEAR TO ORAL LESION TWICE DAILY. active Not Available Not Available No t Available bupropion HCl XL 150 mg 24 hr tablet, extended release TAKE 1 TABLET BY MOUTH EVERY MORNING active Not Available Not Available No t Available chlorhexidin e gluconate 0.12 % mouthwash PLEASE SEE ATTACHED FOR DETAILED DIRECTIONS active Not Available Not Available N ot Available GaviLyte-G 236 gram-22.74 gram-6.74 gram-5.86 gram oral solution TAKE 8 OUNCE BY MOUTH DIRECTED active Not Available Not Available No t Available Vitals Date Recorded Body height Body mass index (BMI) Body weight Oxygen saturation Oxygen saturation in Arterial blood by Pulse oximetry Heart rate Respiratory rate Body temperature Systolic blood pressure Diastolic blood pressure Provider Name and Address Organization Details Last Updated DateTime 3 170.18 cm 30.9 kg/m2 58505.7 g 99 % 99 % 81 /min 18 /min 97.2 [degF] 118 mm[Hg] 69 mm[Hg] Shayna [facility] 16:33:53 Social History Question Answer Notes LastModified by Organizat ion Details LastModified Time Tobacco Smoking Status Smoker, Current Status Unknown BELÉN Eaton [facility] 01/31/2023 16:42:32 What Is Your Level Of Alcohol Consumption? None [email or web address] Information not available 01/31/2023 Do You Use Any Illicit Or Recreational Drugs? No Information not available 01/31/2023 Sex: Unknown Functional Status None recorded. Mental Status None recorded. Family History Nothing Reported. Medical History No medical history recorded. Gynecological HistoryNo gynecological history recorded. Obstetrics History GPAL:G 0 P 0 0 0 0 Immunizations Vaccine Type Date Status Note Provider Nam e and Address Organization Details Recorded Time Influenza, adjuvanted, trivalent, PF 9 completed Shayna Sorenson null, PA - [facility] 01/31/2023 16:32:53 Influenza, adjuvanted, trivalent, PF 8 completed Shayna Sorenson null, PA - [facility] 01/31/2023 16:32:53 zoster recombinant 8 completed Shayna Sorenson null, PA - [facility] 01/31/2023 16:32:53 Influenza, high-dose, quadrivalent, PF 1 completed Shayna Sorenson null, PA - [facility] 01/31/2023 16:32:53 Influenza, high-dose, quadrivalent, PF 2 completed Shayna Sorenson null, PA - [facility] 01/31/2023 16:32:53 COVID-19, mRNA, LNP-S, PF, 100 mcg/0.5mL dose or 50 mcg/0.25mL dose 1 completed Shayna Sorenson null, PA - [facility] 01/31/2023 16:32:53 COVID-19, mRNA, LNP-S, PF, 100 mcg/0.5mL dose or 50 mcg/0.25mL dose 1 completed Shayna Sorenson null, PA - [facility] 01/31/2023 16:32:53 COVID-19, mRNA, LNP-S, PF, 100 mcg/0.5mL dose or 50 mcg/0.25mL dose 2 completed Shayna Sorenson null, PA - [facility] 01/31/2023 16:32:53 COVID-19, mRNA, LNP-S, PF, 100 mcg/0.5mL dose or 50 mcg/0.25mL dose 1 completed Shayna mcclellan, PA - [facility] 01/31/2023 16:32:53 COVID-19, mRNA, LNP-S, bivalent, PF, 50 mcg/0.5 mL or 25mcg/0.25 mL dose 2 completed Shayna mcclellan, PA - [facility] 01/31/2023 16:32:53 Pneumococcal conjugate PCV 13 6 completed Shayna Sorenson null, PA - [facility] 01/31/2023 16:32:53 Influenza, high-dose, trivalent, PF 6 completed Shayna Sorenson null, PA - [facility] 01/31/2023 16:32:53 Influenza, high-dose, trivalent, PF 6 completed Shayna mcclellan, PA - [facility] 01/31/2023 16:32:53 Influenza, high-dose, trivalent, PF 7 completed Shayna mcclellan, PA - [facility] 01/31/2023 16:32:53 Influenza, high-dose, trivalent, PF 6 completed Shayna mcclellan, PA - [facility] 01/31/2023 16:32:53 Past Encounters Encounter ID Performer Location Encounter Start Date Encounter Closed Date Diagnosis/Indication Diagnosis SNOMED-CT Code Diagnosis ICD10 Code [id number] [address] [place] [address] 09/14/2019 13:42:16 09/14/2019 14:25:00 [id number] [address] [place] [address] 11/09/2017 11:47:21 11/09/2017 13:12:08 [id number] [address] [place] [address] 07/30/2018 11:07:33 07/30/2018 12:24:33 [id number] [address] [place] [address] 08/31/2016 08:30:25 08/31/2016 09:21:21 [id number] [address] [facility], [place] [address] 04/03/2016 11:04:22 04/03/2016 12:26:32 [id number] [address] [facility] [place] [address] 07/06/2018 11:34:50 07/06/2018 13:31:29 [id number] [address] [facility] [place] [address] 01/28/2016 18:05:08 01/28/2016 19:07:56 [id number] [address] [facility] [place] [address] 02/10/2016 16:53:28 02/10/2016 17:58:03 [id number] [address] [facility] [place] [address] 12/27/2015 16:29:56 12/27/2015 17:29:07 [id number] [address] [facility] [place] [address] 09/30/2015 15:05:01 09/30/2015 16:05:08 [id number] [address] [facility] [place] [address] 02/21/2018 17:57:32 02/21/2018 19:08:50 [id number] [address] [facility] [place] [address] 07/11/2020 16:25:03 07/11/2020 18:19:21 [id number] [address] [facility] [place] [address] 04/29/2016 08:27:37 04/29/2016 09:19:25 [id number] [address] [facility] [place] [address] 10/04/2015 09:33:14 10/04/2015 10:43:28 [id number] [address] [place] [address] 01/09/2019 09:06:31 01/09/2019 10:08:57 [id number] [place] [address] [facility] [place] [address] 01/31/2023 15:37:57 01/31/2023 16:56:56 Pain in right hip joint 9849637621 38857 M25.551 Health Concerns Section Related Observation LastModified by Organization Detai ls LastModified Time None Recorded Concern Status LastModified by Organization Details LastModified Time None Recorded Advance Directives Directive None Recorded Payers Encounter Date Sequence Insurance Name Policy Number Policy Mcmullen Covered Member ID Mcmullen Member ID Guarantor Name 09/14/2019 1 [employer] [place] [id number] Liliana M Matt [id number] Liliana Matt 07/11/2020 1 [employer] [place] [id number] 6 Liliana M Matt [id number] Liliana Matt 01/31/2023 1 [employer] [place]) [id number] 6 Liliana M Matt [id number] Liliana Matt Notes Date Note Type Note Provider Name and Address Organization Details Recorded Time 3 text/html Thigh / HipReported bypatient.source of patient informationInformation obtained from patient; Patient arrived at Urgent Care ambulatory Location:right; anterior; medial Quality:aching Severity:mild Duration:1 months Timing:acute Context:cannot identify Alleviating Factors:nothing helps Aggravating Factors:cannot identify Associated Symptoms:no weakness; no numbness; no tingling; no swelling; no redness; no warmth; no ecchymosis; no catching/locking; no buckling; no grinding; no instability; no drainage; no fever; no chills;popping/clicking Previous Surgery:none Prior Imaging:none Previous Injections:none Previous PT:did not help Tommy Arroyo NP [address] [place], [address], PA - [facility] 01/31/2023 16:56:09 OBGyn Episode No OBEpisode recorded.
== END 2024-09-18 08:44 | disposition home or self-care (01) ==
PROVIDERS: PCP Internal Medicine; Visit Provider Internal Medicine
DX: J40 Bronchitis, not specified as acute or chronic (principal)

== ENCOUNTER 2024-10-31 09:35 | Outpatient (REF) | payer OTHER, SELFPAY ==
[2024-10-31 10:15] LABS: MANUAL DIFF FLAG NO
--- OUTSIDE RECORDS SUMMARY | 2024-10-31 10:55 | XMS_ITS | Data Portability ---
Author Organization BELÉN Mcginnis [facility] [address] Address [address] [place] [phone] Assessment No assessment recorded. Plan of Treatment [...] By Organization Details Last Modified Time 01/31/2023 [id number] Exercise. Its important to have a regular [...] Address Organization Details Recorded Time Hyperlip idemia 30966692 Active 2022 BELÉN Eaton [facility] 16:32:31 Anxiety 42972342 Active 2022 BELÉN Eaton [facility] 3 16:37:20 Autoimmu ne disease 12158698 Active 2022 BELÉN Eaton [facility] 16:37:42 Chronic kidney disease stage 3 669725464 Active 2022 BELÉN Eaton [facility] 16:38:41 Clostrid ium difficil e colitis 848776058 Completed 202201/31/2023 Shayna mcclellan PA - [facility] 16:40:26 Seizure disorder 205437504 Active 2022 Psychogen ic Shayna mcclellan PA - [facility] 16:52:21 Depressi ve disorder 10014845 Active 2022 Shayna mcclellan PA - [facility] 16:39:44 Gastroes ophageal reflux disease 063137528 Active 2022 Shayna mcclellan PA - [facility] 16:39:51 Toxic shock syndrome 35161571 Completed 202201/31/2023 Shayna mcclellan PA - [facility] 16:40:20 Hyperten sive heart disease 38128642 Active 2022 Shayna mcclellan PA - [facility] 16:40:49 Dissocia tive convulsi ons 241599746 Active 2022 Shayna mcclellan PA - [facility] 16:41:14 Panic attack 076481907 Active 2022 Shayna mcclellan PA - [facility] 16:41:30 Pyogenic granulom a 455496926 Active 2022 Shayna mcclellan PA - [facility] 16:41:48 Orthosta tic hypotens ion 14484179 Active 2022 Shayna mcclellan, [facility] - [facility] [...] Name and Address Organization Details Recorded Time 761199 aspirin medicatio n Not available Not available Not available 01/31/2023 1191 RxNorm Shayna mcclellan, PA - [facility] 16:35:27 165776 lactase medicatio n Not available Not available Not available 01/31/2023 14398 RxNorm Shayna mcclellan, PA - [facility] 16:35:32 069315 Demerol medicatio n Not available Not available Not available 01/31/2023 74829 1 RxNorm Shayna mcclellan, PA - [facility] 16:36:41 517885 Product containin g penicilli n and antibioti c (product) medicatio n Not available Not available Not available 01/31/2023 12730 05 SNOMED Shayna [facility]cclellan, [facility] - [facility] [...] t Available Vitals Date Recorded Body height Provider Name an d Address Organization Details Last Updated DateTime 01/31/2023 170.18 cm Shayna S[place]son [place] - [facility] 0 01/31/2023 16:33:39 Date Recorded Body mass index (BMI) Provider Name and Address Organization Details Last Updated DateTime 01/31/2023 30.9 kg/m2 Shayna S[place]son [place] [facility] 0 01/31/2023 16:33:39 Date Recorded Body weight Provider Name an d Address Organization Details Last Updated DateTime 01/31/2023 72760.7 g Shayna S[place]son [place] - [facility] 0 01/31/2023 16:33:38 Date Recorded Oxygen saturation Oxygen saturation in Arterial blood by Pulse oximetry Provider Name and Address Organization Details Last Updated DateTime 01/31/2023 99 % 99 % Shayna Sorenson PA - [facility] 01/31/2023 16:33:47 Date Recorded Heart rate Respiratory rate Provider N arvin and Address Organization Details Last Updated DateTime 01/31/2023 81 /min 18 /min Shaynabjorn Sorenson PA - [facility] 01/31/2023 16:34:00 Date Recorded Body temperature Provider Name a nd Address Organization Details Last Updated DateTime 01/31/2023 97.2 [degF] Shaynabjorn [place] PA - [facility] 01/31/2023 16:34:08 Date Recorded Pain severity - 0-10 verbal numeric rating [Score] - Reported Provider Name and Address Organization Details Last Updated DateTime 01/31/2023 0 Shaynabjorn [place]e PA - [facility] 0 01/31/2023 16:34:09 Date Recorded Systolic blood pressure Diastolic blood pressure Provider Name and Address Organization Details Last Updated DateTime 01/31/2023 118 mm[Hg] 69 mm[Hg] Shaynabjorn [place] PA - [facility] 01/31/2023 16:33:53 Social History Question Answer Notes LastModified by Organizat ion Details LastModified Time Tobacco Smoking Status Smoker, Current Status Unknown Shayna mcclellan, PA - [facility] 01/31/2023 16:42:32 What Is Your Level Of Alcohol Consumption? None [email or web address] Information not available 01/31/2023 Do You Use Any Illicit Or Recreational Drugs? No [email or web address] Information not available 01/31/2023 Sex: Unknown Functional Status None recorded. Mental Status None recorded. Family History Nothing Reported. Medical History No medical history recorded. Gynecological HistoryNo gynecological history recorded. Obstetrics History GPAL:G 0 P 0 0 0 0 Immunizations Vaccine Type Date Status Note Provider Nam e and Address Organization Details Recorded Time Influenza, adjuvanted, trivalent, PF 9 completed Shayna mcclellan PA - [facility] 01/31/2023 16:32:53 Influenza, adjuvanted, trivalent, PF 8 completed Shayna mcclellan PA - [facility] 01/31/2023 16:32:53 zoster recombinant 8 completed Shayna mcclellan PA - [facility] 01/31/2023 16:32:53 Influenza, high-dose, quadrivalent, PF 1 completed Shaynabjorn [place] null, PA - [facility] 01/31/2023 16:32:53 [...] or 25mcg/0.25 mL dose 2 completed Shayna Sorenson null, PA - [facility] 01/31/2023 16:32:53 Pneumococcal conjugate PCV 13 6 completed Shaynabjorn Sorenson null, PA - [facility] 01/31/2023 16:32:53 Influenza, high-dose, trivalent, PF 6 completed Shaynabjorn Sorenson null, PA - [facility] 01/31/2023 16:32:53 Influenza, high-dose, trivalent, PF 6 completed Shaynabjorn Sorenson null, PA - [facility] 01/31/2023 16:32:53 Influenza, high-dose, trivalent, PF 7 completed BELÉN Eaton [facility] 01/31/2023 16:32:53 Influenza, high-dose, trivalent, PF 6 completed BELÉN Eaton [facility] 01/31/2023 16:32:53 Past Encounters Encounter ID Performer Location Encounter Start Date Encounter Closed Date Diagnosis/Indication Diagnosis SNOMED-CT Code Diagnosis ICD10 Code Diagnosis Note [id number] [address] [place] [address] 09/14/2019 13:42:16 09/14/2019 14:25:00 [id number] [address] [place] [address] 11/09/2017 11:47:21 11/09/2017 13:12:08 [id number] [address] [place] [address] 07/30/2018 11:07:33 07/30/2018 12:24:33 [id number] [address] [place] [address] 08/31/2016 08:30:25 08/31/2016 09:21:21 [id number] [address] [place] [address] 04/03/2016 11:04:22 04/03/2016 12:26:32 [id number] [address] [place] [address] 07/06/2018 11:34:50 07/06/2018 13:31:29 [id number] [address] [place] [address] 01/28/2016 18:05:08 01/28/2016 19:07:56 [id number] [address] [place] [address] 02/10/2016 16:53:28 02/10/2016 17:58:03 [id number] [address] [facility], [place] [address] 12/27/2015 16:29:56 12/27/2015 17:29:07 [id number] [address] [facility], [place] [address] 09/30/2015 15:05:01 09/30/2015 16:05:08 [id number] [address] [facility], [place] [address] 02/21/2018 17:57:32 02/21/2018 19:08:50 [id number] [address] [facility], [place] [address] 07/11/2020 16:25:03 07/11/2020 18:19:21 [id number] [address] [facility] [place] [address] 04/29/2016 08:27:37 04/29/2016 09:19:25 [id number] [address] [facility], [place] [address] 10/04/2015 09:33:14 10/04/2015 10:43:28 [id number] [address] [facility], [place] [address] 01/09/2019 09:06:31 01/09/2019 10:08:57 [id number] Tommy Arroyo NP [address] [facility] [place] [address] 01/31/2023 15:37:57 01/31/2023 16:56:56 Pain in right hip joint [id number] 09948 M25.551 strongly encouraged to follow up with her PCP or orthopedic as previously scheduled. Health Concerns Section Related Observation LastModified by Organization Detai ls LastModified Time None Recorded Concern Status LastModified by Organization Details LastModified Time None Recorded Advance Directives Directive None Recorded Payers Encounter Date Sequence Insurance Name Policy Number Policy Mcmullen Covered Member ID Mcmullen Member ID Guarantor Name 09/14/2019 1 [facility] (PPO) [id number] Liliana Groves Matt [id number] Liliana Matt 07/11/2020 1 [facility] ([employer] [id number] 6 Liliana Groves Matt [id number] Liliana Matt 01/31/2023 1 [facility] [id number] 6 Liliana Groves Matt [id number] Liliana Matt Notes Date Note Type Note [...] Tommy Arroyo NP [address] [place], [address], [place] - [facility] 01/31/2023 16:56:09 OBGyn Episode No OBEpisode recorded.
[2024-10-31 11:07] LABS: Iron 142 mcg/dL (30-160); Percent Iron Saturation 45 % (15-50); Total Iron Binding Capacity 313 mcg/dL (228-428); Unsaturated Iron Binding 171 ug/dL
[2024-10-31 11:15] LABS: Basophils Absolute Auto 0.1 X10*3/uL (0.0-0.2); Basophils Percent Auto 0.7 % (0-2); Eosinophils Percent Auto 0.5 % (0-4); Hematocrit 31.7 % (37.0-47.0); Hemoglobin 10.7 g/dl (12.0-16.0); Imm Gran Abs Auto 0.21 X10*3/uL (0.00-0.03); Imm Gran Pct Auto 2.8 % (0.0-0.4); Mean Corpuscular HGB Conc 33.8 g/dl (31.0-35.0); Mean Corpuscular Hemoglobin 33.3 pg (27.0-33.0); Mean Corpuscular Volume 98.8 fL (80.0-98.0); Mean Platelet Volume 14.2 fL (9.4-12.3); Monocytes Absolute Auto 0.4 X10*3/uL (0.1-1.2); Monocytes Percent Auto 5.6 % (2-11); NRBC Pct Auto 0.4 /100WBC (0.0-0.2); Neutrophils Absolute Auto 5.8 x10*3/uL (2.0-8.3); Neutrophils Percent Auto 77.4 % (45-73); Platelet Count 162 X10*3/uL (160-400); Red Blood Count 3.21 X10*6/uL (4.20-5.50); Red Cell Distribution Width 16.3 % (11.0-16.0); White Blood Count 7.5 X10*3/uL (4.8-10.8)
== END 2024-10-31 09:36 | disposition home or self-care (01) ==
LOC: HO.LAB 09:35
PROVIDERS: PCP Internal Medicine; Visit Provider Internal Medicine
DX: Z13.0 Encounter for screening for diseases of the blood and blood-forming organs and certain disorders involving the immune mechanism (principal); E61.1 Iron deficiency
CPT/HCPCS: 36415; 83540; 85025

== ENCOUNTER 2024-11-11 13:23 | Outpatient (AMB) | payer OTHER, SELFPAY ==
[2024-11-11 13:36] VITALS: BP 122/62; PULSE 69; O2SAT 97; BMI 26.9
--- NOTE | 2024-11-11 13:36 | MHC.PC.OV ---
Vital Signs 11/11/24 13:36 Height 5 ft 7 in Weight 172 lb BMI 26.9 BP 122/62 Blood Pressure Location Lt brachial Position Sitting Pulse 69 Pulse Source Pulse Oximeter Pulse Oximetry (%) 97 Oxygen Delivery Method Room Air Intake Visit Reasons: Night terrors condition Allergies aspirin [ASPIRIN] Allergy (Unknown, Verified 11/11/24 13:37) ANAPHYLAXIS meperidine [From DEMEROL] Allergy (Unknown, Verified 11/11/24 13:37) ANAPHYLAXIS Penicillins [PENICILLINS] Allergy (Unknown, Verified 11/11/24 13:37) ANAPHYLAXIS Sulfa (Sulfonamide Antibiotics) [SULFA (SULFONAMIDE ANTIBIOTICS)] Allergy (Unknown, Verified 11/11/24 13:37) UNKNOWN dairy Allergy (Unknown, Uncoded 11/11/24 13:37) unknown lactose intolerance Allergy (Unknown, Uncoded 11/11/24 13:37) Unknown Medication List - Last Reconciled 11/11/24 by Ned Alcantara MD bupropion HCl XL 150 mg PO QAM buspirone 10 mg PO BID cefdinir 300 mg PO BID clopidogrel 75 mg PO DAILY diphenoxylate-atropine 2.5-0.025 mg (Lomotil) 1 tab PO TID PRN lorazepam 0.5 mg PO BID PRN lovastatin 40 mg PO DAILY midodrine 2.5 mg PO DAILY omeprazole 20 mg PO BID 90 days 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 As directed sertraline 200 mg (2 x 100 mg) PO DAILY PRN 90 days valacyclovir mg PO Tobacco use date assessed: 11/11/24 Fall risk assessment: 1 Fall in past year (fell early this morning) Last assessed Fall Risk: 11/11/24 Dental Screening Dental Screen Date: 11/11/24 Did you have a dental visit in the last 12 months?: No Did you have a dental problem in the last 6 months where you did not have access to dental care?: No Was dental information given to patient?: No HPI Night terrors condition HPI Details fell and injured right hip a week ago PFSH Medical History Dyspnea on exertion Chronic pain of both shoulders Wrist pain Obesity Depression Hyperlipidemia Hypertension Fall Surgical History Hx of colonoscopy History of biopsy History of surgical removal of lesion History of hysterectomy History of appendectomy Family History Father History of heart attack Mother Colon cancer Social History Housing: House Alcohol intake: never Patient Tobacco Use Status: Never used Tobacco Tobacco use type: Cigarette e-Cigarette/Vaping Use: Never Used Second Hand Smoke Exposure: No service: No Current occupational status: retired Cognitive needs: Yes (cane) Hearing needs: No Vision needs: Yes Questionnaire PHQ-9 Over the last 2 weeks, how often have you been bothered by any of the following problems? 1. Little interest or pleasure in doing things: not at all 2. Feeling down, depressed, or hopeless: not at all 3. Trouble falling or staying asleep, or sleeping too much: not at all 4. Feeling tired or having little energy: not at all 5. Poor appetite or overeating: not at all 6. Feeling bad about yourself - or that you are a failure or have let yourself or your family down: not at all 7. Trouble concentrating on things, such as reading the newspaper or watching television: not at all 8. Moving or speaking so slowly that other people could have noticed. Or the opposite - being so fidgety or restless that you have been moving around a lot more than usual: not at all 9. Thoughts that you would be better off or of hurting yourself in some way: not at all Total score: 0 Depression Screening Interpretation: Negative Depression Screening Done: Yes Source: Developed by Drs. Mitchell De Oliveira, Meryl Garcia, Rigoberto Post and colleagues, with an educational romi from [employer]. Thrive Questionnaire Date Thrive assessed: 11/11/24 I am a: Patient What is your living situation today?: I have a steady place to live Within the past 12 months, did the food you bought not last and you didn't have the money to get more?: Never true Within the past 12 months, did you worry whether your food would run out before you got money to buy more?: Never true Do you have trouble paying for medicines?: No Do you have trouble getting transportation to medical appointments?: No Do you have trouble paying your heating and electricity bill?: No Do you have trouble taking care of your child, family member or friend?: No Do you have trouble with day-to-day activities such as bathing, preparing meals, shopping, managing finances, etc.?: No Are you currently unemployed and looking for a job?: No Are you interested in more education?: No Currently or been in a relationship where the following occur: No concerns reported THRIVE Score: 0 AUDIT C Alcohol Use Questionnaire (AUDIT-C) 1. How often do you have a drink containing alcohol?: Never Total Score: 0 HUMBERTO-7 AMB Questionnaire HUMBERTO-7 Date HUMBERTO - 7 assessed: 11/11/24 Feeling nervous, anxious, or on edge: 0 = Not at all Not being able to stop or control worryin = Not at all Worrying too much about different things: 0 = Not at all Trouble relaxin = Not at all Being so restless that it is hard to sit still: 0 = Not at all Becoming easily annoyed or irritable: 0 = Not at all Feeling afraid as if something awful might happen: 0 = Not at all Total HUMBERTO-7 score (0-4 normal; 5-9 mild; 10-14 moderate; 15-21 severe): 0 Source: Developed by Drs. Mitchell De Oliveira, Meryl Garcia, Rigoberto Post and colleagues, with an educational romi from [employer]. Review of Systems Const Denies chills, Denies headache(s) and Denies weight loss ENT Denies headache(s) Card Denies chest pain, Denies syncope, Denies irregular heart rhythm and Denies dyspnea Resp Denies chest congestion, Denies cough and Denies dyspnea GI Denies abdominal pain, Denies change in stool character, Denies nausea and Denies vomiting Musc Denies deformity and Denies joint swelling Neuro Denies syncope and Denies headache(s) Physical exam (Primary Care) Vital Signs: Last Vital Signs Pulse 69 11/11/24 13:36 BP 122/62 11/11/24 13:36 Pulse Ox 97 11/11/24 13:36 Oxygen Delivery Method Room Air 11/11/24 13:36 BMI result Body Mass Index 26.9 Tobacco/Smoking Status: Tobacco use Status Tobacco use date assessed 11/11/24 11/11/24 13:42 Patient Tobacco Use Status Never used Tobacco 11/11/24 13:42 Tobacco use type Cigarette 11/11/24 13:42 e-Cigarette/Vaping Use Never Used 11/11/24 13:42 PHQ-9: PHQ-9 Score PHQ-9: Total score 0 11/11/24 13:42 Depression Screening Interpretation: Negative Thrive Assessment: Date of Thrive Assessment Date Thrive assessed 11/11/24 11/11/24 13:42 Currently or been in a relationship where the following occur: No concerns reported Const General: cooperative, comfortable, no acute distress and alert Neck Neck: Yes no lymphadenopathy Thyroid: Thyroid normal Resp Effort & Inspection: normal respiratory effort Auscultation: clear to auscultation bilaterally Percussion: percussion normal Cardio Jugular venous distension: no JVD Palpation: normal PMI Rate: regular rate Rhythm: regular rhythm Heart sounds: S1 normal heart sound present and S2 normal heart sound present GI Inspection: Yes normal to inspection Palpation (GI): No hepatosplenomegaly present Skin General skin exam: no rashes or lesions noted Extrem General: Yes no clubbing, cyanosis or edema Coding Level of Care Code Est Pt Level 3 (65664) Diagnoses Hip pain M25.559 Assessment & Plan Assessment & Plan (1) Hip pain: Code(s): M25.559 - Pain in unspecified hip Plan: ref pt Orders: Orders PT Evaluation and Treatment Today M25.551 - Pain in right hip Medications: New zolpidem (Ambien) 5 mg PO BEDTIME PRN 30 tabs 1RF sleep
--- OUTSIDE RECORDS SUMMARY | 2024-11-11 14:40 | XMS_ITS | Clinical Summary ---
Author Organization [facility] Address [address] [place] [address] Phone Care Team Providers Care Collections Agent Name Role Phone Ned Alcantara MD Primary Care Provider [phone] Allergies Active Allergy Reactions Criticality Noted Date Comments Aspirin Anaphylaxis,Other High 06/04/2018 Hydrochlorothiazide Low blood pressure 11/01/19 23 Lactobacillus Acidoph-Lactase Other 01/07/2021 Lactose GI intolerance,Nausea Only,Unknown Low 06/04/2018 Intolerance Meperidine Anaphylaxis,Other High 06/04/2018 Milk Containing Products (Dairy) 04/04/2023 Nsaids (Non-Steroidal Anti-Inflammatory Drug) Anaphylaxis High 07/05/2023 Penicillins Anaphylaxis,Other High 06/04/2018 Sulfa (Sulfonamide Antibiotics) Anaphylaxis,Other High 06/04/2018 Encounters Date Type Department Care Team Description 08/19/2024 11:14 AM EST - 08/19/2024 5:50 PM EST Emergency Emergency [address] [place] [address] Discharge Disposition: Home or Self Care from Last 3 Months Social History Tobacco Use Types Packs/Day Years Used Date Smoking Tobacco: Never Smokeless Tobacco: Never Alcohol Use Standard Drinks/Week Comments Never 0 (1 standard drink = 0.6 oz pur e alcohol) Sex and Gender Information Value Date Recorded Sex Assigned at Not on file Gender Identity Not on file Sexual Orientation Not on file Obstetrics History Last Filed Vital Signs Vital Sign Reading Time Taken Comments Blood Pressure 113/53 08/19/2024 11:22 AM EST Pulse 83 08/19/2024 11:22 AM EST Temperature 37 ??C (98.6 ??F) 08/19/2024 11:22 AM EST Respiratory Rate 20 08/19/2024 11:22 AM EST Oxygen Saturation 97% 08/19/2024 11:22 AM EST Inhaled Oxygen Concentration - - Weight 77.1 kg (170 lb) 08/19/2024 11:22 AM EST Height 170.2 cm (5' 7 ) 08/19/2024 11:22 AM EST Body Mass Index 26.63 08/19/2024 11:22 AM EST Plan of Treatment Health Maintenance Due Date Last Done Comments Pneumococcal Vaccine: 65+ Years (2 of 2 - PPSV23 or PCV20) 02/15/2017 02/16/2016, 10/13/2015 Zoster Vaccines (2 of 2) 09/23/2018 07/29/2018 Cholesterol Screening (Lipid Panel) 09/10/2022 Depression Screening 09/10/2022 Falls Risk Assessment 09/10/2022 Osteoporosis Screening (Bone Density Screening) 09/10/2022 Social Influencers of Health Screening 09/10/2022 Hypertension/CHF/CAD Annual BMP Blood Test 08/19/2025 08/19/2024 DTaP,Tdap,and Td Vaccines (2 - Td or Tdap) 07/05/2034 07/05/2024 RSV Immunization Patients 60+ Years Old Completed 07/04/2023 COVID-19 Vaccine Completed 06/27/2024, 10/2023, 07/11/2023, Additional history exists Influenza Vaccine Completed 06/27/2024, , 07/07/2022, Additional history exists HIB Vaccines Aged Out No longer eligi ble based on patient's age to complete this topic HPV Vaccines Aged Out No longer eligi ble based on patient's age to complete this topic Hepatitis A Vaccines Aged Out No long er eligible based on patient's age to complete this topic Hepatitis B Vaccines Aged Out No long er eligible based on patient's age to complete this topic IPV Vaccines Aged Out No longer eligi ble based on patient's age to complete this topic MMR Vaccines Aged Out No longer eligi ble based on patient's age to complete this topic Meningococcal ACWY Vaccine Aged Out N o longer eligible based on patient's age to complete this topic RSV Immunization Patients Under 20 months Aged Out No longer eligible based on patient's age to complete this topic Varicella Vaccines Aged Out No longer eligible based on patient's age to complete this topic Procedures Procedure Name Priority Date/Time Associated Diagnosis Comments XR CHEST 2 VIEWS STAT 08/19/2024 1:15 PM EST COMPLETE BLOOD COUNT STAT 08/19/2024 12:58 PM EST COMPREHENSIVE METABOLIC PANEL STAT 08/19/2024 12:58 PM EST from Last 3 Months Results * XR Chest 2 Views (08/19/2024 1:15 PM EST) Anatomical Region Laterality Modality Body Radiographic Adenike ging 08/19/2024 1:16 PM EST Impressions 08/19/2024 1:22 PM EST FINDINGS/IMPRESSION: No pneumonia or pulmonary edema. ??No pleural effusion or pneumothorax. ??Cardiac silhouette is normal in size. ??Degenerative changes seen throughout the spine. ??No acute displaced fracture. -------- FINAL REPORT -------- Dictated By: MAYRA GRIFFIN Dictated Date: 08/19/2024 13:16 ET Assigned Physician: MAYRA GRIFFIN Reviewed and Electronically Signed By: MAYRA GRIFFIN Signed Date: 08/19/2024 13:22 ET Workstation ID: [id number] Transcribed By: Self Edit Transcribed Date: 08/19/2024 13:16 ET Narrative 08/19/2024 1:22 PM EST XR CHEST 2 VIEWS INDICATION: ??Pneumonia TECHNIQUE: XR CHEST 2 VIEWS COMPARISON: 07/06/2024 Procedure Note Mayra Griffin MD - 08/19/2024 XR CHEST 2 VIEWS INDICATION: Pneumonia TECHNIQUE: XR CHEST 2 VIEWS COMPARISON: 07/06/2024 IMPRESSION: FINDINGS/IMPRESSION: No pneumonia or pulmonary edema. No pleural effusionor pneumothorax. Cardiac silhouette is normal in size. Degenerativechanges seen throughout the spine. No acute displaced fracture. -------- FINAL REPORT -------- Dictated By: MAYRA GRIFFIN Dictated Date: 08/19/2024 13:16 ET Assigned Physician: MAYRA GRIFFIN Reviewed and Electronically Signed By: MAYRA GRIFFIN Signed Date: 08/19/2024 13:22 ET Workstation ID: [id number] Transcribed By: Self Edit Transcribed Date: 08/19/2024 13:16 ET Jarod Malagon MD IMG XR PROCEDURES * (ABNORMAL) CBC (08/19/2024 12:58 PM EST) WBC 7.6 4.8 - 10.8 K/mcL LAB HEMETOLOGY METHOD 08/19/2024 1:29 PM [facility] RBC 3.10(L) 3.80 - 4.80 M/mcL LAB HEMETOLOGY METHOD 08/19/2024 1:29 PM [facility] Hemoglobin 10.6(L) 11.5 - 16.0 g/dL LAB HEMETOLOGY METHOD 08/19/2024 1:29 PM [facility] Hematocrit 32.8(L) 35.0 - 47.0 % LAB HEMETOLOGY METHOD 08/19/2024 1:29 PM [facility] MCV 104.5(H) 79.0 - 98.0 FL LAB HEMETOLOGY METHOD 08/19/2024 1:29 PM [facility] MCH 33.8(H) 27.0 - 32.0 pcg LAB HEMETOLOGY METHOD 08/19/2024 1:29 PM [facility] MCHC 32.3 32.0 - 37.0 g/dL LAB HEMETOLOGY METHOD 08/19/2024 1:29 PM [facility] RDW 16.8(H) 11.0 - 15.0 % LAB HEMETOLOGY METHOD 08/19/2024 1:29 PM [facility] Platelets 153 130 - 400 K/mcL LAB HEMETOLOGY METHOD 08/19/2024 1:29 PM [facility] MPV 14.3(H) 7.0 - 11.0 FL LAB HEMETOLOGY METHOD 08/19/2024 1:29 PM EST [facility] NRBC 0.5 <1.0 % LAB HEMETOLOGY METHOD 08/19/2024 1:29 PM EST [facility] NRBC Absolute 0.04 <0.10 K/mcL LAB HEMETOLOGY METHOD 08/19/2024 1:29 PM EST [facility] Blood Venous blood specimen / Unknown Venipuncture / Unknown 08/19/2024 12:58 PM EST 08/19/2024 1:17 PM EST Jarod Malagon MD LAB BLOOD ORDERABLES [facility] [address] [place] [address], * (ABNORMAL) Comprehensive metabolic panel (08/19/2024 12:58 PM EST) Sodium 139 133 - 145 mmol/L LAB CHEMISTRY METHOD 08/19/2024 1:52 PM [facility] Potassium 5.2 3.5 - 5.5 mmol/L LAB CHEMISTRY METHOD 08/19/2024 1:52 PM [facility] Chloride 106 96 - 110 mmol/L LAB CHEMISTRY METHOD 08/19/2024 1:52 PM [facility] CO2 25 21 - 32 mmol/L LAB CHEMISTRY METHOD 08/19/2024 1:52 PM [facility] Anion Gap 8 3 - 11 LAB CHEMISTRY METHOD 08/19/2024 1:52 PM [facility] Glucose 107(H) 70 - 100 mg/dL LAB CHEMISTRY METHOD 08/19/2024 1:52 PM [facility] BUN 47(H) 5 - 25 mg/dL LAB CHEMISTRY METHOD 08/19/2024 1:52 PM [facility] Creatinine 1.69(H) 0.50 - 1.10 mg/dL LAB CHEMISTRY METHOD 08/19/2024 1:52 PM [facility] eGFR 30(L) >=60 mL/min/1. 73m2 LAB CHEMISTRY METHOD 08/19/2024 1:52 PM [facility] Comment:Calculation based on the??Chronic Kidney Disease Epidemiology Collaboration (CKD-EPI) equation refit??without adjustment for race. BUN/Creatinine Ratio 27.8 LAB CHEMISTRY METHOD 08/19/2024 1:52 PM [facility] Calcium 10.3 8.5 - 10.5 mg/dL LAB CHEMISTRY METHOD 08/19/2024 1:52 PM [facility] AST (SGOT) 23 10 - 42 unit/L LAB CHEMISTRY METHOD 08/19/2024 1:52 PM [facility] ALT (SGPT) 26 10 - 60 unit/L LAB CHEMISTRY METHOD 08/19/2024 1:52 PM [facility] Alkaline Phosphatase 138(H) 42 - 121 unit/L LAB CHEMISTRY METHOD 08/19/2024 1:52 PM [facility] Total Protein 7.4 6.0 - 8.0 g/dL LAB CHEMISTRY METHOD 08/19/2024 1:52 PM [facility] Albumin 4.3 3.2 - 5.0 g/dL LAB CHEMISTRY METHOD 08/19/2024 1:52 PM [facility] Total Bilirubin 0.5 0.0 - 1.4 mg/dL LAB CHEMISTRY METHOD 08/19/2024 1:52 PM [facility] Blood Venous blood specimen / Unknown Venipuncture / Unknown 08/19/2024 12:58 PM EST 08/19/2024 1:17 PM EST Jarod Malagon MD LAB BLOOD ORDERABLES [facility] [address] [place] [address], from Last 3 Months Advance Directives Documents on File Type Date Recorded Patient General Magistrate Expl anation Health Care Decision (hx) 12/29/2015 AD [place] DIRECTIVE Health Care Decision (hx) 12/29/2015 AD [place]ON DIRECTIVE Health Care Decision (hx) 12/29/2015 AD [place]ON DIRECTIVE Health Care Decision (hx) 12/29/2015 AD [place] DIRECTIVE Health Care Decision (hx) 12/29/2015 AD [place] DIRECTIVE Health Care Decision (hx) 12/29/2015 AD [place] DIRECTIVE Health Care Decision (hx) 12/29/2015 AD [place] DIRECTIVE Health Care Decision (hx) 12/29/2015 AD [place]ON DIRECTIVE Health Care Decision (hx) 12/29/2015 AD [place] DIRECTIVE Health Care Decision (hx) 12/23/2015 AD [place] DIRECTIVE Health Care Decision (hx) 12/23/2015 AD [place] DIRECTIVE Health Care Decision (hx) 12/23/2015 AD [place] DIRECTIVE Health Care Decision (hx) 12/23/2015 AD [place] DIRECTIVE Health Care Decision (hx) 12/23/2015 AD [place]ON DIRECTIVE Health Care Decision (hx) 12/23/2015 AD [place] DIRECTIVE Health Care Decision (hx) 12/23/2015 AD [place]ON DIRECTIVE Health Care Decision (hx) 12/23/2015 AD NE[place]ON DIRECTIVE Health Care Decision (hx) 12/23/2015 AD [place]ON DIRECTIVE Care Teams Collections Agent Relationship Specialty Start Date End Date Ned Alcantara MD [address] [place] [id number] PCP - General 10/27/21
--- OUTSIDE RECORDS SUMMARY | 2024-11-11 14:40 | XMS_ITS ---
Author Organization [facility] Address Unknown Allergies, Adverse Reactions, Alerts Substance Reaction Status Noted Date Resolved Date Lactose Intolerant active 05/04/2016 Problems Problem Status Start Date End Date ENCOUNTER FOR OTHER ORTHOPED IC AFTERCARE (Primary) (Z47.89 - ICD-10-CM) ACTIVE 04/29/2016 HISTORY OF FALLING (Z91.81 - ICD-10-CM) ACTIVE 0 04/29/2016 UNSPECIFIED FRACTURE OF SHAF T OF LEFT FIBULA, SEQUELA (S82.402S - ICD-10-CM) ACTIVE 04/29/2016 OTHER LACK OF COORDINATION (R27.8 - ICD-10-CM) ACTIVE 04/29/2016 DIFFICULTY IN WALKING, NOT E LSEWHERE CLASSIFIED (R26.2 - ICD-10-CM) ACTIVE 04/29/2016 Encounters Encounter Performer Performer Role Encounter Diagnoses Location Date Discharge - Discharged / Transferred to home under care of organized home health service organization - Private home/apt. with home health services [facility] 04/29/2016 12:00 am EDT - 05/10/2016 01:00 pm EDT Immunizations Vaccine Date Influenza Pneumovax Dose 1 Social History
--- OUTSIDE RECORDS SUMMARY | 2024-11-11 14:40 | XMS_ITS | Data Portability ---
Author Organization BELÉN Mcginnis zeina [address] Address [address] [place] [address] Assessment No assessment recorded. Plan of Treatment [...] By Organization Details Last Modified Time 01/31/2023 [id number] Exercise. Its important to have a regular [...] Address Organization Details Recorded Time Hyperlip idemia 29353135 Active 2022 BELÉN Eaton [facility] 16:32:31 Anxiety 29065610 Active 2022 BELÉN Eaton [facility] 16:37:20 Autoimmu ne disease 94235549 Active 2022 BELÉN Eaton [facility] 16:37:42 Chronic kidney disease stage 3 570454618 Active 2022 BELÉN Eaton [facility] 16:38:41 Clostrid ium difficil e colitis 454303760 Completed 202201/31/2023 Shayna mcclellan PA - [facility] 16:40:26 Seizure disorder 607014016 Active 2022 Psychogen ic Shayna mcclellan PA - [facility] 16:52:21 Depressi ve disorder 84676587 Active 2022 Shayna mcclellan PA - [facility] 16:39:44 Gastroes ophageal reflux disease 561658221 Active 2022 Shayna mcclellan PA - [facility] 16:39:51 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 Completed 202201/31/2023 Shayna mcclellan PA - [facility] 16:40:20 Hyperten sive heart disease 87574739 Active 2022 Shayna mcclellan PA - [facility] 16:40:49 Dissocia tive convulsi ons 492872262 Active 2022 Shayna mcclellan PA - [facility] 16:41:14 Panic attack 539200197 Active 2022 Shayna mcclellan PA - [facility] 16:41:30 Pyogenic granulom a 091212295 Active 2022 Shayna mcclellan PA - [facility] 16:41:48 Orthosta tic hypotens ion 71171936 Active 2022 Shayna mcclellan, [facility] - [facility] [...] Name and Address Organization Details Recorded Time 178696 aspirin medicatio n Not available Not available Not available 01/31/2023 1191 RxNorm Shayna mcclellan, PA - [facility] 16:35:27 362875 lactase medicatio n Not available Not available Not available 01/31/2023 94444 RxNorm Shayna mcclellan, PA - [facility] 16:35:32 910408 Demerol medicatio n Not available Not available Not available 01/31/2023 38579 1 RxNorm Shayna mcclellan, PA - [facility] 16:36:41 363131 Product containin g penicilli n and antibioti c (product) medicatio n Not available Not available Not available 01/31/2023 60168 05 SNOMED Shayna [facility]cclellan, [facility] - [facility] [...] oximetry Heart rate Respiratory rate Body temperature Pain severity - 0-10 verbal numeric rating [Score] - Reported Systolic blood pressure Diastolic blood pressure Provider Name and Address Organization Details Last Updated DateTime 3 170.18 cm 30.9 kg/m2 54445.7 g 99 % 99 % 81 /min 18 /min 97.2 [degF] 0 118 mm[Hg] 69 mm[Hg] Shayna Márquez [facility] 16:33:53 Social History Question Answer Notes LastModified by Organizat ion Details LastModified Time Tobacco Smoking Status Smoker, Current Status Unknown [facility] 01/31/2023 16:42:32 What Is Your Level Of Alcohol Consumption? None [email or web address] Information not available 01/31/2023 Do You Use Any Illicit Or Recreational Drugs? No [email or web address] Information not available 01/31/2023 Sex: Unknown Functional [...] mL or 25mcg/0.25 mL dose 2 completed Shaynabjorn Sorenson null, PA - [facility] 01/31/2023 16:32:53 Pneumococcal conjugate PCV 13 6 completed Shaynabjorn Sorenson null, PA - [facility] 01/31/2023 16:32:53 Influenza, high-dose, trivalent, PF 6 completed Shaynabjorn Sorenson null, PA - [facility] 01/31/2023 16:32:53 Influenza, high-dose, trivalent, PF 6 completed Shayna Sorenson null, PA - [facility] 01/31/2023 16:32:53 Influenza, high-dose, trivalent, PF 7 completed Shayna Sorenson null, PA - [facility] 01/31/2023 16:32:53 Influenza, high-dose, trivalent, PF 6 completed Shaynabjorn mcclellan, PA - [facility] 01/31/2023 16:32:53 Past Encounters Encounter ID Performer Location Encounter Start Date Encounter Closed Date Diagnosis/Indication Diagnosis SNOMED-CT Code Diagnosis ICD10 Code Diagnosis Note [id number] [address] [facility] [place] [address] 09/14/2019 13:42:16 09/14/2019 14:25:00 [id number] [address] [facility] [place] [address] 11/09/2017 11:47:21 11/09/2017 13:12:08 [id number] [address] [facility] [place] [address] 07/30/2018 11:07:33 07/30/2018 12:24:33 [id number] [address] [facility] [place] [address] 08/31/2016 08:30:25 08/31/2016 09:21:21 [id number] [address] [facility], [place] [address] 04/03/2016 11:04:22 04/03/2016 12:26:32 [id number] [address] [facility], [place] [address] 07/06/2018 11:34:50 07/06/2018 13:31:29 [id number] [address] [facility], [place] [address] 01/28/2016 18:05:08 01/28/2016 19:07:56 [id number] [address] [facility], [place] [address] 02/10/2016 16:53:28 02/10/2016 17:58:03 [id number] [address] [facility], [place] [address] 12/27/2015 16:29:56 12/27/2015 17:29:07 [id number] [address] [facility], [place] [address] 09/30/2015 15:05:01 09/30/2015 16:05:08 [id number] [address] [facility], [place] [address] 02/21/2018 17:57:32 02/21/2018 19:08:50 [id number] [address] [facility], [place] [address] 07/11/2020 16:25:03 07/11/2020 18:19:21 [id number] [address] [facility], [place] [address] 04/29/2016 08:27:37 04/29/2016 09:19:25 [id number] [address] [facility], [place] [address] 10/04/2015 09:33:14 10/04/2015 10:43:28 [id number] [address] [facility] [place] [address] 01/09/2019 09:06:31 01/09/2019 10:08:57 [id number] [place] [address] [facility] [place] [address] 01/31/2023 15:37:57 01/31/2023 16:56:56 Pain in right hip joint 3737674712 26727 M25.551 strongly encouraged to follow up with [...] ID Guarantor Name 09/14/2019 1 [employer] - [facility] ([facility] [id number] Liliana M Matt [id number] Liliana Matt 07/11/2020 1 [employer] - [facility] (PPO) [id number] 6 Liliana M Matt [id number] Liliana Matt 01/31/2023 1 [employer] - [facility] (PPO) [id number] Liliana M Matt [id number] Liliana Matt Notes Date Note Type Note [...] Previous Injections:none Previous PT:did not help Tommy Cruz, [employer] [address] [place], [address], PA - [facility] 01/31/2023 16:56:09 OBGyn Episode No OBEpisode recorded.
--- OUTSIDE RECORDS SUMMARY | 2024-11-11 14:40 | XMS_ITS | Clinical Summary ---
Author Organization [facility] Address [address] [place] [address] Phone Care Team Providers Care Video And Sound Recorder Name Role Phone Ned Alcantara MD Primary Care Provider [phone] Allergies Active Allergy Reactions Criticality Noted Date Comments Aspirin Other (see comments) 01/07/2021 Bacid Other (see comments) 01/07/2021 Lactose GI intolerance 06/04/2018 Intolerance Meperidine Anaphylaxis,Other (s ee comments) High 06/04/2018 Penicillins Anaphylaxis,Other (s ee comments) High 06/04/2018 Sulfa Antibiotics Other (see comments) 04/27/20 21 Medications acetaminophen (TYLENOL 8 HOUR) 650 MG 8 hr tablet Take 1 tablet by mouth 2 (two) times a day Active amitriptyline (ELAVIL) 25 MG tablet Take 2 tablets by mouth 1 (one) time each day 04/25/2018 Active buPROPion XL (WELLBUTRIN XL) 150 MG 24 hr tablet Take 150 mg by mouth 1 (one) time each day 12/22/2020 Active clopidogrel (PLAVIX) 75 MG tablet Take 1 tablet by mouth 1 (one) time each day 03/13/2018 Active LORazepam (ATIVAN) 0.5 MG tablet Take 1 tablet by mouth 1 (one) time each day Active lovastatin (MEVACOR) 40 MG tablet Take 40 mg by mouth 1 (one) time each day 11/17/2020 Active sertraline (ZOLOFT) 100 MG tablet Take 150 mg by mouth 1 (one) time each day 04/01/2018 Active clobetasol (TEMOVATE) 0.05 % ointment APPLY THIN SMEAR TO ORAL LESION TWICE DAILY. 07/04/2022 Active OXcarbazepine (TRILEPTAL) 300 MG tablet Take 300 mg by mouth in the morning and 300 mg in the evening. Active Active Problems Problem Noted Date Diagnosed Date Hypercalcemia 07/14/2022 Alkalosis 01/07/2021 Chronic kidney disease stage 3 01/07/2021 Disorder of kidney and/or ureter 01/07/2021 Hypertensive heart and renal disease with (congestive) heart failure 01/07/2021 Hypokalemia 01/07/2021 Immunizations Name Administration Dates Next Due Pneumococcal Conjugate 13-Valent 02/16/2016 Family History Medical History Relation Comments Heart disease Father Cancer Mother colon cancer Hypertension Mother Relation Status Comments Father Mother Social History Tobacco Use Types Packs/Day Years Used Date Smoking Tobacco: Never Smokeless Tobacco: Never Tobacco Cessation:Counseling Given: Not Answered Alcohol Use Standard Drinks/Week Comments No 0 (1 standard drink = 0.6 oz pur e alcohol) Comments Unknown Sex and Gender Information Value Date Recorded Sex Assigned at Not on file Legal Sex Female 4:45 PM EST Gender Identity Not on file Sexual Orientation Not on file Last Filed Vital Signs Vital Sign Reading Time Taken Comments Blood Pressure 120/70 02/09/2023 4:34 PM EDT Pulse 74 07/14/2022 3:09 PM EDT Temperature - - Respiratory Rate - - Oxygen Saturation 94% 07/14/2022 3:09 PM EDT Inhaled Oxygen Concentration - - Weight 88.1 kg (194 lb 3.2 oz) 02/09/2023 4:34 P M EDT Height 170.2 cm (5' 7 ) 02/09/2023 4:34 PM EDT Body Mass Index 30.42 02/09/2023 4:34 PM EDT Plan of Treatment Health Maintenance Due Date Last Done Comments Pneumococcal Vaccine: 65+ Ye ars (2 of 2 - PPSV23 or PCV20) 04/12/2016 02/16/2016 Influenza Vaccine (#1) 2024 Hepatitis B Vaccine Aged Out No longe r eligible based on patient's age to complete this topic [place] [address] [facility] Care Teams Video And Sound Recorder Relationship Specialty Start Date End Date Ned Alcantara MD [address] [place] PCP - General 10/19/20
--- OUTSIDE RECORDS SUMMARY | 2024-11-11 14:40 | XMS_ITS | Clinical Summary ---
Author Organization [facility] Address [address] [place] [address] Care Team Providers Care Manager Continuous Improvement Name Role Phone Debbi Beckham Primary Care Provider [phone] Allergies Active Allergy Reactions Criticality Noted Date Comments Aspirin Anaphylaxis High 06/04/2018 Meperidine Anaphylaxis High 06/04/2018 Lactose GI intolerance 06/04/2018 Intolerance Penicillins Anaphylaxis High 06/04/2018 Sulfa (Sulfonamide Antibiotics) Anaphylaxis High Medications buPROPion XL (WELLBUTRIN XL) 150 mg 24 hr tablet 05/13/2018 Active amitriptyline (ELAVIL) 25 mg tablet 04/25/2018 Active clopidogrel (PLAVIX) 75 mg tablet 03/13/2018 Active hydroCHLOROthiazid e (HYDRODIURIL) tablet 04/04/2018 Active LORazepam (ATIVAN) 1 mg tablet 04/03/2018 Active lovastatin (MEVACOR) 40 mg tablet 03/13/2018 Active sertraline (ZOLOFT) 100 mg tablet 04/01/2018 Active Active Problems No known active problems Social History Tobacco Use Types Packs/Day Years Used Date Smoking Tobacco: Never Smokeless Tobacco: Never Alcohol Use Standard Drinks/Week Comments No 0 (1 standard drink = 0.6 oz pur e alcohol) Comments No Sex and Gender Information Value Date Recorded Sex Assigned at Not on file Legal Sex Female 12:10 PM EST Gender Identity Not on file Sexual Orientation Not on file Last Filed Vital Signs Vital Sign Reading Time Taken Comments Blood Pressure 125/60 06/06/2018 12:00 PM EDT Pulse 72 06/06/2018 12:00 PM EDT Temperature 36.1 ??C (96.9 ??F) 06/06/2018 10:20 AM E DT Respiratory Rate 17 06/06/2018 12:00 PM EDT Oxygen Saturation 90% 06/06/2018 12:00 PM EDT Inhaled Oxygen Concentration - - Weight 86.2 kg (190 lb) 06/04/2018 2:53 PM EDT Height 170.2 cm (5' 7 ) 06/04/2018 2:53 PM EDT Body Mass Index 29.76 06/04/2018 2:53 PM EDT Plan of Treatment Health Maintenance Due Date Last Done Comments Bone Density Screening 1940 HIV Screening 1940 DTaP,Tdap,and Td Vaccines (1 - Tdap) 1958 Zoster Vaccines (1 of 2) 1990 Pneumococcal Vaccine, 65+ Ye ars (1 of 1 - PCV) 2005 COVID-19 Vaccine (1 - 2023-2 5 season) 2024 Influenza Vaccine (#1) 2024 HPV Vaccines Aged Out No longer eligi ble based on patient's age to complete this topic Hepatitis A Vaccines Aged Out No long er eligible based on patient's age to complete this topic Meningococcal Vaccine Aged Out No katlyn kwame eligible based on patient's age to complete this topic Insurance [facility] Advance Directives For more information, please contact: [phone] Documents on File Type Date Recorded Patient Belt Back Operator Expl anation Advance Directives 06/07/2018 2:23 PM Healthcare Agents on File Name Relationship Healthcare Agent Relationshi p Communication Kirsten Jairo Friend POA for [facility] prior to 07/09/2006 Care Teams Manager Continuous Improvement Relationship Specialty Start Date End Date Debbi Beckham PA [address] [id number] PCP - General Family Medicine 05/23/18
== END 2024-11-11 14:08 | disposition home or self-care (01) ==
PROVIDERS: PCP Internal Medicine; Visit Provider Internal Medicine
DX: M25.559 Pain in unspecified hip (principal)

== ENCOUNTER → 2024-11-11 13:23 | Outpatient (BNVA) | payer OTHER, SELFPAY | PROVIDERS: PCP Internal Medicine; Visit Provider Internal Medicine ==

== ENCOUNTER 2024-12-10 09:06 | Emergency (ER) | payer OTHER, SELFPAY ==
[2024-12-10 09:14] VITALS: BP 118/40; PULSE 95; RESP 16; TEMP 37.1; O2SAT 97; BMI 26.1
[2024-12-10 09:34] LABS: Basophils Percent Auto 0.1 % (0-2); Hemoglobin 8.4 g/dl (12.0-16.0); Mean Corpuscular Volume 96.8 fL (80.0-98.0); Neutrophils Percent Auto 80.2 % (45-73); Red Cell Distribution Width 15.3 % (11.0-16.0); SCAN SMEAR FLAG 1
[2024-12-10 09:36] LABS: Eosinophils Percent Auto 0.1 % (0-4); Hematocrit 24.1 % (37.0-47.0); Imm Gran Abs Auto 0.13 X10*3/uL (0.00-0.03); Imm Gran Pct Auto 1.7 % (0.0-0.4); Lymphocytes Absolute Auto 0.4 X10*3/uL (1.2-4.9); Lymphocytes Percent Auto 4.9 % (20-40); MANUAL DIFF FLAG SCAN; Mean Corpuscular HGB Conc 34.9 g/dl (31.0-35.0); Mean Corpuscular Hemoglobin 33.7 pg (27.0-33.0); Neutrophils Absolute Auto 6.1 x10*3/uL (2.0-8.3); PLT CLUMP 1; Red Blood Count 2.49 X10*6/uL (4.20-5.50)
[2024-12-10 09:52] LABS: Alanine Aminotransferase 25 U/L (0-31); Albumin Level 3.9 g/dL (3.5-5.0); Alkaline Phosphatase 88 U/L (39-117); Anion Gap 14 (12-20); Aspartate Amino Transferase 37 U/L (5-31); Bilirubin Total 0.4 mg/dL (0.0-1.0); Blood Urea Nitrogen 46 mg/dL (9-16); Calcium 9.5 mg/dL (8.4-10.2); Carbon Dioxide 20 mmol/L (22-29); Chloride 108 mmol/L (96-108); Creatinine Clr Calc Pharmacy 24.5; Estimated Glomerular Filt Rate 26; Glucose Random 120 mg/dL (60-115); Potassium 4.2 mmol/L (3.3-5.1); Sodium 138 mmol/L (135-145); Total Protein 7.3 g/dL (6.5-8.0)
[2024-12-10 09:55] LABS: PLT ABN DIST 1
[2024-12-10 10:57] LABS: Platelet Count 111 X10*3/uL (160-400); White Blood Count 7.6 X10*3/uL (4.8-10.8)
[2024-12-10 10:58] LABS: SLIDE REVIEW VERIFIED
--- OUTSIDE RECORDS SUMMARY | 2024-12-10 20:25 | XMS_ITS | Data Portability ---
Author Organization BELÉN Mcginnis [facility]ina [address] Address [address] [place] [address] Assessment No assessment recorded. Plan of Treatment [...] By Organization Details Last Modified Time 01/31/2023 [id number] Exercise. Its important to have a regular [...] Address Organization Details Recorded Time Hyperlip idemia 71372133 Active 2022 BELÉN Eaton [facility] 16:32:31 Anxiety 37370162 Active 2022 BELÉN Eaton [facility] 3 16:37:20 Autoimmu ne disease 51401250 Active 2022 BELÉN Eaton [facility] 3 16:37:42 Chronic kidney disease stage 3 807175436 Active 2022 BELÉN Eaton [facility] 16:38:41 Clostrid ium difficil e colitis 349155087 Completed 202201/31/2023 Shayna mcclellan PA - [facility] 16:40:26 Seizure disorder 568229068 Active 2022 Psychogen ic Shayna mcclellan PA - [facility] 16:52:21 Depressi ve disorder 64175990 Active 2022 Shayna mcclellan PA - [facility] 16:39:44 Gastroes ophageal reflux disease 507145916 Active 2022 Shayna mcclellan PA - [facility] 16:39:51 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 Completed 202201/31/2023 Shayna mcclellan PA - [facility] 16:40:20 Hyperten sive heart disease 49769940 Active 2022 Shayna mcclellan PA - [facility] 16:40:49 Dissocia tive convulsi ons 285804170 Active 2022 Shayna mcclellan PA - [facility] 16:41:14 Panic attack 219712266 Active 2022 Shayna mcclellan PA - [facility] 16:41:30 Pyogenic granulom a 792174608 Active 2022 Shayna mcclellan PA - [facility] 16:41:48 Orthosta tic hypotens ion 78813899 Active 2022 Shayna mcclellan, [facility] - [facility] [...] Name and Address Organization Details Recorded Time 237834 aspirin medicatio n Not available Not available Not available 01/31/2023 1191 RxNorm Shayna mcclellan, PA - [facility] 3 16:35:27 045665 lactase medicatio n Not available Not available Not available 01/31/2023 39421 RxNorm Shayna mcclellan, PA - [facility] 16:35:32 378483 Demerol medicatio n Not available Not available Not available 01/31/2023 99506 1 RxNorm Shayna mcclellan, PA - [facility] 16:36:41 390689 Product containin g penicilli n (product) medicatio n Not available Not available Not available 01/31/2023 82739 8001 SNOMED Shayna mcclellan, PA - [facility] 3 16:36:58 Medications Name Sig Start Date Stop [...] Updated DateTime 3 170.18 cm 30.9 kg/m2 06043.7 g 99 % 99 % 81 /min 18 /min 97.2 [degF] 0 118 mm[Hg] 69 mm[Hg] Shayna Forde [facility] 16:33:53 Social History Question Answer Notes LastModified by Organizat ion Details LastModified Time Tobacco Smoking Status Smoker, Current Status Unknown BELÉN Eaton [facility] 01/31/2023 16:42:32 What Is Your Level Of Alcohol Consumption? None [email or web address] Information not available 01/31/2023 Do You Use Any Illicit Or Recreational Drugs? No [email or web address] Information not available 01/31/2023 Sex: Unknown Functional [...] or 50 mcg/0.25mL dose 1 completed Shayna Sorneson null, PA - [facility] 01/31/2023 16:32:53 [...] null, PA - [facility] 01/31/2023 16:32:53 Past Encounters Encounter ID Performer Location Encounter Start Date Encounter Closed Date Diagnosis/Indication Diagnosis SNOMED-CT Code Diagnosis ICD10 Code Diagnosis Note [id number] [address] [place] [address] 09/14/2019 13:42:16 09/14/2019 14:25:00 [id number] [address] [place] [address] 11/09/2017 11:47:21 11/09/2017 13:12:08 [id number] [address] [place] [address] 07/30/2018 11:07:33 07/30/2018 12:24:33 [id number] [address] [place] [address] 08/31/2016 08:30:25 08/31/2016 09:21:21 [id number] [address] [facility] [place] [address] 04/03/2016 11:04:22 04/03/2016 12:26:32 [id number] [address] [facility] [place] [address] 07/06/2018 11:34:50 07/06/2018 13:31:29 [id number] [address] [facility] [place] [address] 01/28/2016 18:05:08 01/28/2016 19:07:56 [id number] [address] [facility], [place] [address] 02/10/2016 16:53:28 02/10/2016 17:58:03 [id number] [address] [facility] [place] [address] 12/27/2015 16:29:56 12/27/2015 17:29:07 [id number] [address] [facility] [place] [address] 09/30/2015 15:05:01 09/30/2015 16:05:08 [id number] [address] [facility], [place] [address] 02/21/2018 17:57:32 02/21/2018 19:08:50 [id number] [address] [facility] [place] [address] 07/11/2020 16:25:03 07/11/2020 18:19:21 [id number] [address] [facility] [place] [address] 04/29/2016 08:27:37 04/29/2016 09:19:25 [id number] [address] [facility] [place] [address] 10/04/2015 09:33:14 10/04/2015 10:43:28 [id number] [facility] [address] [facility] [place] [address] 01/09/2019 09:06:31 01/09/2019 10:08:57 [id number] [place] [address] [facility] [address] [facility] [address] [facility] [place] [address] 01/31/2023 15:37:57 01/31/2023 16:56:56 Pain in right hip joint [id number] 23466 M25.551 strongly encouraged to follow up with her PCP or orthopedic as previously scheduled. Health Concerns Section Related Observation LastModified by Organization Detai ls LastModified Time None Recorded Concern Status LastModified by Organization Details LastModified Time None Recorded Advance Directives Directive None Recorded Payers Encounter Date Sequence Insurance Name Policy Number Policy Mcmullen Covered Member ID Mcmullen Member ID Guarantor Name 09/14/2019 1 [facility] (PPO) [id number] 6 Liliana M Mtat [id number] Liliana Matt 07/11/2020 1 [employer] - [facility] (PPO) [id number] 6 Liliana M Matt [id number] Liliana Matt 01/31/2023 1 [facility] (PPO) [id number] 6 Liliana M Matt [id number] Liliana Matt Notes Date Note Type Note [...] PT:did not help Tommy Arroyo NP [address] [place], [address], PA - [facility] 01/31/2023 16:56:09 OBGyn Episode No OBEpisode recorded.
--- OUTSIDE RECORDS SUMMARY | 2024-12-10 20:25 | XMS_ITS | Clinical Summary ---
Author Organization [facility] Address [address] [place] [address] Phone Care Team Providers Care Butcher Assistant Name Role Phone Ned Alcantara MD Primary Care Provider Allergies Active Allergy Reactions Criticality Noted Date Comments Aspirin Anaphylaxis,Other High 06/04/2018 Hydrochlorothiazide Low blood pressure 11/01/19 23 Lactobacillus Acidoph-Lactase Other 01/07/2021 Lactose GI intolerance,Nausea Only,Unknown Low 06/04/2018 Intolerance Meperidine Anaphylaxis,Other High 06/04/2018 Milk Containing Products (Dairy) 04/04/2023 Nsaids (Non-Steroidal Anti-Inflammatory Drug) Anaphylaxis High 07/05/2023 Penicillins Anaphylaxis,Other High 06/04/2018 Sulfa (Sulfonamide Antibiotics) Anaphylaxis,Other High 06/04/2018 Social History Tobacco Use Types Packs/Day Years Used Date Smoking Tobacco: Never Smokeless Tobacco: Never Alcohol Use Standard Drinks/Week Comments Never 0 (1 standard drink = 0.6 oz pur e alcohol) Comments Unknown Sex and Gender Information Value Date Recorded Sex Assigned at Not on file Legal Sex Female 10:22 PM EST Gender Identity Not on file [...] Due Date Last Done Comments Pneumococcal Vaccine: 50+ Years (2 of 2 - PPSV23) 02/15/2017 02/16/2016, 10/13/2015 Zoster Vaccines (2 of [...] patient's age to complete this topic Meningococcal B Vacine Aged Out No lo nger eligible based on patient's age to complete this topic RSV Immunization Patients Under 20 months Aged Out No longer eligible based on patient's age to complete this topic Varicella Vaccines Aged Out No longer eligible based on patient's age to complete this topic Procedures Procedure Name Priority Date/Time Associated Diagnosis Comments COMPREHENSIVE METABOLIC PANEL STAT 08/19/2024 12:58 PM EST from Last 3 Months or Most Recently Relevant to Health Maintenance Results * (ABNORMAL) Comprehensive metabolic panel (08/19/2024 12:58 PM EST) Sodium 139 133 - 145 mmol/L LAB CHEMISTRY METHOD 08/19/2024 1:52 PM [facility] Potassium 5.2 3.5 - 5.5 mmol/L LAB CHEMISTRY METHOD 08/19/2024 1:52 PM [facility] Chloride 106 96 - 110 mmol/L LAB CHEMISTRY METHOD 08/19/2024 1:52 PM [facility] CO2 25 21 - 32 mmol/L LAB CHEMISTRY METHOD 08/19/2024 1:52 PM [facility] Anion Gap 8 3 - 11 LAB CHEMISTRY METHOD 08/19/2024 1:52 PM [facility] Glucose 107(H) 70 - 100 mg/dL LAB CHEMISTRY METHOD 08/19/2024 1:52 PM [facility] BUN 47(H) 5 - 25 mg/dL LAB CHEMISTRY METHOD 08/19/2024 1:52 PM [facility] Creatinine 1.69(H) 0.50 - 1.10 mg/dL LAB CHEMISTRY METHOD 08/19/2024 1:52 PM [facility] eGFR 30(L) >=60 mL/min/1. 73m2 LAB CHEMISTRY METHOD 08/19/2024 1:52 PM [facility] Comment:Calculation based on the??Chronic Kidney Disease Epidemiology Collaboration (CKD-EPI) equation refit??without adjustment for race. BUN/Creatinine Ratio 27.8 LAB CHEMISTRY METHOD 08/19/2024 1:52 PM [facility] Calcium 10.3 8.5 - 10.5 mg/dL LAB CHEMISTRY METHOD 08/19/2024 1:52 PM [facility] AST (SGOT) 23 10 - 42 unit/L LAB CHEMISTRY METHOD 08/19/2024 1:52 PM [facility] ALT (SGPT) 26 10 - 60 unit/L LAB CHEMISTRY METHOD 08/19/2024 1:52 PM [facility] Alkaline Phosphatase 138(H) 42 - 121 unit/L LAB CHEMISTRY METHOD 08/19/2024 1:52 PM [facility] Total Protein 7.4 6.0 - 8.0 g/dL LAB CHEMISTRY METHOD 08/19/2024 1:52 PM [facility] Albumin 4.3 3.2 - 5.0 g/dL LAB CHEMISTRY METHOD 08/19/2024 1:52 PM [facility] Total Bilirubin 0.5 0.0 - 1.4 mg/dL LAB CHEMISTRY METHOD 08/19/2024 1:52 PM [facility] Blood Venous blood specimen / Unknown Venipuncture / Unknown 08/19/2024 12:58 PM EST 08/19/2024 1:17 PM EST Jarod Malagon MD LAB BLOOD ORDERABLES Final Res ult [facility] [address] [place] [address], from Last 3 Months or Most Recently Relevant to Health Maintenance [place] [address] Advance Directives Documents on File Type Date Recorded Patient Filling Machine Operator Expl anation Health Care Decision (hx) 12/29/2015 [...] (hx) 12/23/2015 AD NEWTON DIRECTIVE Care Teams Butcher Assistant Relationship Specialty Start Date End Date Ned Alcantara MD [address] [place] [address] PCP - General 10/27/21
--- OUTSIDE RECORDS SUMMARY | 2024-12-10 20:25 | XMS_ITS | Clinical Summary ---
Author Organization [facility] Address [address] [place] [address] Care Team Providers Care Dementia Program Director Name Role Phone Debbi Beckham Primary Care Provider [phone] Allergies Active Allergy Reactions Criticality Noted Date [...] patient's age to complete this topic Insurance [facility] Advance Directives For more information, please contact: [phone] Documents on File Type Date Recorded Patient Larry Operator Expl anation Advance Directives 06/07/2018 2:23 PM Healthcare Agents on File Name Relationship Healthcare Agent Relationshi p Communication Kirsten Jairo Friend POA for [facility] prior to 07/09/2006 Care Teams Dementia Program Director Relationship Specialty Start Date End Date Debbi Beckham PA [address] [phone] PCP - General Family Medicine 05/23/18
--- OUTSIDE RECORDS SUMMARY | 2024-12-10 20:25 | XMS_ITS | Clinical Summary ---
Author Organization [facility] Address [address] [place] [address] Phone Care Team Providers Care Bowl Attendant Name Role Phone Ned Alcantara MD Primary Care Provider [phone] Allergies Active Allergy Reactions Criticality Noted Date [...] patient's age to complete this topic Insurance [place] [address] [facility] Care Teams Bowl Attendant Relationship Specialty Start Date End Date Ned Alcantara MD [address] [place] PCP - General 10/19/20
== END 2024-12-10 17:14 | disposition left against medical advice (07) ==
PROVIDERS: Emergency Medicine; Emergency Provider Emergency Medicine; PCP Internal Medicine
DX: J00 Acute nasopharyngitis [common cold] (principal)
CPT/HCPCS: 36415; 80053; 85025; 99281

== ENCOUNTER 2024-12-18 10:52 | Outpatient (AMB) | payer OTHER, SELFPAY ==
[2024-12-18 10:55] VITALS: BP 122/70; PULSE 92; O2SAT 98; BMI 26.5
--- NOTE | 2024-12-18 10:55 | MHC.PC.OV ---
Vital Signs 12/18/24 10:55 Height 5 ft 7 in Weight 169 lb BMI 26.5 BP 122/70 Blood Pressure Location Lt brachial Position Sitting Pulse 92 Pulse Source Pulse Oximeter Pulse Oximetry (%) 98 Oxygen Delivery Method Room Air Intake Visit Reasons: 3mth f/u Pierogi Maker Required: No Accompanied by: Self / Same As Patient Allergies aspirin [ASPIRIN] Allergy (Unknown, Verified 12/18/24 10:56) ANAPHYLAXIS meperidine [From DEMEROL] Allergy (Unknown, Verified 12/18/24 10:56) ANAPHYLAXIS Penicillins [PENICILLINS] Allergy (Unknown, Verified 12/18/24 10:56) ANAPHYLAXIS Sulfa (Sulfonamide Antibiotics) [SULFA (SULFONAMIDE ANTIBIOTICS)] Allergy (Unknown, Verified 12/18/24 10:56) UNKNOWN dairy Allergy (Unknown, Uncoded 12/18/24 10:56) unknown lactose intolerance Allergy (Unknown, Uncoded 12/18/24 10:56) Unknown Medication List - Last Reconciled 12/18/24 by Ned Alcantara MD bupropion HCl XL 150 mg PO QAM buspirone 10 mg PO BID cefdinir 300 mg PO BID clopidogrel 75 mg PO DAILY diphenoxylate-atropine 2.5-0.025 mg (Lomotil) 1 tab PO TID PRN lorazepam 0.5 mg PO BID PRN lovastatin 40 mg PO DAILY midodrine 2.5 mg PO DAILY omeprazole 20 mg PO BID 90 days 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 As directed sertraline 200 mg (2 x 100 mg) PO DAILY PRN 90 days valacyclovir mg PO zolpidem (Ambien) 5 mg PO BEDTIME PRN Tobacco use date assessed: 12/18/24 Fall risk assessment: 2 + Falls in past year Last assessed Fall Risk: 12/18/24 Dental Screening Dental Screen Date: 12/18/24 Did you have a dental visit in the last 12 months?: Yes Did you have a dental problem in the last 6 months where you did not have access to dental care?: No Was dental information given to patient?: Patient has dentist HPI 3mth f/u HPI Details depression and right shoulder pain; wants to see a therapist [facility] Medical History Dyspnea on exertion Chronic pain of both shoulders Wrist pain Obesity Depression Hyperlipidemia Hypertension Fall Surgical History Hx of colonoscopy History of biopsy History of surgical removal of lesion History of hysterectomy History of appendectomy Family History Father History of heart attack Mother Colon cancer Social History Housing: House Alcohol intake: never Patient Tobacco Use Status: Never used Tobacco Tobacco use type: Cigarette e-Cigarette/Vaping Use: Never Used Second Hand Smoke Exposure: No service: No Current occupational status: retired Cognitive needs: Yes (cane) Hearing needs: No Vision needs: Yes Questionnaire PHQ-9 Over the last 2 weeks, how often have you been bothered by any of the following problems? 1. Little interest or pleasure in doing things: not at all 2. Feeling down, depressed, or hopeless: not at all 3. Trouble falling or staying asleep, or sleeping too much: not at all 4. Feeling tired or having little energy: not at all 5. Poor appetite or overeating: not at all 6. Feeling bad about yourself - or that you are a failure or have let yourself or your family down: not at all 7. Trouble concentrating on things, such as reading the newspaper or watching television: not at all 8. Moving or speaking so slowly that other people could have noticed. Or the opposite - being so fidgety or restless that you have been moving around a lot more than usual: not at all 9. Thoughts that you would be better off or of hurting yourself in some way: not at all Total score: 0 Depression Screening Interpretation: Negative Depression Screening Done: Yes Source: Developed by Drs. Mitchell De Oliveira, Meryl Garcia, Rigoberto Post and colleagues, with an educational romi from [employer]. Thrive Questionnaire Date Thrive assessed: 12/18/24 I am a: Patient What is your living situation today?: I have a steady place to live Within the past 12 months, did the food you bought not last and you didn't have the money to get more?: Never true Within the past 12 months, did you worry whether your food would run out before you got money to buy more?: Never true Do you have trouble paying for medicines?: No Do you have trouble getting transportation to medical appointments?: No Do you have trouble paying your heating and electricity bill?: No Do you have trouble taking care of your child, family member or friend?: No Do you have trouble with day-to-day activities such as bathing, preparing meals, shopping, managing finances, etc.?: No Are you currently unemployed and looking for a job?: No Are you interested in more education?: No Please select the resources that you would like help with: None Currently or been in a relationship where the following occur: No concerns reported THRIVE Score: 0 AUDIT C Alcohol Use Questionnaire (AUDIT-C) 1. How often do you have a drink containing alcohol?: Never 3. How often do you have six or more drinks on one occasion?: Never Total Score: 0 HUMBERTO-7 AMB Questionnaire HUMBERTO-7 Date HUMBERTO - 7 assessed: 12/18/24 Feeling nervous, anxious, or on edge: 0 = Not at all Not being able to stop or control worryin = Not at all Worrying too much about different things: 0 = Not at all Trouble relaxin = Not at all Being so restless that it is hard to sit still: 0 = Not at all Becoming easily annoyed or irritable: 0 = Not at all Feeling afraid as if something awful might happen: 0 = Not at all Total HUMBERTO-7 score (0-4 normal; 5-9 mild; 10-14 moderate; 15-21 severe): 0 Source: Developed by Drs. Mitchell De Oliveira, Meryl Garcia, Rigoberto Post and colleagues, with an educational romi from [employer]. Review of Systems Const Denies chills, Denies headache(s) and Denies weight loss ENT Denies headache(s) Card Denies chest pain, Denies syncope, Denies irregular heart rhythm and Denies dyspnea Resp Denies chest congestion, Denies cough and Denies dyspnea GI Denies abdominal pain, Denies change in stool character, Denies nausea and Denies vomiting Musc Denies deformity and Denies joint swelling Neuro Denies syncope and Denies headache(s) Physical exam (Primary Care) Vital Signs: Last Vital Signs Pulse 92 12/18/24 10:55 BP 122/70 12/18/24 10:55 Pulse Ox 98 12/18/24 10:55 Oxygen Delivery Method Room Air 12/18/24 10:55 BMI result Body Mass Index 26.5 Tobacco/Smoking Status: Tobacco use Status Tobacco use date assessed 12/18/24 12/18/24 10:59 Patient Tobacco Use Status Never used Tobacco 12/18/24 10:59 Tobacco use type Cigarette 12/18/24 10:59 e-Cigarette/Vaping Use Never Used 12/18/24 10:59 PHQ-9: PHQ-9 Score PHQ-9: Total score 0 12/18/24 10:59 Depression Screening Interpretation: Negative Thrive Assessment: Date of Thrive Assessment Date Thrive assessed 12/18/24 12/18/24 10:59 Currently or been in a relationship where the following occur: No concerns reported Const General: cooperative, comfortable, no acute distress and alert Neck Neck: Yes no lymphadenopathy Thyroid: Thyroid normal Resp Effort & Inspection: normal respiratory effort Auscultation: clear to auscultation bilaterally Percussion: percussion normal Cardio Jugular venous distension: no JVD Palpation: normal PMI Rate: regular rate Rhythm: regular rhythm Heart sounds: S1 normal heart sound present and S2 normal heart sound present GI Inspection: Yes normal to inspection Palpation (GI): No hepatosplenomegaly present Skin General skin exam: no rashes or lesions noted Extrem General: Yes no clubbing, cyanosis or edema Coding Level of Care Code Est Pt Level 3 (23791) Diagnoses Depression F32.A Shoulder pain M25.519 Assessment & Plan Assessment & Plan (1) Depression: Code(s): F32.A - Depression, unspecified Category: Medical Plan: referred (2) Shoulder pain: Code(s): M25.519 - Pain in unspecified shoulder Category: Medical Plan: xr and referral Orders: Orders XR shoulder RT min 2V Today M25.519 - Pain in unspecified shoulder Referrals Orthopedics Referral M25.519 - Pain in unspecified shoulder Psychiatry Outpatient Consultation Service F32.A - Depression, unspecified
--- OUTSIDE RECORDS SUMMARY | 2024-12-18 12:38 | XMS_ITS | Clinical Summary ---
Author Organization [facility] Address [address] [place] [address] Phone Care Team Providers Care State Wildlife Officer Name Role Phone Ned Alcantara MD Primary [...] patient's age to complete this topic [place] [address] [facility] Care Teams State Wildlife Officer Relationship Specialty Start Date End Date Ned Alcantara MD [address] [place] PCP - General 10/19/20
--- OUTSIDE RECORDS SUMMARY | 2024-12-18 12:38 | XMS_ITS | Clinical Summary ---
Author Organization [facility] Address [address] [place] [address] Care Team Providers Care Welfare Eligibility Interviewer Name Role Phone Debbi Beckham Primary Care Provider [phone] Allergies Active Allergy Reactions Criticality Noted Date [...] patient's age to complete this topic Insurance [facility] Advance Directives For more information, please contact: [phone] Documents on File Type Date Recorded Patient Manager Life Expl anation Advance Directives 06/07/2018 2:23 PM Healthcare Agents on File Name Relationship Healthcare Agent Relationshi p Communication Kirsten Jairo Friend POA for [facility] prior to 07/09/2006 Care Teams Welfare Eligibility Interviewer Relationship Specialty Start Date End Date Debbi Beckham PA [address] [phone] PCP - General Family Medicine 05/23/18
--- OUTSIDE RECORDS SUMMARY | 2024-12-18 12:38 | XMS_ITS ---
Author Organization [facility] Care Team Providers Care Clerical Supervisor Name Role Phone Glenys Mast Unavailable Unavailable Erika Gonzalez Unavailable Unavailable Susie Cheatham Unavailable Unavailable Clara [place] Unavailable Unavailable Aura Prado Unavailable Unavailable Allergies and adverse reactions Code CodeSystem Substance Reaction Severity StartDate Concern Status Lactose Intolerant Unknown 05/04/2016 ac tive Care Team Name Role Address Phone Organization Dates Susie Cheatham PCP [address], [place], [address], [place] (Office): [facility] 04/29/2016 - 05/10/2016 Glenys Mast Attending Physician [address] [place] [address], [address], [facility] (Office): [facility] 04/29/2016 - 05/10/2016 Erika Gonzalez Attending Physician [address] [place] [address], [place], [address], [place] (Office): [facility] 04/29/2016 - 05/10/2016 Clara [place] Attending Physician [address] [place] [address], [place], [address], [facility] (Office): [facility] 04/29/2016 - 05/10/2016 Aura Prado Attending Physician [address] [place], [address], [place] (Office): [facility] 04/29/2016 - 05/10/2016 Immunizations Immunization Status Vaccine Details Vaccine Code CodeSystem Guerrero e Notes Influenza cancelled Influenza, split virus, trivalent, injectable, contains preservative 141 CVX created date: 05/04/2016 consent date: 05/03/2016 Pneumovax Dose 1 cancelled cre ated date: 05/04/2016 consent date: 05/03/2016 Mental Status Section Date Assessment Total Score Description 05/10/2016 BIMS 15 cognitively int act PHQ-9 00 05/05/2016 BIMS 15 cognitively int act PHQ-9 00 Problems Problem # Description Date of onset Resolved Date Code CodeSystem Concern Status 1 DIFFICULTY IN WALKING, NOT ELSEWHERE CLASSIFIED 04/29/[address] active 2 ENCOUNTER FOR OTHER ORTHOPEDIC AFTERCARE 04/29/[address] active 3 HISTORY OF FALLING 04/29/[address] active 4 OTHER LACK OF COORDINATION 04/29/[address] active 5 UNSPECIFIED FRACTURE OF SHAFT OF LEFT FIBULA, SEQUELA 04/29/[address] active Reason for Referral No Reasons for Referral Entered Social History Social History Observation Description Start Date End Date Code Code System Current Smoking Status Tobacco smoking consumption unknown 454518972 SNOMED CT Sex Assigned At Female 1940 [address]4 [facility] Vital Signs Code Code System Vitals Name Values and Units Timing Information 9279-1 LOINC Respiratory Rate Value=14.0 Units=/m in 05/09/2016 8462-4 LOINC Blood Pressure-Diastolic Value=56 Un its=mmHg 05/09/2016 8480-6 LOINC Blood Pressure-Systolic Gtqgc=911 Un its=mmHg 05/09/2016 8310-5 LOINC Body Temperature Value=97.2 Units=?? F 05/09/2016 8867-4 LOINC Heart rate Value=70.0 Units=/min 10/2015 62544-8 INC O2 % BldC Oximetry Value=95.0 Units= % 05/09/2016 8302-2 LOINC Height Value=67.0 Units=Inches 05/04/2016 68587-7 LOINC Weight Dpvjd=625.2 Units=Lbs
--- OUTSIDE RECORDS SUMMARY | 2024-12-18 12:38 | XMS_ITS | Clinical Summary ---
Author Organization [facility] Address [address] [place] [phone] Phone Care Team Providers Care Litigation Manager Name Role Phone Ned Alcantara MD Primary Care Provider [phone] Allergies Active Allergy Reactions Criticality Noted Date [...] mmol/L LAB CHEMISTRY METHOD 08/19/2024 1:52 PM [facility] Potassium 5.2 3.5 - 5.5 mmol/L LAB CHEMISTRY METHOD 08/19/2024 1:52 PM [facility] Chloride 106 96 - 110 mmol/L LAB CHEMISTRY METHOD 08/19/2024 1:52 PM [facility] CO2 25 21 - 32 mmol/L LAB CHEMISTRY METHOD 08/19/2024 1:52 PM [facility] Anion Gap 8 3 - 11 LAB CHEMISTRY METHOD 08/19/2024 1:52 PM [facility] Glucose 107(H) 70 - 100 mg/dL LAB CHEMISTRY METHOD 08/19/2024 1:52 PM [facility] BUN 47(H) 5 - 25 mg/dL LAB CHEMISTRY METHOD 08/19/2024 1:52 PM [facility] Creatinine 1.69(H) 0.50 - 1.10 mg/dL LAB CHEMISTRY METHOD 08/19/2024 1:52 PM [facility] eGFR 30(L) >=60 mL/min/1. 73m2 LAB CHEMISTRY METHOD 08/19/2024 1:52 PM [facility] Comment:Calculation based on the??Chronic Kidney Disease Epidemiology Collaboration (CKD-EPI) equation refit??without adjustment for race. BUN/Creatinine Ratio 27.8 LAB CHEMISTRY METHOD 08/19/2024 1:52 PM [facility] Calcium 10.3 8.5 - 10.5 mg/dL LAB CHEMISTRY METHOD 08/19/2024 1:52 PM [facility] AST (SGOT) 23 10 - 42 unit/L LAB CHEMISTRY METHOD 08/19/2024 1:52 PM [facility] ALT (SGPT) 26 10 - 60 unit/L LAB CHEMISTRY METHOD 08/19/2024 1:52 PM [facility] Alkaline Phosphatase 138(H) 42 - 121 unit/L LAB CHEMISTRY METHOD 08/19/2024 1:52 PM [facility] Total Protein 7.4 6.0 - 8.0 g/dL LAB CHEMISTRY METHOD 08/19/2024 1:52 PM [facility] Albumin 4.3 3.2 - 5.0 g/dL LAB CHEMISTRY METHOD 08/19/2024 1:52 PM [facility] Total Bilirubin 0.5 0.0 - 1.4 mg/dL LAB CHEMISTRY METHOD 08/19/2024 1:52 PM [facility] Blood Venous blood specimen / Unknown Venipuncture / Unknown 08/19/2024 12:58 PM EST 08/19/2024 1:17 PM EST Jarod Malagon MD LAB BLOOD ORDERABLES Final Res ult [facility] [address] [place] [address], from Last 3 Months or Most Recently Relevant to Health Maintenance [place] [address] [address] [place] [address] Advance Directives Documents on File Type Date Recorded Patient Senior Geologist Expl anation Health Care Decision (hx) 12/29/2015 [...] (hx) 12/23/2015 AD NEWTON DIRECTIVE Care Teams Litigation Manager Relationship Specialty Start Date End Date Ned Alcantara MD [address] [place] [address] PCP - General 10/27/21
--- OUTSIDE RECORDS SUMMARY | 2024-12-18 12:38 | XMS_ITS | Data Portability ---
Author Organization BELÉN Mcginnis zeina [address] Address [address] [place] [id number] Assessment No assessment recorded. Plan of Treatment [...] By Organization Details Last Modified Time 01/31/2023 [id number] Exercise. Its important to have a regular [...] Address Organization Details Recorded Time Hyperlip idemia 97028748 Active 2022 BELÉN Eaton [facility] 16:32:31 Anxiety 46233376 Active 2022 BELÉN Eaton [facility] 3 16:37:20 Autoimmu ne disease 02371613 Active 2022 BELÉN Eaton [facility] 3 16:37:42 Chronic kidney disease stage 3 712215053 Active 2022 BELÉN Eaton [facility] 16:38:41 Clostrid ium difficil e colitis 910676651 Completed 202201/31/2023 Shayna mcclellan PA - [facility] 16:40:26 Seizure disorder 538856233 Active 2022 Psychogen ic Shayna mcclellan PA - [facility] 16:52:21 Depressi ve disorder 53096627 Active 2022 Shayna mcclellan PA - [facility] 16:39:44 Gastroes ophageal reflux disease 255980475 Active 2022 Shayna mcclellan PA - [facility] 16:39:51 Toxic shock syndrome 73863686 Completed 202201/31/2023 Shayna mcclellan PA - [facility] 16:40:20 Hyperten sive heart disease 67811408 Active 2022 Shayna mcclellan PA - [facility] 16:40:49 Dissocia tive convulsi ons 281584831 Active 2022 Shayna mcclellan PA - [facility] 16:41:14 Panic attack 516190438 Active 2022 Shayna mcclellan PA - [facility] 16:41:30 Pyogenic granulom a 519529604 Active 2022 Shayna mcclellan PA - [facility] 16:41:48 Orthosta tic hypotens ion 02375190 Active 2022 Shayna mcclellan, PA - [facility] 16:41:59 Problem Notes None recorded. Procedures Surgical History Date Name Laterality Status Provider Name and Address Organization Details Recorded Time Appendectomy completed Shayna Sorenson PA - [facility] 01/31/2023 16:42:52 arthroscopy of knee with lateral meniscectomy completed Shanya Sorenson PA - [facility] 01/31/2023 16:43:09 [...] Name and Address Organization Details Recorded Time 089243 aspirin medicatio n Not available Not available Not available 01/31/2023 1191 RxNorm Shayna mcclellan, PA - [facility] 3 16:35:27 560216 lactase medicatio n Not available Not available Not available 01/31/2023 31303 RxNorm Shayna mcclellan, PA - [facility] 16:35:32 469807 Demerol medicatio n Not available Not available Not available 01/31/2023 82792 1 RxNorm Shayna mcclellan, PA - [facility] 16:36:41 209186 Product containin g penicilli n (product) medicatio n Not available Not available Not available 01/31/2023 30036 8001 SNOMED Shayna mcclellan, PA - [facility] [...] Updated DateTime 3 170.18 cm 30.9 kg/m2 78711.7 g 99 % 99 % 81 /min 18 /min 97.2 [degF] 0 118 mm[Hg] 69 mm[Hg] Shayna Forde [facility] 16:33:53 Social History Question Answer Notes LastModified by Organizat ion Details LastModified Time Tobacco Smoking Status Smoker, Current Status Unknown BELÉN Eaton [facility] 01/31/2023 16:42:32 What Is Your Level Of Alcohol Consumption? None [email or web address] Information not available 01/31/2023 Do You Use Any Illicit Or Recreational Drugs? No [email or web address] Information not available 01/31/2023 Sex: Unknown Functional [...] SNOMED-CT Code Diagnosis ICD10 Code Diagnosis Note [id number] [address] [place] [address] 09/14/2019 13:42:16 09/14/2019 14:25:00 [id number] [address] [place] [address] 11/09/2017 11:47:21 11/09/2017 13:12:08 [id number] [address] [place] [address] 07/30/2018 11:07:33 07/30/2018 12:24:33 [id number] [address] [place] [address] 08/31/2016 08:30:25 08/31/2016 09:21:21 [id number] [address] [facility], [place] [address] 04/03/2016 11:04:22 04/03/2016 12:26:32 [id number] [address] [facility], [place] [address] 07/06/2018 11:34:50 07/06/2018 13:31:29 [id number] [address] [facility], [place] [address] 01/28/2016 18:05:08 01/28/2016 19:07:56 [id number] [address] [facility], [place] [address] 02/10/2016 16:53:28 02/10/2016 17:58:03 [id number] [address] [facility], [place] [address] 12/27/2015 16:29:56 12/27/2015 17:29:07 [id number] [address] [facility], [place] [address] 09/30/2015 15:05:01 09/30/2015 16:05:08 [id number] [address] [facility], [place] [address] 02/21/2018 17:57:32 02/21/2018 19:08:50 [id number] [address] [facility], [place] [address] 07/11/2020 16:25:03 07/11/2020 18:19:21 [id number] [address] [facility], [place] [address] 04/29/2016 08:27:37 04/29/2016 09:19:25 [id number] [address] [facility], [place] [address] 10/04/2015 09:33:14 10/04/2015 10:43:28 [id number] [address] [place] [address] 01/09/2019 09:06:31 01/09/2019 10:08:57 [id number] [place] [address] [place] [address] 01/31/2023 15:37:57 01/31/2023 16:56:56 Pain in right hip joint [id number] 79833 M25.551 strongly encouraged to follow up with her PCP or orthopedic as previously scheduled. Health Concerns Section Related Observation LastModified by Organization Detai ls LastModified Time None Recorded Concern Status LastModified by Organization Details LastModified Time None Recorded Advance Directives Directive None Recorded Payers Encounter Date Sequence Insurance Name Policy Number Policy Mcmullen Covered Member ID Mcmullen Member ID Guarantor Name 09/14/2019 1 [facility] (PPO[facility] [id number] 6 Liliana M Matt [id number] Liliana Matt 07/11/2020 1 [employer] [facility] (PPO) [id number] 6 Liliana M Matt [id number] Liliana Matt 01/31/2023 1 [facility] (PPO) [id number] 6 Liliana M Matt [id number] Liliana Matt Notes Date Note Type Note [...] Tommy Arroyo NP [address] [place], [address], PA - [facility] 01/31/2023 16:56:09 OBGyn Episode No OBEpisode recorded.
== END 2024-12-18 11:36 | disposition home or self-care (01) ==
LOC: HO.HMCH 10:53
PROVIDERS: PCP Internal Medicine; Visit Provider Internal Medicine
DX: F32.A Depression, unspecified (principal); M25.519 Pain in unspecified shoulder

== ENCOUNTER → 2024-12-18 10:52 | Outpatient (BNVA) | payer OTHER, SELFPAY | PROVIDERS: PCP Internal Medicine; Visit Provider Internal Medicine ==

== ENCOUNTER 2025-01-28 15:14 | Outpatient (AMB) | payer OTHER, SELFPAY ==
--- NOTE | 2025-01-28 15:20 | HO.NEPHOV_ITS ---
Vital Signs 01/28/25 15:21 Height 5 ft 7 in Weight 171 lb 8 oz BMI 26.9 BP 132/58 L Blood Pressure Location Rt brachial Position Sitting Pulse 72 Pulse Source Pulse Oximeter Pulse Oximetry (%) 97 Oxygen Delivery Method Room Air Intake Visit Reasons: Anemia/ Conf Allergies aspirin [ASPIRIN] Allergy (Unknown, Verified 01/28/25 15:21) ANAPHYLAXIS meperidine [From DEMEROL] Allergy (Unknown, Verified 01/28/25 15:21) ANAPHYLAXIS Penicillins [PENICILLINS] Allergy (Unknown, Verified 01/28/25 15:21) ANAPHYLAXIS Sulfa (Sulfonamide Antibiotics) [SULFA (SULFONAMIDE ANTIBIOTICS)] Allergy ( Unknown, Verified 01/28/25 15:21) UNKNOWN dairy Allergy (Unknown, Uncoded 01/28/25 15:21) unknown lactose intolerance Allergy (Unknown, Uncoded 01/28/25 15:21) Unknown Medication List - Last Reconciled 01/28/25 by Ronald Hunt MD bupropion HCl XL 150 mg PO QAM buspirone 10 mg PO BID cefdinir 300 mg PO BID clopidogrel 75 mg PO DAILY diphenoxylate-atropine 2.5-0.025 mg (Lomotil) 1 tab PO TID PRN lorazepam 0.5 mg PO BID PRN lovastatin 40 mg PO DAILY midodrine 2.5 mg PO DAILY omeprazole 20 mg PO BID 90 days 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 As directed sertraline 200 mg (2 x 100 mg) PO DAILY PRN 90 days valacyclovir mg PO zolpidem (Ambien) 5 mg PO BEDTIME PRN HPI Comments Details: Sarahy is a 84-year-old woman with a history of for CKD in a setting loss hypertension. In the past she had significant involuntary movements and she was on high dose of Neurontin. After stopping Neurontin the involuntary movements resolved. Recently she has been lightheadedness and she has imbalance when she walks. She is being evaluated by Cardiology Dr. Nieto After adding Midodrine 2.5 mg QD, she feels much better 02/06/24 ; Having issues with UC ;Lomotil has been added 06/04/2024 ;She is having difficulty walking with unsteady gait. 07/09/24;Recently in [facility] for UTI ; Says she has had 2 seizures 01/28/25 Here for follow up Went to ER in December but does not remeber the event or the reason for the visit [facility]LY [facility], [facility] Medical History Dyspnea on exertion Chronic pain of both shoulders Wrist pain Obesity Depression Hyperlipidemia Hypertension Fall Surgical History Hx of colonoscopy History of biopsy History of surgical removal of lesion History of hysterectomy History of appendectomy Family History Father History of heart attack Mother Colon cancer Social History Housing: House Alcohol intake: never Patient Tobacco Use Status: Never used Tobacco Tobacco use type: Cigarette e-Cigarette/Vaping Use: Never Used Second Hand Smoke Exposure: No service: No Current occupational status: retired Cognitive needs: Yes (cane) Hearing needs: No Vision needs: Yes Physical Exam Vital Signs: Last Vital Signs Pulse 72 01/28/25 15:21 BP 132/58 L 01/28/25 15:21 Pulse Ox 97 01/28/25 15:21 Oxygen Delivery Method Room Air 01/28/25 15:21 BMI result Body Mass Index 26.9 Const General: comfortable Nutritional Appearance: well nourished Orientation/consciousness: patient oriented x3 HEENT Head: No normal to inspection Mouth: moist mucous membranes Neck Neck: Yes supple and Yes no JVD Resp Auscultation: clear to auscultation bilaterally and no rales Cardio Jugular venous distension: no JVD Palpation: no palpable S3 and no palpable S4 Heart sounds: no rubs GI Palpation (GI): Soft to palpation and nontender Percussion: No Fluid wave present General: Yes no CVA tenderness Back/Spine/Pelvis Back: no CVA tenderness Skin General skin exam: no rashes or lesions noted Neuro General: patient oriented x3 Extrem General: Yes no pedal edema and No clubbing Results Reviewed Nephrology Results: Hgb 8.4 g/dl (12.0-16.0) L 12/10/24 WBC 7.6 X10*3/uL (4.8-10.8) 12/10/24 Plt Count 111 X10*3/uL (160-400) L 12/10/24 Sodium 138 mmol/L (135-145) 12/10/24 Potassium 4.2 mmol/L (3.3-5.1) 12/10/24 Chloride 108 mmol/L (96-108) 12/10/24 Carbon Dioxide 20 mmol/L (22-29) L 12/10/24 BUN 46 mg/dL (9-16) H 12/10/24 Creatinine 1.84 mg/dL (0.5-1.4) H 12/10/24 Calcium 9.5 mg/dL (8.4-10.2) 12/10/24 PTH Intact 107.5 pg/mL (8.7-77.1) H 09/18/24 Assessment & Plan Assessment & Plan (1) CKD (chronic kidney disease): Code(s): N18.9 - Chronic kidney disease, unspecified Category: Medical Plan: Chronic disease in the setting of longstanding hypertension. Renal function stable she has stage III B /stage IV CKD. Renal function is close to baseline. eGFR 26- 30 ml/mt Goal is to slow the progression of renal disease. (2) Postural hypotension: Code(s): I95.1 - Orthostatic hypotension Category: Medical Plan: h/o Significant orthostatic hypotension. Keep midodrine 2.5 mg once a day in the morning and reassess her blood pressure. Titrate dose as indicated. (3) Hypercalcemia: Code(s): E83.52 - Hypercalcemia Category: Medical Plan: Mild asymptomatic hypercalcemia Mild hyperparathyroidism Follow PTH and Ca and will add Sensipar if needed Repeat Ca is normal (4) Anemia: Code(s): D64.9 - Anemia, unspecified Category: Medical Plan: Mild asymptomatic anemia with thrombocytopenia. Both are chronic. No indication for Epogen. Plan Unsteady gait. With the permission I have referred her for Neurology evaluation Orders: Orders Basic Metabolic Panel 6 Months N18.9 - Chronic kidney disease, unspecified Coding Level of Care Code Est Pt Level 4 (57335) Diagnoses CKD (chronic kidney disease) N18.9 Postural hypotension I95.1 Hypercalcemia E83.52 Anemia D64.9
[2025-01-28 15:21] VITALS: BP 132/58; PULSE 72; O2SAT 97; BMI 26.9
--- OUTSIDE RECORDS SUMMARY | 2025-01-28 18:09 | XMS_ITS | Data Portability ---
Author Organization BELÉN Mcginnis zeina [address] Address [address] [place] [address] Assessment No assessment recorded. Plan of Treatment [...] By Organization Details Last Modified Time 01/31/2023 [id number] Exercise. Its important to have a regular [...] Address Organization Details Recorded Time Hyperlip idemia 14092710 Active 2022 BELÉN Eaton [facility] 16:32:31 Anxiety 53085052 Active 2022 BELÉN Eaton [facility] 3 16:37:20 Autoimmu ne disease 20540502 Active 2022 BELÉN Eaton [facility] 3 16:37:42 Chronic kidney disease stage 3 229842995 Active 2022 BELÉN Eaton [facility] 16:38:41 Clostrid ium difficil e colitis 553893699 Completed 202201/31/2023 Shayna mcclellan PA - [facility] 16:40:26 Seizure disorder 936178539 Active 2022 Psychogen ic Shayna mcclellan PA - [facility] 16:52:21 Depressi ve disorder 76069410 Active 2022 Shayna mcclellan PA - [facility] 16:39:44 Gastroes ophageal reflux disease 334275240 Active 2022 Shayna mcclellan PA - [facility] 16:39:51 Toxic shock syndrome 46938371 Completed 202201/31/2023 Shayna mcclellan PA - [facility] 16:40:20 Hyperten sive heart disease 34229657 Active 2022 Shayna mcclellan PA - [facility] 16:40:49 Dissocia tive convulsi ons 458337030 Active 2022 Shayna mcclellan PA - [facility] 16:41:14 Panic attack 709997163 Active 2022 Shayna mcclellan PA - [facility] 16:41:30 Pyogenic granulom a 702210159 Active 2022 Shayna mcclellan PA - [facility] 16:41:48 Orthosta tic hypotens ion 48502169 Active 2022 Shayna mcclellan, PA - [facility] [...] Name and Address Organization Details Recorded Time 307661 aspirin medicatio n Not available Not available Not available 01/31/2023 1191 RxNorm Shayna mcclellan, PA - [facility] 3 16:35:27 456296 lactase medicatio n Not available Not available Not available 01/31/2023 54393 RxNorm Shayna mcclellan, PA - [facility] 16:35:32 440612 Demerol medicatio n Not available Not available Not available 01/31/2023 53273 1 RxNorm Shayna mcclellan, PA - [facility] 16:36:41 238058 Product containin g penicilli n (product) medicatio n Not available Not available Not available 01/31/2023 03184 8001 SNOMED Shayna mcclellan, PA - [facility] [...] Updated DateTime 3 170.18 cm 30.9 kg/m2 77693.7 g 99 % 99 % 81 /min 18 /min 97.2 [degF] 0 118 mm[Hg] 69 mm[Hg] Shayna Forde [facility] 16:33:53 Social History Question Answer Notes LastModified by Organizat ion Details LastModified Time Tobacco Smoking Status Smoker, Current Status Unknown BELÉN Eaton [facility] 01/31/2023 16:42:32 What Is Your Level Of Alcohol Consumption? None [email or web address] Information not available 01/31/2023 Do You Use Any Illicit Or Recreational Drugs? No [email or web address] Information not available 01/31/2023 Sex: Unknown Functional [...] mL or 25mcg/0.25 mL dose 2 completed Shanya Sorenson null, PA - [facility] 01/31/2023 [...] SNOMED-CT Code Diagnosis ICD10 Code Diagnosis Note [id number] [address] [place] [address] 09/14/2019 13:42:16 09/14/2019 14:25:00 [id number] [address] [place] [address] 11/09/2017 11:47:21 11/09/2017 13:12:08 [id number] [address] [place] [address] 07/30/2018 11:07:33 07/30/2018 12:24:33 [id number] [address] [place] [address] 08/31/2016 08:30:25 08/31/2016 09:21:21 [id number] [address] [facility] [place] [address] 04/03/2016 11:04:22 04/03/2016 12:26:32 [id number] [address] [facility], [place] [address] 07/06/2018 11:34:50 07/06/2018 13:31:29 [id number] [address] [facility], [place] [address] 01/28/2016 18:05:08 01/28/2016 19:07:56 [id number] [address] [facility], [place] [address] 02/10/2016 16:53:28 02/10/2016 17:58:03 [id number] [address] [facility], [place] [address] 12/27/2015 16:29:56 12/27/2015 17:29:07 [id number] [address] [facility], [place] [address] 09/30/2015 15:05:01 09/30/2015 16:05:08 [id number] [address] [facility], [place] [address] 02/21/2018 17:57:32 02/21/2018 19:08:50 [id number] [address] [facility], [place] [address] 07/11/2020 16:25:03 07/11/2020 18:19:21 [id number] [address] [facility], [place] [address] 04/29/2016 08:27:37 04/29/2016 09:19:25 [id number] [address] [facility], [place] [address] 10/04/2015 09:33:14 10/04/2015 10:43:28 [id number] [address] [facility] [address] [place] [address] 01/09/2019 09:06:31 01/09/2019 10:08:57 [id number] [place] [address] [facility] [address] [place] [address] 01/31/2023 15:37:57 01/31/2023 16:56:56 Pain in right hip joint [id number] 63095 M25.551 strongly encouraged to follow up with her PCP or orthopedic as previously scheduled. Health Concerns Section Related Observation LastModified by Organization Detai ls LastModified Time None Recorded Concern Status LastModified by Organization Details LastModified Time None Recorded Advance Directives Directive None Recorded Payers Encounter Date Sequence Insurance Name Policy Number Policy Mcmullen Covered Member ID Mcmullen Member ID Guarantor Name 09/14/2019 1 [facility] (PPO) [id number] 6 Liliana M Matt [id number] Liliana Matt 07/11/2020 1 [facility] (PPO) [id number] 6 Liliana M Matt [id number] Liliana Matt 01/31/2023 1 [facility] (PPO) [id number] 6 Liliana M Matt [id number] Liliana Matt Notes Date Note Type Note [...] Tommy Arroyo NP [address] [place], [address], PA - [facility] 01/31/2023 16:56:09 OBGyn Episode No OBEpisode recorded.
--- OUTSIDE RECORDS SUMMARY | 2025-01-28 18:09 | XMS_ITS | Clinical Summary ---
Author Organization [facility] Address [address] [place] [address] Phone Care Team Providers Care Car Parker Name Role Phone Ned Alcantara MD Primary Care Provider [phone] Allergies Active Allergy Reactions Criticality Noted Date [...] 09/10/2022 Social Influencers of Health Screening 09/10/2022 COVID-19 Vaccine ( season) 2024 06/27/2024, 04/08/2024, 07/11/2023, Additional history exists Hypertension/CHF/CAD Annual BMP Blood Test 08/19/2025 08/19/2024 DTaP,Tdap,and Td Vaccines (2 - Td or Tdap) 07/05/2034 07/05/2024 RSV Immunization Adult Patients Completed 07/04/2023 Influenza Vaccine Completed 06/27/2024, , 07/07/2022, Additional [...] age to complete this topic Meningococcal B Vaccine Aged Out No l onger eligible based on patient's age to complete [...] mmol/L LAB CHEMISTRY METHOD 08/19/2024 1:[address] [facility] Potassium 5.2 3.5 - 5.5 mmol/L LAB CHEMISTRY METHOD 08/19/2024 1:[address] [facility] Chloride 106 96 - 110 mmol/L LAB CHEMISTRY METHOD 08/19/2024 1:[address] [facility] CO2 25 21 - 32 mmol/L LAB CHEMISTRY METHOD 08/19/2024 1:[address] [facility] Anion Gap 8 3 - 11 LAB CHEMISTRY METHOD 08/19/2024 1:[address] [facility] Glucose 107(H) 70 - 100 mg/dL LAB CHEMISTRY METHOD 08/19/2024 1:[address] [facility] BUN 47(H) 5 - 25 mg/dL LAB CHEMISTRY METHOD 08/19/2024 1:[address] [facility] Creatinine 1.69(H) 0.50 - 1.10 mg/dL LAB CHEMISTRY METHOD 08/19/2024 1:[address] [facility] eGFR 30(L) >=60 mL/min/1. 73m2 LAB CHEMISTRY METHOD 08/19/2024 1:[address] [facility] Comment:Calculation based on the??Chronic Kidney Disease Epidemiology Collaboration (CKD-EPI) equation refit??without adjustment for race. BUN/Creatinine Ratio 27.8 LAB CHEMISTRY METHOD 08/19/2024 1:[address] [facility] Calcium 10.3 8.5 - 10.5 mg/dL LAB CHEMISTRY METHOD 08/19/2024 1:[address] [facility] AST (SGOT) 23 10 - 42 unit/L LAB CHEMISTRY METHOD 08/19/2024 1:[address] [facility] ALT (SGPT) 26 10 - 60 unit/L LAB CHEMISTRY METHOD 08/19/2024 1:[address] [facility] Alkaline Phosphatase 138(H) 42 - 121 unit/L LAB CHEMISTRY METHOD 08/19/2024 1:[address] [facility] Total Protein 7.4 6.0 - 8.0 g/dL LAB CHEMISTRY METHOD 08/19/2024 1:[address] [facility] Albumin 4.3 3.2 - 5.0 g/dL LAB CHEMISTRY METHOD 08/19/2024 1:[address] [facility] Total Bilirubin 0.5 0.0 - 1.4 mg/dL LAB CHEMISTRY METHOD 08/19/2024 1:[address] [facility] Blood Venous blood specimen / Unknown Venipuncture / Unknown 08/19/2024 12:58 PM EST 08/19/2024 1:17 PM EST Jarod Malagon MD LAB BLOOD ORDERABLES Final Res ult [facility] [address] [place] [address], from Last 3 Months or Most Recently Relevant to Health Maintenance Insurance [facility] Advance Directives Documents on File Type Date Recorded Patient Control Clerk Food And Beverage Expl anation Health Care Decision (hx) 12/29/2015 [...] (hx) 12/23/2015 AD [place] DIRECTIVE Care Teams Car Parker Relationship Specialty Start Date End Date Ned Alcantara MD [address] [place] [address] PCP - General 10/27/21
--- OUTSIDE RECORDS SUMMARY | 2025-01-28 18:09 | XMS_ITS | Clinical Summary ---
Author Organization [facility] Address [address] [place] [address] Care Team Providers Care Supervisor Major Appliance Assembly Name Role Phone Debbi Beckham Primary Care Provider [phone] Allergies Active Allergy Reactions Criticality Noted Date [...] DTaP,Tdap,and Td Vaccines (1 - Tdap) 1958 Pneumococcal Vaccine, 50+ Ye ars (1 of 1 - PCV) 1990 Zoster Vaccines (1 of 2) 1990 COVID-19 Vaccine (1 - 2023-2 5 season) 2024 Influenza Vaccine (Season Ended) 2025 HPV Vaccines Aged Out No longer eligi ble based on patient's age to complete this topic Hepatitis A Vaccines Aged Out No long er eligible based on patient's age to complete this topic Meningococcal Vaccine Aged Out No katlyn kwame eligible based on patient's age to complete this topic Insurance [facility] Advance Directives For more information, please contact: [phone] Documents on File Type Date Recorded Patient Superintendent Greens Expl anation Advance Directives 06/07/2018 2:23 PM Healthcare Agents on File Name Relationship Healthcare Agent Relationshi p Communication Kirsten Jairo Friend POA for [facility] prior to 07/09/2006 Care Teams Supervisor Major Appliance Assembly Relationship Specialty Start Date End Date Debbi Beckham PA [address] [phone] PCP - General Family Medicine 05/23/18
--- OUTSIDE RECORDS SUMMARY | 2025-01-28 18:09 | XMS_ITS | Clinical Summary ---
Author Organization [facility] Address [address] [place] [address] Phone Care Team Providers Care Automotive Service Professional Name Role Phone Ned Alcantara MD Primary Care Provider [phone] Allergies Active Allergy Reactions Criticality Noted Date [...] (congestive) heart failure 01/07/2021 Hypokalemia 01/07/2021 Immunizations Immunization Administration Dates Next Due Pneumococcal Conjugate 13-Valent [...] Date Last Done Comments Pneumococcal Vaccine: 50+ Ye ars (2 of 2 - PPSV23) 04/12/2016 02/16/2016 Influenza Vaccine (Season Ended) 2025 Pneumococcal Vaccine: Peds ( 0 to 5 Years) and At-Risk Patients (6 to 49 Years) Discontinued 02/16/2016 Hepatitis B Vaccine Aged Out No longe r eligible based on patient's age to complete this topic Insurance [facility] Care Teams Automotive Service Professional Relationship Specialty Start Date End Date Ned Alcantara MD [address] [place], [place] PCP - General 10/19/20
== END 2025-01-28 15:44 | disposition home or self-care (01) ==
LOC: HO.HKA 15:15
PROVIDERS: PCP Internal Medicine; Visit Provider Internal Medicine Hypertension Specialist
DX: N18.9 Chronic kidney disease, unspecified (principal); I95.1 Orthostatic hypotension; E83.52 Hypercalcemia; D64.9 Anemia, unspecified
CPT/HCPCS: 99214

== ENCOUNTER 2025-02-06 15:07 | Outpatient (AMB) | payer OTHER, SELFPAY ==
--- NOTE | 2025-02-06 15:23 | A.OFFPSYCH_ITS ---
Intake Intake Visit Reasons: consultation Chartered Financial Analyst Required: No Allergies aspirin [ASPIRIN] Allergy (Unknown, Verified 01/28/25 15:21) ANAPHYLAXIS meperidine [From DEMEROL] Allergy (Unknown, Verified 01/28/25 15:21) ANAPHYLAXIS Penicillins [PENICILLINS] Allergy (Unknown, Verified 01/28/25 15:21) ANAPHYLAXIS Sulfa (Sulfonamide Antibiotics) [SULFA (SULFONAMIDE ANTIBIOTICS)] Allergy (Unknown, Verified 01/28/25 15:21) UNKNOWN dairy Allergy (Unknown, Uncoded 01/28/25 15:21) unknown lactose intolerance Allergy (Unknown, Uncoded 01/28/25 15:21) Unknown Medication List - Last Reconciled 02/06/25 by Jailyn Tang, APRIL bupropion HCl XL 150 mg PO QAM buspirone 10 mg PO BID clopidogrel 75 mg PO DAILY diphenoxylate-atropine 2.5-0.025 mg (Lomotil) 1 tab PO TID PRN lorazepam 0.5 mg PO BID PRN midodrine 2.5 mg PO DAILY omeprazole 20 mg PO BID 90 days 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 As directed sertraline 200 mg (2 x 100 mg) PO DAILY PRN 90 days valacyclovir mg PO zolpidem (Ambien) 5 mg PO BEDTIME PRN HPI- Psychiatric Chief Complaint: consultation HPI Narrative: pt referred by PCP for evaluation of depression, anxiety, 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 Pt reports some depression and anxiety due to current physical limitations; she is working with PT to improve strength and balance. She is struggling at times with the limitations her body creates. She is blind in her left eye which makes it difficult to do things after dark. She has a long history of depression since childhood. She worked with psychiatrist Dr Correia for many years and felt it was very helpful. She feels her meds are helpful. she denies side effects. no sedation. no dizziness, from medications; she feels she needs to have the trileptal and the lorazepam to prevent the non epileptic seizures. Her current PHQ9= 13 and her GAD7= 12. She has had suicidal ideation in past but none now and says she would never hurt herself because of her 2 yo cat named Barb. Past Psychiatric History: outpt tx since childhood. Subjective Subjective Subjective Medication Compliance: Yes Side effects from medications: No Review of Systems Medical Review of Systems: unchanged Mental Status Exam Mental Status Exam Patient Appearance: Well Grooomed and Appropriate Patient Orientation: Person, Place, Time and Situation Level of Consciousness: Awake and Appropriate Patient Behavior: Appropriate and Cooperative Mood Description: Anxious Affect Description: Anxious Patient Cognition Impaired: No Ability to Follow Directions: Good Speech Pattern: Clear and Appropriate Memory Description: Intact Hallucinations: None Delusions: Not Present Thought Process: Intact Thought Content: positive for Intact Judgement: Good Assessment and Plan Assessment & Plan (1) Major depressive disorder, recurrent, moderate: Status: Acute Code(s): F33.1 - Major depressive disorder, recurrent, moderate (2) Generalized anxiety disorder with panic attacks: Status: Acute Code(s): F41.1 - Generalized anxiety disorder; F41.0 - Panic disorder [episodic paroxysmal anxiety] (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 Self Management counseling: Mod caffeine/ETOH intake, Nutrition education and improvement, Sleep hygiene, Behavior activation and Problem solving Medication management counseling: Effectiveness, Side effects, Dosing range, Duration, Drug interaction and Adherence Diagnosis and Prognosis Counseling: Accuracy of diagnosis, Prognosis over time, Impact of diagnosis on life functions, Problematic behaviors secondary to diagnosis and Adequacy of current interventions Details: I spent 70 minutes reviewing the record, seeing the patient and documenting in the medical record. Counseling provided to the patient/caregiver as outlined below. Addressed patient/caregiver concerns regarding current medication regime including effective adherence. Addressed patient/caregiver concerns regarding diagnosis and prognosis including accuracy of diagnosis, prognosis over time, impact of diagnosis. Addressed patient/caregiver concerns regarding impact of recent stressors. [facility] Medical History Dyspnea on exertion Chronic pain of both shoulders Wrist pain Obesity Depression Hyperlipidemia Hypertension Fall Surgical History Hx of colonoscopy History of biopsy History of surgical removal of lesion History of hysterectomy History of appendectomy Family History Father History of heart attack Mother Colon cancer Social History Housing: House Alcohol intake: never Patient Tobacco Use Status: Never used Tobacco Tobacco use type: Cigarette e-Cigarette/Vaping Use: Never Used Second Hand Smoke Exposure: No service: No Current occupational status: retired Cognitive needs: Yes (cane) Hearing needs: No Vision needs: Yes Social History: lives alone, never , no children, rest of family ; pt reports she does not like to socialize. she enjoys her cat. 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
--- OUTSIDE RECORDS SUMMARY | 2025-02-06 17:00 | XMS_ITS | Clinical Summary ---
Author Organization [facility] Address [address] [place] [phone] Phone Care Team Providers Care Pediatric Physician Name Role Phone Ned Alcantara MD Primary Care Provider [phone] Allergies Active Allergy Reactions Criticality Noted Date [...] mmol/L LAB CHEMISTRY METHOD 08/19/2024 1:52 PM [facility] Potassium 5.2 3.5 - 5.5 mmol/L LAB CHEMISTRY METHOD 08/19/2024 1:52 PM [facility] Chloride 106 96 - 110 mmol/L LAB CHEMISTRY METHOD 08/19/2024 1:52 PM [facility] CO2 25 21 - 32 mmol/L LAB CHEMISTRY METHOD 08/19/2024 1:52 PM [facility] Anion Gap 8 3 - 11 LAB CHEMISTRY METHOD 08/19/2024 1:52 PM [facility] Glucose 107(H) 70 - 100 mg/dL LAB CHEMISTRY METHOD 08/19/2024 1:52 PM [facility] BUN 47(H) 5 - 25 mg/dL LAB CHEMISTRY METHOD 08/19/2024 1:52 PM [facility] Creatinine 1.69(H) 0.50 - 1.10 mg/dL LAB CHEMISTRY METHOD 08/19/2024 1:52 PM [facility] eGFR 30(L) >=60 mL/min/1. 73m2 LAB CHEMISTRY METHOD 08/19/2024 1:52 PM [facility] Comment:Calculation based on the??Chronic Kidney Disease Epidemiology Collaboration (CKD-EPI) equation refit??without adjustment for race. BUN/Creatinine Ratio 27.8 LAB CHEMISTRY METHOD 08/19/2024 1:52 PM [facility] Calcium 10.3 8.5 - 10.5 mg/dL LAB CHEMISTRY METHOD 08/19/2024 1:52 PM [facility] AST (SGOT) 23 10 - 42 unit/L LAB CHEMISTRY METHOD 08/19/2024 1:52 PM [facility] ALT (SGPT) 26 10 - 60 unit/L LAB CHEMISTRY METHOD 08/19/2024 1:52 PM [facility] Alkaline Phosphatase 138(H) 42 - 121 unit/L LAB CHEMISTRY METHOD 08/19/2024 1:52 PM [facility] Total Protein 7.4 6.0 - 8.0 g/dL LAB CHEMISTRY METHOD 08/19/2024 1:52 PM [facility] Albumin 4.3 3.2 - 5.0 g/dL LAB CHEMISTRY METHOD 08/19/2024 1:52 PM [facility] Total Bilirubin 0.5 0.0 - 1.4 mg/dL LAB CHEMISTRY METHOD 08/19/2024 1:52 PM [facility] Blood Venous blood specimen / Unknown Venipuncture / Unknown 08/19/2024 12:58 PM EST 08/19/2024 1:17 PM EST Jarod Malagon MD LAB BLOOD ORDERABLES Final Res ult [facility] [address] [place] [address], from Last 3 Months or Most Recently Relevant to Health Maintenance Insurance [facility] Advance Directives Documents on File Type Date Recorded Patient Reinstatement Clerk Expl anation Health Care Decision (hx) 12/29/2015 [...] (hx) 12/23/2015 AD [place] DIRECTIVE Care Teams Pediatric Physician Relationship Specialty Start Date End Date Ned Alcantara MD [address] [place] [id number] PCP - General 10/27/21
--- OUTSIDE RECORDS SUMMARY | 2025-02-06 17:00 | XMS_ITS | Clinical Summary ---
Author Organization [facility] Address [address] [place] [id number] Care Team Providers Care Skin Care Technician Name Role Phone Debbi Beckham Primary Care Provider [phone] Allergies Active Allergy Reactions Criticality Noted Date [...] to complete this topic Insurance [facility] Advance Directives For more information, please contact: [phone] Documents on File Type Date Recorded Patient In Tube Conversion Technician Expl anation Advance Directives 06/07/2018 2:23 PM Healthcare Agents on File Name Relationship Healthcare Agent Relationshi p Communication Kirsten Jairo Friend POA for [employer] [facility] prior to 07/09/2006 Care Teams Skin Care Technician Relationship Specialty Start Date End Date Debbi Beckham PA [address] [phone] PCP - General Family Medicine 05/23/18
--- OUTSIDE RECORDS SUMMARY | 2025-02-06 17:00 | XMS_ITS | Clinical Summary ---
Author Organization [facility] Address [address] [place] [address] Phone Care Team Providers Care Feed Weigher Name Role Phone Ned Alcantara MD Primary Care Provider [phone] Allergies Active Allergy Reactions Criticality Noted Date [...] age to complete this topic Insurance [facility] Care Teams Feed Weigher Relationship Specialty Start Date End Date Ned Alcantara MD [address] [place], [place] PCP - General 10/19/20
--- OUTSIDE RECORDS SUMMARY | 2025-02-06 17:00 | XMS_ITS | Data Portability ---
Author Organization [facility] [address] Address [address] [place] [phone] Assessment No assessment recorded. Plan of Treatment [...] By Organization Details Last Modified Time 01/31/2023 [id number] Exercise. Its important to have a regular [...] Address Organization Details Recorded Time Hyperlip idemia 14627211 Active 2022 BELÉN Eaton [facility] 16:32:31 Anxiety 17887840 Active 2022 BELÉN Eaton [facility] 3 16:37:20 Autoimmu ne disease 45652190 Active 2022 BELÉN Eaton [facility] 3 16:37:42 Chronic kidney disease stage 3 246717325 Active 2022 BELÉN Eaton [facility] 16:38:41 Clostrid ium difficil e colitis 262323071 Completed 202201/31/2023 Shayna mcclellan PA - [facility] 16:40:26 Seizure disorder 412749565 Active 2022 Psychogen ic Shayna mcclellan PA - [facility] 16:52:21 Depressi ve disorder 97770389 Active 2022 Shayna mcclellan PA - [facility] 16:39:44 Gastroes ophageal reflux disease 363554083 Active 2022 Shayna mcclellan PA - [facility] 16:39:51 Toxic shock syndrome 49858006 Completed 202201/31/2023 Shayna mcclellan PA - [facility] 16:40:20 Hyperten sive heart disease 14694729 Active 2022 Shayna mcclellan PA - [facility] 16:40:49 Dissocia tive convulsi ons 125245845 Active 2022 Shayna mcclellan PA - [facility] 16:41:14 Panic attack 473377558 Active 2022 Shayna mcclellan PA - [facility] 16:41:30 Pyogenic granulom a 138193239 Active 2022 Shayna mcclellan PA - [facility] 16:41:48 Orthosta tic hypotens ion 66386367 Active 2022 Shayna mcclellan, PA - [facility] [...] Name and Address Organization Details Recorded Time 285461 aspirin medicatio n Not available Not available Not available 01/31/2023 1191 RxNorm Shayna mcclellan, PA - [facility] 3 16:35:27 633404 lactase medicatio n Not available Not available Not available 01/31/2023 72756 RxNorm Shayna mcclellan, PA - [facility] 16:35:32 699093 Demerol medicatio n Not available Not available Not available 01/31/2023 56094 1 RxNorm Shayna mcclellan, PA - [facility] 16:36:41 604412 Product containin g penicilli n (product) medicatio n Not available Not available Not available 01/31/2023 96413 8001 SNOMED Shayna mcclellan, [facility] - [facility] [...] Updated DateTime 3 170.18 cm 30.9 kg/m2 80167.7 g 99 % 99 % 81 /min 18 /min 97.2 [degF] 0 118 mm[Hg] 69 mm[Hg] Shayna Forde [facility] 16:33:53 Social History Question Answer Notes LastModified by Organizat ion Details LastModified Time Tobacco Smoking Status Smoker, Current Status Unknown [facility] Eaton [facility] 01/31/2023 16:42:32 What Is Your Level Of Alcohol Consumption? None [email or web address] Information not available 01/31/2023 Do You Use Any Illicit Or Recreational Drugs? No [email or web address] Information not available 01/31/2023 Sex: Unknown Functional [...] SNOMED-CT Code Diagnosis ICD10 Code Diagnosis Note [id number] [address] [place] [address] 09/14/2019 13:42:16 09/14/2019 14:25:00 [id number] [address] [place] [address] 11/09/2017 11:47:21 11/09/2017 13:12:08 [id number] [address] [place] [address] 07/30/2018 11:07:33 07/30/2018 12:24:33 [id number] [address] [facility] [place] [address] 08/31/2016 08:30:25 08/31/2016 09:21:21 [id number] [address] [facility] [place] [address] 04/03/2016 11:04:22 04/03/2016 12:26:32 [id number] [address] [facility] [place] [address] 07/06/2018 11:34:50 07/06/2018 13:31:29 [id number] [address] [facility] [place] [address] 01/28/2016 18:05:08 01/28/2016 19:07:56 [id number] [address] [facility] [place] [address] 02/10/2016 16:53:28 02/10/2016 17:58:03 [id number] [address] [facility] [place] [address] 12/27/2015 16:29:56 12/27/2015 17:29:07 [id number] [address] [facility] [place] [address] 09/30/2015 15:05:01 09/30/2015 16:05:08 [id number] [address] [facility] [place] [address] 02/21/2018 17:57:32 02/21/2018 19:08:50 [id number] [address] [facility] [place] [address] 07/11/2020 16:25:03 07/11/2020 18:19:21 [id number] [address] [facility] [place] [address] 04/29/2016 08:27:37 04/29/2016 09:19:25 [id number] [address] [facility] [place] [address] 10/04/2015 09:33:14 10/04/2015 10:43:28 [id number] [address] [facility] [place] [address] 01/09/2019 09:06:31 01/09/2019 10:08:57 [id number] Tommy Arroyo, COMMUNITY LEADER [address] [facility] [place] [address] 01/31/2023 15:37:57 01/31/2023 16:56:56 Pain of right hip joint 2625205322 20871 M25.551 strongly encouraged to follow up with her PCP or orthopedic as previously scheduled. Health Concerns Section Related Observation LastModified by Organization Detai ls LastModified Time None Recorded Concern Status LastModified by Organization Details LastModified Time None Recorded Advance Directives Directive None Recorded Payers Encounter Date Sequence Insurance Name Policy Number Policy Mcmullen Covered Member ID Mcmullen Member ID Guarantor Name 09/14/2019 1 [facility] (PPO) [id number] Liliana Groves Matt [id number] Liliana Matt 07/11/2020 1 [facility] (PPO) [id number] Liliana Groves Matt [id number] Liliana Matt 01/31/2023 1 [facility] (PPO) [id number] Liliana Groves Matt [id number] Liliana Matt Notes Date Note Type Note [...] PT:did not help Tommy Arroyo NP [address] [place], [address], [place] - [facility] 01/31/2023 16:56:09 OBGyn Episode No OBEpisode recorded.
== END 2025-02-06 16:30 | disposition home or self-care (01) ==
LOC: HO.HOP 15:07
PROVIDERS: PCP Internal Medicine; Visit Provider Clinical Nurse Specialist Psychiatric/Mental Health
DX: F33.1 Major depressive disorder, recurrent, moderate (principal); F41.1 Generalized anxiety disorder; F41.0 Panic disorder [episodic paroxysmal anxiety]; R56.1 Post traumatic seizures
CPT/HCPCS: 90792

== ENCOUNTER → 2025-02-06 15:07 | Outpatient (BNVA) | payer OTHER, SELFPAY | PROVIDERS: PCP Internal Medicine; Visit Provider Clinical Nurse Specialist Psychiatric/Mental Health | DX: F33.1 Major depressive disorder, recurrent, moderate (principal); F41.1 Generalized anxiety disorder; F41.0 Panic disorder [episodic paroxysmal anxiety]; R56.1 Post traumatic seizures; R56.9 Unspecified convulsions; Z71.89 Other specified counseling | CPT/HCPCS: 90792 ==

== ENCOUNTER 2025-02-12 12:27 | Outpatient (AMB) | payer OTHER, SELFPAY ==
--- NOTE | 2025-02-12 13:28 | MHC.OFFVIS ---
Vital Signs 02/12/25 13:34 Height 5 ft 7 in Weight 171 lb BMI 26.8 Intake Visit Reasons: Newprob-Pain in the right shoulder Intake Note: Liliana 84 yr old female presents today for a new patient visit for her right shoulder pain. Patient reports her pain has been present quite a while, stating that she had a fall on her left side. States her shoulder was dislocated. Currently her pain is located in her shoulder and travels down her under arm. She has been attending ART physical therapy. No numbness or tingling. Allergies aspirin [ASPIRIN] Allergy (Unknown, Verified 02/12/25 13:35) ANAPHYLAXIS meperidine [From DEMEROL] Allergy (Unknown, Verified 02/12/25 13:35) ANAPHYLAXIS Penicillins [PENICILLINS] Allergy (Unknown, Verified 02/12/25 13:35) ANAPHYLAXIS Sulfa (Sulfonamide Antibiotics) [SULFA (SULFONAMIDE ANTIBIOTICS)] Allergy (Unknown, Verified 02/12/25 13:35) UNKNOWN dairy Allergy (Unknown, Uncoded 02/12/25 13:35) unknown lactose intolerance Allergy (Unknown, Uncoded 02/12/25 13:35) Unknown Medication List - Last Reconciled 02/12/25 by Anca Kelly PA-C bupropion HCl XL 150 mg PO QAM buspirone 10 mg PO BID clopidogrel 75 mg PO DAILY diphenoxylate-atropine 2.5-0.025 mg (Lomotil) 1 tab PO TID PRN lorazepam 0.5 mg PO BID PRN midodrine 2.5 mg PO DAILY omeprazole 20 mg PO BID 90 days 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 As directed sertraline 200 mg (2 x 100 mg) PO DAILY PRN 90 days valacyclovir mg PO zolpidem (Ambien) 5 mg PO BEDTIME PRN HPI HPI Newprob-Pain in the right shoulder: Details: 84 yo female presents to the office today for right shoulder pain. She had a history of right shoulder dislocation. States she had a rotator cuff repair with subacromial decompression and distal clavicle excision many years ago. She states she has been attending PT and feels some pain in the right arm that extends down her arm. No sensations of instability. No weakness. [facility] Medical History Dyspnea on exertion Chronic pain of both shoulders Wrist pain Obesity Depression Hyperlipidemia Hypertension Fall Surgical History Hx of colonoscopy History of biopsy History of surgical removal of lesion History of hysterectomy History of appendectomy Family History Father History of heart attack Mother Colon cancer Social History Housing: House Alcohol intake: never Patient Tobacco Use Status: Never used Tobacco Tobacco use type: Cigarette e-Cigarette/Vaping Use: Never Used Second Hand Smoke Exposure: No service: No Current occupational status: retired Cognitive needs: Yes (cane) Hearing needs: No Vision needs: Yes Review of Systems Const All systems reviewed & are unremarkable except as noted in HPI and below Physical Exam Vital Signs: BMI result Body Mass Index 26.8 Const General: cooperative and no acute distress Orientation/consciousness: patient oriented x3 Resp Effort & Inspection: normal respiratory effort and able to speak in complete sentences Cardio Peripheral pulses: Peripheral pulses 2+ throughout Neuro General: patient oriented x3 Extrem Other: Right shoulder normal to inspection. Full range of motion in all planes. She has 5/5 rotator cuff strength. Mild tenderness over the AC joint. Negative cross-body adduction. Neurovascularly intact. Results Reviewed Results Reviewed: X-rays of the right shoulder obtained in the office today and reviewed by me show mild glenohumeral joint arthritis Assessment & Plan Assessment & Plan (1) Arthritis of right shoulder: Code(s): M19.011 - Primary osteoarthritis, right shoulder Category: Medical Plan: We discussed options today which includes continued conservative management with physical therapy. I briefly discussed the benefits of steroid injection in the AC joint which she is not interested in at this time. She will continue with activities as tolerated. If symptoms persist or worsen or there is any concerns she will contact our office to discuss other options otherwise follow up as needed. Orders: Orders XR shoulder RT min 2V Today M25.511 - Pain in right shoulder Coding Level of Care Code Est Pt Level 3 (57464) Complex EM visit Add On G2211 Diagnoses Arthritis of right shoulder M19.011
[2025-02-12 13:34] VITALS: BMI 26.8
--- OUTSIDE RECORDS SUMMARY | 2025-02-12 13:38 | XMS_ITS | Data Portability ---
Author Organization BELÉN Mcginnis zeina [address] Address [address] [place] [address] Assessment No assessment recorded. Plan of Treatment [...] By Organization Details Last Modified Time 01/31/2023 [id number] Exercise. Its important to have a regular [...] Address Organization Details Recorded Time Hyperlip idemia 53284718 Active 2022 BELÉN Eaton [facility] 16:32:31 Anxiety 96518943 Active 2022 BELÉN Eaton [facility] 3 16:37:20 Autoimmu ne disease 03367044 Active 2022 BELÉN Eaton [facility] 3 16:37:42 Chronic kidney disease stage 3 842434565 Active 2022 BELÉN Eaton [facility] 16:38:41 Clostrid ium difficil e colitis 636269777 Completed 202201/31/2023 Shayna mcclellan PA - [facility] 16:40:26 Seizure disorder 959083201 Active 2022 Psychogen ic Shayna mcclellan PA - [facility] 16:52:21 Depressi ve disorder 11797789 Active 2022 Shayna mcclellan PA - [facility] 16:39:44 Gastroes ophageal reflux disease 811636396 Active 2022 Shayna mcclellan PA - [facility] 16:39:51 Toxic shock syndrome 57436082 Completed 202201/31/2023 Shayna mcclellan PA - [facility] 16:40:20 Hyperten sive heart disease 72239303 Active 2022 Shayna mcclellan PA - [facility] 16:40:49 Dissocia tive convulsi ons 430888502 Active 2022 Shayna mcclellan PA - [facility] 16:41:14 Panic attack 457584623 Active 2022 Shayna mcclellan PA - [facility] 16:41:30 Pyogenic granulom a 284948955 Active 2022 Shayna mcclellan PA - [facility] 16:41:48 Orthosta tic hypotens ion 45033545 Active 2022 Shayna mcclellan, PA - [facility] [...] Name and Address Organization Details Recorded Time 085454 aspirin medicatio n Not available Not available Not available 01/31/2023 1191 RxNorm Shayna mcclellan, PA - [facility] 3 16:35:27 105292 lactase medicatio n Not available Not available Not available 01/31/2023 06031 RxNorm Shayna mcclellan, PA - [facility] 16:35:32 726241 Demerol medicatio n Not available Not available Not available 01/31/2023 49740 1 RxNorm Shayna mcclellan, PA - [facility] 16:36:41 932968 Product containin g penicilli n (product) medicatio n Not available Not available Not available 01/31/2023 35397 8001 SNOMED Shayna mcclellan, PA - [facility] [...] Updated DateTime 3 170.18 cm 30.9 kg/m2 65532.7 g 99 % 99 % 81 /min 18 /min 97.2 [degF] 0 118 mm[Hg] 69 mm[Hg] Shayna Forde [facility] 16:33:53 Social History Question Answer Notes LastModified by Organizat ion Details LastModified Time Tobacco Smoking Status Smoker, Current Status Unknown BELÉN Eaton [facility] 01/31/2023 16:42:32 What Is Your Level Of Alcohol Consumption? None [email or web address] Information not available 01/31/2023 Do You Use Any Illicit Or Recreational Drugs? No [email or web address] Information not available 01/31/2023 Sex: Unknown Functional [...] 16:32:53 Influenza, adjuvanted, trivalent, PF 8 completed Shyana Sorenson null, PA - [facility] 01/31/2023 [...] SNOMED-CT Code Diagnosis ICD10 Code Diagnosis Note [id number] [address] [place] [address] 09/14/2019 13:42:16 09/14/2019 14:25:00 [id number] [address] [place] [address] 11/09/2017 11:47:21 11/09/2017 13:12:08 [id number] [address] [place] [address] 07/30/2018 11:07:33 07/30/2018 12:24:33 [id number] [address] [place] [address] 08/31/2016 08:30:25 08/31/2016 09:21:21 [id number] [address] [place] [address] 04/03/2016 11:04:22 04/03/2016 12:26:32 [id number] [address] [place] [address] 07/06/2018 11:34:50 07/06/2018 13:31:29 [id number] [address] [place] [address] 01/28/2016 18:05:08 01/28/2016 19:07:56 [id number] [address] [place] [address] 02/10/2016 16:53:28 02/10/2016 17:58:03 [id number] [address] [facility] [place] [address] 12/27/2015 16:29:56 12/27/2015 17:29:07 [id number] [address] [place] [address] 09/30/2015 15:05:01 09/30/2015 16:05:08 [id number] [address] [place] [address] 02/21/2018 17:57:32 02/21/2018 19:08:50 [id number] [address] [place] [address] 07/11/2020 16:25:03 07/11/2020 18:19:21 [id number] [address] [place] [address] 04/29/2016 08:27:37 04/29/2016 09:19:25 [id number] [address] [place] [address] 10/04/2015 09:33:14 10/04/2015 10:43:28 [id number] [address] [place] [address] 01/09/2019 09:06:31 01/09/2019 10:08:57 [id number] Tommy Arroyo, HAND LENS POLISHER [address] [place] [address] 01/31/2023 15:37:57 01/31/2023 16:56:56 Pain of right hip joint 2782644584 85514 M25.551 strongly encouraged to follow up with her PCP or orthopedic as previously scheduled. Health Concerns Section Related Observation LastModified by Organization Detai ls LastModified Time None Recorded Concern Status LastModified by Organization Details LastModified Time None Recorded Advance Directives Directive None Recorded Payers Insurance Date Sequence Insurance Name Policy Number Policy Mcmullen Covered Member ID Mcmullen Member ID Guarantor Name 01/31/2023 1 [facility] [id number] Liliana Gutierrez [id number] Liliana Gutierrez Notes Date Note Type Note Provider Name [...] Arroyo NP [address] [place], [address], PA - [facility] 01/31/2023 16:56:09 OBGyn Episode No OBEpisode recorded.
--- OUTSIDE RECORDS SUMMARY | 2025-02-12 13:38 | XMS_ITS | Clinical Summary ---
Author Organization [facility] Address [address] [place] [address] Care Team Providers Care Explosive Ordnance Manager Name Role Phone Debbi Beckham Primary Care Provider [phone] Allergies Active Allergy Reactions Criticality Noted Date [...] age to complete this topic Insurance [facility] Advance Directives For more information, please contact: [phone] Documents on File Type Date Recorded Patient Car Conditioner Expl anation Advance Directives 06/07/2018 2:23 PM Healthcare Agents on File Name Relationship Healthcare Agent Relationshi p Communication Kirsten Jairo Friend POA for [facility] prior to 07/09/2006 Care Teams Explosive Ordnance Manager Relationship Specialty Start Date End Date Debbi Beckham PA [address] [phone] PCP - General Family Medicine 05/23/18
--- OUTSIDE RECORDS SUMMARY | 2025-02-12 13:38 | XMS_ITS | Clinical Summary ---
Author Organization [facility] Address [address] [place] [address] Phone Care Team Providers Care Director Of Leadership Development Name Role Phone Ned Alcantara MD Primary Care Provider [phone] Allergies Active Allergy Reactions Criticality Noted Date [...] age to complete this topic Insurance [facility] Care Teams Director Of Leadership Development Relationship Specialty Start Date End Date Ned Alcantara MD [address] [place], [place] PCP - General 10/19/20
--- OUTSIDE RECORDS SUMMARY | 2025-02-12 13:38 | XMS_ITS | Clinical Summary ---
Author Organization [facility] Address [address] [place] [address] Phone Care Team Providers Care Packing House Supervisor Name Role Phone Ned Alcantara MD Primary Care Provider [phone] Allergies Active Allergy Reactions Criticality Noted Date [...] mmol/L LAB CHEMISTRY METHOD 08/19/2024 1:52 PM [facility] Potassium 5.2 3.5 - 5.5 mmol/L LAB CHEMISTRY METHOD 08/19/2024 1:52 PM [facility] Chloride 106 96 - 110 mmol/L LAB CHEMISTRY METHOD 08/19/2024 1:52 PM [facility] CO2 25 21 - 32 mmol/L LAB CHEMISTRY METHOD 08/19/2024 1:52 PM [facility] Anion Gap 8 3 - 11 LAB CHEMISTRY METHOD 08/19/2024 1:52 PM [facility] Glucose 107(H) 70 - 100 mg/dL LAB CHEMISTRY METHOD 08/19/2024 1:52 PM [facility] BUN 47(H) 5 - 25 mg/dL LAB CHEMISTRY METHOD 08/19/2024 1:52 PM [facility] Creatinine 1.69(H) 0.50 - 1.10 mg/dL LAB CHEMISTRY METHOD 08/19/2024 1:52 PM [facility] eGFR 30(L) >=60 mL/min/1. 73m2 LAB CHEMISTRY METHOD 08/19/2024 1:52 PM [facility] Comment:Calculation based on the??Chronic Kidney Disease Epidemiology Collaboration (CKD-EPI) equation refit??without adjustment for race. BUN/Creatinine Ratio 27.8 LAB CHEMISTRY METHOD 08/19/2024 1:52 PM [facility] Calcium 10.3 8.5 - 10.5 mg/dL LAB CHEMISTRY METHOD 08/19/2024 1:52 PM [facility] AST (SGOT) 23 10 - 42 unit/L LAB CHEMISTRY METHOD 08/19/2024 1:52 PM [facility] ALT (SGPT) 26 10 - 60 unit/L LAB CHEMISTRY METHOD 08/19/2024 1:52 PM [facility] Alkaline Phosphatase 138(H) 42 - 121 unit/L LAB CHEMISTRY METHOD 08/19/2024 1:52 PM [facility] Total Protein 7.4 6.0 - 8.0 g/dL LAB CHEMISTRY METHOD 08/19/2024 1:52 PM [facility] Albumin 4.3 3.2 - 5.0 g/dL LAB CHEMISTRY METHOD 08/19/2024 1:52 PM [facility] Total Bilirubin 0.5 0.0 - 1.4 mg/dL LAB CHEMISTRY METHOD 08/19/2024 1:52 PM [facility] Blood Venous blood specimen / Unknown Venipuncture / Unknown 08/19/2024 12:58 PM EST 08/19/2024 1:17 PM EST Jarod Malagon MD LAB BLOOD ORDERABLES Final Res ult [facility] [address] [place] [address], from Last 3 Months or Most Recently Relevant to Health Maintenance Insurance [facility] Advance Directives Documents on File Type Date Recorded Patient Conveyor Monitor Expl anation Health Care Decision (hx) 12/29/2015 [...] (hx) 12/23/2015 AD [place]WT[place] DIRECTIVE Care Teams Packing House Supervisor Relationship Specialty Start Date End Date Ned Alcantara MD [address] [place] [phone] PCP - General 10/27/21
== END 2025-02-12 13:50 | disposition home or self-care (01) ==
LOC: HO.HOS 12:27
PROVIDERS: PCP Internal Medicine; Visit Provider Physician Assistant
DX: M19.011 Primary osteoarthritis, right shoulder (principal)
CPT/HCPCS: 99213

== ENCOUNTER → 2025-02-12 12:52 | Outpatient (BNV) | payer OTHER, SELFPAY | PROVIDERS: Visit Provider Radiology Diagnostic Radiology | DX: M25.511 Pain in right shoulder (principal) | CPT/HCPCS: 73030 ==

== ENCOUNTER 2025-02-12 15:22 | Outpatient (REF) | payer OTHER, SELFPAY ==
--- NOTE | ~2025-02-12 | XR_ITS ---
EXAMINATION: XR SHOULDER, RIGHT CLINICAL INFORMATION: M25.511 - Pain in right shoulder COMPARISON: October 04, 2021. TECHNIQUE: AP external rotation, Grashey, scapular Y, and axillary views of the right shoulder. FINDINGS: No acute cortical disruption or malalignment. No lytic or blastic lesions. Minimal subchondral cyst formation in the humeral head glenoid of the scapula. Calcified plaques in the thoracic aortic arch. XR/XR shoulder RT min 2V IMPRESSION: Mild degenerative changes. Electronically signed by: Jameel Singer MD 02/12/2025 02:12 PM EDT
--- OUTSIDE RECORDS SUMMARY | 2025-02-13 15:57 | XMS_ITS | Clinical Summary ---
Author Organization [facility] Address [address] [place] [address] Care Team Providers Care Matcher Name Role Phone Debbi Beckham Primary Care Provider [phone] Allergies Active Allergy Reactions Criticality Noted Date [...] Advance Directives For more information, please contact: [phone] Documents on File Type Date Recorded Patient Division Director Expl anation Advance Directives 06/07/2018 2:23 PM Healthcare Agents on File Name Relationship Healthcare Agent Relationshi p Communication Kirsten Jairo Friend POA for [facility] prior to 07/09/2006 Care Teams Matcher Relationship Specialty Start Date End Date Debbi Beckham PA [address] [phone] PCP - General Family Medicine 05/23/18
--- OUTSIDE RECORDS SUMMARY | 2025-02-13 15:57 | XMS_ITS | Clinical Summary ---
Author Organization [facility] Address [address] [place] [address] Phone Care Team Providers Care Senior Strategy Analyst Name Role Phone Ned Alcantara MD Primary Care Provider [phone] Allergies Active Allergy Reactions Criticality Noted Date [...] age to complete this topic Insurance [facility]are [facility] Care Teams Senior Strategy Analyst Relationship Specialty Start Date End Date Ned Alcantara MD [address] [place], [place] PCP - General 10/19/20
--- OUTSIDE RECORDS SUMMARY | 2025-02-13 15:57 | XMS_ITS | Clinical Summary ---
Author Organization [facility] Address [address] [place] [address] Phone Care Team Providers Care Focus Puller Name Role Phone Ned Alcantara MD Primary Care Provider [phone] Allergies Active Allergy Reactions Criticality Noted Date [...] mmol/L LAB CHEMISTRY METHOD 08/19/2024 1:52 PM [facility] Potassium 5.2 3.5 - 5.5 mmol/L LAB CHEMISTRY METHOD 08/19/2024 1:52 PM [facility] Chloride 106 96 - 110 mmol/L LAB CHEMISTRY METHOD 08/19/2024 1:52 PM [facility] CO2 25 21 - 32 mmol/L LAB CHEMISTRY METHOD 08/19/2024 1:52 PM [facility] Anion Gap 8 3 - 11 LAB CHEMISTRY METHOD 08/19/2024 1:52 PM [facility] Glucose 107(H) 70 - 100 mg/dL LAB CHEMISTRY METHOD 08/19/2024 1:52 PM [facility] BUN 47(H) 5 - 25 mg/dL LAB CHEMISTRY METHOD 08/19/2024 1:52 PM [facility] Creatinine 1.69(H) 0.50 - 1.10 mg/dL LAB CHEMISTRY METHOD 08/19/2024 1:52 PM [facility] eGFR 30(L) >=60 mL/min/1. 73m2 LAB CHEMISTRY METHOD 08/19/2024 1:52 PM [facility] Comment:Calculation based on the??Chronic Kidney Disease Epidemiology Collaboration (CKD-EPI) equation refit??without adjustment for race. BUN/Creatinine Ratio 27.8 LAB CHEMISTRY METHOD 08/19/2024 1:52 PM [facility] Calcium 10.3 8.5 - 10.5 mg/dL LAB CHEMISTRY METHOD 08/19/2024 1:52 PM [facility] AST (SGOT) 23 10 - 42 unit/L LAB CHEMISTRY METHOD 08/19/2024 1:52 PM [facility] ALT (SGPT) 26 10 - 60 unit/L LAB CHEMISTRY METHOD 08/19/2024 1:52 PM [facility] Alkaline Phosphatase 138(H) 42 - 121 unit/L LAB CHEMISTRY METHOD 08/19/2024 1:52 PM [facility] Total Protein 7.4 6.0 - 8.0 g/dL LAB CHEMISTRY METHOD 08/19/2024 1:52 PM [facility] Albumin 4.3 3.2 - 5.0 g/dL LAB CHEMISTRY METHOD 08/19/2024 1:52 PM [facility] Total Bilirubin 0.5 0.0 - 1.4 mg/dL LAB CHEMISTRY METHOD 08/19/2024 1:52 PM [facility] Blood Venous blood specimen / Unknown Venipuncture / Unknown 08/19/2024 12:58 PM EST 08/19/2024 1:17 PM EST Jarod Malagon MD LAB BLOOD ORDERABLES Final Res ult [facility] [address] [place] [address], from Last 3 Months or Most Recently Relevant to Health Maintenance Insurance [facility] Advance Directives Documents on File Type Date Recorded Patient 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
--- OUTSIDE RECORDS SUMMARY | 2025-02-13 15:57 | XMS_ITS | Data Portability ---
Author Organization BELÉN Mcginnis [facility]ina [address] Address [address] [place] [address] Assessment No assessment recorded. Plan of Treatment [...] By Organization Details Last Modified Time 01/31/2023 [id number] Exercise. Its important to have a regular [...] Address Organization Details Recorded Time Hyperlip idemia 83642263 Active 2022 BELÉN Eaton [facility] 16:32:31 Anxiety 91038548 Active 2022 BELÉN Eaton [facility] 3 16:37:20 Autoimmu ne disease 46957840 Active 2022 BELÉN Eaton [facility] 3 16:37:42 Chronic kidney disease stage 3 204347591 Active 2022 BELÉN Eaton [facility] 16:38:41 Clostrid ium difficil e colitis 214085409 Completed 202201/31/2023 Shayna mcclellan PA - [facility] 16:40:26 Seizure disorder 130216011 Active 2022 Psychogen ic Shayna mcclellan PA - [facility] 16:52:21 Depressi ve disorder 76763841 Active 2022 Shayna mcclellan PA - [facility] 16:39:44 Gastroes ophageal reflux disease 347211079 Active 2022 Shayna mcclellan PA - [facility] 16:39:51 Toxic shock syndrome 91292853 Completed 202201/31/2023 Shayna mcclellan PA - [facility] 16:40:20 Hyperten sive heart disease 83282066 Active 2022 Shayna mcclellan PA - [facility] 16:40:49 Dissocia tive convulsi ons 563711760 Active 2022 Shayna mcclellan PA - [facility] 16:41:14 Panic attack 645718400 Active 2022 Shayna mcclellan PA - [facility] 16:41:30 Pyogenic granulom a 366495284 Active 2022 Shayna mcclellan PA - [facility] 16:41:48 Orthosta tic hypotens ion 63846335 Active 2022 Shayna mcclellan, PA - [facility] [...] Name and Address Organization Details Recorded Time 050527 aspirin medicatio n Not available Not available Not available 01/31/2023 1191 RxNorm Shayna mcclellan, PA - [facility] 3 16:35:27 440673 lactase medicatio n Not available Not available Not available 01/31/2023 83449 RxNorm Shayna mcclellan, PA - [facility] 16:35:32 812317 Demerol medicatio n Not available Not available Not available 01/31/2023 89230 1 RxNorm Shayna mcclellan, PA - [facility] 16:36:41 482126 Product containin g penicilli n (product) medicatio n Not available Not available Not available 01/31/2023 22061 8001 SNOMED Shayna mcclellan, PA - [facility] [...] Updated DateTime 3 170.18 cm 30.9 kg/m2 83226.7 g 99 % 99 % 81 /min 18 /min 97.2 [degF] 0 118 mm[Hg] 69 mm[Hg] Shayna Forde [facility] 16:33:53 Social History Question Answer Notes LastModified by Organizat ion Details LastModified Time Tobacco Smoking Status Smoker, Current Status Unknown BELÉN Eaton [facility] 01/31/2023 16:42:32 What Is Your Level Of Alcohol Consumption? None [email or web address] Information not available 01/31/2023 Do You Use Any Illicit Or Recreational Drugs? No [email or web address] Information not available 01/31/2023 Sex: Unknown Functional [...] SNOMED-CT Code Diagnosis ICD10 Code Diagnosis Note [id number] [address] [place] [address] 09/14/2019 13:42:16 09/14/2019 14:25:00 [id number] [address] [place] [address] 11/09/2017 11:47:21 11/09/2017 13:12:08 [id number] [address] [place] [address] 07/30/2018 11:07:33 07/30/2018 12:24:33 [id number] [address] [facility] [address] 08/31/2016 08:30:25 08/31/2016 09:21:21 [id number] [address] [place] [address] 04/03/2016 11:04:22 04/03/2016 12:26:32 [id number] [address] [place] [address] 07/06/2018 11:34:50 07/06/2018 13:31:29 [id number] [address] [place] [address] 01/28/2016 18:05:08 01/28/2016 19:07:56 [id number] [address] [place] [address] 02/10/2016 16:53:28 02/10/2016 17:58:03 [id number] [address] [place] [address] 12/27/2015 16:29:56 12/27/2015 17:29:07 [id number] [address] [place] [address] 09/30/2015 15:05:01 09/30/2015 16:05:08 [id number] [address] [place] [address] 02/21/2018 17:57:32 02/21/2018 19:08:50 [id number] [address] [place] [address] 07/11/2020 16:25:03 07/11/2020 18:19:21 [id number] [address] [place] [address] 04/29/2016 08:27:37 04/29/2016 09:19:25 [id number] [address] [place] [address] 10/04/2015 09:33:14 10/04/2015 10:43:28 [id number] [address] [place] [address] 01/09/2019 09:06:31 01/09/2019 10:08:57 [id number] Tommy Arroyo, DRAMATIC COACH [address] [place] [address] 01/31/2023 15:37:57 01/31/2023 16:56:56 Pain of right hip joint 2714507866 15809 M25.551 strongly encouraged to follow up with her PCP or orthopedic as previously scheduled. Health Concerns Section Related Observation LastModified by Organization Detai ls LastModified Time None Recorded Concern Status LastModified by Organization Details LastModified Time None Recorded Advance Directives Directive None Recorded Payers Insurance Date Sequence Insurance Name Policy Number Policy Mcmullen Covered Member ID Mcmullen Member ID Guarantor Name 01/31/2023 1 [facility] [id number] Liliana Gutierrez [id number] Liliana Gutierrez Notes Date Note Type Note [...] Arroyo NP [address] [place], [address], PA - [facility] 01/31/2023 16:56:09 OBGyn Episode No OBEpisode recorded.
== END 2025-02-12 15:23 | disposition home or self-care (01) ==
LOC: HO.HOSX 15:22
PROVIDERS: Visit Provider Physician Assistant
DX: M19.011 Primary osteoarthritis, right shoulder (principal)
CPT/HCPCS: 73030

== ENCOUNTER 2025-02-24 10:43 | Inpatient (IN) | payer OTHER, SELFPAY ==
[2025-02-24] VITALS (10 sets, daily range): BP systolic 89–139; BP diastolic 29–56; PULSE 74–92; RESP 14–21; TEMP 36.2–37.1; O2SAT 92–98; BMI 26.6; BMI 26.9
--- NOTE | ~2025-02-24 | XR_ITS ---
EXAMINATION: XR CHEST CLINICAL INFORMATION: chest pain COMPARISON: September 27, 2021. TECHNIQUE: 2 views of the chest were obtained. FINDINGS: No consolidation, pleural effusion or pneumothorax. Cardiomediastinal silhouette size is normal. Calcified plaque thoracic aortic arch. Multilevel thoracic spondylosis. XR/XR chest 2V IMPRESSION: No acute airspace disease. Spondylosis, thoracic spine.. Electronically signed by: Jameel Singer MD 02/24/2025 02:57 PM EDT
--- NOTE | ~2025-02-24 | CT_ITS ---
CLINICAL HISTORY: epigastric pain CT abdomen and pelvis without contrast Comparison: None Findings: Examination is limited by without contrast. Lung bases are clear. No pleural effusion. Liver, Pancreas, Spleen and both adrenals show normal size, shape and attenuation on present unenhanced scan. No CBD dilatation. No calcified gallstone in the gallbladder. Cortical scarring of the bilateral kidneys. Limited evaluation of the right renal cysts. There is fat stranding surrounding the left kidney. No kidney stone or hydronephrosis. There are multiple prominent left retroperitoneal lymph nodes. The IVC, aorta and portal vein are within normal position and caliber. Atherosclerosis calcification of the aorta. Mild wall thickening of the proximal transverse colon and sigmoid colon. Colonic diverticulosis. No evidence of acute appendicitis. Urinary bladder reveals normal lumen and rosenberg. Post hysterectomy. Visualized osseous structures appear unremarkable. No lytic or sclerotic bony lesion. IMPRESSION: Fat stranding surrounding the left kidney concerning for UTIs. No kidney stone or hydronephrosis. Limited evaluation of the kidney without contrast. Correlation with ultrasound findings as indicated to exclude other possibilities. Prominent left retroperitoneal lymph nodes are probably reactive. Colonic diverticulosis. Mild wall thickening of the proximal transverse colon and sigmoid colon could be due to nondistention. Acute diverticulitis can not be excluded. Correlation with colonoscopy findings as indicated. This document has been electronically signed by: Law Broosk MD on 02/24/2025 17:46:21
--- NOTE | ~2025-02-24 | XR_ITS ---
EXAMINATION: XR CHEST CLINICAL INFORMATION: aspiration COMPARISON: February 24, 2025. TECHNIQUE: Frontal view of the chest was obtained. FINDINGS: Questionable patchy opacity left retrocardiac. No pneumothorax. No gross pleural effusion. Cardiomediastinal silhouette overlaps the left hemithorax due to patient's positioning. Calcified plaque aortic arch. Multilevel thoracic spondylosis. XR/XR chest 1V IMPRESSION: Questionable airspace disease, left retrocardiac/left lung base. Electronically signed by: Jameel Singer MD 02/26/2025 10:04 AM EDT
--- NOTE | 2025-02-24 10:44 | ECG_ITS ---
Test Reason : chest pain Blood Pressure : */* mmHG Vent. Rate : 74 BPM Atrial Rate : 74 BPM P-R Int : 162 ms QRS Dur : 68 ms QT Int : 338 ms P-R-T Axes : 27 25 63 degrees QTcB Int : 375 ms Normal sinus rhythm Normal ECG When compared with ECG of 27-Sep-2021 12:32, QT has shortened Referred By: Generic ED Physician Electronically Signed By: Joseph Vogel
--- NOTE | 2025-02-24 14:35 | ED_ITS ---
HPI - General Adult General Chief complaint: Weakness Stated complaint: chest pain passed out yesterday Time Seen by Provider: 02/24/25 15:33 Source: patient and old records reviewed Mode of arrival: ambulatory Limitations: no limitations History of Present Illness ED Provider: ROGER CARSON narrative: 84 yo female with PMH of arthritis, UC, movement disorder, seizures, depression, CKD, vertigo, HTN, HLD, on orthostatic VS and midodrine here with c/o weakness all day yesterday. The patient notes she got out of bed and felt weak she notes she had a brief LOC but woke up on her bed. She states this happens frequently. She has been in bed all day. She notes she had chest pain all night last night as well which is in the epigastric area. It sounds like the epigastric pain started first. She has some pain in the R shoulder now. She denies n/v/d, black or bloody stools. She is drinking coca cola. She felt weak and tired all day yesterday. MD complaint: epigastric pain, syncope Onset (ago): day(s) (last night. ) Location: abdomen Radiation: non-radiation Severity: moderate Quality: aching Pain Consistency: now resolved Relieving factors: none Exacerbating factors: none Associated symptoms: other (syncope) Treatments prior to arrival: none Related Data Home Medications ?Medication ?Instructions ?Recorded ?Confirmed bupropion HCl 150 mg 24 hr tablet, 150 mg PO DAILY 02/24/25 02/24/25 extended release omeprazole 20 mg tablet,delayed 20 mg PO BID@0630,1630 02/24/25 02/24/25 release sertraline 100 mg tablet 200 mg PO DAILY depression 02/24/25 02/24/25 Previous Rx's ?Medication ?Instructions ?Recorded sacroiliac belt #1 ea 08/25/24 clopidogrel 75 mg tablet 75 mg PO DAILY #90 tabs 10/29/24 midodrine 2.5 mg tablet 2.5 mg PO DAILY #90 tabs 11/13/24 lorazepam 0.5 mg tablet 0.5 mg PO BID PRN anxiety #60 tabs 02/06/25 buspirone 10 mg tablet 10 mg PO BID #180 tabs 02/10/25 Allergies Allergy/AdvReac Type Severity Reaction Status Date / Time aspirin [ASPIRIN] Allergy Unknown ANAPHYLAXIS Verified 02/24/25 11:12 meperidine [From DEMEROL] Allergy Unknown ANAPHYLAXIS Verified 02/12/25 13:35 Penicillins [PENICILLINS] Allergy Unknown ANAPHYLAXIS Verified 02/12/25 13:35 Sulfa (Sulfonamide Allergy Unknown UNKNOWN Verified 02/12/25 13:35 Antibiotics) [SULFA (SULFONAMIDE ANTIBIOTICS)] dairy Allergy Unknown unknown Uncoded 02/12/25 13:35 lactose intolerance Allergy Unknown Unknown Uncoded 02/12/25 13:35 Review of Systems 2 Review of Systems: Constitutional : No Weight loss, No Fever, No Chills ENT/Mouth : No sore throat, No Rhinorrhea Eyes: No Eye Pain, No Swelling Cardiovascular : pos Chest Pain, no SOB, no Dyspnea on Exertion, No Orthopnea, No Edema, No Palpitations Respiratory : No Cough, No Sputum Gastrointestinal : no Nausea, No Vomiting, No Diarrhea, No abdominal Pain, No Hematochezia, No Melena Genitourinary : No Dysuria, No Urinary Frequency Musculoskeletal : No joint pain, No Myalgias, No Joint Swelling Skin : No Skin Lesions, No rash Neuro : No Weakness, No Numbness, No Dizziness, No Headache, pos syncope Psych : No Anxiety/Panic, No Depression All other systems reviewed and are negative PMFSH Past Medical History Attestation statement: The following information was validated with the patient. Source: old records reviewed Medical History Dyspnea on exertion Chronic pain of both shoulders Wrist pain Obesity Depression Hyperlipidemia Hypertension Fall Surgical History Hx of colonoscopy History of biopsy History of surgical removal of lesion History of hysterectomy History of appendectomy Family History Family History Father History of heart attack Mother Colon cancer Social History Social History Household Members: None Housing: House Do you presently have visiting nurse or other home services: No Alcohol intake: never Patient Tobacco Use Status: Never used Tobacco Tobacco use type: Cigarette e-Cigarette/Vaping Use: Never Used Second Hand Smoke Exposure: No Have you been hit, kicked, punched, or otherwise hurt by someone within the past year? If so, by whom?: No Do you feel safe in your current relationship?: No Current Relationship Is there a partner from a previous relationship who is making you feel unsafe now?: No Are you made to feel afraid or neglected: No [facility] Practices: Amish Advance Directives: No Advance Directives Information Provided: Yes Do you have a plan to hurt others: No Plan Recently lost weight without trying: Yes How much weight loss: 24-33 pounds Eating poorly because of decreased appetite: Yes Nutrition screen score: 6 Nutrition Risks: Poor intake 0-25% >4 days Patient : No : No Poor oral hygiene: No service: No Current occupational status: retired Cognitive needs: Yes (cane) Hearing needs: No Vision needs: Yes Physical Exam ED Vital Signs: Vital Signs - 24 hr 02/24/25 11:11 02/24/25 17:27 02/24/25 17:57 Temperature 97.1 F 98.7 F Pulse Rate 79 74 Respiratory Rate 18 18 Blood Pressure 117/29 L 139/53 L 125/40 L Pulse Oximetry 98 93 Oxygen Delivery Method Room Air Room Air 02/24/25 18:00 02/24/25 18:01 Temperature Pulse Rate Respiratory Rate Blood Pressure 89/55 L 107/34 L Pulse Oximetry Oxygen Delivery Method BMI result Body Mass Index 26.6 Appearance: Alert. Oriented X3. No acute distress. Flat affect Eyes: Pupils equal, round and reactive to light. ENT: Pharynx normal. Neck: Normal inspection. Neck supple. CVS: Normal heart rate and rhythm. Pulses normal. Respiratory: No respiratory distress. Breath sounds normal. Abdomen: Soft and nontender. Has area in epigastric area that she states feels weird to her when she touches it but has no pain Skin: Skin warm and dry. Normal skin color. Normal skin turgor. Extremities: No lower extremity edema. No calf ttp Neuro: Oriented X 3. No motor deficit. No sensory deficit. CN2-12 intact Course Course Course Narrative: RME performed by Zhanna Gutierrez PA-C. Patient is an 84 year old assigned female at presenting to the emergency department with weakness. Patient states that she has been feeling generally unwell. Detailed physical exam and review of systems are deferred to the physician primary care sports medicine. EKG, labs, imaging, and swabs ordered. Patient placed back in the waiting room pending room availability and results. Reevaluation(s) Reevaluation #1: 450pm currently refusing IVs Reevaluation #2: K is 5.8 but hemolyzed will give lokelma low dose mild AVINASH on CKD refusing IV Reevaluation #3: + ortho VS again continues to refuse IVF. 635pm finally agrees to labs and IVF along with IV levofloxacin. At this time start treatment window as she initially refused IV repeatedly. I did tell her she would have to sign out AMA and she finally decided that she wanted to stay. She had delay in care due to her refusal. Additional Reevaluation(s): no belly pain to suggest diverticulitis Medications Administered Generic Name Dose Route Start Last Admin Trade Name Freq PRN Reason Stop Dose Admin Acetaminophen 650 mg 02/24/25 19:54 02/24/25 23:13 Acetaminophen 325 Mg Tablet PO 650 mg Q6H PRN Administration Pain, Mild 1-3,fever,headache Buspirone HCl 10 mg 02/24/25 22:25 02/24/25 23:13 Buspirone Hcl 10 Mg Tablet PO 10 mg BID ROHINI Administration Enoxaparin Sodium 30 mg 02/24/25 21:00 02/24/25 21:16 Enoxaparin Sodium 30 Mg/0.3 Ml Syringe SUBCUT 30 mg Q24H ROHINI Administration Lorazepam 0.5 mg 02/24/25 22:24 02/24/25 23:13 Lorazepam 0.5 Mg Tablet PO 0.5 mg BID PRN Administration anxiety Discontinued Medications Generic Name Dose Route Start Last Admin Trade Name Freq PRN Reason Stop Dose Admin Lactated Ringer's 1,000 mls @ 999 mls/hr 02/24/25 16:05 02/24/25 17:15 Lr IV 02/24/25 17:05 Not Given .Q1H1M ONE Sodium Chloride 500 mls @ 500 mls/hr 02/24/25 17:46 02/24/25 18:10 Ns IV 02/24/25 18:45 Not Given .Q1H ONE Levofloxacin 500 mg in 100 mls @ 100 mls/hr 02/24/25 18:31 02/24/25 20:59 Levaquin IV 02/24/25 19:30 Infused ONCE ONE Infusion Lactated Ringer's 2,307 mls @ 2,307 mls/hr 02/24/25 18:37 02/24/25 20:58 Lr 30 ml/kg infuse over 1 hr (2307 ml) 02/24/25 19:36 Infused IV Infusion .Q1H ONE Levofloxacin 250 mg in 50 mls @ 50 mls/hr 02/24/25 21:15 02/24/25 21:55 Levaquin IV 02/24/25 22:14 50 mls/hr ONCE ONE Administration Midodrine 2.5 mg 02/24/25 20:11 02/24/25 20:20 Midodrine Hcl 2.5 Mg Tablet PO 02/24/25 20:12 2.5 mg ONCE ONE Administration Sodium Zirconium Cyclosilicate 5 gm 02/24/25 17:03 02/24/25 17:20 Sodium Zirconium Cyclosilicate 5 Gm Powd.Pack PO 02/24/25 17:04 5 gm ONCE ONE Administration Medical Decision Making Medical Decision Making MDM Narrative: 84 yo female with PMH of arthritis, UC, movement disorder, seizures, depression, CKD, vertigo, HTN, HLD, on orthostatic VS and midodrine here with c/o having epigastric pain last night then had syncopal episode onto the bed. She denies injuries and has no associated GI or symptoms. She denies headache, she is not altered. She feels there is something in the epigastric area - at this time will obtain trop x 2 since chest pain last night, EKG, CT scan of abdomen. She denies need for pain medications. Differential Diagnosis Differential Diagnoses: The differential diagnosis associated with the presentation includes syncope, dehydration, anemia, gastritis, biliary colic, ACS low susp for VTE Admission/Observation Consideration of admission/observation: Escalation of care including admission/observation considered admit given CT scan wbc count, UA and increased Cr Consult Healthcare Provider Management of the patient was discussed with: Hospitalist (will admit) Lab Data MDM Lab Attestation statement: I reviewed the patient's lab results. 02/24/25 15:10 02/24/25 15:10 Labs: Lab Results 02/24/25 02/24/25 02/24/25 Range/Units 15:10 16:38 18:17 WBC 13.6 H (4.8-10.8) X10*3/uL RBC 2.63 L (4.20-5.50) X10*6/uL Hgb 9.1 L (12.0-16.0) g/dl Hct 26.4 L (37.0-47.0) % MCV 100.4 H (80.0-98.0) fL MCH 34.6 H (27.0-33.0) pg MCHC 34.5 (31.0-35.0) g/dl RDW 16.5 H (11.0-16.0) % Plt Count 103 L (160-400) X10*3/uL MPV 14.6 H (9.4-12.3) fL Immature Gran % (Auto) 1.3 H (0.0-0.4) % Neut % (Auto) 81.0 H (45-73) % Lymph % (Auto) 6.7 L (20-40) % [place] % (Auto) 10.8 (2-11) % Eos % (Auto) 0.1 (0-4) % Baso % (Auto) 0.1 (0-2) % Lymph # (Auto) 0.9 L (1.2-4.9) X10*3/uL [place] # (Auto) 1.5 H (0.1-1.2) X10*3/uL Eos # (Auto) 0.0 (0.0-0.4) X10*3/uL Baso # (Auto) 0.0 (0.0-0.2) X10*3/uL Abs Immat Gran (auto) 0.18 H (0.00-0.03) X10*3/uL Absolute Neuts (auto) 11.0 H (2.0-8.3) x10*3/uL Absolute Nucleated RBC 0.060 H (0.0-0.012) X10*3/uL Nucleated RBC % (auto) 0.4 H (0.0-0.2) /100WBC PT 12.7 H (10.9-12.4) SEC INR 1.1 (0.9-1.1) Sodium 136 (135-145) mmol/L Potassium 5.8 H D (3.3-5.1) mmol/L Serum Potassium 5.8 H (3.3-5.1) mmol/L Chloride 105 (96-108) mmol/L Carbon Dioxide 20 L (22-29) mmol/L Anion Gap 17 (12-20) BUN 59 H (9-16) mg/dL Creatinine 2.19 H (0.5-1.4) mg/dL Estim Creat Clear Calc 20.4 Estimated GFR 21 Random Glucose 111 (60-115) mg/dL Calcium 10.0 (8.4-10.2) mg/dL Magnesium 2.4 (1.6-2.6) mg/dL Total Bilirubin 0.7 (0.0-1.0) mg/dL AST 43 H (5-31) U/L ALT 17 (0-31) U/L Alkaline Phosphatase 90 (39-117) U/L Total Creatine Kinase 24 L (26-140) U/L Troponin I High Sens 10.9 9.7 (<3.5-17.0) ng/L C-Reactive Protein 26.16 H (< or = 0.50) mg/dL Total Protein 7.7 (6.5-8.0) g/dL Albumin 4.4 (3.5-5.0) g/dL Urine Color Yellow Urine Appearance Cloudy Urine pH 5.5 (5.0-9.0) Ur Specific [place] 1.015 (1.005-1.025) Urine Protein 30 (1+) H (Neg-Trace) mg/dL Urine Glucose (UA) Negative (Negative) mg/dL Urine Ketones Negative (Negative) mg/dL Urine Blood Small (1+) H (Negative) Urine Nitrite Negative (Negative) Ur Leukocyte Esterase Large (3+) H (Negative) Urine RBC 0-2 (0-2) /HPF Urine WBC >50 H (0-5) /HPF Ur Squamous Epith Cells 3-5 (0-2) /HPF Urine Bacteria 1+ (None Seen) Hyaline Casts 0-2 (0-2) /LPF Influenza Type A (PCR) NEGATIVE (Negative) Influenza Type B (PCR) NEGATIVE (Negative) RSV RNA Qual (PCR) NEGATIVE (Negative) SARS-CoV-2 RNA (RT-PCR) NEGATIVE (Negative) Independent Interpretation I performed an independent interpretation of an: EKG, Plain X-Ray (normal ) and CT Scan (L kidney inflammation) Interpretation: Rate: 74 Rhythm: NSR Carlton: normal Normal P waves. Normal OUSMANE. Normal QRS complex. ST T wave : flat t wave ant leads no DEYANIRA qTC: 375 prior studies: no acute ischemia The study has been interpreted contemporaneously by me. . Radiology Impression Discussion of test interpretation with radiology: I have reviewed the radiologist's reading. External Record Review External record reviewed: Outpatient record Discharge Plan Discharge Clinical Impression: Acute dehydration, Orthostatic hypotension, Acute UTI Patient Disposition: Admitted As Inpatient Interventions: Admission Worksheet (ED) Last Done: 02/24/25 20:50 Discharge Date/Time: 02/24/25 21:33
--- OUTSIDE RECORDS SUMMARY | 2025-02-24 15:16 | XMS_ITS | Data Portability ---
Author Organization BELÉN Mcginnis [facility] [address] Address [address] [place] [id number] Assessment No assessment recorded. Plan of Treatment [...] By Organization Details Last Modified Time 01/31/2023 [id number] Exercise. Its important to have a regular [...] Address Organization Details Recorded Time Hyperlip idemia 34797824 Active 2022 BELÉN Eaton [facility] 16:32:31 Anxiety 91379340 Active 2022 BELÉN Eaton [facility] 3 16:37:20 Autoimmu ne disease 02778749 Active 2022 BELÉN Eaton [facility] 16:37:42 Chronic kidney disease stage 3 185987465 Active 2022 BELÉN Eaton [facility] 16:38:41 Clostrid ium difficil e colitis 674053913 Completed 202201/31/2023 Shayna mcclellan PA - [facility] 16:40:26 Seizure disorder 039190761 Active 2022 Psychogen ic Shayna mcclellan PA - [facility] 16:52:21 Depressi ve disorder 15694341 Active 2022 Shayna mcclellan PA - [facility] 16:39:44 Gastroes ophageal reflux disease 414075256 Active 2022 Shayna mcclellan PA - [facility] 16:39:51 Toxic shock syndrome 55204264 Completed 202201/31/2023 Shayna mcclellan PA - [facility] 16:40:20 Hyperten sive heart disease 72454499 Active 2022 Shayna mcclellan PA - [facility] 16:40:49 Dissocia tive convulsi ons 355668620 Active 2022 Shayna mcclellan PA - [facility] 16:41:14 Panic attack 700843410 Active 2022 Shayna mcclellan PA - [facility] 16:41:30 Pyogenic granulom a 178636446 Active 2022 Shayna mcclellan PA - [facility] 16:41:48 Orthosta tic hypotens ion 05329630 Active 2022 Shayna mcclellan, [facility] - [facility] [...] Name and Address Organization Details Recorded Time 600731 aspirin medicatio n Not available Not available Not available 01/31/2023 1191 RxNorm Shayna mcclellan, PA - [facility] 3 16:35:27 011416 lactase medicatio n Not available Not available Not available 01/31/2023 44288 RxNorm Shayna mcclellan, PA - [facility] 16:35:32 268040 Demerol medicatio n Not available Not available Not available 01/31/2023 25343 1 RxNorm Shayna mcclellan, PA - [facility] 16:36:41 888923 Product containin g penicilli n (product) medicatio n Not available Not available Not available 01/31/2023 93187 8001 SNOMED Shayna mcclellan, [facility] - [facility] [...] Updated DateTime 3 170.18 cm 30.9 kg/m2 93300.7 g 99 % 99 % 81 /min 18 /min 97.2 [degF] 118 mm[Hg] 69 mm[Hg] Shayna Sorenson [place] - [facility] 3 16:33:53 Social History None recorded. Functional Status Question Answer Note LastModified by Organizat ion Details LastModified Time Do you use any illicit or recreational drugs? No [email or web address] Information not available 01/31/2023 What is your level of alcohol consumption? None Information not available 01/31/2023 Mental Status None recorded. Family History Nothing [...] or 50 mcg/0.25mL dose 1 completed Shayna Hawleye null, PA - [facility] 01/31/2023 [...] SNOMED-CT Code Diagnosis ICD10 Code Diagnosis Note [id number] [address] [place] [address] 09/14/2019 13:42:16 09/14/2019 14:25:00 [id number] [address] [place] [address] 11/09/2017 11:47:21 11/09/2017 13:12:08 [id number] [address] [place] [address] 07/30/2018 11:07:33 07/30/2018 12:24:33 [id number] [address] [place] [address] 08/31/2016 08:30:25 08/31/2016 09:21:21 [id number] [address] [facility], [place] [address] 04/03/2016 11:04:22 04/03/2016 12:26:32 [id number] [address] [facility], [place] [address] 07/06/2018 11:34:50 07/06/2018 13:31:29 [id number] [address] [facility], [place] [address] 01/28/2016 18:05:08 01/28/2016 19:07:56 [id number] [address] [facility] [place] [address] 02/10/2016 16:53:28 02/10/2016 17:58:03 [id number] [address] [facility] [place] [address] 12/27/2015 16:29:56 12/27/2015 17:29:07 [id number] [address] [facility] [place] [address] 09/30/2015 15:05:01 09/30/2015 16:05:08 [id number] [address] [facility] [place] [address] 02/21/2018 17:57:32 02/21/2018 19:08:50 [id number] [address] [facility] [place] [address] 07/11/2020 16:25:03 07/11/2020 18:19:21 [id number] [address] [facility] [place] [address] 04/29/2016 08:27:37 04/29/2016 09:19:25 [id number] [address] [facility] [place] [address] 10/04/2015 09:33:14 10/04/2015 10:43:28 [id number] [address] [facility] [place] [address] 01/09/2019 09:06:31 01/09/2019 10:08:57 [id number] Tommy Arroyo, FURNITURE REFINISHER [address] [facility] [place] [address] 01/31/2023 15:37:57 01/31/2023 16:56:56 Pain of right hip joint [id number] 50504 M25.551 strongly encouraged to follow up with her PCP or orthopedic as previously scheduled. Health Concerns Section Related Observation LastModified by Organization Detai ls LastModified Time None Recorded Concern Status LastModified by Organization Details LastModified Time None Recorded Advance Directives Directive None Recorded Payers Insurance Date Sequence Insurance Name Policy Number Policy Mcmullen Covered Member ID Mcmullen Member ID Guarantor Name 01/31/2023 1 [facility] [id number] Liliana Gutierrez [id number] Liliana Gutirerez Notes Date Note Type Note Provider Name [...] Arroyo NP [address] [place], [address], PA - [facility] 01/31/2023 16:56:09 OBGyn Episode No OBEpisode recorded.
--- OUTSIDE RECORDS SUMMARY | 2025-02-24 15:16 | XMS_ITS | Clinical Summary ---
Author Organization [facility] Address [address] [place] [address] Phone Care Team Providers Care Insurance Claims Supervisor Name Role Phone Ned Alcantara MD Primary Care Provider [phone] Allergies Active Allergy Reactions Criticality Noted Date [...] 50+ Ye ars (2 of 2 - PPSV23, PCV20, or PCV21) 04/12/2016 02/16/2016 Influenza Vaccine (Season Ended) 2025 Pneumococcal Vaccine: Peds ( 0 to 5 Years) and At-Risk Patients (6 to 49 Years) Discontinued 02/16/2016 Hepatitis B Vaccine Aged Out No longe r eligible based on patient's age to complete this topic Insurance [address] [place], [place] [address] [place] [address] [place] [address] Care Teams Insurance Claims Supervisor Relationship Specialty Start Date End Date Ned Alcantara MD [address] [place] [address] PCP - General 10/19/20
--- OUTSIDE RECORDS SUMMARY | 2025-02-24 15:16 | XMS_ITS | Clinical Summary ---
Author Organization [facility] Address [address] [place] [id number] Care Team Providers Care Bleach Boiler Puller Name Role Phone Debbi Beckham Primary Care Provider [phone] Allergies Active Allergy Reactions Criticality Noted Date [...] age to complete this topic Insurance [facility] Advance Directives For more information, please contact: [phone] Documents on File Type Date Recorded Patient Time Piece Repairer Expl anation Advance Directives 06/07/2018 2:23 PM Healthcare Agents on File Name Relationship Healthcare Agent Relationshi p Communication Kirsten Jairo Friend POA for [facility] prior to 07/09/2006 Care Teams Bleach Boiler Puller Relationship Specialty Start Date End Date Debbi Beckham PA [address] [phone] PCP - General Family Medicine 05/23/18
[2025-02-24 15:17] LABS: MANUAL DIFF FLAG NO
--- OUTSIDE RECORDS SUMMARY | 2025-02-24 15:17 | XMS_ITS | Clinical Summary ---
Author Organization [facility] Address [address] [place] [address] Phone Care Team Providers Care Grease Machine Worker Name Role Phone Ned Alcantara MD Primary Care Provider [phone] Allergies Active Allergy Reactions Criticality Noted Date [...] Res ult [facility] [address] [place] [address], from Last 3 Months or Most Recently Relevant to Health Maintenance Insurance [facility] Advance Directives Documents on File Type Date Recorded Patient Pet Adoption Counselor Expl anation Health Care Decision (hx) 12/29/2015 [...] (hx) 12/23/2015 AD [place] DIRECTIVE Care Teams Grease Machine Worker Relationship Specialty Start Date End Date Ned Alcantara MD [address] [place] [id number] PCP - General 10/27/21
[2025-02-24 15:26] LABS: Basophils Percent Auto 0.1 % (0-2); Eosinophils Percent Auto 0.1 % (0-4); Hematocrit 26.4 % (37.0-47.0); Hemoglobin 9.1 g/dl (12.0-16.0); INTERNATIONAL NORM RATIO 1.1 (0.9-1.1); Imm Gran Abs Auto 0.18 X10*3/uL (0.00-0.03); Imm Gran Pct Auto 1.3 % (0.0-0.4); Lymphocytes Absolute Auto 0.9 X10*3/uL (1.2-4.9); Lymphocytes Percent Auto 6.7 % (20-40); Mean Corpuscular HGB Conc 34.5 g/dl (31.0-35.0); Mean Corpuscular Hemoglobin 34.6 pg (27.0-33.0); Mean Corpuscular Volume 100.4 fL (80.0-98.0); Mean Platelet Volume 14.6 fL (9.4-12.3); Monocytes Absolute Auto 1.5 X10*3/uL (0.1-1.2); Monocytes Percent Auto 10.8 % (2-11); NRBC Pct Auto 0.4 /100WBC (0.0-0.2); Platelet Count 103 X10*3/uL (160-400); Prothrombin Time 12.7 SEC (10.9-12.4); Red Blood Count 2.63 X10*6/uL (4.20-5.50); Red Cell Distribution Width 16.5 % (11.0-16.0); White Blood Count 13.6 X10*3/uL (4.8-10.8)
[2025-02-24 15:39] LABS: Alanine Aminotransferase 17 U/L (0-31); Albumin Level 4.4 g/dL (3.5-5.0); Anion Gap 17 (12-20); Aspartate Amino Transferase 43 U/L (5-31); Bilirubin Total 0.7 mg/dL (0.0-1.0); Blood Urea Nitrogen 59 mg/dL (9-16); Carbon Dioxide 20 mmol/L (22-29); Chloride 105 mmol/L (96-108); Creatinine Clr Calc Pharmacy 20.4; Estimated Glomerular Filt Rate 21; Glucose Random 111 mg/dL (60-115); Magnesium 2.4 mg/dL (1.6-2.6); Potassium 5.8 mmol/L (3.3-5.1); Sodium 136 mmol/L (135-145); Total Protein 7.7 g/dL (6.5-8.0)
[2025-02-24 15:45] LABS: Troponin-I High Sensitivity 10.9 ng/L (<3.5-17.0)
[2025-02-24 15:57] LABS: Influenza A PCR NEGATIVE (Negative); Influenza B PCR NEGATIVE (Negative); Resp Syncy Virus RNA Qual PCR NEGATIVE (Negative); SARS COV2 PCR INHOUSE NEGATIVE (Negative)
[2025-02-24 16:38] LABS: Alkaline Phosphatase 90 U/L (39-117)
--- NOTE | 2025-02-24 16:46 | PC.NURSE ---
patient refusing IV at this time, stating that she has only one good vein and everything else is scar tissue. states that if we attempt another site that she will have a seizure.
[2025-02-24 17:02] LABS: Potassium, Serum 5.8 mmol/L (3.3-5.1)
[2025-02-24 17:06] LABS: Troponin-I High Sensitivity 9.7 ng/L (<3.5-17.0)
[2025-02-24] MEDS: Sodium Zirconium Cyclosilicate 5 GM POWD.PACK PO (17:20)
[2025-02-24 18:01] LABS: C Reactive Protein 26.16 mg/dL (< or = 0.50)
--- NOTE | 2025-02-24 18:10 | PC.NURSE ---
patient continues to refuse IV at this time, provider aware.
[2025-02-24 18:23] LABS: Appearance Urine Cloudy; Color Urine Yellow; Glucose Urine UA Negative (Negative); Leukocyte Esterase Urine Large (3+) (Negative); Nitrite Urine Negative (Negative); PH 5.5 (5.0-9.0); Specific Gravity - Urine 1.015 (1.005-1.025); UMIC TRIGGER UACC YES; Urine Blood Small (1+) (Negative); Urine Ketones Negative (Negative); Urine Protein 30 (1+) mg/dL (Neg-Trace)
[2025-02-24 18:33] LABS: Bacteria Urine 1+ (None Seen); Hyaline Casts Urine 0-2 /LPF (0-2); RBC Urine 0-2 /HPF (0-2); UACC Culture Trigger YES; WBC Urine >50 /HPF (0-5)
[2025-02-24] MEDS: levoFLOXacin/D5W 500 MG/100 ML PIGGYBACK 100 MG IV (19:14)
[2025-02-24] MEDS: LACTATED RINGERS 2307 ML IV (19:20)
[2025-02-24 19:28] LABS: Lactic Acid 1.1 mmol/L (0.5-2.0)
--- NOTE | 2025-02-24 19:29 | PC.NURSE ---
assumed care for pt atthis time, pt alert and oriented speaking in full clear sentences. it was noted in report pt was being a difficult stick and needed second set of cultures and lactic. IV access obtained, cultures lactic and started fluids and abx. pts needs met at this time. VSS. plan of care ongoing
--- NOTE | 2025-02-24 19:55 | PM.IMHP ---
History of Present Illness Date of Service: 02/24/25 Chief Complaint: Chest pain/flank pain This is a 84-year-old female with pertinent history of CKD stage IIIB/stage IV, orthostatic hypotension, mood disorder, mixed hyperlipidemia, gastroesophageal reflux disease, seizure disorder who presents to the emergency department for evaluation of syncope. Patient states she passed out while she was trying to get up from the bed. Patient got dizzy and lightheaded before passing out and falling back on the bed. Patient states she had an episode of chest pain and epigastric pain which was intermittent, nonradiating, nonprogressive 1 day prior to presentation. No associated nausea or vomiting. No sweating. Denies fever, chills, diarrhea. Endorses poor p.o. intake and has been feeling weak with easy fatigability. No dysuria but noticed change in color of urine. No chest pain, palpitations, shortness of breath, changes in bowel habits. In the emergency department, patient was found to have AVINASH with creatinine 2.19. Potassium 5.8. Imaging with fat stranding around the left kidney. Orthostatic vital signs noted to be positive in the ER Review of Systems Constitutional: Constitutional: Reports fatigue, Reports malaise, Reports poor appetite and Reports weakness Cardiovascular: Cardiovascular: Reports chest pain Respiratory: Respiratory: Reports no additional respiratory complaints Gastrointestinal: Gastrointestinal: Reports no additional gastrointestinal complaints Genitourinary: Comments: Change in color of urine Neurologic: Reports weakness Endocrine: Endocrine: Reports fatigue [facility] Medical History Dyspnea on exertion Chronic pain of both shoulders Wrist pain Obesity Depression Hyperlipidemia Hypertension Fall Family History Father History of heart attack Mother Colon cancer Surgical History Hx of colonoscopy History of biopsy History of surgical removal of lesion History of hysterectomy History of appendectomy Social History Housing: House Alcohol intake: never Patient Tobacco Use Status: Never used Tobacco Tobacco use type: Cigarette e-Cigarette/Vaping Use: Never Used Second Hand Smoke Exposure: No Advance Directives: No Advance Directives Information Provided: Yes service: No Current occupational status: retired Cognitive needs: Yes (cane) Hearing needs: No Vision needs: Yes Meds Allergies Allergy/AdvReac Type Severity Reaction Status Date / Time aspirin [ASPIRIN] Allergy Unknown ANAPHYLAXIS Verified 02/24/25 11:12 meperidine [From DEMEROL] Allergy Unknown ANAPHYLAXIS Verified 02/12/25 13:35 Penicillins [PENICILLINS] Allergy Unknown ANAPHYLAXIS Verified 02/12/25 13:35 Sulfa (Sulfonamide Allergy Unknown UNKNOWN Verified 02/12/25 13:35 Antibiotics) [SULFA (SULFONAMIDE ANTIBIOTICS)] dairy Allergy Unknown unknown Uncoded 02/12/25 13:35 lactose intolerance Allergy Unknown Unknown Uncoded 02/12/25 13:35 Home Medications ?Medication ?Instructions ?Recorded ?Confirmed ?Last Taken ?Type bupropion HCl 150 mg 24 hr tablet, 150 mg PO DAILY 02/24/25 02/24/25 02/23/25 History extended release omeprazole 20 mg tablet,delayed 20 mg PO BID@0630,1630 02/24/25 02/24/25 02/23/25 History release sertraline 100 mg tablet 200 mg PO DAILY depression 02/24/25 02/24/25 02/23/25 History Physical Exam Vital Signs and Narrative: Vital Signs: Last Vital Signs Temp 98.6 F 02/24/25 19:27 Pulse 81 02/24/25 19:27 Resp 16 02/24/25 19:27 BP 128/36 L 02/24/25 19:27 Pulse Ox 97 02/24/25 19:27 O2 Del Method Room Air 02/24/25 19:27 BMI result Body Mass Index 26.6 Elderly female lying in bed in no distress Neck supple, no JVD Regular rate and rhythm, S1-S2 heard Regular breath sounds bilaterally, no wheezing or crackles appreciated Abdomen soft nontender, no guarding, no rigidity, no CVA tenderness Patient is awake, alert and oriented to self, place, time and person ; no focal motor deficit Psych: Normal mood No pedal edema Results Labs 02/24/25 15:10 02/24/25 15:10 Labs: Laboratory Results - last 24 hr 02/24/25 02/24/25 02/24/25 15:10 16:38 18:17 MCV 100.4 H MCH 34.6 H MCHC 34.5 RDW 16.5 H Plt Count 103 L MPV 14.6 H Immature Gran % (Auto) 1.3 H Neut % (Auto) 81.0 H Lymph % (Auto) 6.7 L [place] % (Auto) 10.8 Eos % (Auto) 0.1 Baso % (Auto) 0.1 Lymph # (Auto) 0.9 L [place] # (Auto) 1.5 H Eos # (Auto) 0.0 Baso # (Auto) 0.0 Abs Immat Gran (auto) 0.18 H Absolute Neuts (auto) 11.0 H Absolute Nucleated RBC 0.060 H Nucleated RBC % (auto) 0.4 H PT 12.7 H INR 1.1 Serum Potassium 5.8 H Anion Gap 17 Estim Creat Clear Calc 20.4 Estimated GFR 21 Random Glucose 111 Lactic Acid Calcium 10.0 Magnesium 2.4 Total Bilirubin 0.7 AST 43 H ALT 17 Alkaline Phosphatase 90 Total Creatine Kinase 24 L C-Reactive Protein 26.16 H Total Protein 7.7 Albumin 4.4 Urine Color Yellow Urine Appearance Cloudy Urine pH 5.5 Ur Specific [place] 1.015 Urine Protein 30 (1+) H Urine Glucose (UA) Negative Urine Ketones Negative Urine Blood Small (1+) H Urine Nitrite Negative Ur Leukocyte Esterase Large (3+) H Urine RBC 0-2 Urine WBC >50 H Ur Squamous Epith Cells 3-5 Urine Bacteria 1+ Hyaline Casts 0-2 Influenza Type A (PCR) NEGATIVE Influenza Type B (PCR) NEGATIVE RSV RNA Qual (PCR) NEGATIVE SARS-CoV-2 RNA (RT-PCR) NEGATIVE 02/24/25 19:08 MCV MCH MCHC RDW Plt Count MPV Immature Gran % (Auto) Neut % (Auto) Lymph % (Auto) [place] % (Auto) Eos % (Auto) Baso % (Auto) Lymph # (Auto) [place] # (Auto) Eos # (Auto) Baso # (Auto) Abs Immat Gran (auto) Absolute Neuts (auto) Absolute Nucleated RBC Nucleated RBC % (auto) PT INR Serum Potassium Anion Gap Estim Creat Clear Calc Estimated GFR Random Glucose Lactic Acid 1.1 Calcium Magnesium Total Bilirubin AST ALT Alkaline Phosphatase Total Creatine Kinase C-Reactive Protein Total Protein Albumin Urine Color Urine Appearance Urine pH Ur Specific [place] Urine Protein Urine Glucose (UA) Urine Ketones Urine Blood Urine Nitrite Ur Leukocyte Esterase Urine RBC Urine WBC Ur Squamous Epith Cells Urine Bacteria Hyaline Casts Influenza Type A (PCR) Influenza Type B (PCR) RSV RNA Qual (PCR) SARS-CoV-2 RNA (RT-PCR) Imaging Radiologist's Impressions: Impressions Chest X-Ray 02/24/25 14:37 IMPRESSION: No acute airspace disease. Spondylosis, thoracic spine.. Electronically signed by: Jameel Singer MD 02/24/2025 02:57 PM EDT RP Assessment and Plan (1) Syncope: Status: Acute (2) Orthostatic hypotension: Status: Acute (3) Acute UTI: Status: Acute (4) Acute dehydration: Status: Acute Plan This is a 84-year-old female with pertinent history of CKD stage IIIB/stage IV, orthostatic hypotension, mood disorder, mixed hyperlipidemia, gastroesophageal reflux disease, seizure disorder who presents to the emergency department for evaluation of syncope. #. Syncope, orthostatic: Will admit patient with cardiac monitoring. Orthostatic vital signs noted to be positive in the ER. Does have history of orthostatic hypotension. Resuscitated with IV crystalloids. Continue home midodrine. Repeat orthostatics in a.m. #. Acute kidney injury on CKD stage IIIB/stage IV: Monitor creatinine urine output with crystalloid resuscitation. Avoid nephrotoxins. Patient requesting nephro consult while inpatient #. Hyperkalemia in the setting of above: Also hemolysis noted. Repeat. Lokelma given in the ER. No EKG changes #. Acute UTI: IV Levaquin while in the hospital. Urine culture pending. Imaging with fat stranding around left kidney and possible acute diverticulitis but patient without flank tenderness or left lower quadrant tenderness. #. Chest pain, atypical: Trend troponins. #. Mood disorder/seizure disorder: Continue home mood stabilizers and home antiepileptics #. Mixed hyperlipidemia: On statin #. Gastroesophageal reflux disease: On PPI Med rec pending DVT prophylaxis: Lovenox Full code. Discussed with patient at bedside Admit as inpatient and will require two night minimum hospital stay for IV antibiotics, monitoring of kidney function (as above), which is not possible in a lesser acute setting. Quality Stroke Does the patient have a stroke diagnosis?: No VTE Prior VTE?: No VTE Risk Level:: Medical - moderate - high VTE Device Contraindication: Treatment Not Indicated VTE Drug Contraindication: N/A - Med Ordered
--- NOTE | 2025-02-24 20:19 | PHA.MEDREC ---
Addendum entered by Fady Chance [facility] ED 02/24/25 21:58: MED REC CHECKED BY [facility] Original Note: Pharmacy Consult ? Medication Reconciliation Pharmacy has completed the medication reconciliation. Spoke to patient to confirm med list. Patient states she is no longer taking Diphenoxylate-atropine 2.5 mg-0.025mg, Lovastatin 40 mg (States Dr said she was to old to take), Oxcarbazepine 300 mg, Valacyclovir 500 mg, and Zolpidem 5 mg. Patient states she last had her medications yesterday.
[2025-02-24] MEDS: Midodrine HCl 2.5 MG TABLET PO (20:20)
[2025-02-24] MEDS: Enoxaparin Sodium 30 MG/0.3 ML SYRINGE SUBCUT (21:16)
[2025-02-24] MEDS: levoFLOXacin/D5W 250 MG/50 ML PIGGYBACK 50 MG IV (21:55)
[2025-02-24] MEDS: LORazepam 0.5 MG TABLET PO (23:13)
[2025-02-24] MEDS: Acetaminophen 325 MG TABLET 650 MG PO (23:13)
[2025-02-24] MEDS: busPIRone HCl 10 MG TABLET PO (23:13)
[2025-02-25] VITALS (9 sets, daily range): BP systolic 111–156; BP diastolic 55–67; PULSE 62–91; RESP 17–20; TEMP 36.2–36.6; O2SAT 93–99
--- NOTE | 2025-02-25 04:09 | PC.NURSE ---
Pt admitted with weakness. Had positive orthostatic vitals in ED. Patient states she frequently falls back however patient currently refusing bed alarms. Patient educated on importance of bed alarms. Patient attempted to walk to bathroom however became very pale. Denies dizziness or lightheadedness. Patient brought back to bed. Bp 130s/60s. Patient continues to refuse bed alarms.
[2025-02-25] MEDS: Omeprazole 20 MG CAPSULE.DR PO ×2 (06:33→17:22)
--- NOTE | 2025-02-25 07:34 | HO.PM.IMPN ---
Subjective Subjective Date of Service: 02/25/25 Interval History: f/u on orthostatic hypotension, syncope, uti and wiliam overall better, Physical Exam Vital Signs: Vital Signs: Last Vital Signs Temp 97.5 F 02/25/25 07:10 Pulse 65 02/25/25 07:10 Resp 17 02/25/25 07:10 BP 146/63 H 02/25/25 07:10 Pulse Ox 93 02/25/25 07:10 O2 Del Method Room Air 02/25/25 07:10 BMI result Body Mass Index 26.9 Const: Other: General: AO X 3, no acute distress Resp: CTA bilateral CVS: S1,S2,RRR GI: +BS, NT, no distention Skin: No rash Neuro: motor grossly intact Psych: appropriate affect Objective Data Active Medications Acetaminophen (Acetaminophen 325 Mg Tablet) 650 mg PO Q6H PRN PRN Reason: Pain, Mild 1-3,fever,headache Last Admin: 02/24/25 23:13 Dose: 650 mg Documented By: LAURA Bupropion HCl (Bupropion Hcl Xl 150 Mg Tab.Er.24h) 150 mg PO DAILY [facility] Buspirone HCl (Buspirone Hcl 10 Mg Tablet) 10 mg PO BID [facility] Last Admin: 02/24/25 23:13 Dose: 10 mg Documented By: LAURA Calcium Carbonate (Calcium Carbonate 750 Mg Tab.Chew) 750 mg PO Q4H PRN PRN Reason: Heartburn Clopidogrel Bisulfate (Clopidogrel Bisulfate 75 Mg Tablet) 75 mg PO DAILY [facility] Enoxaparin Sodium (Enoxaparin Sodium 30 Mg/0.3 Ml Syringe) 30 mg SUBCUT Q24H [facility] Last Admin: 02/24/25 21:16 Dose: 30 mg Documented By: JUDE Levofloxacin (Levaquin) 750 mg in 150 mls @ 100 mls/hr IV Q48H [facility] Lorazepam (Lorazepam 0.5 Mg Tablet) 0.5 mg PO BID PRN PRN Reason: anxiety Last Admin: 02/24/25 23:13 Dose: 0.5 mg Documented By: LAURA Magnesium Hydroxide (Milk Of Magnesia 30 Ml Oral.Susp) 30 ml PO DAILY PRN PRN Reason: Constipation Melatonin (Melatonin 3 Mg Tablet) 6 mg PO BEDTIME PRN PRN Reason: Insomnia Midodrine (Midodrine Hcl 2.5 Mg Tablet) 2.5 mg PO DAILY [facility] Omeprazole (Omeprazole 20 Mg Capsule.Dr) 20 mg PO BID@0630,1630 [facility] Last Admin: 02/25/25 06:33 Dose: 20 mg Documented By: LAURA Ondansetron HCl (Ondansetron Hcl 4 Mg/2 Ml Vial) 4 mg IVPUSH Q8H PRN PRN Reason: Nausea and Vomiting Sertraline HCl (Sertraline Hcl 100 Mg Tablet) 200 mg PO DAILY [facility] Sodium Chloride (0.9 % Sodium Chloride Flush 3 Ml Syringe) 3 ml IVFLUSH QSHIFT [facility] Last Admin: 02/25/25 00:34 Dose: Not Given Documented By: LAURA Non-Admin Reason: Previously Administered Labs 02/25/25 09:22 02/25/25 09:22 Labs: Laboratory Results - last 24 hr 02/24/25 02/24/25 02/24/25 15:10 16:38 18:17 MCV 100.4 H MCH 34.6 H MCHC 34.5 RDW 16.5 H Plt Count 103 L MPV 14.6 H Immature Gran % (Auto) 1.3 H Neut % (Auto) 81.0 H Lymph % (Auto) 6.7 L [place] % (Auto) 10.8 Eos % (Auto) 0.1 Baso % (Auto) 0.1 Lymph # (Auto) 0.9 L [place] # (Auto) 1.5 H Eos # (Auto) 0.0 Baso # (Auto) 0.0 Abs Immat Gran (auto) 0.18 H Absolute Neuts (auto) 11.0 H Absolute Nucleated RBC 0.060 H Nucleated RBC % (auto) 0.4 H PT 12.7 H INR 1.1 Serum Potassium 5.8 H Anion Gap 17 Estim Creat Clear Calc 20.4 Estimated GFR 21 Random Glucose 111 Lactic Acid Calcium 10.0 Magnesium 2.4 Total Bilirubin 0.7 AST 43 H ALT 17 Alkaline Phosphatase 90 Total Creatine Kinase 24 L C-Reactive Protein 26.16 H Total Protein 7.7 Albumin 4.4 Urine Color Yellow Urine Appearance Cloudy Urine pH 5.5 Ur Specific [place] 1.015 Urine Protein 30 (1+) H Urine Glucose (UA) Negative Urine Ketones Negative Urine Blood Small (1+) H Urine Nitrite Negative Ur Leukocyte Esterase Large (3+) H Urine RBC 0-2 Urine WBC >50 H Ur Squamous Epith Cells 3-5 Urine Bacteria 1+ Hyaline Casts 0-2 Influenza Type A (PCR) NEGATIVE Influenza Type B (PCR) NEGATIVE RSV RNA Qual (PCR) NEGATIVE SARS-CoV-2 RNA (RT-PCR) NEGATIVE 02/24/25 19:08 MCV MCH MCHC RDW Plt Count MPV Immature Gran % (Auto) Neut % (Auto) Lymph % (Auto) [place] % (Auto) Eos % (Auto) Baso % (Auto) Lymph # (Auto) [place] # (Auto) Eos # (Auto) Baso # (Auto) Abs Immat Gran (auto) Absolute Neuts (auto) Absolute Nucleated RBC Nucleated RBC % (auto) PT INR Serum Potassium Anion Gap Estim Creat Clear Calc Estimated GFR Random Glucose Lactic Acid 1.1 Calcium Magnesium Total Bilirubin AST ALT Alkaline Phosphatase Total Creatine Kinase C-Reactive Protein Total Protein Albumin Urine Color Urine Appearance Urine pH Ur Specific [place] Urine Protein Urine Glucose (UA) Urine Ketones Urine Blood Urine Nitrite Ur Leukocyte Esterase Urine RBC Urine WBC Ur Squamous Epith Cells Urine Bacteria Hyaline Casts Influenza Type A (PCR) Influenza Type B (PCR) RSV RNA Qual (PCR) SARS-CoV-2 RNA (RT-PCR) Assessment and Plan (1) Acute UTI: Status: Acute (2) Orthostatic hypotension: Status: Acute (3) Syncope: Status: Acute Plan This is an 84-year-old female with a pertinent history of CKD stage IIIB/stage IV, orthostatic hypotension, mood disorder, mixed hyperlipidemia, gastroesophageal reflux disease, and seizure disorder who presents to the emergency department for evaluation of syncope. Syncope, orthostatic: + orthostatic BP, has a known history of orthostatic hypotension. IVF midodrine and florinef recheck orthostatic this morning. Acute kidney injury on CKD stage IIIB/stage IV, ? pre renal IVF Nephrology consulationt. Hyperkalemia d/t renal failure, resolved treated with lokelma repeat labs. Acute UTI, culture pending continue levaquin but renally adjust, pen allergy Chest pain, atypical: neg Troponin x 2 . Mood disorder/seizure disorder resume home meds after med rec. Mixed hyperlipidemia Statin GERD PPI Medication reconciliation pending. DVT prophylaxis: Lovenox Full code. Discussed with patient at bedside need fo inpt: IV fluid for WILIAM, and management of symptomatic orthostatic hypotension Quality Stroke Does the patient have a stroke diagnosis?: No VTE Prior VTE?: No VTE Risk Level:: Medical - moderate - high VTE Device Contraindication: Treatment Not Indicated VTE Drug Contraindication: N/A - Med Ordered
[2025-02-25] MEDS: Clopidogrel Bisulfate 75 MG TABLET PO (09:10)
[2025-02-25] MEDS: Sertraline HCL 100 MG TABLET 200 MG PO (09:10)
[2025-02-25] MEDS: busPIRone HCl 10 MG TABLET PO ×2 (09:10→22:04)
[2025-02-25] MEDS: Midodrine HCl 2.5 MG TABLET PO (09:10)
[2025-02-25] MEDS: buPROPion HCl XL 150 MG TAB.ER.24H PO (09:11)
[2025-02-25] MEDS: 0.9 % Sodium Chloride Flush 3 ML SYRINGE IVFLUSH ×2 (09:11→17:31)
--- NOTE | 2025-02-25 09:30 | P.CONNP_ITS ---
History of Present Illness Reason for Consult Consult date: 02/25/25 Chief Complaint Chief complaint: weakness History of Present Illness Narrative: 84 y/o patient with a medical history of CKD3b/4 (followed by Dr Hunt as outpatient), orthostatic hypotension, mood disorder, seizure disorder, HLD. presented 02/24 for evaluation of syncope, felt dizzy and fainted after getting up from bed. reports poor PO intake and weakness, episode of epigastric pain x1 the day prior. Nephrology consulted for AVINASH. creatinine 2.19 on presentation, previous creatinine in December was 1.89 potassium 5.5, 5gm lokelma administered CRP 26, CK 24 UA with small amount of protein, no blood, many WBCs, pt being treated for UTI CT showed left kidney fat stranding, no obstruction. platelet count 103, was 111 in December, previously normal. H&H 9.1 and 26 patient received a number of fluid boluses Patient reports she feels well and does not have any complaints. Denies shortness of breath, chest pain, abdominal pain, denies LE swelling reports she is voiding comfortably, denies urinary symptoms Review of Systems Constitutional: Reports no additional constitutional complaints Reports dizziness (upon standing) Cardiovascular: Denies chest pain, Denies leg edema, Reports lightheadedness (upon standing, chronic) and Denies dyspnea Respiratory: Denies cough and Denies dyspnea Gastrointestinal: Denies abdominal pain, Denies diarrhea, Denies nausea and Denies vomiting Genitourinary: Denies hematuria, Denies difficulty voiding and Denies dysuria Musculoskeletal: Denies back pain and Denies muscle cramps Skin/Breast: Denies rash Reports dizziness (upon standing) and Denies tremor(s) [facility] Past Medical History Medical History Dyspnea on exertion Chronic pain of both shoulders Wrist pain Obesity Depression Hyperlipidemia Hypertension Fall Family History Family History Father History of heart attack Mother Colon cancer Surgical History Surgical History Hx of colonoscopy History of biopsy History of surgical removal of lesion History of hysterectomy History of appendectomy Social History Social History Household Members: None Housing: House Do you presently have visiting nurse or other home services: No Alcohol intake: never Patient Tobacco Use Status: Never used Tobacco Tobacco use type: Cigarette e-Cigarette/Vaping Use: Never Used Second Hand Smoke Exposure: No Currently Displaying Signs/Symptoms of Drug Intoxication Withdrawal: No Have you been hit, kicked, punched, or otherwise hurt by someone within the past year? If so, by whom?: No Do you feel safe in your current relationship?: No Current Relationship Is there a partner from a previous relationship who is making you feel unsafe now?: No Are you made to feel afraid or neglected: No [facility] Healthcare Practices: Christianity Advance Directives: No Advance Directives Information Provided: Yes Do you have a plan to hurt others: No Plan Recently lost weight without trying: Yes How much weight loss: 24-33 pounds Eating poorly because of decreased appetite: Yes Nutrition screen score: 6 Nutrition Risks: Poor intake 0-25% >4 days Patient : No : No Poor oral hygiene: No service: No Current occupational status: retired Cognitive needs: Yes (cane) Hearing needs: No Vision needs: Yes Meds Allergies Allergy/AdvReac Type Severity Reaction Status Date / Time aspirin [ASPIRIN] Allergy Unknown ANAPHYLAXIS Verified 02/24/25 11:12 meperidine [From DEMEROL] Allergy Unknown ANAPHYLAXIS Verified 02/12/25 13:35 Penicillins [PENICILLINS] Allergy Unknown ANAPHYLAXIS Verified 02/12/25 13:35 Sulfa (Sulfonamide Allergy Unknown UNKNOWN Verified 02/12/25 13:35 Antibiotics) [SULFA (SULFONAMIDE ANTIBIOTICS)] dairy Allergy Unknown unknown Uncoded 02/12/25 13:35 lactose intolerance Allergy Unknown Unknown Uncoded 02/12/25 13:35 Active Medications: Current Medications Acetaminophen (Acetaminophen 325 Mg Tablet) 650 mg PO Q6H PRN PRN Reason: Pain, Mild 1-3,fever,headache Last Admin: 02/24/25 23:13 Dose: 650 mg Bupropion HCl (Bupropion Hcl Xl 150 Mg Tab.Er.24h) 150 mg PO DAILY [facility] Last Admin: 02/25/25 09:11 Dose: 150 mg Buspirone HCl (Buspirone Hcl 10 Mg Tablet) 10 mg PO BID [facility] Last Admin: 02/25/25 09:10 Dose: 10 mg Calcium Carbonate (Calcium Carbonate 750 Mg Tab.Chew) 750 mg PO Q4H PRN PRN Reason: Heartburn Clopidogrel Bisulfate (Clopidogrel Bisulfate 75 Mg Tablet) 75 mg PO DAILY [facility] Last Admin: 02/25/25 09:10 Dose: 75 mg Enoxaparin Sodium (Enoxaparin Sodium 30 Mg/0.3 Ml Syringe) 30 mg SUBCUT Q24H [facility] Last Admin: 02/24/25 21:16 Dose: 30 mg Levofloxacin (Levaquin) 750 mg in 150 mls @ 100 mls/hr IV Q48H [facility] Lorazepam (Lorazepam 0.5 Mg Tablet) 0.5 mg PO BID PRN PRN Reason: anxiety Last Admin: 02/24/25 23:13 Dose: 0.5 mg Magnesium Hydroxide (Milk Of Magnesia 30 Ml Oral.Susp) 30 ml PO DAILY PRN PRN Reason: Constipation Melatonin (Melatonin 3 Mg Tablet) 6 mg PO BEDTIME PRN PRN Reason: Insomnia Midodrine (Midodrine Hcl 2.5 Mg Tablet) 2.5 mg PO DAILY [facility] Last Admin: 02/25/25 09:10 Dose: 2.5 mg Omeprazole (Omeprazole 20 Mg Capsule.Dr) 20 mg PO BID@0630,1630 [facility] Last Admin: 02/25/25 06:33 Dose: 20 mg Ondansetron HCl (Ondansetron Hcl 4 Mg/2 Ml Vial) 4 mg IVPUSH Q8H PRN PRN Reason: Nausea and Vomiting Sertraline HCl (Sertraline Hcl 100 Mg Tablet) 200 mg PO DAILY [facility] Last Admin: 02/25/25 09:10 Dose: 200 mg Sodium Chloride (0.9 % Sodium Chloride Flush 3 Ml Syringe) [facility] Last Admin: 02/25/25 09:11 Dose: 3 ml Home Medications ?Medication ?Instructions ?Recorded ?Confirmed ?Last Taken ?Type bupropion HCl 150 mg 24 hr tablet, 150 mg PO DAILY 02/24/25 02/24/25 02/23/25 History extended release omeprazole 20 mg tablet,delayed 20 mg PO BID@0630,1630 02/24/25 02/24/25 02/23/25 History release sertraline 100 mg tablet 200 mg PO DAILY depression 02/24/25 02/24/25 02/23/25 History Physical Exam Vital Signs: Last Vital Signs Temp 97.5 F 02/25/25 07:10 Pulse 72 02/25/25 08:56 Resp 17 02/25/25 07:10 BP 119/59 L 02/25/25 08:56 Pulse Ox 93 02/25/25 07:10 O2 Del Method Room Air 02/25/25 07:10 BMI result Body Mass Index 26.9 Const General: no acute distress, alert and awake Resp Effort & Inspection: normal respiratory effort and able to speak in complete sentences Auscultation: clear to auscultation bilaterally Cardio Jugular venous distension: no JVD Rate: regular rate Rhythm: regular rhythm Heart sounds: S1 normal heart sound present and S2 normal heart sound present GI Palpation (GI): Soft to palpation and nontender General: Yes no CVA tenderness Back/Spine/Pelvis Back: no CVA tenderness Skin Rashes: no rashes Extrem General: No edema Results Lab Results 02/25/25 09:22 02/25/25 09:22 Lab results: Chemistry 02/24/25 02/25/25 15:10 09:22 Sodium 136 138 Potassium 5.8 H D 3.8 D Carbon Dioxide 20 L 23 BUN 59 H 51 H Creatinine 2.19 H 1.87 H Calcium 10.0 9.7 Hematology 02/24/25 02/25/25 15:10 09:22 WBC 13.6 H 7.9 Hgb 9.1 L 8.4 L Plt Count 103 L 89 L Urinalysis 02/24/25 18:17 Urine Color Yellow Urine Appearance Cloudy Urine pH 5.5 Ur Specific [place] 1.015 Urine Protein 30 (1+) H Urine Glucose (UA) Negative Urine Ketones Negative Urine Blood Small (1+) H Urine Nitrite Negative Ur Leukocyte Esterase Large (3+) H Urine RBC 0-2 Urine WBC >50 H Ur Squamous Epith Cells 3-5 Hyaline Casts 0-2 Assessment and Plan (1) Acute kidney injury superimposed on chronic kidney disease: Status: Acute (2) Hypotension: Qualifiers: Hypotension type: orthostatic hypotension Qualified Code(s): I95.1 - Orthostatic hypotension Status: Acute (3) Thrombocytopenia: Status: Acute Plan AVINASH on CKD likely hemodynamic AVINASH from orthostatic hypotension Improving- creatinine close to baseline this a.m. at 1.87, down from 2.19 recommend florinef 0.1mg PO daily for orthostasis encourage oral hydration thrombocytosis- will check BUNNY, haptoglobin and LDH given anemia and thrombocytopenia; will also check smear path review. avoid nephrotoxins including NSAIDs encourage oral hydration will arrange for follow up in the office with Dr Hunt Discussed with Dr Moreno. Procedures Date of Service Date of Service: 02/25/25
[2025-02-25 09:42] LABS: Hematocrit 24.7 % (37.0-47.0); Hemoglobin 8.4 g/dl (12.0-16.0); Mean Corpuscular Hemoglobin 34.3 pg (27.0-33.0); Mean Corpuscular Volume 100.8 fL (80.0-98.0); NRBC Pct Auto 0.3 /100WBC (0.0-0.2); Red Blood Count 2.45 X10*6/uL (4.20-5.50); Red Cell Distribution Width 16.5 % (11.0-16.0); White Blood Count 7.9 X10*3/uL (4.8-10.8)
[2025-02-25 09:43] LABS: Platelet Count 89 X10*3/uL (160-400)
[2025-02-25 10:02] LABS: Troponin-I High Sensitivity 13.2 ng/L (<3.5-17.0)
[2025-02-25 10:13] LABS: Anion Gap 14 (12-20); Blood Urea Nitrogen 51 mg/dL (9-16); Calcium 9.7 mg/dL (8.4-10.2); Carbon Dioxide 23 mmol/L (22-29); Chloride 105 mmol/L (96-108); Creatinine Clr Calc Pharmacy 24.1; Estimated Glomerular Filt Rate 26; Glucose Random 121 mg/dL (60-115); Potassium 3.8 mmol/L (3.3-5.1); Sodium 138 mmol/L (135-145)
--- NOTE | 2025-02-25 10:35 | MHC.CLN ---
CONSULT FOR WT LOSS CURRENT WT 78KG (02/24/25) PREVIOUS WT 77KG (07/18/24) NO SIG WT CHANGE X 6 MONTHS PREVIOUS WT 81KG (02/06/24) NO SIG WT CHANGE X 1 YEAR PT'S WT IS STABLE AND REMAINS OVER WT FOR HT WILL ADD ENSURE SUPPLEMENTS PER PT REQUEST (DRINKS AT HOME) CONTINUE CURRENT CARE PLAN
[2025-02-25] MEDS: Fludrocortisone Acetate 0.1 MG TABLET PO (12:30)
[2025-02-25] MEDS: levoFLOXacin 250 MG TABLET PO (14:14)
--- NOTE | 2025-02-25 15:25 | MHC.CM.PN ---
EMR REVIEWED, PT W/SYNCOPE, CM MET W/PT WHO REPORTS SHE IS FULLY INDEP W/ALL CARE, USES A CANE W/BASE FOR AMBULATION, NO OTHER DME AND NO HOME SERVICES, PT'S GOAL FOR DC IS HOME, PT DENIES NEED FOR HOME SERVICES. PT VERIFIES PCP ON FILE IS CORRECT AND PT REPORTS HCP ON FILE IS VOID HER [facility] NO LONGER WANTS TO ACT HCP AND HER ALTERNATE HCP PASSED AWAT, PT VERIFIES PRIMARY CONTACT KRISTIAN WOOTEN SHOULD BE THE PERSON CALLED IN CASE OF AN EMERGENCY AND DECLINES TO COMPLETE A NEW HCP AT THIS TIME.
[2025-02-25] MEDS: Enoxaparin Sodium 30 MG/0.3 ML SYRINGE SUBCUT (22:04)
[2025-02-25] MEDS: Melatonin 3 MG TABLET 6 MG PO (22:04)
[2025-02-26] VITALS (10 sets, daily range): BP systolic 90–159; BP diastolic 44–69; PULSE 67–89; RESP 16–20; TEMP 36.1–37.1; O2SAT 94–100
[2025-02-26] MEDS: Omeprazole 20 MG CAPSULE.DR PO ×2 (05:58→15:17)
[2025-02-26 07:01] LABS: Haptoglobin 204 mg/dL (63-273); Lactate Dehydrogenase 133 U/L (122-220)
[2025-02-26] MEDS: Fludrocortisone Acetate 0.1 MG TABLET PO (08:17)
[2025-02-26] MEDS: Midodrine HCl 2.5 MG TABLET PO (08:17)
[2025-02-26] MEDS: Sertraline HCL 100 MG TABLET 200 MG PO (08:17)
[2025-02-26] MEDS: Clopidogrel Bisulfate 75 MG TABLET PO (08:17)
[2025-02-26] MEDS: buPROPion HCl XL 150 MG TAB.ER.24H PO (08:17)
[2025-02-26] MEDS: 0.9 % Sodium Chloride Flush 3 ML SYRINGE IVFLUSH ×3 (08:17→20:17)
[2025-02-26] MEDS: busPIRone HCl 10 MG TABLET PO ×2 (08:17→20:08)
--- NOTE | 2025-02-26 08:30 | P.PNNP_ITS ---
Subjective Subjective Date of Service: 02/26/25 Interval history: Pt with CKD3b/4 (followed by Dr Hunt) and orthostatic hypotension here with AVINASH and syncope, being treated for UTI creatinine 2.19 on presentation, previous creatinine in December was 1.89 potassium 5.5, 5gm lokelma administered CRP 26, CK 24 UA with small amount of protein, no blood, many WBCs, pt being treated for UTI CT showed left kidney fat stranding, no obstruction. platelet count 103, was 111 in December, previously normal. H&H 9.1 and 26 - LDH and haptoglobin, bilirubin normal patient received a number of fluid boluses, creatinine improved yesterday 02/25 to 1.87 Patient reports she feels well and does not have any complaints. Denies shortness of breath, chest pain, abdominal pain, denies LE swelling reports she is voiding comfortably, denies urinary symptoms Physical Exam 2 Vital Signs: Vital Signs: Last Vital Signs Temp 98.2 F 02/26/25 06:58 Pulse 70 02/26/25 06:58 Resp 18 02/26/25 06:58 BP 131/60 02/26/25 08:17 Pulse Ox 95 02/26/25 06:58 O2 Del Method Room Air 02/26/25 06:58 BMI result Body Mass Index 26.9 Const: General: no acute distress, alert and awake Resp: Effort & Inspection: normal respiratory effort and able to speak in complete sentences Auscultation: clear to auscultation bilaterally Cardio: Jugular venous distension: no JVD Rate: regular rate Rhythm: r egular rhythm Heart sounds: S1 normal heart sound present and S2 normal heart sound present GI: Palpation (GI): Soft to palpation and nontender : General: Yes no CVA tenderness Back/Spine/Pelvis: Back: no CVA tenderness Skin: Rashes: no rashes Extrem: General: No edema Objective Data Labs 02/25/25 09:22 02/25/25 09:22 Labs: Laboratory Results - last 24 hr 02/25/25 02/26/25 09:22 06:14 Smear Path Review SEE NOTE Hold Purple Top SEE NOTE Haptoglobin 204 Lactate Dehydrogenase 133 Microbiology Microbiology Results: Microbiology 02/24/25 19:08 Blood - Venous Blood Culture - Preliminary Gram negative pamela 02/24/25 18:33 Urine clean catch - Clean Catch Midstream Urine Culture - Final Klebsiella pneumoniae 02/24/25 16:34 Blood - Venous Blood Culture - Preliminary No growth after 24 hours. Procedures Date of Service Date of Service: 02/26/25 Assessment & Plan Assessment and plan (1) Acute kidney injury superimposed on chronic kidney disease: Status: Acute (2) Orthostatic hypotension: Status: Acute Plan AVINASH on CKD likely hemodynamic AVINASH from orthostatic hypotension Improving- creatinine close to baseline this a.m. at 1.87, down from 2.19 recommend re-check creatinine this a.m. to ensure stability- pt refusing labs today continue florinef 0.1mg PO daily for orthostasis- recommend re-checking orthostatics, if continued hypotension recommend increasing florinef to 0.2mg daily encourage oral hydration avoid nephrotoxins including NSAIDs encourage oral hydration will arrange for follow up in the office with Dr Hunt Discussed with Dr oMreno. Time Spent With Patient Time: Total time managing care of this patient today ____ minutes. Progress Note: Quality Stroke Does the patient have a stroke diagnosis?: No
--- NOTE | 2025-02-26 10:42 | MHC.CM.PN ---
Pt is medically cleared for discharge home self-care today, she will transport herself home.
--- NOTE | 2025-02-26 13:02 | MHC.SL.SWA ---
Speech Pathologist Impression: Poor intake d/t decreased appetite; pt typically drinks 6-8 Boosts per day; pt refused RD consulation Risk of Aspiration Due to: Weakness Poor intake Hx of chronic dysphagia (per pt report) Dysphasia Diet Status: Recc regular diet with thin liquids to allow for choices; pt oropharygneal coordination WNL; further FORCE VARIATION EQUIPMENT TENDER intervention indicated Liquid Consistency and Strategies for Safe Swallow: Liquid Intake Recommendation: Thin Liquid Intake Strategies: Solid Food Consistency: Dietary Recommendations: Regular Additional Modifications to Solid Foods: Oral Medication Intake: Whole with Puree Please contact the pharmacy regarding appropriate crushable or liquid drug formulations that are available whenever modified delivery is recommended. Compensatory Strategies and Precautions to be Taken for Safe Swallow: Supervision While Eating and Drinking for Safe Swallow: None Needed Foods to Avoid: Swallowing Recommended Treatments: Recommendation for Speech: Further Testing Needed Outpatient Speech Therapy Comment: Oropharyngeal coordination WNL. Pt reports episodes of aspirating on medications. Pt intake has been poor, she says she has lost 30 lbs in a short time. Pt intake consists of 6-8 Boosts per day. Pt doesn't like to eat. Pt refused RD consult. FORCE VARIATION EQUIPMENT TENDER provided education, [facility] pt have OP FORCE VARIATION EQUIPMENT TENDER tx to address dysphagia further as clinical bedside swallow examination unremarkable. Pt d/c planned for today, pt in agreement with OP FORCE [employer]IATION EQUIPMENT TENDER tx. MD and RN notified by secure text. Frequency/Duration: Date Range for Service Req: Timeline to reassess: Order Desk Clerk Clinican/Clinical Fellow: No Supervisory Statement: I have reviewed and agree with the student/clinical fellow's documentation: N/A Speech Language Pathologist: Sonia Ramirez M.S., [facility]-[employer]QUIPMENT [employer]ER
[2025-02-26] MEDS: Enoxaparin Sodium 30 MG/0.3 ML SYRINGE SUBCUT (20:07)
[2025-02-26] MEDS: levoFLOXacin/D5W 500 MG/100 ML PIGGYBACK 100 MG IV (20:08)
[2025-02-26] MEDS: Simethicone 80 MG TAB.CHEW PO (20:22)
--- NOTE | 2025-02-26 21:17 | HO.PM.IMPN ---
Subjective Subjective Date of Service: 02/26/25 Interval History: f/u on orthostatic hypotension, syncope, uti and wiliam overall better, but + ortho still with dizziness Physical Exam Vital Signs: Vital Signs: Last Vital Signs Temp 97.1 F 02/26/25 19:45 Pulse 85 02/26/25 19:45 Resp 16 02/26/25 19:45 BP 159/69 H 02/26/25 19:45 Pulse Ox 97 02/26/25 19:45 O2 Del Method Room Air 02/26/25 19:45 BMI result Body Mass Index 26.9 Const: Other: General: AO X 3, no acute distress Resp: CTA bilateral CVS: S1,S2,RRR GI: +BS, NT, no distention Skin: No rash Neuro: motor grossly intact Psych: appropriate affect Objective Data Active Medications Acetaminophen (Acetaminophen 325 Mg Tablet) 650 mg PO Q6H PRN PRN Reason: Pain, Mild 1-3,fever,headache Last Admin: 02/24/25 23:13 Dose: 650 mg Documented By: LAURA Bupropion HCl (Bupropion Hcl Xl 150 Mg Tab.Er.24h) 150 mg PO DAILY [facility] Last Admin: 02/26/25 08:17 Dose: 150 mg Documented By: BETTY Buspirone HCl (Buspirone Hcl 10 Mg Tablet) 10 mg PO BID [facility] Last Admin: 02/26/25 20:08 Dose: 10 mg Documented By: JULIETA Calcium Carbonate (Calcium Carbonate 750 Mg Tab.Chew) 750 mg PO Q4H PRN PRN Reason: Heartburn Clopidogrel Bisulfate (Clopidogrel Bisulfate 75 Mg Tablet) 75 mg PO DAILY [facility] Last Admin: 02/26/25 08:17 Dose: 75 mg Documented By: BETTY Enoxaparin Sodium (Enoxaparin Sodium 30 Mg/0.3 Ml Syringe) 30 mg SUBCUT Q24H [facility] Last Admin: 02/26/25 20:07 Dose: 30 mg Documented By: JULIETA Fludrocortisone Acetate (Fludrocortisone Acetate 0.1 Mg Tablet) 0.2 mg PO DAILY [facility] Levofloxacin (Levaquin) 500 mg in 100 mls @ 100 mls/hr IV Q48H [facility] Last Infusion: 02/26/25 21:13 Dose: Infused Documented By: JULIETA Lorazepam (Lorazepam 0.5 Mg Tablet) 0.5 mg PO BID PRN PRN Reason: anxiety Last Admin: 02/24/25 23:13 Dose: 0.5 mg Documented By: LAURA Magnesium Hydroxide (Milk Of Magnesia 30 Ml Oral.Susp) 30 ml PO DAILY PRN PRN Reason: Constipation Melatonin (Melatonin 3 Mg Tablet) 6 mg PO BEDTIME PRN PRN Reason: Insomnia Last Admin: 02/25/25 22:04 Dose: 6 mg Documented By: RIRI Midodrine (Midodrine Hcl 2.5 Mg Tablet) 2.5 mg PO DAILY [facility] Last Admin: 02/26/25 08:17 Dose: 2.5 mg Documented By: BETTY Omeprazole (Omeprazole 20 Mg Capsule.) 20 mg PO BID@0630,1630 [facility] Last Admin: 02/26/25 15:17 Dose: 20 mg Documented By: BETTY Ondansetron HCl (Ondansetron Hcl 4 Mg/2 Ml Vial) 4 mg IVPUSH Q8H PRN PRN Reason: Nausea and Vomiting Sertraline HCl (Sertraline Hcl 100 Mg Tablet) 200 mg PO DAILY [facility] Last Admin: 02/26/25 08:17 Dose: 200 mg Documented By: BETTY Simethicone (Simethicone 80 Mg Tab.Chew) 80 mg PO QIDWMHS PRN PRN Reason: Gas Last Admin: 02/26/25 20:22 Dose: 80 mg Documented By: JULIETA Sodium Chloride (0.9 % Sodium Chloride Flush 3 Ml Syringe) 3 ml IVFLUSH QSHIFT [facility] Last Admin: 02/26/25 20:17 Dose: 3 ml Documented By: JULIETA Labs 02/25/25 09:22 02/25/25 09:22 Labs: Laboratory Results - last 24 hr 02/25/25 02/26/25 09:22 06:14 Smear Path Review SEE NOTE Hold Purple Top SEE NOTE Haptoglobin 204 Lactate Dehydrogenase 133 Microbiology Microbiology Results: Microbiology 02/24/25 16:34 Blood Culture - Preliminary Blood - Venous No growth after 48 hours. 02/24/25 19:08 Blood Culture - Preliminary Blood - Venous Gram negative pamela 02/24/25 18:33 Urine Culture - Final Urine clean catch - Clean Catch Midstream Klebsiella pneumoniae Assessment and Plan (1) Acute UTI: Status: Acute (2) Orthostatic hypotension: Status: Acute (3) Syncope: Status: Acute Plan This is an 84-year-old female with a pertinent history of CKD stage IIIB/stage IV, orthostatic hypotension, mood disorder, mixed hyperlipidemia, gastroesophageal reflux disease, and seizure disorder who presents to the emergency department for evaluation of syncope. Syncope, orthostatic: + orthostatic BP, has a known history of orthostatic hypotension. midodrine and florinef recheck orthostatic this morning. Acute kidney injury on CKD stage IIIB/stage IV, ? pre renal Nephrology consulationt. Refused labs today Hyperkalemia d/t renal failure, resolved treated with lokelma and resolved Acute UTI, culture klebsiella , sensitive to cipro continue levaquin but renally adjust, pen allergy Chest pain, atypical: neg Troponin x 2 . Mood disorder/seizure disorder resume home meds after med rec. Mixed hyperlipidemia Statin GERD PPI Medication reconciliation pending. DVT prophylaxis: Lovenox Full code. Discussed with patient at bedside need fo inpt: IV fluid for WILIAM, and management of symptomatic orthostatic hypotension Quality Stroke Does the patient have a stroke diagnosis?: No VTE Prior VTE?: No VTE Risk Level:: Medical - moderate - high VTE Device Contraindication: Treatment Not Indicated VTE Drug Contraindication: N/A - Med Ordered
[2025-02-27 03:41] VITALS: BP 138/61; PULSE 68; RESP 16; TEMP 37; O2SAT 97
[2025-02-27] MEDS: Calcium Carbonate 750 MG TAB.CHEW PO (03:47)
[2025-02-27] MEDS: 0.9 % Sodium Chloride Flush 3 ML SYRINGE IVFLUSH ×2 (05:40→09:11)
[2025-02-27] MEDS: Omeprazole 20 MG CAPSULE.DR PO (05:40)
--- NOTE | 2025-02-27 07:04 | P.DS_ITS ---
DS: Providers Provider Date of Service: 02/27/25 Date of admission: 02/24/25 19:06 Date of discharge: 02/27/25 Primary care physician: Tawana Sanchez MD Consults: 02/24/25 20:01 Consult to Nephrology Routine Consulting Provider: [facility] Reason for consultation: AVINASH on CKD DS: Diagnosis Discharge Diagnosis (1) Acute UTI: Status: Acute (2) Orthostatic hypotension: Status: Acute (3) Syncope: Status: Acute DS: Summary Hospital Course Hospital Course: admission hpi Chief Complaint: Chest pain/flank pain This is a 84-year-old female with pertinent history of CKD stage IIIB/stage IV, orthostatic hypotension, mood disorder, mixed hyperlipidemia, gastroesophageal reflux disease, seizure disorder who presents to the emergency department for evaluation of syncope. Patient states she passed out while she was trying to get up from the bed. Patient got dizzy and lightheaded before passing out and falling back on the bed. Patient states she had an episode of chest pain and epigastric pain which was intermittent, nonradiating, nonprogressive 1 day prior to presentation. No associated nausea or vomiting. No sweating. Denies fever, chills, diarrhea. Endorses poor p.o. intake and has been feeling weak with easy fatigability. No dysuria but noticed change in color of urine. No chest pain, palpitations, shortness of breath, changes in bowel habits. In the emergency department, patient was found to have AVINASH with creatinine 2.19. Potassium 5.8. Imaging with fat stranding around the left kidney. Orthostatic vital signs noted to be positive in the ER hospital course: This is an 84-year-old female with a pertinent history of CKD stage IIIB/stage IV, history of orthostatic hypotension and takes midodrine, mood disorder, mixed hyperlipidemia, gastroesophageal reflux disease, and seizure disorder who presents to the emergency department for evaluation of syncope and further testing revealed AVINASH, hyperkalemia and UTI and later gram negative pamela bacteremia and urine culture growing Klebsiela. Syncope, orthostatic: + orthostatic BP, has a known history of orthostatic hypotension and probably precipitated by UTI, was treated with IVF and seen by Nephrology and added florinef. She is presently assympotomatic and advises drinking plenty of fluid and to continue mododrine and florinef. Acute kidney injury on CKD stage IIIB/stage IV, ? pre renal. She presented with creatine of 2.19, baseline is around 1.6, she was hydrated with IVF and seen by Nephrology, CT of abdomen no obstruction renal function has improved, Cr is now 1.87 as of 02/25, she is refusing labs today Hyperkalemia d/t renal failure, resolved treated with lokelma Acute UTI, urine culture growing Klebsiella, blood culture gram negtive pamela, likely same organism continue levaquin but renally adjust, pen allergy. Klebisella sensitive to cipr o and therefore levaquin Chest pain, atypical: neg Troponin x 2 . Mood disorder/seizure disorder resume home meds after med rec. Mixed hyperlipidemia Statin GERD PPI Time Attestation Discharge Coordination Time (in mins): 45 Quality: Safe Use of Opioids Does Pt have an Active Cancer Diagnosis on the Problem List?: No Quality: Stroke Does the patient have a stroke diagnosis?: No Physical Exam Vital Signs: Vital Signs: Selected Entries 02/27/25 03:41 Temperature 98.6 F Pulse Rate 68 Respiratory Rate 16 Blood Pressure 138/61 Pulse Oximetry 97 Oxygen Delivery Me thod Room Air Const: Other: General: AO X 3, no acute distress Resp: CTA bilateral CVS: S1,S2,RRR GI: +BS, NT, no distention Skin: No rash Neuro: motor grossly intact Psych: appropriate affect DS: Data Data Completed and Pending Labs on day of discharge: Laboratory Results - last 24 hr 02/25/25 02/26/25 09:22 06:14 Smear Path Review SEE NOTE Hold Purple Top SEE NOTE Sodium 138 Potassium 3.8 D Chloride 105 Carbon Dioxide 23 Anion Gap 14 BUN 51 H Creatinine 1.87 H Estim Creat Clear Calc 24.1 Estimated GFR 26 Random Glucose 121 H Haptoglobin 204 Calcium 9.7 Lactate Dehydrogenase 133 Preliminary micro results at discharge 02/24/25 19:08 Blood Culture - Preliminary Blood - Venous Gram negative pamela 02/24/25 16:34 Blood Culture - Preliminary Blood - Venous No growth after 24 hours. Discharge Plan Discharge Anticipated Discharge Date/Time: 02/27/25 11:33 Patient Disposition: Home, Self-Care Discharge Diagnosis: Klebsiela UTI and bacteremia Referrals: Tawana Kim MD [Primary Care Provider] - 1 Week Discharge Medications: New fludrocortisone 0.1 mg Tablet 0.2 mg PO DAILY Qty: 90 0RF Continued (DME) sacroiliac belt Kit See Rx Instructions .Route Qty: 1 0RF Rx Instructions: As directed clopidogrel 75 mg tablet 75 mg PO DAILY Qty: 90 3RF midodrine 2.5 mg tablet 2.5 mg PO DAILY Qty: 90 0RF buspirone 10 mg tablet 10 mg PO BID Qty: 180 1RF bupropion HCl 150 mg tablet extended release 24 hr 150 mg PO DAILY omeprazole 20 mg tablet,delayed release (DR/EC) 20 mg PO BID@0630,1630 sertraline 100 mg tablet 200 mg PO DAILY lorazepam 0.5 mg tablet 0.5 mg PO BID PRN (Reason: anxiety) Qty: 60 0RF Diet: Advance to usual diet Activity on Discharge: As tolerated Stand Alone Forms: Patient Portal Discharge page Print Language: Ivorian Care Plan Goals: recovery from uti, bacteremia and syncope due to orthostatic hypotension Health Concerns: syncope due to othrostatic hypotension klebsiela uti and bacteremia Plan of Treatment: take Levaquin as recommended and follow up with your doctor in a week You should avoid driving until your orthostatic Hypotension is well-controlled, and following up with your doctors, as it can cause sudden fainting and put you and others at risk on the road Assessment: see above
[2025-02-27 07:45] VITALS: BP 119/56; PULSE 71; RESP 18; TEMP 36.2; O2SAT 95
--- NOTE | 2025-02-27 08:30 | P.PNNP_ITS ---
Subjective Subjective Date of Service: 02/27/25 Interval history: Pt with CKD3b/4 (followed by Dr Hunt) and orthostatic hypotension here with AVINASH and syncope, being treated for UTI creatinine 2.19 on presentation, previous creatinine in December was 1.89 potassium 5.5, 5gm lokelma administered CRP 26, CK 24 UA with small amount of protein, no blood, many WBCs, pt being treated for UTI CT showed left kidney fat stranding, no obstruction. platelet count 103, was 111 in December, previously normal. H&H 9.1 and 26 - LDH and haptoglobin, bilirubin normal patient received a number of fluid boluses, creatinine improved on 02/25 to 1.87. No labs since that time, pt has been refusing labs. Patient reports she feels well and denies new symptoms. Denies shortness of breath, chest pain, abdominal pain, denies LE swelling reports she is voiding comfortably, denies urinary symptoms Physical Exam 2 Vital Signs: Vital Signs: Last Vital Signs Temp 97.1 F 02/27/25 07:45 Pulse 71 02/27/25 07:45 Resp 18 02/27/25 07:45 BP 119/56 L 02/27/25 07:45 Pulse Ox 95 02/27/25 07:45 O2 Del Method Room Air 02/27/25 07:45 BMI result Body Mass Index 26.9 Const: General: no acute distress, alert and awake Resp: Effort & Inspection: normal respiratory effort and able to speak in complete sentences Auscultation: clear to auscultation bilaterally Cardio: Jugular venous distension: no JVD Rate: regular rate Rhythm: r egular rhythm Heart sounds: S1 normal heart sound present and S2 normal heart sound present GI: Palpation (GI): Soft to palpation and nontender : General: Yes no CVA tenderness Back/Spine/Pelvis: Back: no CVA tenderness Skin: Rashes: no rashes Extrem: General: No edema Objective Data Labs 02/25/25 09:22 02/25/25 09:22 Labs: Laboratory Results - last 24 hr 02/25/25 09:22 Smear Path Review SEE NOTE Microbiology Microbiology Results: Microbiology 02/24/25 19:08 Blood - Venous Blood Culture - Final Klebsiella pneumoniae 02/24/25 16:34 Blood - Venous Blood Culture - Preliminary No growth after 48 hours. 02/24/25 18:33 Urine clean catch - Clean Catch Midstream Urine Culture - Final Klebsiella pneumoniae Procedures Date of Service Date of Service: 02/27/25 Assessment & Plan Assessment and plan (1) Acute kidney injury superimposed on chronic kidney disease: Status: Acute (2) Orthostatic hypotension: Status: Acute Plan AVINASH on CKD likely hemodynamic AVINASH from orthostatic hypotension Improving- creatinine close to baseline on 02/25 at 1.87, down from 2.19 recommend re-check creatinine to ensure stability- pt refusing labs today, states she is agreeable to outpatient labs where she can have the global technical writer she knows do her lab draw, otherwise states she has extreme anxiety continue florinef 0.2mg PO daily for orthostatitc hypotension encourage oral hydration avoid nephrotoxins including NSAIDs encourage oral hydration will arrange for follow up in the office with Dr Hunt, will order outpatient labs which patient is agreeable to have done before she follows up with Dr Hunt. Discussed with Dr Moreno. Time Spent With Patient Time: Total time managing care of this patient today ____ minutes. Progress Note: Quality Stroke Does the patient have a stroke diagnosis?: No
[2025-02-27] MEDS: Sertraline HCL 100 MG TABLET 200 MG PO (09:08)
[2025-02-27] MEDS: Clopidogrel Bisulfate 75 MG TABLET PO (09:08)
[2025-02-27] MEDS: buPROPion HCl XL 150 MG TAB.ER.24H PO (09:09)
[2025-02-27] MEDS: Fludrocortisone Acetate 0.1 MG TABLET 0.2 MG PO (09:10)
[2025-02-27] MEDS: Midodrine HCl 2.5 MG TABLET PO (09:10)
[2025-02-27] MEDS: busPIRone HCl 10 MG TABLET PO (09:10)
[2025-02-27] MEDS: Acetaminophen 325 MG TABLET 650 MG PO (09:12)
--- NOTE | 2025-02-27 10:56 | MHC.SL.SWA ---
Speech Pathologist Impression: Risk of Aspiration Due to: Dysphasia Diet Status: Recommend patient continue on Regular Diet with Thin Liquids, pills whole in puree (larger pills crushed if possible). Patient recommended to have OUTPATIENT MBSS study, if possible recommend referral for this study be given a discharge. Liquid Consistency and Strategies for Safe Swallow: Liquid Intake Recommendation: Thin Liquid Intake Strategies: Small Sips Solid Food Consistency: Dietary Recommendations: Regular Additional Modifications to Solid Foods: Oral Medication Intake: Whole with Puree Please contact the pharmacy regarding appropriate crushable or liquid drug formulations that are available whenever modified delivery is recommended. Compensatory Strategies and Precautions to be Taken for Safe Swallow: Sitting Upright (90 deg) Liquids from Cup Liquids from Straw Small Bites and Sips Alternate Liquids/Solids Supervision While Eating and Drinking for Safe Swallow: None Needed Foods to Avoid: Pills in puree, followed by sips of liquid. Swallowing Recommended Treatments: Recommendation for Speech: Further Testing Needed Outpatient Speech Therapy Comment: Per RN request, patient seen while taking medication, as she was having considerable struggle. student career development specialist had attempted to give pill with water, patient complained pill was stuck, coughed repeatedly to try to clear (per RN report, BRAND EXECUTIVE did not witness). BRAND EXECUTIVE suggested trying pill whole with apple sauce. Patient clearly very anxious about taking pills, while not openly refusing, had lengthy complaint about history of difficulty taking pills, in part delaying avoiding initiating taking the pill. After long delay, patient initiated taking a pill in apple sauce, noted to manipulate bolus in mouth for a period then propel for swallow, grimaced on swallow, then cleared throat noisily, was given cup with jarrell melanie which she sipped. BRAND EXECUTIVE observed patient taking three more pills in this manner with repeated long delay before initiating, and swallowing behaviors noted above on each administration. Patient agreed that taking pills in puree a good strategy, some discussion happened about how she might do this at home. However patient also stated SOMETHING has to be done about this! (difficulty swallowing pills). Patient acknowledge recommendation of swallow study as outpatient, which she expressed interest in doing. If possible, recommend referral for this procedure be given as part of discharge plan. Recommend patient continue on Regular Diet with Thin Liquids, pills whole in puree (larger pills crushed if possible). Frequency/Duration: Date Range for Service Req: Timeline to reassess: Ticket Broker Clinican/Clinical Fellow: No Supervisory Statement: I have reviewed and agree with the student/clinical fellow's documentation: N/A Speech Language Pathologist: Carol Benz M.A., CCC-BRAND EXECUTIVE
--- NOTE | 2025-02-27 11:21 | MHC.CM.PN ---
Addendum entered by Carol Curran RN 02/27/25 12:22: PT DISCHARGING HOME SELF CARE TODAY, W/AAA VS LYFT Addendum entered by Carol Curran RN 02/27/25 12:20: PT MET W/SECURITY, CM MET W/PT PRIOR TO SECURITY LEAVING AND PT HAS [employer] AAA PLAN SO ONCE DC PAPERWORK IS COMPLETE CM WILL ASSIST PT W/PHONE CALL. PT REPORTS SHE CAN RIDE HOME W/AAA AND HAS DONE SO BEFORE. IF THAT IS AN ISSUE CM WILL ARRANGE [facility] TRANSPORT PT LIVES IN [facility]. Addendum entered by Carol Curran RN 02/27/25 11:59: PT NOW AGREEABLE TO RIDE [place] HOWEVER DOES NOT HAVE ANY FRIEND/FAMILY TO DRIVE HER CAR HOME, PT REQUESTING CM CONTACT SECURITY, PT WILL LIKELY NEED HER CAR TOWED, CM WILL CONT TO FOLLOW AND WILL LIKELY NEED [facility] HOME. Original Note: PT MEDICALLY CLEARED FOR DC HOME HOWEVER HOSPITALIST DOES NOT FEEL PT SHOULD BE DRIVING AND HAS BEEN STRONGLY ADVISED TO STOP DRIVING AT THIS TIME D/T SAFETY CONCERNS, CM MET W/PT TO DISCUSS THIS AND PT ADAMANTLY REFUSING CM TO SET UP ALTERNATE TRANSPORTATION VIA [facility] OR OBTAIN A RIDE HOME FROM A FRIEND, PT THREATENING TO CALL HER SILVER WRAPPER D/T HOSPITALIST NOT WANTING PT TO DRIVE. WHEN EVANGELIST DISCUSSED PT DISCHARGING AMA PT DECLINING TO DC AMA AND IS AFRAID HER INSURANCE WILL NOT COVER HOSPITAL STAY HOWEVER COVERAGE IS TYPICALLY ON MEDICAL NECESSITY NOT DEPENDING ON DC STATUS.
[2025-02-27 11:40] LABS: Anion Gap 15 (12-20); Blood Urea Nitrogen 48 mg/dL (9-16); Calcium 9.5 mg/dL (8.4-10.2); Carbon Dioxide 24 mmol/L (22-29); Chloride 109 mmol/L (96-108); Creatinine Clr Calc Pharmacy 24.6; Estimated Glomerular Filt Rate 26; Glucose Random 115 mg/dL (60-115); Potassium 4.6 mmol/L (3.3-5.1); Sodium 143 mmol/L (135-145)
[2025-02-27 11:48] VITALS: BP 114/58; PULSE 66; RESP 17; TEMP 36.3; O2SAT 93
--- NOTE | 2025-02-27 12:35 | P.CDIM_ITS ---
PROVIDER RESPONSE TEXT: To clarify, the appropriate diagnosis supported by the clinical indicators: CKD IV QUERY TEXT: PHYSICIAN'S DOCUMENTATION REQUEST Date of Query: 02/26/2025 11:02 AM EDT Patient Name: Liliana Gutierrez Admit Date: 02/24/2025 Dear Jan Garcia MD, A review of the medical record indicates additional documentation may be needed. Please review below and update the documentation accordingly. Clinical Indicators: Progress notes and Discharge summary: Acute on kidney injury on CKD IIIB/stage IV? pre renal. She presented with cr of 2.19, baseline around 1.6, hydrated with IVF. Renal function improved, Cr is now 1.87 as of 02/25. Please clarify which of the following accurately represents the patient's renal status: CKD IIIB CKD IV Other (explain) Clinically unable to determine (explain) Thank you, Izabella Em, CCS, CDIS Use of terms such as suspected, likely, concern for, or probable (associated with a specific diagnosi s that is being evaluated, monitored, or treated as if it exists) are acceptable and can be coded in the inpatient se tting, when documented at the time of discharge. Please use your independent medical judgment in providing your response. THIS QUERY IS PART OF THE PERMANENT MEDICAL RECORD
[2025-03-02 13:34] LABS: Anti Nuclear Antibody Pattern Nuclear, Homogeneous; Anti Nuclear Antibody Screen POSITIVE (NEGATIVE)
== END 2025-02-27 16:02 | disposition home or self-care (01) | DRG 690 ==
LOC: HO.ED 18:36 → HO.EDOVER 19:23 → HO.IMC 19:40
PROVIDERS: Nurse Practitioner Family; Physician Assistant Medical; Admitting Provider Student in an Organized Health Care Education/Training Program; Emergency Provider Emergency Medicine; PCP Internal Medicine; Visit Provider Internal Medicine
DX: N39.0 Urinary tract infection, site not specified (principal); N17.9 Acute kidney failure, unspecified; N18.4 Chronic kidney disease, stage 4 (severe); R78.81 Bacteremia; I95.1 Orthostatic hypotension; F39 Unspecified mood [affective] disorder; D69.6 Thrombocytopenia, unspecified; R07.89 Other chest pain; D63.1 Anemia in chronic kidney disease; K21.9 Gastro-esophageal reflux disease without esophagitis; B96.1 Klebsiella pneumoniae [K. pneumoniae] as the cause of diseases classified elsewhere; E78.2 Mixed hyperlipidemia; G40.909 Epilepsy, unspecified, not intractable, without status epilepticus; E87.5 Hyperkalemia; Z20.822 Contact with and (suspected) exposure to COVID-19; Z79.02 Long term (current) use of antithrombotics/antiplatelets; Z79.899 Other long term (current) drug therapy
CPT/HCPCS: 0241U; 36415; 71045; 71046; 74176; 80048; 80053; 81001; 82550; 83010; 83605; 83615; 83735; 84132; 84484; 85025; 85027; 85610; 86038; 86039; 86140; 87040; 87077; 87086; 87088; 87186; 87205; 92507; 92610; 93005; 99285; J1650; J1956; J7120

== ENCOUNTER → 2025-02-24 10:44 | Outpatient (BNV) | payer OTHER, SELFPAY | PROVIDERS: Admitting Provider Student in an Organized Health Care Education/Training Program; Emergency Provider Emergency Medicine; PCP Internal Medicine; Visit Provider Internal Medicine Cardiovascular Disease | DX: R07.9 Chest pain, unspecified (principal) | CPT/HCPCS: 93010 ==

== ENCOUNTER → 2025-02-24 14:37 | Outpatient (BNV) | payer OTHER, SELFPAY | PROVIDERS: Emergency Provider Emergency Medicine; PCP Internal Medicine; Visit Provider Radiology Diagnostic Radiology | DX: K57.30 Diverticulosis of large intestine without perforation or abscess without bleeding (principal); R07.9 Chest pain, unspecified | CPT/HCPCS: 71046; 74176 ==

== ENCOUNTER 2025-02-24 19:06 | Outpatient (BNV) | payer OTHER, SELFPAY | END 2025-02-26 09:35 | PROVIDERS: Admitting Provider Student in an Organized Health Care Education/Training Program; Emergency Provider Emergency Medicine; PCP Internal Medicine; Visit Provider Radiology Diagnostic Radiology | DX: R91.8 Other nonspecific abnormal finding of lung field (principal) | CPT/HCPCS: 71045 ==

== ENCOUNTER → 2025-02-24 19:06 | Outpatient (BNV) | payer OTHER, SELFPAY | PROVIDERS: Admitting Provider Student in an Organized Health Care Education/Training Program; Emergency Provider Emergency Medicine; PCP Internal Medicine; Visit Provider Nurse Practitioner Family | DX: N17.9 Acute kidney failure, unspecified (principal); N18.9 Chronic kidney disease, unspecified; I95.1 Orthostatic hypotension | CPT/HCPCS: 99222; 99231 ==

== ENCOUNTER → 2025-02-24 19:06 | Outpatient (BNV) | payer OTHER, SELFPAY | PROVIDERS: Admitting Provider Student in an Organized Health Care Education/Training Program; Emergency Provider Emergency Medicine; PCP Internal Medicine; Visit Provider Student in an Organized Health Care Education/Training Program | DX: N39.0 Urinary tract infection, site not specified (principal); I95.1 Orthostatic hypotension; R55 Syncope and collapse | CPT/HCPCS: 99223; 99232; 99239 ==

== ENCOUNTER 2025-03-10 12:00 | Outpatient (REF) | payer OTHER, SELFPAY ==
[2025-03-10 15:00] LABS: Appearance Urine Clear; Color Urine Yellow; Glucose Urine UA Negative (Negative); Leukocyte Esterase Urine Negative (Negative); Nitrite Urine Negative (Negative); PH 5.5 (5.0-9.0); Urine Blood Negative (Negative); Urine Ketones Negative (Negative); Urine Protein Negative (Neg-Trace)
[2025-03-10 15:04] LABS: Hemoglobin 9.7 g/dl (12.0-16.0); Mean Corpuscular HGB Conc 33.4 g/dl (31.0-35.0); Mean Corpuscular Hemoglobin 33.7 pg (27.0-33.0); Mean Corpuscular Volume 100.7 fL (80.0-98.0); Mean Platelet Volume 14.6 fL (9.4-12.3); NRBC Pct Auto 1.2 /100WBC (0.0-0.2); PLT CLUMP 1; Red Blood Count 2.88 X10*6/uL (4.20-5.50); Red Cell Distribution Width 16.8 % (11.0-16.0)
[2025-03-10 15:21] LABS: Band Neutrophils Percent 16 % (3-5); Eosinophils Percent Manual 1 % (0-4); Lymphocytes Percent Manual 11 % (20-40); Metamyelocytes Percent 1 %; Monocytes Percent Manual 8 % (2-11); Myelocytes Percent 3 %; Neutrophils Percent Manual 60 % (45-73); Nucleated Red Blood Cells 1 /100WBC (0-0)
[2025-03-10 15:23] LABS: Platelet Estimate NORMAL (NORMAL); Platelet Morphology Comment NORMAL
[2025-03-10 15:24] LABS: Polychromasia 1+ (0-2) /OIF; RBC Morphology NOTED; Tear Drop Cells 1+ (0-2) /OIF
[2025-03-10 15:25] LABS: Ovalocytes 1+ (5-14) /OIF
[2025-03-10 15:29] LABS: Eosinophils Absolute Manual 0.1 X10*3/uL (0.0-0.4); Lymphocytes Absolute Manual 0.9 X10*3/uL (1.2-4.9); Metamyelocytes Absolute 0.1 X10*3/uL; Monocytes Absolute Manual 0.7 X10*3/uL (0.1-1.2); Myelocytes Absolute 0.3 X10*/uL; Neutrophils Absolute Manual 6.4 X10*3/uL (2.0-8.3); Platelet Count 169 X10*3/uL (160-400); White Blood Count 8.4 X10*3/uL (4.8-10.8)
[2025-03-10 17:19] LABS: Alanine Aminotransferase 17 U/L (0-31); Albumin Level 4.8 g/dL (3.5-5.0); Alkaline Phosphatase 107 U/L (39-117); Anion Gap 16 (12-20); Aspartate Amino Transferase 25 U/L (5-31); Bilirubin Total 0.5 mg/dL (0.0-1.0); Blood Urea Nitrogen 44 mg/dL (9-16); Calcium 10.1 mg/dL (8.4-10.2); Carbon Dioxide 25 mmol/L (22-29); Chloride 105 mmol/L (96-108); Estimated Glomerular Filt Rate 27; Glucose Random 100 mg/dL (60-115); Potassium 4.9 mmol/L (3.3-5.1); Sodium 141 mmol/L (135-145); Total Protein 7.5 g/dL (6.5-8.0)
[2025-03-10 17:34] LABS: TSH reflex Free T4 1.73 uIU/mL (0.32-4.0)
== END 2025-03-10 12:01 | disposition home or self-care (01) ==
LOC: HO.LAB 12:00
PROVIDERS: PCP Internal Medicine
DX: E83.52 Hypercalcemia (principal); N39.0 Urinary tract infection, site not specified; R55 Syncope and collapse; N18.32 Chronic kidney disease, stage 3b; E78.2 Mixed hyperlipidemia; K21.9 Gastro-esophageal reflux disease without esophagitis; R31.9 Hematuria, unspecified; R13.10 Dysphagia, unspecified; M25.511 Pain in right shoulder; G89.29 Other chronic pain; D63.1 Anemia in chronic kidney disease
CPT/HCPCS: 36415; 80053; 81003; 84443; 85007; 85025; 85027

== ENCOUNTER 2025-03-10 12:00 | Outpatient (AMB) | payer OTHER, SELFPAY ==
[2025-03-10 12:49] VITALS: BP 122/76; PULSE 74; RESP 18; TEMP 36.4; O2SAT 96; BMI 26.6
--- NOTE | 2025-03-10 12:49 | MHC.PC.OV ---
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 Accompanied by: Self / Same As Patient Allergies aspirin [ASPIRIN] Allergy (Unknown, Verified 03/14/25 13:07) ANAPHYLAXIS meperidine [From DEMEROL] Allergy (Unknown, Verified 03/14/25 13:07) ANAPHYLAXIS Penicillins [PENICILLINS] Allergy (Unknown, Verified 03/14/25 13:07) ANAPHYLAXIS Sulfa (Sulfonamide Antibiotics) [SULFA (SULFONAMIDE ANTIBIOTICS)] Allergy (Unknown, Verified 03/14/25 13:07) UNKNOWN dairy Allergy (Unknown, Uncoded 03/10/25 13:20) unknown lactose intolerance Allergy (Unknown, Uncoded 03/10/25 13:20) Unknown Medication List - Last Reconciled 03/10/25 by GABI Floyd bupropion HCl XL 150 mg PO DAILY buspirone 10 mg PO BID clopidogrel 75 mg PO DAILY fludrocortisone 0.2 mg (2 x 0.1 mg) PO DAILY levofloxacin 500 mg PO Q OTHER DAY 7 days lorazepam 0.5 mg PO BID PRN midodrine 2.5 mg PO DAILY omeprazole 20 mg PO BID@0630,1630 sacroiliac belt As directed sertraline 200 mg PO DAILY Tobacco use date assessed: 03/10/25 Fall risk assessment: 2 + Falls in past year Last assessed Fall Risk: 03/10/25 Dental Screening Dental Screen Date: 03/10/25 Did you have a dental visit in the last 12 months?: Yes Did you have a dental problem in the last 6 months where you did not have access to dental care?: No Was dental information given to patient?: Patient has dentist HPI [facility] 02/27 weakness HPI Details The patient is a 84-year-old female with significant past medical history of CKD stage IIIB/stage IV, orthostatic hypotension, mood disorder, mixed hyperlipidemia, GERD, seizure disorder The patient is presenting today for post hospital follow up. On February 24 the patient was admitted at [facility] for evaluation of syncope. The patient passed out while trying to get out of bed. Per note, she got dizzy and lightheaded before passing out and falling back onto bed. The patient that reports intermittent episodes of chest pain and epigastric pain that are nonradiating. The patient was found to be in AVINASH creatinine 2.19, baseline 1.6, hyperkalemic potassium 5.8. Imaging with fat stranding around the left kidney. Orthostatic vital signs noted to be positive in the ER. UTI and later Gram-negative pamela bacteremia and urine culture growing Klebsiella She was hydrated with IV fluids and seen by Nephrology, CT of the abdomen no obstruction. Renal function has improved and creatinine is now 1.83 Hyperkalemia was treated with lokelma and resolved. Acute UTI, urine culture gone comes here, blood culture Gram-negative rods, likely same organism continue Levaquin but renally adjust. Patient allergic to penicillin. Klebsiella sensitive to Cipro and therefore Levaquin. In office today the patient reports that she is feeling good She asked about her swallowing evaluation being set up. Patient reports that she choked on her food twice in the hospital to the point that they had to suction her. It was recommended that the patient gets a barium swallow and continue speech therapy to improve her swallowing. The patient was evaluated by ST in the hospital with recommendation: Whole with puree, sitting upright at 90 degrees, small bites and sips, alternate liquids/solids, rate of ingestion change. Documented that the patient oropharyngeal coordination wnl. The patient intake is consist of 6-8 Boosts per day. Recommendation for the patient to outpatient [employer] and the patient would also needs a barium swallow. She is also concerned about her physical therapy that she had to paused. Reports that they have been working with her on her SI joints. Per patient, the therapist is specialized in ART therapy Reports that her right shoulder is out and the she has a right labium tear that was caught too late and was not able to be repaired Denies chest pain, sob, heart palpitation and dizziness no abdominal pain/change in bowel habits Denies dysuria, frequency or any discharge As for her swallow, she is swallowing her pills, one at a time with applesauce She also reports that she does not eat and only has been drinking boost shakes for a longtime In addition, she still participates in scaba diving by hiring a diving expert to carry her equipments and to monitor her while she dives. TCM TCM Information Date of Discharge 02/27/25 Discharged From [facility] Interactive Contact Date (Reference documentation from this date) 02/28/25 [facility] Medical History Orthostatic hypotension Dyspnea on exertion Chronic pain of both shoulders Wrist pain Obesity Depression Hyperlipidemia Hypertension Fall Surgical History Hx of colonoscopy History of biopsy History of surgical removal of lesion History of hysterectomy History of appendectomy Family History Father History of heart attack Mother Colon cancer Social History Household Members: None Housing: House Do you presently have visiting nurse or other home services: No Alcohol intake: never Comment: refuses fall socks, and camera for safety Patient Tobacco Use Status: Never used Tobacco Tobacco use type: Cigarette e-Cigarette/Vaping Use: Never Used Second Hand Smoke Exposure: No service: No Current occupational status: retired Cognitive needs: Yes (cane) Hearing needs: No Vision needs: Yes Questionnaire PHQ-9 Over the last 2 weeks, how often have you been bothered by any of the following problems? 1. Little interest or pleasure in doing things: not at all 2. Feeling down, depressed, or hopeless: not at all 3. Trouble falling or staying asleep, or sleeping too much: not at all 4. Feeling tired or having little energy: not at all 5. Poor appetite or overeating: not at all 6. Feeling bad about yourself - or that you are a failure or have let yourself or your family down: not at all 7. Trouble concentrating on things, such as reading the newspaper or watching television: not at all 8. Moving or speaking so slowly that other people could have noticed. Or the opposite - being so fidgety or restless that you have been moving around a lot more than usual: not at all 9. Thoughts that you would be better off or of hurting yourself in some way: not at all Total score: 0 Depression Screening Interpretation: Negative Depression Screening Done: Yes Source: Developed by Drs. Meryl Abebe Kurt Kroenke and colleagues, with an educational romi from [employer]. Thrive Questionnaire Date Thrive assessed: 03/10/25 I am a: Patient What is your living situation today?: I have a steady place to live Within the past 12 months, did the food you bought not last and you didn't have the money to get more?: Never true Within the past 12 months, did you worry whether your food would run out before you got money to buy more?: Never true Do you have trouble paying for medicines?: No Do you have trouble getting transportation to medical appointments?: No Do you have trouble paying your heating and electricity bill?: No Do you have trouble taking care of your child, family member or friend?: No Do you have trouble with day-to-day activities such as bathing, preparing meals, shopping, managing finances, etc.?: No Are you currently unemployed and looking for a job?: No Are you interested in more education?: No Please select the resources that you would like help with: None Currently or been in a relationship where the following occur: No concerns reported THRIVE Score: 0 AUDIT C Alcohol Use Questionnaire (AUDIT-C) 1. How often do you have a drink containing alcohol?: Never 3. How often do you have six or more drinks on one occasion?: Never Total Score: 0 HUMBERTO-7 AMB Questionnaire HUMBERTO-7 Date HUMBERTO - 7 assessed: 03/10/25 Feeling nervous, anxious, or on edge: 0 = Not at all Not being able to stop or control worryin = Not at all Worrying too much about different things: 0 = Not at all Trouble relaxin = Not at all Being so restless that it is hard to sit still: 0 = Not at all Becoming easily annoyed or irritable: 0 = Not at all Feeling afraid as if something awful might happen: 0 = Not at all Total HUMBERTO-7 score (0-4 normal; 5-9 mild; 10-14 moderate; 15-21 severe): 0 Source: Developed by Drs. Mitchell De Oliveira, Meryl Garcia, Rigoberto Post and colleagues, with an educational romi from [employer]. Review of Systems Const Denies headache(s) Eyes Denies loss of vision ENT Denies vertigo, Denies dizziness, Denies headache(s) and Denies sore throat Card Denies chest pain, Denies leg edema and Denies lightheadedness Resp Denies cough, Denies hemoptysis and Denies wheezing GI Denies abdominal pain, Denies melena, Denies constipation, Denies diarrhea and Denies vomiting Denies urinary frequency, Denies dysuria and Denies urinary urgency Musc Reports arthralgias (bilateral si joints-hx of tear to right labrium, ART therapy on pause), Denies joint swelling, Denies numbness and Denies tingling Neuro Denies Abnormal speech present, Denies vertigo, Denies dizziness, Denies headache(s), Denies loss of vision, Denies numbness and Denies tingling Aller/Immun Denies wheezing Physical exam (Primary Care) Vital Signs: Last Vital Signs Pulse 74 03/10/25 12:49 BP 122/76 03/10/25 12:49 Pulse Ox 96 03/10/25 12:49 Oxygen Delivery Method Room Air 03/10/25 12:49 BMI result Body Mass Index 26.6 Tobacco/Smoking Status: Tobacco use Status Tobacco use date assessed 03/10/25 03/10/25 12:57 Patient Tobacco Use Status Never used Tobacco 03/10/25 12:49 Tobacco use type Cigarette 03/10/25 12:49 e-Cigarette/Vaping Use Never Used 03/10/25 12:49 PHQ-9: PHQ-9 Score PHQ-9: Total score 0 03/10/25 13:33 Depression Screening Interpretation: Negative Thrive Assessment: Date of Thrive Assessment Date Thrive assessed 03/10/25 03/10/25 12:57 Currently or been in a relationship where the following occur: No concerns reported Const General: healthy appearing, no acute distress, alert and awake Nutritional Appearance: well nourished Orientation/consciousness: oriented to person, oriented to place and oriented to time HENMT Ears: external ears normal General nose exam: Normal nares present Eyes Conjunctivae: conjunctivae normal Sclerae: sclerae normal Pupils: Equal, round and reactive pupils present Neck Neck: Yes no lymphadenopathy Thyroid: Thyroid normal Carotids: no bruits Resp Effort & Inspection: normal respiratory effort and not tachypneic Auscultation: no crackles, no rales, no rhonchi and no wheezes Cardio Rate: regular rate Rhythm: regular rhythm Heart sounds: no murmurs and normal S1 and S2 GI Palpation (GI): Soft to palpation, nontender, no hepatomegaly and no splenomegaly Auscultation: normal bowel sounds Back/Spine/Pelvis Sacroiliac joints: bilaterally tender to palpation Skin General skin exam: no rashes or lesions noted and dry skin Neuro General: oriented to person, oriented to place and oriented to time Cranial nerves: Yes Equal, round and reactive pupils present Speech: No Abnormal speech present Gait exam (Neuro): Normal gait present Motor exam (neuro): no tremor noted Extrem Right upper extremity: shoulder/upper arm Details: tenderness and abnormal ROM Details: pain with active ROM Left upper extremity: full ROM Right lower extremity: full ROM; no edema Left lower extremity: full ROM; no edema Psych Mental Status: mental status grossly normal Speech and movement: Normal speech and movement present Affect: normal affect Attitude: cooperative Thought process: Normal thought process present Coding Level of Care Code TCM High MDM <= 14 days Diagnoses Urinary tract infection with hematuria, site unspecified N39.0; R31.9 Hematuria presence: with hematuria Urinary tract infection type: site unspecified Dysphagia, unspecified type R13.10 Dysphagia type: unspecified Chronic right shoulder pain M25.511; G89.29 Chronicity: chronic Laterality: right Stage 3b chronic kidney disease N18.32 Chronic kidney disease stage: stage 3 (moderate) Chronic kidney disease stage 3 subtype: stage 3b (GFR 30-44) Syncope, unspecified syncope type R55 Syncope type: unspecified Time Spent (min) 43 Assessment & Plan Assessment & Plan (1) UTI (urinary tract infection): Code(s): N39.0 - Urinary tract infection, site not specified Category: Medical Qualifiers: Hematuria presence: with hematuria Urinary tract infection type: site unspecified Qualified Code(s): N39.0 - Urinary tract infection, site not specified; R31.9 - Hematuria, unspecified Plan: The patient was found to be have klebisella growing in her urine, and +blood culture with gram negative pamela, likely, the same organism, so renally adjusted levaquin was continued. The patient is allergy to penicillin and Klebsiella sensitive to Cipro and therefore Levaquin was chosen. We will repeat urinalysis to evaluate UTI resolution (2) Dysphagia: Code(s): R13.10 - Dysphagia, unspecified Category: Medical Qualifiers: Dysphagia type: unspecified Qualified Code(s): R13.10 - Dysphagia, unspecified Plan: Reports choking on foods x2 in the hospital to the point of needing to be suctioned. The patient was evaluated by speech therapy, who recommended whole with puree, sitting upright at 90 degrees and taking small bites and sips alternating liquids and solid. In addition, the patient was recommended to follow up with outpatient [employer] tx to address dysphasia further. She was also told that she needed a barium swallow. Discussed these recommendation with the patient primary physician, Dr. Chávez. SDM: put the barium swallow order in. Will also put in his speech therapy referral. (3) Shoulder pain: Code(s): M25.519 - Pain in unspecified shoulder Category: Medical Qualifiers: Chronicity: chronic Laterality: right Qualified Code(s): M25.511 - Pain in right shoulder; G89.29 - Other chronic pain Plan: Continue modified activity for now. Patient wants to resume PT in the near future. (4) CKD (chronic kidney disease): Code(s): N18.9 - Chronic kidney disease, unspecified Category: Medical Qualifiers: Chronic kidney disease stage: stage 3 (moderate) Chronic kidney disease stage 3 subtype: stage 3b (GFR 30-44) Qualified Code(s): N18.32 - Chronic kidney disease, stage 3b Plan: Continue adequate hydration. Avoid NSAIDs Follow up CMP ordered to evaluate kidney function (5) Syncope: Code(s): R55 - Syncope and collapse Category: Medical Qualifiers: Syncope type: unspecified Qualified Code(s): R55 - Syncope and collapse Plan: Encouraged the patient to rise/change position slowly Continue midodrine 2.5 mg daily and ensure adequate titration Orders: Orders Complete Blood Count Auto Diff 03/10/25 D64.9 - Anemia, unspecified, E83.52 - Hypercalcemia, N18.9 - Chronic kidney disease, unspecified, N39.0 - Urinary tract infection, site not specified, R55 - Syncope and collapse Comprehensive Met. Panel 03/10/25 D64.9 - Anemia, unspecified, E83.52 - Hypercalcemia, N18.9 - Chronic kidney disease, unspecified, N39.0 - Urinary tract infection, site not specified, R55 - Syncope and collapse TSH reflex Free T4 03/10/25 D64.9 - Anemia, unspecified, E83.52 - Hypercalcemia, N18.9 - Chronic kidney disease, unspecified, N39.0 - Urinary tract infection, site not specified, R55 - Syncope and collapse UA CC w/rflx Micro + Cult 03/10/25 D64.9 - Anemia, unspecified, E83.52 - Hypercalcemia, N18.9 - Chronic kidney disease, unspecified, N39.0 - Urinary tract infection, site not specified, R55 - Syncope and collapse FL barium swallow Today R13.10 - Dysphagia, unspecified Referrals Speech and Hearing Referral R13.10 - Dysphagia, unspecified
== END 2025-03-10 13:50 | disposition home or self-care (01) ==
LOC: HO.HMCH 12:04
PROVIDERS: PCP Internal Medicine
DX: N39.0 Urinary tract infection, site not specified (principal); R31.9 Hematuria, unspecified; N18.32 Chronic kidney disease, stage 3b; R13.10 Dysphagia, unspecified; M25.511 Pain in right shoulder; G89.29 Other chronic pain; R55 Syncope and collapse

== ENCOUNTER 2025-03-14 12:38 | Outpatient (AMB) | payer OTHER, SELFPAY ==
--- OUTSIDE RECORDS SUMMARY | 2025-03-14 12:40 | XMS_ITS | Data Portability ---
Author Organization BELÉN Mcginnis [facility] [address] Address [address] [place] [id number] Assessment No assessment recorded. Plan of Treatment [...] By Organization Details Last Modified Time 01/31/2023 [id number] Exercise. Its important to have a regular [...] Address Organization Details Recorded Time Hyperlip idemia 23011176 Active 2022 BELÉN Eaton [facility] 16:32:31 Anxiety 61271632 Active 2022 BELÉN Eaton [facility] 16:37:20 Autoimmu ne disease 82276811 Active 2022 BELÉN Eaton [facility] 16:37:42 Chronic kidney disease stage 3 757359225 Active 2022 BELÉN Eaton [facility] 16:38:41 Clostrid ium difficil e colitis 833596259 Completed 202201/31/2023 Shayna mcclellan [place] - [facility] 16:40:26 Seizure disorder 085056128 Active 2022 Psychogen ic Shayna mcclellan PA - [facility] 16:52:21 Depressi ve disorder 34508853 Active 2022 Shayna mcclellan PA - [facility] 16:39:44 Gastroes ophageal reflux disease 304353245 Active 2022 Shayna mcclellan PA - [facility] 16:39:51 Toxic shock syndrome 88170158 Completed 202201/31/2023 Shayna mcclellan PA - [facility] 16:40:20 Hyperten sive heart disease 64172468 Active 2022 Shayna mcclellan PA - [facility] 16:40:49 Dissocia tive convulsi ons 097072261 Active 2022 Shayna mcclellan PA - [facility] 16:41:14 Panic attack 240684323 Active 2022 Shayna mcclellan PA - [facility] 16:41:30 Pyogenic granulom a 141785432 Active 2022 Shayna mcclellan PA - [facility] 16:41:48 Orthosta tic hypotens ion 34880075 Active 2022 Shayna mcclellan, [facility] - [facility] [...] Name and Address Organization Details Recorded Time 077726 aspirin medicatio n Not available Not available Not available 01/31/2023 1191 RxNorm Shayna mcclellan, [place] - [facility] 3 16:35:27 513307 lactase medicatio n Not available Not available Not available 01/31/2023 75040 RxNorm Shayna mcclellan, [place] - [facility] 16:35:32 367473 Demerol medicatio n Not available Not available Not available 01/31/2023 87623 1 RxNorm Shayna mcclellan, [place] - [facility] 16:36:41 961740 Product containin g penicilli n (product) medicatio n Not available Not available Not available 01/31/2023 38608 8001 SNOMED Shayna mcclellan, [facility] - [facility] [...] Updated DateTime 3 170.18 cm 30.9 kg/m2 07999.7 g 99 % 99 % 81 /min 18 /min 97.2 [degF] 118 mm[Hg] 69 mm[Hg] Shayna Sorenson [place] - [facility] 16:33:53 Social History None recorded. Functional Status Question Answer Note LastModified by Organizat ion Details LastModified Time Do you use any illicit or recreational drugs? No Information not available 01/31/2023 What is your [...] dose or 50 mcg/0.25mL dose 1 completed hSayna Hawleye null, PA - [facility] 01/31/2023 [...] SNOMED-CT Code Diagnosis ICD10 Code Diagnosis Note [id number] [address] [place] [address] 09/14/2019 13:42:16 09/14/2019 14:25:00 [id number] [address] [place] [address] 11/09/2017 11:47:21 11/09/2017 13:12:08 [id number] [address] [place] [address] 07/30/2018 11:07:33 07/30/2018 12:24:33 [id number] [address] [place] [address] 08/31/2016 08:30:25 08/31/2016 09:21:21 [id number] [address] [place], [place] [address] 04/03/2016 11:04:22 04/03/2016 12:26:32 [id number] [address] [place], [place] [address] 07/06/2018 11:34:50 07/06/2018 13:31:29 [id number] [address] [place], [place] [address] 01/28/2016 18:05:08 01/28/2016 19:07:56 [id number] [address] [place] [address] 02/10/2016 16:53:28 02/10/2016 17:58:03 [id number] [address] [place] [address] 12/27/2015 16:29:56 12/27/2015 17:29:07 [id number] [address] [place] [address] 09/30/2015 15:05:01 09/30/2015 16:05:08 [id number] [address] [place] [address] 02/21/2018 17:57:32 02/21/2018 19:08:50 [id number] [address] [place] [address] 07/11/2020 16:25:03 07/11/2020 18:19:21 [id number] [address] [facility] [place] [address] 04/29/2016 08:27:37 04/29/2016 09:19:25 [id number] [address] [facility] [place] [address] 10/04/2015 09:33:14 10/04/2015 10:43:28 [id number] [address] [facility] [place] [address] 01/09/2019 09:06:31 01/09/2019 10:08:57 [id number] Tommy Arroyo, HOSPITALIST MEDICAL DIRECTOR [address] [facility] [place] [address] 01/31/2023 15:37:57 01/31/2023 16:56:56 Pain of right hip joint 9252140404 96768 M25.551 strongly encouraged to follow up with her PCP or orthopedic as previously scheduled. Health Concerns Section Related Observation LastModified by Organization Detai ls LastModified Time None Recorded Concern Status LastModified by Organization Details LastModified Time None Recorded Advance Directives Directive None Recorded Payers Insurance Date Sequence Insurance Name Policy Number Policy Mcmullen Covered Member ID Mcmullen Member ID Guarantor Name 01/31/2023 1 [facility] [id number] Liliana Gutierrez [id number] Liliana Gutierrez Notes Date Note Type Note [...] Arroyo NP [address] [place], [address], [place] - [facility] 01/31/2023 16:56:09 OBGyn Episode No OBEpisode recorded.
--- NOTE | 2025-03-14 13:06 | HO.NEPHOV_ITS ---
Vital Signs 03/14/25 13:07 Height 5 ft 7 in Weight 168 lb BMI 26.3 BP 130/60 Blood Pressure Location Rt brachial Position Sitting Pulse 77 Pulse Source Pulse Oximeter Pulse Oximetry (%) 97 Oxygen Delivery Method Room Air Intake Visit Reasons: [place]charged [place] [facility] [place] Conf Organizational Consultant Required: No Accompanied by: Self / Same As Patient Allergies aspirin [ASPIRIN] Allergy (Unknown, Verified 03/14/25 13:07) ANAPHYLAXIS meperidine [From DEMEROL] Allergy (Unknown, Verified 03/14/25 13:07) ANAPHYLAXIS Penicillins [PENICILLINS] Allergy (Unknown, Verified 03/14/25 13:07) ANAPHYLAXIS Sulfa (Sulfonamide Antibiotics) [SULFA (SULFONAMIDE ANTIBIOTICS)] Allergy (Unknown, Verified 03/14/25 13:07) UNKNOWN dairy Allergy (Unknown, Uncoded 03/10/25 13:20) unknown lactose intolerance Allergy (Unknown, Uncoded 03/10/25 13:20) Unknown Medication List - Last Reconciled 03/14/25 by Ronald Hunt MD bupropion HCl XL 150 mg PO DAILY buspirone 10 mg PO BID clopidogrel 75 mg PO DAILY fludrocortisone 0.2 mg (2 x 0.1 mg) PO DAILY lorazepam 0.5 mg PO BID PRN midodrine 2.5 mg PO DAILY omeprazole 20 mg PO BID sacroiliac belt As directed sertraline 200 mg PO DAILY HPI Comments Details: Sarahy is a 84-year-old woman with a history of for CKD in a setting of hypertension. In the past she had significant involuntary movements and she was on high dose of Neurontin. After stopping Neurontin the involuntary movements resolved. Recently she has been lightheadedness and she has imbalance when she walks. She is being evaluated by Cardiology Dr. Nieto After adding Midodrine 2.5 mg QD, she feels much better 02/06/24 ; Having issues with UC ;Lomotil has been added 06/04/2024 ;She is having difficulty walking with unsteady gait. 07/09/24;Recently in [facility] for UTI ; Says she has had 2 seizures 01/28/25 Here for follow up;Went to ER in December but does not remember the event or the reason for the visit 03/14/25 84-year-old female presenting for follow-up on hypertension and chronic kidney disease management. She was recently hospitalized due to elevated blood pressure, which may have been complicated by a Klebsiella urinary tract infection. Her renal function remains relatively stable with a creatinine of 1.8 mg/dL. Orthostatic hypotension has been addressed with fludrocortisone and midodrine therapy, the continuation of which is under evaluation. She reports swollen wrists and a hematoma, attributed to insect bites, seeking resolution for associated itching. For dysphagia, which has led to aspiration on two occasions, she is scheduled for a barium swallow study and dietary education. These consultations were advised following her primary care and hospital team evaluations. [facility] Medical History Orthostatic hypotension Dyspnea on exertion Chronic pain of both shoulders Wrist pain Obesity Depression Hyperlipidemia Hypertension Fall Surgical History Hx of colonoscopy History of biopsy History of surgical removal of lesion History of hysterectomy History of appendectomy Family History Father History of heart attack Mother Colon cancer Social History Household Members: None Housing: House Do you presently have visiting nurse or other home services: No Alcohol intake: never Comment: refuses fall socks, and camera for safety Patient Tobacco Use Status: Never used Tobacco Tobacco use type: Cigarette e-Cigarette/Vaping Use: Never Used Second Hand Smoke Exposure: No service: No Current occupational status: retired Cognitive needs: Yes (cane) Hearing needs: No Vision needs: Yes Physical Exam Vital Signs: Last Vital Signs Pulse 77 03/14/25 13:07 BP 130/60 03/14/25 13:07 Pulse Ox 97 03/14/25 13:07 Oxygen Delivery Method Room Air 03/14/25 13:07 BMI result Body Mass Index 26.3 Const General: comfortable Nutritional Appearance: well nourished Orientation/consciousness: patient oriented x3 HEENT Head: No normal to inspection Mouth: moist mucous membranes Neck Neck: Yes supple and Yes no JVD Resp Auscultation: clear to auscultation bilaterally and no rales Cardio Jugular venous distension: no JVD Palpation: no palpable S3 and no palpable S4 Heart sounds: no rubs GI Palpation (GI): Soft to palpation and nontender Percussion: No Fluid wave present General: Yes no CVA tenderness Back/Spine/Pelvis Back: no CVA tenderness Skin General skin exam: no rashes or lesions noted Neuro General: patient oriented x3 Extrem General: Yes no pedal edema and No clubbing Results Reviewed Nephrology Results: Hgb 9.7 g/dl (12.0-16.0) L 03/10/25 WBC 8.4 X10*3/uL (4.8-10.8) 03/10/25 Plt Count 169 X10*3/uL (160-400) 03/10/25 Sodium 141 mmol/L (135-145) 03/10/25 Potassium 4.9 mmol/L (3.3-5.1) 03/10/25 Chloride 105 mmol/L (96-108) 03/10/25 Carbon Dioxide 25 mmol/L (22-29) 03/10/25 BUN 44 mg/dL (9-16) H 03/10/25 Creatinine 1.81 mg/dL (0.5-1.4) H 03/10/25 Calcium 10.1 mg/dL (8.4-10.2) 03/10/25 Urine Protein Negative mg/dL (Neg-Trace) 03/10/25 Assessment & Plan Assessment & Plan (1) CKD (chronic kidney disease): Code(s): N18.9 - Chronic kidney disease, unspecified Category: Medical Qualifiers: Chronic kidney disease stage: stage 3 (moderate) Chronic kidney disease stage 3 subtype: stage 3b (GFR 30-44) Qualified Code(s): N18.32 - Chronic kidney disease, stage 3b Plan: Chronic disease in the setting of longstanding hypertension. Renal function stable she has stage III B /stage IV CKD. Renal function is close to baseline. eGFR 26- 30 ml/mt Goal is to slow the progression of renal disease. (2) Postural hypotension: Code(s): I95.1 - Orthostatic hypotension Category: Medical Plan: h/o Significant orthostatic hypotension. Keep midodrine 2.5 mg once a day in the morning and reassess her blood pressure. Agree with Fluorinef Change dose ot 0.1 mg QD from 0.2 mg (3) Hypercalcemia: Code(s): E83.52 - Hypercalcemia Category: Medical Plan: Mild asymptomatic hypercalcemia Mild hyperparathyroidism Follow PTH and Ca and will add Sensipar if needed Repeat Ca is normal (4) Anemia: Code(s): D64.9 - Anemia, unspecified Category: Medical Plan: Mild asymptomatic anemia with thrombocytopenia. Both are chronic. No indication for Epogen. Medications: New prednisone Take 4 tablets a day for 1 day; then 3 tabs a day on day 2 ;then 2 tabs on day 3 ; 1 tab on day 4 5 mg PO DIRECTED 10 tabs 0RF Changed From fludrocortisone 0.2 mg (2 x 0.1 mg) PO DAILY 90 tabs 0RF To fludrocortisone 0.1 mg PO DAILY 90 tabs 1RF Refilled midodrine 2.5 mg PO DAILY 90 tabs 1RF Discontinued levofloxacin next dose 02/28/25 Discontinued Reason: Doctor's Order 500 mg PO Q OTHER DAY 7 days 4 tabs 0RF Coding Level of Care Code Est Pt Level 4 (15624) Diagnoses Stage 3b chronic kidney disease N18.32 Chronic kidney disease stage: stage 3 (moderate) Chronic kidney disease stage 3 subtype: stage 3b (GFR 30-44) Postural hypotension I95.1 Hypercalcemia E83.52 Anemia D64.9
[2025-03-14 13:07] VITALS: BP 130/60; PULSE 77; O2SAT 97; BMI 26.3
== END 2025-03-14 13:18 | disposition home or self-care (01) ==
LOC: HO.HKA 12:39
PROVIDERS: PCP Internal Medicine; Visit Provider Internal Medicine Hypertension Specialist
DX: N18.32 Chronic kidney disease, stage 3b (principal); I95.1 Orthostatic hypotension; E83.52 Hypercalcemia; D64.9 Anemia, unspecified
CPT/HCPCS: 99214

== ENCOUNTER → 2025-03-14 12:38 | Outpatient (BNVA) | payer OTHER, SELFPAY | PROVIDERS: PCP Internal Medicine; Visit Provider Internal Medicine Hypertension Specialist ==

== ENCOUNTER 2025-03-18 11:56 | Outpatient (AMB) | payer OTHER, SELFPAY ==
--- NOTE | 2025-03-18 12:22 | A.OFFPC_ITS ---
Vital Signs 03/18/25 12:24 Height 5 ft 7 in Weight 169 lb 8 oz BMI 26.5 BP 114/72 Blood Pressure Location Lt brachial Position Sitting Intake Visit Reasons: CAR Dr Alcantara Organic Extractions Technician Required: No Accompanied by: Self / Same As Patient Allergies aspirin [ASPIRIN] Allergy (Unknown, Verified 03/18/25 14:14) ANAPHYLAXIS meperidine [From DEMEROL] Allergy (Unknown, Verified 03/18/25 14:14) ANAPHYLAXIS Penicillins [PENICILLINS] Allergy (Unknown, Verified 03/18/25 14:14) ANAPHYLAXIS Sulfa (Sulfonamide Antibiotics) [SULFA (SULFONAMIDE ANTIBIOTICS)] Allergy (Unknown, Verified 03/18/25 14:14) UNKNOWN dairy Allergy (Unknown, Uncoded 03/18/25 14:14) unknown lactose intolerance Allergy (Unknown, Uncoded 03/18/25 14:14) Unknown Medication List - Last Reconciled 03/18/25 by Tawana Sanchez MD bupropion HCl XL 150 mg PO DAILY buspirone 10 mg PO BID clopidogrel 75 mg PO DAILY fludrocortisone 0.1 mg PO DAILY 90 days lorazepam 0.5 mg PO BID PRN midodrine 2.5 mg PO DAILY omeprazole 20 mg PO BID sacroiliac belt As directed sertraline 200 mg PO DAILY Tobacco use date assessed: 03/10/25 Fall risk assessment: No Falls in past year Last assessed Fall Risk: 03/18/25 Dental Screening Dental Screen Date: 03/10/25 HPI HPI Comments History of Present Illness Details The patient is an 84-year-old female presenting with idiopathic hypotension. The condition has caused episodes of syncope, leading to a recent hospitalization. She is currently managed with midodrine but required the addition of fludrocortisone to better control her blood pressure. When taking two tablets once daily, she reports her blood pressure has normalized. She also has chronic kidney disease, with a recent GFR of 27 indicating stage 4 kidney disease. Her insurance marketing specialist has recommended fludrocortisone, but she has not yet filled this prescription due to a pharmacy issue. The patient?s medical history includes mild major depressive disorder with an xiety, stable with current medications. GERD is likewise managed with omeprazole, and no active symptoms are noted. She has twice aspirated, with a scheduled barium swallow study to investigate further. She reports no symptoms of chest pain or shortness of breath. [facility] Medical History (Updated 03/18/25 @ 14:18 by Tawana Sanchez MD) Orthostatic hypotension Dyspnea on exertion Chronic pain of both shoulders Wrist pain Obesity Depression Hyperlipidemia Hypertension Fall Surgical History Hx of colonoscopy History of biopsy History of surgical removal of lesion History of hysterectomy History of appendectomy Family History Father History of heart attack Mother Colon cancer Social History Household Members: None Housing: House Do you presently have visiting nurse or other home services: No Alcohol intake: never Comment: refuses fall socks, and camera for safety Patient Tobacco Use Status: Never used Tobacco Tobacco use type: Cigarette e-Cigarette/Vaping Use: Never Used Second Hand Smoke Exposure: No service: No Current occupational status: retired Cognitive needs: Yes (cane) Hearing needs: No Vision needs: Yes Questionnaire PHQ-9 Over the last 2 weeks, how often have you been bothered by any of the following problems? 1. Little interest or pleasure in doing things: not at all 2. Feeling down, depressed, or hopeless: not at all 3. Trouble falling or staying asleep, or sleeping too much: not at all 4. Feeling tired or having little energy: not at all 5. Poor appetite or overeating: not at all 6. Feeling bad about yourself - or that you are a failure or have let yourself or your family down: not at all 7. Trouble concentrating on things, such as reading the newspaper or watching television: not at all 8. Moving or speaking so slowly that other people could have noticed. Or the opposite - being so fidgety or restless that you have been moving around a lot more than usual: not at all 9. Thoughts that you would be better off or of hurting yourself in some way: not at all Total score: 0 Depression Screening Interpretation: Negative Depression Screening Done: Yes 97225 - PHQ-9 Billing: Yes Source: Developed by Drs. Mitchell De Oliveira, Meryl Garcia, Rigoberto Post and colleagues, with an educational romi from [employer]. Thrive Questionnaire Date Thrive assessed: 03/10/25 I am a: Patient What is your living situation today?: I have a steady place to live Within the past 12 months, did the food you bought not last and you didn't have the money to get more?: I choose not to answer this question Within the past 12 months, did you worry whether your food would run out before you got money to buy more?: I choose not to answer this question Do you have trouble paying for medicines?: No Do you have trouble getting transportation to medical appointments?: No Do you have trouble paying your heating and electricity bill?: No Do you have trouble taking care of your child, family member or friend?: No Do you have trouble with day-to-day activities such as bathing, preparing meals, shopping, managing finances, etc.?: No Are you currently unemployed and looking for a job?: No Are you interested in more education?: No Please select the resources that you would like help with: None Currently or been in a relationship where the following occur: I choose not to answer THRIVE Score: 0 AUDIT C Alcohol Use Questionnaire (AUDIT-C) 1. How often do you have a drink containing alcohol?: Never Total Score: 0 HUMBERTO-7 AMB Questionnaire HUMBERTO-7 Date HUMBERTO - 7 assessed: 03/10/25 Feeling nervous, anxious, or on edge: 0 = Not at all Not being able to stop or control worryin = Not at all Worrying too much about different things: 0 = Not at all Trouble relaxin = Not at all Being so restless that it is hard to sit still: 0 = Not at all Becoming easily annoyed or irritable: 0 = Not at all Feeling afraid as if something awful might happen: 0 = Not at all Total HUMBERTO-7 score (0-4 normal; 5-9 mild; 10-14 moderate; 15-21 severe): 0 Source: Developed by Drs. Mitchell De Oliveira, Meryl Garcia, Rigoberto Post and colleagues, with an educational romi from [employer]. HUMBERTO-7 Assessment Billing HUMBERTO-7 Assessment Tool: HUMBERTO-7 Assessment 67414 Review of Systems Const All systems reviewed & are unremarkable except as noted in HPI and below Card Denies chest pain at rest, Denies chest pain with activity, Denies edema, Denies irregular heart rhythm, Denies claudication, Denies dyspnea, Denies dyspnea on exertion, Denies orthopnea, Denies paroxysmal nocturnal dyspnea and Denies slow heart rate Resp Denies cough, Denies dyspnea and Denies dyspnea on exertion GI Denies abdominal pain, Denies change in bowel habits, Denies excessive flatus, Denies nausea and Denies vomiting Denies urinary incontinence, Denies urinary hesitancy and Denies urinary urgency Musc Denies abnormal gait, Denies atrophy, Denies deformity and Denies limited range of motion Skin/Breast Denies bleeding lesions, Denies changing lesions and Denies rash Neuro Denies abnormal gait, Denies behavioral changes and Denies lack of coordination Psych Denies behavioral changes Physical exam (Primary Care) Vital Signs: Last Vital Signs BP 114/72 03/18/25 12:24 BMI result Body Mass Index 26.5 Tobacco/Smoking Status: Tobacco use Status Tobacco use date assessed 03/10/25 03/18/25 12:24 Patient Tobacco Use Status Never used Tobacco 03/18/25 12:24 Tobacco use type Cigarette 03/18/25 12:24 e-Cigarette/Vaping Use Never Used 03/18/25 12:24 PHQ-9: PHQ-9 Score PHQ-9: Total score 0 03/18/25 12:43 Depression Screening Interpretation: Negative Thrive Assessment: Date of Thrive Assessment Date Thrive assessed 03/10/25 03/18/25 12:24 Currently or been in a relationship where the following occur: I choose not to answer Const Limitations: ambulation with cane Resp Effort & Inspection: normal respiratory effort Auscultation: clear to auscultation bilaterally Cardio Jugular venous distension: no JVD Rate: regular rate Rhythm: regular rhythm Heart sounds: S1 normal heart sound present and S2 normal heart sound present Extrem General: Yes full ROM Coding Level of Care Code Est Pt Level 4 (86243) Complex EM visit Add On G2211 Diagnoses Major depressive disorder, recurrent, moderate F33.1 Generalized anxiety disorder with panic attacks F41.1; F41.0 Idiopathic hypotension I95.0 CKD (chronic kidney disease) stage 4, GFR 15-29 ml/min N18.4 Additional Codes PHQ-9 - 14487 - PHQ-9 Billing: Yes ([id number]) HUMBERTO-7 Assessment Billing - HUMBERTO-7 Assessment Tool: HUMBERTO-7 Assessment [id number] ([id number]) Time Spent (min) 23 Assessment & Plan Assessment & Plan (1) Major depressive disorder, recurrent, moderate: Code(s): F33.1 - Major depressive disorder, recurrent, moderate Category: Medical (2) Generalized anxiety disorder with panic attacks: Code(s): F41.1 - Generalized anxiety disorder; F41.0 - Panic disorder [episodic paroxysmal anxiety] Category: Medical (3) Idiopathic hypotension: Code(s): I95.0 - Idiopathic hypotension Category: Medical (4) CKD (chronic kidney disease) stage 4, GFR 15-29 ml/min: Code(s): N18.4 - Chronic kidney disease, stage 4 (severe) Category: Medical Plan We will continue midodrine and coordinate the correct prescription for fludrocortisone to manage idiopathic hypotension. Her chronic kidney disease will remain under close monitoring via nephrology. The minor major depressive disorder with anxiety appears stable with her current medications. Omeprazole will be continued for GERD management. A barium swallow study is scheduled to assess the history of aspiration. She currently denies chest pain or shortness of breath, and ongoing monitoring will occur. Patient was informed and verbally consented to the use of an ambient scribe for clinic note documentation during this visit. During our discussion, I explained the need for midodrine to maintain consistent blood pressure levels and the addition of fludrocortisone for enhanced control. We addressed the need for accurate pharmacy coordination to receive her medications. Her kidney disease management will continue in consultation with nephrology, and we will ensure regular monitoring of her GFR levels. I reassured that her mental health medications remain effective for maintaining stability in her depression and anxiety. I informed her about continued GERD management with omeprazole and addressed the next steps with the scheduled barium swallow for aspiration history. There were no emergent symptoms such as chest pain or shortness of breath that required immediate intervention. Instructions for home monitoring of symptoms and medication adherence were provided. Medications: Changed From fludrocortisone 0.1 mg PO DAILY 90 tabs 1RF To fludrocortisone 0.1 mg PO DAILY 90 tabs 1RF 90 days Patient Instructions: - Continue taking midodrine as prescribed. - Take fludrocortisone as discussed once the prescription is filled. - Coordinate with the pharmacy at [facility] to receive medications. - Continue omeprazole daily as usual. - Monitor for any new symptoms or breathlessness. - Follow up with nephrology as scheduled. - Attend the barium swallow study in June. - Report any issues with obtaining medications. - Ensure adherence to current psychiatric medications.
[2025-03-18 12:24] VITALS: BP 114/72; BMI 26.5
--- OUTSIDE RECORDS SUMMARY | 2025-03-18 14:16 | XMS_ITS | Data Portability ---
Author Organization BELÉN Mcginnis zeina [address] Address [address] [place] [id number] Assessment No assessment recorded. Plan of Treatment [...] By Organization Details Last Modified Time 01/31/2023 [id number] Exercise. Its important to have a regular [...] Address Organization Details Recorded Time Hyperlip idemia 20857561 Active 2022 BELÉN Eaton [facility] 16:32:31 Anxiety 65140610 Active 2022 BELÉN Eaton [facility] 3 16:37:20 Autoimmu ne disease 15017564 Active 2022 BELÉN Eaton [facility] 16:37:42 Chronic kidney disease stage 3 901625025 Active 2022 BELÉN Eaton [facility] 16:38:41 Clostrid ium difficil e colitis 594141547 Completed 202201/31/2023 Shanya mcclellan PA - [facility] 16:40:26 Seizure disorder 452627530 Active 2022 Psychogen ic Shayna mcclellan PA - [facility] 16:52:21 Depressi ve disorder 08053402 Active 2022 Shayna mcclellan PA - [facility] 16:39:44 Gastroes ophageal reflux disease 523889855 Active 2022 Shayna mcclellan PA - [facility] 16:39:51 Toxic shock syndrome 90845710 Completed 202201/31/2023 Shayna mcclellan PA - [facility] 16:40:20 Hyperten sive heart disease 36037384 Active 2022 Shayna mcclellan PA - [facility] 16:40:49 Dissocia tive convulsi ons 267487541 Active 2022 Shayna mcclellan PA - [facility] 16:41:14 Panic attack 499161537 Active 2022 Shayna mcclellan PA - [facility] 16:41:30 Pyogenic granulom a 820235406 Active 2022 Shayna mcclellan PA - [facility] 16:41:48 Orthosta tic hypotens ion 19183567 Active 2022 Shayna mcclellan, [facility] - [facility] [...] Name and Address Organization Details Recorded Time 336143 aspirin medicatio n Not available Not available Not available 01/31/2023 1191 RxNorm Shayna mcclellan, PA - [facility] 3 16:35:27 593166 lactase medicatio n Not available Not available Not available 01/31/2023 70236 RxNorm Shayna mcclellan, PA - [facility] 16:35:32 782018 Demerol medicatio n Not available Not available Not available 01/31/2023 08444 1 RxNorm Shayna mcclellan, PA - [facility] 16:36:41 273246 Product containin g penicilli n (product) medicatio n Not available Not available Not available 01/31/2023 80534 8001 SNOMED Shayna mcclellan, [facility] - [facility] [...] Updated DateTime 3 170.18 cm 30.9 kg/m2 82665.7 g 99 % 99 % 81 /min 18 /min 97.2 [degF] 118 mm[Hg] 69 mm[Hg] Shayna Sorenson [place] - [facility] 16:33:53 Social History None recorded. Functional Status Question Answer Note LastModified by Organizat ion Details LastModified Time Do you use any illicit or recreational drugs? No Information not available 01/31/2023 What is your level of alcohol consumption? None [email or web address] Information not available 01/31/2023 Mental Status None [...] Influenza, adjuvanted, trivalent, PF 8 completed Shayna Sorensno null, PA - [facility] 01/31/2023 16:32:53 [...] SNOMED-CT Code Diagnosis ICD10 Code Diagnosis Note [id number] [address] [place] [address] 09/14/2019 13:42:16 09/14/2019 14:25:00 [id number] [address] [place] [address] 11/09/2017 11:47:21 11/09/2017 13:12:08 [id number] [address] [place] [address] 07/30/2018 11:07:33 07/30/2018 12:24:33 [id number] [address] [place] [address] 08/31/2016 08:30:25 08/31/2016 09:21:21 [id number] [address] [facility], [place] [address] 04/03/2016 11:04:22 04/03/2016 12:26:32 [id number] [address] [facility], [place] [address] 07/06/2018 11:34:50 07/06/2018 13:31:29 [id number] [address] [facility], [place] [address] 01/28/2016 18:05:08 01/28/2016 19:07:56 [id number] [address] [facility] [place] [address] 02/10/2016 16:53:28 02/10/2016 17:58:03 [id number] [address] [facility] [place] [address] 12/27/2015 16:29:56 12/27/2015 17:29:07 [id number] [address] [facility] [place] [address] 09/30/2015 15:05:01 09/30/2015 16:05:08 [id number] [address] [facility] [place] [address] 02/21/2018 17:57:32 02/21/2018 19:08:50 [id number] [address] [facility] [place] [address] 07/11/2020 16:25:03 07/11/2020 18:19:21 [id number] [address] [place] [address] 04/29/2016 08:27:37 04/29/2016 09:19:25 [id number] [address] [place] [address] 10/04/2015 09:33:14 10/04/2015 10:43:28 [id number] [address] [place] [address] 01/09/2019 09:06:31 01/09/2019 10:08:57 [id number] Tommy Arroyo, LEGUILLON DEBEADER [address] [place] [address] 01/31/2023 15:37:57 01/31/2023 16:56:56 Pain of right hip joint [id number] 56713 M25.551 strongly encouraged to follow up with her PCP or orthopedic as previously scheduled. Health Concerns Section Related Observation LastModified by Organization Detai ls LastModified Time None Recorded Concern Status LastModified by Organization Details LastModified Time None Recorded Advance Directives Directive None Recorded Payers Insurance Date Sequence Insurance Name Policy Number Policy Mcmullen Covered Member ID Mcmullen Member ID Guarantor Name 01/31/[address] [facility] [id number] Liliana Gutierrez [id number] Liliana Gutierrez Notes Date Note Type Note [...] Arroyo NP [address] [place], [address], [place] - [facility] 01/31/2023 16:56:09 OBGyn Episode No OBEpisode recorded.
== END 2025-03-18 12:59 | disposition home or self-care (01) ==
LOC: HO.HMCH 11:57
PROVIDERS: PCP Internal Medicine; Visit Provider Internal Medicine
DX: F33.1 Major depressive disorder, recurrent, moderate (principal); F41.1 Generalized anxiety disorder; I95.0 Idiopathic hypotension; N18.4 Chronic kidney disease, stage 4 (severe); F41.0 Panic disorder [episodic paroxysmal anxiety]

== ENCOUNTER → 2025-03-18 11:56 | Outpatient (BNVA) | payer OTHER, SELFPAY | PROVIDERS: PCP Internal Medicine; Visit Provider Internal Medicine | DX: F33.1 Major depressive disorder, recurrent, moderate (principal); F41.1 Generalized anxiety disorder; N18.4 Chronic kidney disease, stage 4 (severe); K21.9 Gastro-esophageal reflux disease without esophagitis; F41.0 Panic disorder [episodic paroxysmal anxiety]; I95.0 Idiopathic hypotension | CPT/HCPCS: 96127 ==

== ENCOUNTER 2025-05-28 09:30 | Outpatient (REF) | payer OTHER, SELFPAY ==
[2025-05-28 12:04] LABS: Hematocrit 27.0 % (37.0-47.0); Hemoglobin 9.2 g/dl (12.0-16.0); Imm Gran Abs Auto 0.18 X10*3/uL (0.00-0.03); Imm Gran Pct Auto 2.7 % (0.0-0.4); Lymphocytes Absolute Auto 0.7 X10*3/uL (1.2-4.9); MANUAL DIFF FLAG SCAN; Mean Corpuscular HGB Conc 34.1 g/dl (31.0-35.0); Mean Corpuscular Hemoglobin 34.5 pg (27.0-33.0); Mean Corpuscular Volume 101.1 fL (80.0-98.0); NRBC Abs Auto 0.040 X10*3/uL (0.0-0.012); NRBC Pct Auto 0.6 /100WBC (0.0-0.2); PLT CLUMP 1; Red Blood Count 2.67 X10*6/uL (4.20-5.50); SCAN SMEAR FLAG 1
[2025-05-28 12:30] LABS: Iron 36 mcg/dL (30-160); Percent Iron Saturation 13 % (15-50); Platelet Count 107 X10*3/uL (160-400); Total Iron Binding Capacity 288 mcg/dL (228-428); Unsaturated Iron Binding 252 ug/dL; White Blood Count 6.7 X10*3/uL (4.8-10.8)
[2025-05-28 12:47] LABS: Appearance Urine Clear; Glucose Urine UA Negative (Negative); PH 5.5 (5.0-9.0); Specific Gravity - Urine 1.015 (1.005-1.025); UMIC TRIGGER UACC YES
[2025-05-28 12:51] LABS: UACC Culture Trigger YES
[2025-05-28 12:54] LABS: Folate 11.8 ng/mL (> or = 4.0); Vitamin B12 1237 pg/mL (200-900)
== END 2025-05-28 09:31 | disposition home or self-care (01) ==
LOC: HO.LAB 09:30
PROVIDERS: PCP Internal Medicine; Visit Provider Internal Medicine
DX: I12.9 Hypertensive chronic kidney disease with stage 1 through stage 4 chronic kidney disease, or unspecified chronic kidney disease (principal); E53.8 Deficiency of other specified B group vitamins; E55.9 Vitamin D deficiency, unspecified; R42 Dizziness and giddiness; D63.1 Anemia in chronic kidney disease; F41.8 Other specified anxiety disorders; R13.10 Dysphagia, unspecified; F33.1 Major depressive disorder, recurrent, moderate; I95.0 Idiopathic hypotension; E78.5 Hyperlipidemia, unspecified; N18.4 Chronic kidney disease, stage 4 (severe); Z79.899 Other long term (current) drug therapy
CPT/HCPCS: 36415; 81001; 82306; 82607; 82746; 83540; 85025; 87086; 87088; 87186

== ENCOUNTER 2025-05-28 09:30 | Outpatient (AMB) | payer OTHER, SELFPAY ==
[2025-05-28 09:37] VITALS: BP 92/40; PULSE 80; RESP 18; TEMP 36.2; O2SAT 96; BMI 26.3
--- NOTE | 2025-05-28 09:37 | A.OFFPC_ITS ---
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: No Accompanied by: Self / Same As Patient Allergies aspirin (ASPIRIN) Allergy (Unknown, Verified 05/28/25 10:02) ANAPHYLAXIS meperidine (From DEMEROL) Allergy (Unknown, Verified 05/28/25 10:02) ANAPHYLAXIS Penicillins (PENICILLINS) Allergy (Unknown, Verified 05/28/25 10:02) ANAPHYLAXIS Sulfa (Sulfonamide Antibiotics) (SULFA (SULFONAMIDE ANTIBIOTICS)) Allergy (Unknown, Verified 05/28/25 10:02) UNKNOWN dairy Allergy (Unknown, Uncoded 05/28/25 10:02) unknown lactose intolerance Allergy (Unknown, Uncoded 05/28/25 10:02) Unknown Medication List - Last Reconciled 05/28/25 by Tawana Sanchez MD bupropion HCl XL 150 mg PO DAILY buspirone 10 mg PO BID clopidogrel 75 mg PO DAILY fludrocortisone 0.1 mg PO DAILY 90 days lorazepam 0.5 mg PO BID PRN midodrine 2.5 mg PO DAILY omeprazole 20 mg PO BID sacroiliac belt As directed sertraline 200 mg PO DAILY zolpidem 5 mg PO BEDTIME PRN 30 days Tobacco use date assessed: 05/28/25 Fall risk assessment: No Falls in past year Last assessed Fall Risk: 05/28/25 Dental Screening Dental Screen Date: 05/28/25 Did you have a dental visit in the last 12 months?: Yes Did you have a dental problem in the last 6 months where you did not have access to dental care?: No Was dental information given to patient?: Patient has dentist HPI HPI Comments 2 History of Present Illness Details The patient is an 84-year-old female presenting with dizziness and tiredness. She reports feeling dizzy and excessively tired, with a desire to sleep since October. She has a history of chronic kidney disease, with her glomerular filtration rate (GFR) showing improvement from 26 in February to 27 in March. Her kidney function has remained stable since then. The patient also has macrocytic anemia, with an elevated red cell distribution width (RDW), and ferrous sulfate has been prescribed. This condition will be re- evaluated today. She has idiopathic hypertension and is currently on medication for this condition. The patient suffers from depression with anxiety, for which she is taking bupr opion and buspirone. She also uses lorazepam as needed for anxiety. She experiences difficulty swallowing food and is scheduled for a barium swallow in July. The patient reports polyuria and desires a urinalysis today. For gait stability, she uses a cane. [facility] Medical History (Updated 05/28/25 @ 21:47 by Tawana Sanchez MD) Orthostatic hypotension Dyspnea on exertion Chronic pain of both shoulders Wrist pain Obesity Depression Hyperlipidemia Hypertension Fall Surgical History Hx of colonoscopy History of biopsy History of surgical removal of lesion History of hysterectomy History of appendectomy Family History Father History of heart attack Mother Colon cancer Social History Household Members: None Housing: House Do you presently have visiting nurse or other home services: No Alcohol intake: never Comment: refuses fall socks, and camera for safety Patient Tobacco Use Status: Never used Tobacco Tobacco use type: Cigarette e-Cigarette/Vaping Use: Never Used Second Hand Smoke Exposure: No service: No Current occupational status: retired Cognitive needs: Yes (cane) Hearing needs: No Vision needs: Yes Questionnaire Thrive Questionnaire Date Thrive assessed: 03/18/25 I am a: Patient What is your living situation today?: I have a steady place to live Within the past 12 months, did the food you bought not last and you didn't have the money to get more?: I choose not to answer this question Within the past 12 months, did you worry whether your food would run out before you got money to buy more?: I choose not to answer this question Do you have trouble paying for medicines?: No Do you have trouble getting transportation to medical appointments?: No Do you have trouble paying your heating and electricity bill?: No Do you have trouble taking care of your child, family member or friend?: No Do you have trouble with day-to-day activities such as bathing, preparing meals, shopping, managing finances, etc.?: No Are you currently unemployed and looking for a job?: No Are you interested in more education?: No Please select the resources that you would like help with: None Currently or been in a relationship where the following occur: I choose not to answer THRIVE Score: 0 HUMBERTO-7 AMB Questionnaire HUMBERTO-7 Date HUMBERTO - 7 assessed: 03/10/25 Source: Developed by Drs. Mitchell De Oliveira, Meryl Garcia, Rigoberto Post and colleagues, with an educational romi from [employer]. Review of Systems Const All systems reviewed & are unremarkable except as noted in HPI and below Card Denies chest pain at rest, Denies chest pain with activity, Denies edema, Denies irregular heart rhythm, Denies claudication, Denies dyspnea, Denies dyspnea on exertion, Denies orthopnea, Denies paroxysmal nocturnal dyspnea and Denies slow heart rate Resp Denies cough, Denies dyspnea and Denies dyspnea on exertion Physical exam (Primary Care) Vital Signs: Last Vital Signs Temp 97.1 F 05/28/25 09:37 Pulse 80 05/28/25 09:37 Resp 18 05/28/25 09:37 BP 90/60 05/28/25 10:16 Pulse Ox 96 05/28/25 09:37 Oxygen Delivery Method Room Air 05/28/25 09:37 BMI result Body Mass Index 26.3 Tobacco/Smoking Status: Tobacco use Status Tobacco use date assessed 05/28/25 05/28/25 09:45 Patient Tobacco Use Status Never used Tobacco 05/28/25 09:45 Tobacco use type Cigarette 05/28/25 09:45 e-Cigarette/Vaping Use Never Used 05/28/25 09:45 Thrive Assessment: Date of Thrive Assessment Date Thrive assessed 03/18/25 05/28/25 09:45 Currently or been in a relationship where the following occur: I choose not to answer Const Limitations: ambulation with cane Resp Effort & Inspection: normal respiratory effort Auscultation: clear to auscultation bilaterally Cardio Jugular venous distension: no JVD Rate: regular rate Rhythm: regular rhythm Heart sounds: S1 normal heart sound present and S2 normal heart sound present Extrem General: Yes full ROM Coding Level of Care Code Est Pt Level 4 (12936) Complex EM visit Add On G2211 Diagnoses Major depressive disorder, recurrent, moderate F33.1 Idiopathic hypotension I95.0 Hyperlipidemia E78.5 CKD (chronic kidney disease) stage 4, GFR 15-29 ml/min N18.4 Anemia D64.9 Dysphagia R13.10 Time Spent (min) 23 Assessment & Plan Assessment & Plan (1) Major depressive disorder, recurrent, moderate: Code(s): F33.1 - Major depressive disorder, recurrent, moderate Category: Medical (2) Idiopathic hypotension: Code(s): I95.0 - Idiopathic hypotension Category: Medical (3) Hyperlipidemia: Code(s): E78.5 - Hyperlipidemia, unspecified Category: Medical (4) CKD (chronic kidney disease) stage 4, GFR 15-29 ml/min: Code(s): N18.4 - Chronic kidney disease, stage 4 (severe) Category: Medical (5) Anemia: Code(s): D64.9 - Anemia, unspecified Category: Medical (6) Dysphagia: Code(s): R13.10 - Dysphagia, unspecified Category: Medical Plan The patient will have her macrocytic anemia re-evaluated today, and ferrous sulfate has been prescribed to address this condition. A urinalysis is planned to investigate her polyuria. She is scheduled for a barium swallow in July to assess her dysphagia. Her chronic kidney disease will continue to be monitored, with her GFR showing recent improvement. The patient's depression and anxiety are managed with bupropion, buspirone, and lorazepam as needed. Patient was informed and verbally consented to the use of an ambient scribe for clinic note documentation during this visit. Orders: Orders IRON PROFILE Today D64.9 - Anemia, unspecified UA CC w/rflx Micro + Cult Today R30.0 - Dysuria Vitamin B12 and Folate Today E53.8 - Deficiency of other specified B group vitamins Complete Blood Count Auto Diff Today D64.9 - Anemia, unspecified Vitamin D 25-OH Total Today E55.9 - Vitamin D deficiency, unspecified Medications: New ferrous sulfate 325 mg PO DAILY 90 tabs 1RF 90 days D64.9 - Anemia, unspecified
--- OUTSIDE RECORDS SUMMARY | 2025-05-28 10:15 | XMS_ITS | Clinical Summary ---
Author Organization [facility] Address [address] [place] [address] Phone Care Team Providers Care Director Of Undergraduate Admissions Name Role Phone Ned Alcantara MD Primary Care Provider [phone] Allergies Active Allergy Reactions Criticality Noted Date [...] PCV20, or PCV21) 04/12/2016 02/16/2016 Influenza Vaccine (#1) 2025 Pneumococcal Vaccine: Peds ( 0 to 5 Years) and At-Risk Patients (6 to 49 Years) Discontinued 02/16/2016 Hepatitis B Vaccine Aged Out No longe r eligible based on patient's age to complete this topic Insurance [address] [place], [place] [id number] [place] [id number] [place] [id number] Care Teams Director Of Undergraduate Admissions Relationship Specialty Start Date End Date Ned Alcantara MD [address] [place] [address] PCP - General 10/19/20
--- OUTSIDE RECORDS SUMMARY | 2025-05-28 10:15 | XMS_ITS ---
Author Name Guanakito Colbert Address Unknown Organization [facility] Care Team Providers Care Power Distributor Name Role Phone Unavailable Primary Care Physician Unavailab le History Of Present Illness This is an 84 year old female who is an established patient who is being seen for a chief complaintof a skin lesion.Location: right upper armQuality: not bleeding, darkening, enlarging, not itchy, rough and raised, and not painfulDuration: monthsModifying Factors: nothing makes it better or worseReason for Visit: evaluationPertinent History: history of basal cell carcinomaPertinent Negatives: nofamily history of melanomaAdditional History: Patient present for skin lesion on right arm. Allergies, Adverse Reactions, Alerts Substance RxNorm Reaction(s) Severity Status Start Da te aspirin 1191 unspecified active Demerol 667600 unspecified active Penicillins unspecified active Sulfa (Sulfonamide Antibiotics) unspecif ied active Medications Medication Generic Name RxNorm Strength Strength Unit Route Dose Dose Form Frequency Date Started Date Ended Status Indication Sig clobetasol 0.05 % Topica l ointm ent suspend ed triamcinolo ne acetonide triamcin olone acetonid e 7515005 0.1 % Topica l cream BID 09/05/20 22 suspend ed Appl y BID tor rash on arms and legs . triamcinolo ne acetonide 0.1 % Dental paste suspend ed chlorhexidi ne (bulk) chlorhex idine (bulk) Miscel laneou s liqui d active chlorhexidi ne gluconate 0.12 % Mucous Membra ne mouth wash suspend ed amitriptyli ne 50 mg Oral 1 table t QD active azithromyci n azithrom ycin 250 mg Oral 1 table t QD active bupropion HCl 150 mg Oral 1 table t exten ded relea se 24 hr QD active buspirone buspiron e 10 mg Oral 1 table t QD active clopidogrel 75 mg Oral tabl e t suspend ed dexamethaso ne 0.5 mg/5 mL Oral solut ion suspend ed lorazepam 0.5 mg Oral table t suspend ed lorazepam lorazepa m 0.5 mg Oral 1 table t QD active lovastatin 40 mg Oral table t suspend ed lovastatin lovastat in 10 mg Oral 1 table t QD active Mapap (acetaminop hen) acetamin ophen 500 mg Oral 1 capsu le QD active midodrine midodrin e 2.5 mg Oral 1 table t QD active omeprazole 20 mg Oral 1 capsu le,de layed relea se(DR /EC) QD active oxycodone oxycodon e 5 mg Oral 1 capsu le QD active sertraline 100 mg Oral 1 table t QD active Acetaminoph en NULL 05/13/20 14 suspend ed Acetaminoph en-Codeine #3 NULL 07/29/20 14 suspend ed Amitriptyli ne HCl NULL 09/21/20 15 suspend ed Azithromyci n NULL 07/08/20 16 active Azithromyci n NULL 11/27/19 16 active Biafine NULL 07/29/20 14 suspend ed buPROPion HCl ER (XL) NULL 04/05/28 16 active Chlorhexidi ne Gluconate NULL 16 active Chlorzoxazo ne NULL 07/01/20 14 suspend ed Chlorzoxazo ne NULL 05/13/20 14 suspend ed Ciprofloxac in HCl NULL 09/21/20 15 active Clindamycin HCl NULL 07/08/20 16 active Clindamycin Palmitate HCl NULL 07/08/20 16 active Clobetasol Propionate NULL 11/18 16 suspend ed Clobetasol Propionate NULL 05/13 14 suspend ed Clopidogrel Bisulfate NULL 15 suspend ed Desonide NULL 05/13/20 14 suspend ed Dexamethaso ne NULL 07/08/20 16 active Dexamethaso ne NULL 11/27/19 16 active Diazepam NULL 09/21/20 15 suspend ed Dicyclomine HCl NULL 09/21/20 15 active Doxycycline Hyclate NULL 09/21/20 15 active Doxycycline Hyclate NULL 09/21/20 15 active Erythromyci n NULL 09/21/20 15 active Fluconazole NULL 11/27/19 16 active Fluticasone Propionate NULL 09/21 15 active Gabapentin NULL 07/08/20 16 active Gabapentin NULL 07/01/20 14 suspend ed Gabapentin NULL 05/13/20 14 suspend ed HYDROcodone -Acetaminop hen NULL 07/08/20 16 active HYDROcodone -Acetaminop hen NULL 01/15/20 16 active hydrOXYzine Pamoate NULL 02/03/20 16 active Lidocaine Viscous NULL 09/21/20 15 active LORazepam NULL 07/08/20 16 active LORazepam NULL 05/13/20 14 suspend ed Lovastatin NULL 07/01/20 14 suspend ed Lovastatin NULL 05/13/20 14 suspend ed methylPREDN ISolone NULL 02/17/20 16 active MethylPREDN ISolone (Gonzalez) NULL 01/15/20 16 active Minocycline HCl NULL 08/05/20 14 suspend ed Mupirocin NULL 09/21/20 15 active Nevanac NULL 05/13/20 14 active Nystatin NULL 11/27/19 16 active oxyCODONE-A cetaminophe n NULL 01/15/20 16 active Potassium Chloride Evette ER NULL 07/08/20 16 active PrednisoLON E NULL 11/27/19 16 suspend ed PrednisoLON E Acetate NULL 14 suspend ed prednisoLON E Sodium Phosphate NULL 16 active Prevnar 13 NULL 09/21/20 15 suspend ed Sertraline HCl NULL 07/08/20 16 active Sertraline HCl NULL 05/13/20 14 suspend ed TraZODone HCl NULL 09/21/20 15 active Triamcinolo ne Acetonide NULL 16 active Triamterene NULL 05/13/20 14 suspend ed Triamterene -HCTZ NULL 07/01/20 14 suspend ed Vigamox NULL 05/13/20 14 suspend ed Problems Problem Code Type Status Date of Diagnosis Date of Resolution Basal cell carcinoma of truncal skin (disorder) 779662948( SNOMED) Diagnosis active 05/26/2025 Disseminated superficial actinic porokeratosis (disorder) 26359551(S NOMED) Diagnosis active 05/26/2025 Hemangioma of skin and subcutaneous tissue (disorder) 226942989( SNOMED) Diagnosis active 05/26/2025 Disorder of jaw (disorder) 52829904(S NOMED) Diagnosis active 05/26/2025 Basal cell carcinoma of truncal skin (disorder) 278480212( SNOMED) Diagnosis active 01/12/2024 Disseminated superficial actinic porokeratosis (disorder) 12368040(S NOMED) Diagnosis active 01/12/2024 Neoplasm of uncertain behavior of skin (disorder) 31995808(S NOMED) Diagnosis active 08/14/2023 Neoplasm of uncertain behavior of skin (disorder) 92907213(S NOMED) Diagnosis active 05/22/2023 Disseminated superficial actinic porokeratosis (disorder) 05584906(S NOMED) Diagnosis active 05/22/2023 Lichen planus (disorder) 2268243(SN OMED) Diagnosis active 05/22/2023 Inflammatory dermatosis (disorder) 162675132( SNOMED) Diagnosis active 11/18/2022 Disorder of pigmentation (disorder) 902020353( SNOMED) Diagnosis active 11/18/2022 Lichen planus (disorder) 3497046(SN OMED) Diagnosis active 11/18/2022 Neoplasm of uncertain behavior of skin (disorder) 02941704(S NOMED) Diagnosis active 11/18/2022 Inflammatory dermatosis (disorder) 292118244( SNOMED) Diagnosis active 09/05/2022 Neoplasm of uncertain behavior of skin (disorder) 34883035(S NOMED) Diagnosis active 09/05/2022 Disorder of pigmentation (disorder) 894159389( SNOMED) Diagnosis active 09/05/2022 History of pneumonia (situation) 923545542( SNOMED) Diagnosis active 11/18/2015 Other specified health status Z78.9(ICD- 10) Diagnosis active 11/18/2015 Disorder of skin and/or subcutaneous tissue (disorder) 05719615(S NOMED) Diagnosis active 11/18/2015 Benign neoplasm of skin of lower limb (disorder) 17138651(S NOMED) Diagnosis active 09/21/2015 History of malignant neoplasm of skin (situation) 020191982( SNOMED) Diagnosis active 06/03/2015 Scar conditions and fibrosis of skin (disorder) 005458212( SNOMED) Diagnosis active 10/21/2014 Basal cell carcinoma of lower extremity (disorder) 312148467( SNOMED) Diagnosis active 09/05/2014 Cellulitis and abscess of lower limb (disorder) 705333881( SNOMED) Diagnosis active 08/08/2014 Basal cell carcinoma of lower extremity (disorder) 656151304( SNOMED) Diagnosis active 08/05/2014 Neoplasm of uncertain behavior of skin (disorder) 84959864(S NOMED) Diagnosis active 07/01/2014 Lichen planus (disorder) 5415200(SN OMED) Problem active Anxiety disorder (disorder) 839930543( SNOMED) Problem active Arthritis (disorder) 4460381(SN OMED) Problem active Autoimmune disease (disorder) 62811285(S NOMED) Problem active Infection caused by Clostridioides difficile (disorder) 448206315( SNOMED) Problem active Depressive disorder (disorder) 71522051(S NOMED) Problem active Diplopia (disorder) 49238430(S NOMED) Problem active Increased blood pressure (finding) 63781619(S NOMED) Problem active Gastroesophageal reflux disease (disorder) 203661926( SNOMED) Problem active History of hypertension (situation) 949884150( SNOMED) Problem active History of migraine (situation) 978164002( SNOMED) Problem active Hypercholesterolemia (disorder) 28426725(S NOMED) Problem active Hyperkalemic acidosis (disorder) 602035311( SNOMED) Problem active Kidney disease (disorder) 03660652(S NOMED) Problem active Myopic chorioretinal atrophy (disorder) 047410429( SNOMED) Problem active Seizure disorder (disorder) 867659204( SNOMED) Problem active Sepsis (disorder) 55368596(S NOMED) Problem active Toxic shock syndrome (disorder) 08964119(S NOMED) Problem active History of clinical finding in subject (situation) 665421748( SNOMED) Problem active Basal cell carcinoma of skin (disorder) 590193604( SNOMED) Problem active Herpes zoster (disorder) 0728507(SN OMED) Problem active Pyogenic granuloma (disorder) 618368545( SNOMED) Problem active Results No data Encounters Service provided at [address], [facility], [place], [place] [id number]. Office phonenumber is [phone]. Office fax number is [phone]. 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) [facility] 05/26/2025 12:15:00 [facility] [address] Reason For Referral I saw Liliana Gutierrez in the office on May 26, 2025.Below is a summary of our visit:Superficial Basal Cell Carcinoma: 2.5 cm pink scaly macule distributed on the inferior thoracic spine and left medial upper back.Plan: Counseling, Diagnosis Comment, and Photo-Documentation.Disseminated Superficial Actinic Porokeratosis: with cornoid lamella and follicular plugging on ELM distributed on the right proximal pretibial region and left anterior proximal thigh.Plan: Diagnosis Comment and Counseling.Angioma: 5 mm bright red crusted tender papule distributed on the right anterior proximal upper arm.Plan: Counseling and Photo- Documentation.Torus Palatinus: hard, flesh-colored nodule.Plan: Reassurance.My impression and plan was the followin.Superficial Basal Cell Carcinoma - 05/26/25: SBCC mid upper back measures 2.5 x 3 cm today and is asymptomatic. Will continue to monitor. Pt in agreement with this plan.01/12/24: SBCC mid upper back remains 2.5 x 2.5 cm and is asymptomatic. She was given imiquimod, but never used as not able to reach area and no help at home. She inquires why I cannot treat it and advised again that her unexplained almost hysterical seizure like activity is not something I feel comfortable handling and suggested general surgeon, radiation or PDT each of which was discussed and she declines. Advised SBCC are generally not aggressive and that lesion has not changed in size or appearance since she was last seen and is asymptomatic. Offered observation in lieu of other options given which she accepts for the moment. adela Lott was present for the entire visit and discussion and observed pt was not very pleased with my reticence to treat. Pt was advised her response to injections is more than I or my staff can handle and again recommendation of hospitalization for treatment if necessary. 05/22/23: pt report spot present years without symptoms or change. Today measures 2.5 cm and recommended Bx but she declines as she has not taken Ativan. She will return when she feels appropriate for shave BX only to be f/u with appropriate treatment which might include topical ie Imiquimod 11/18/22: This lesion was noted by me last visit, but I inadvertently did not r ef-visit this visit. I would like to see her again to reassess this area in 4-6 mos.CounselingPhoto-Documentation: left medial upper back.2.Disseminated Superficial Actinic Porokeratosis, Status: Stable - Long-standing of arms and legs. Not symptomatic.Counseling3.AngiomaCounselingPhoto-Documentation: right anterior proximal upper arm.4.Torus PalatinusReassurance Procedures Procedure Date Shave biopsy (procedure) 08/14/2023 12:0 0 am [facility] Excision of appendix (procedure) Arthroscopy of knee with lateral meniscu s repair (procedure) Bilateral cataracts (disorder) Hysterectomy (procedure) Excision of bilateral ovaries (procedure ) Complete repair of rotator cuff (procedu re) Excision of vulval lesion (procedure) History of repair of eyelid (situation) Tonsillectomy (procedure) Tonsillectomy (procedure) Excision of appendix (procedure) Arthroscopy of knee with lateral meniscu s repair (procedure) Bilateral cataracts (disorder) Excision of bilateral ovaries (procedure ) Complete repair of rotator cuff (procedu re) Excision of vulval lesion (procedure) History of repair of eyelid (situation) Hysterectomy (procedure) Complete repair of rotator cuff (procedu re) Excision of vulval lesion (procedure) Arthroscopy of knee with lateral meniscu s repair (procedure) Bilateral cataracts (disorder) History of repair of eyelid (situation) Hysterectomy (procedure) Excision of appendix (procedure) Tonsillectomy (procedure) Excision of bilateral ovaries (procedure ) Arthroscopy of knee with lateral meniscu s repair (procedure) Bilateral cataracts (disorder) Excision of bilateral ovaries (procedure ) Excision of vulval lesion (procedure) Excision of appendix (procedure) Complete repair of rotator cuff (procedu re) History of repair of eyelid (situation) Hysterectomy (procedure) Tonsillectomy (procedure) Excision of appendix (procedure) Excision of bilateral ovaries (procedure ) Complete repair of rotator cuff (procedu re) History of repair of eyelid (situation) Hysterectomy (procedure) Tonsillectomy (procedure) Arthroscopy of knee with lateral meniscu s repair (procedure) Bilateral cataracts (disorder) Excision of vulval lesion (procedure) Hysterectomy (procedure) Excision of vulval lesion (procedure) Bilateral cataracts (disorder) Excision of appendix (procedure) History of repair of eyelid (situation) Tonsillectomy (procedure) Excision of bilateral ovaries (procedure ) Arthroscopy of knee with lateral meniscu s repair (procedure) Complete repair of rotator cuff (procedu re) Arthroscopy of knee with lat eral meniscus repair (procedure) Left & right Tonsillectomy (procedure) Excision of vulval lesion (procedure) Hysterectomy (procedure) Complete repair of rotator cuff (procedu re) History of repair of eyelid (situation) Left eyeS/p bcc excision Excision of bilateral ovaries (procedure ) Excision of appendix (procedure) Bilateral cataracts (disorder) Review Of Systems Provider reviewed on May 26, 2025.A complete review of systems was performed.No Problems With Healing, No Problems With Scarring (hypertrophic Or Keloid), No Problems With Bleeding, No Immunosuppression, No Hay Fever, No Chest Pain, No Fever Or Chills, No Night Sweats, No Unintentional Weight Loss,No Thyroid Problems, No Sore Throat, No Blurry Vision, No Abdominal Pain, No Bloody Stool, No Bloody Urine, No Joint Aches, No Muscle Weakness, No Neck Stiffness, No Headaches, No Seizures, No Shortness Of Breath, No Wheezing, No Anxiety, And No Depression. Assessment 1.Superficial Basal Cell Carcinoma - 05/26/25: SBCC mid upper back measures 2.5 x 3 cm today and is asymptomatic. Will continue to monitor. Pt in agreement with this plan.01/12/24: SBCC mid upper back remains 2.5 x 2.5 cm and is asymptomatic. She was given imiquimod, but never used as not able to reach area and no help at home. She inquires why I cannot treat it and advised again that her unexplained almost hysterical seizure like activity is not something I feel comfortable handling and suggestedgeneral surgeon, radiation or PDT each of which was discussed and she declines. Advised SBCC are generally not aggressive and that lesion has not changed in size or appearance since she was last seenand is asymptomatic. Offered observation in lieu of other options given which she accepts for the moment. adela Lott was present for the entire visit and discussion and observed pt was not very pleased with my reticence to treat. Pt was advised her response to injections is more than I or my staff can handle and again recommendation of hospitalization for treatment if necessary. 05/22/23: pt report spot present years without symptoms or change. Today measures 2.5 cm and recommended Bx but she declines as she has not taken Ativan. She will return when she feels appropriate for shave BX onlyto be f/u with appropriate treatment which might include topical ie Imiquimod 11/18/22: This lesion was noted by me last visit, but I inadvertently did not ref-visit this visit. I would like to see her again to reassess this area in 4-6 mos.CounselingPhoto-Documentation: left medial upper back.2.Disseminated Superficial Actinic Porokeratosis, Status: Stable - Long-standing of arms and legs. Not sym ptomatic.Counseling3.AngiomaCounselingPhoto-Documentation: right anterior proximal upper arm.4.Torus PalatinusReassurance Plan of Care Future visit for 05/26/2026 - Follow up in 1 year for: Skin Check - 15 minutes Code Detail Instructions [id number] imiquimod 5 % topical cream pack et Apply a small amount to skin cancer on left upper back Monday thru Monday in the evenings for 6 weeks (skip weekends). 9368858 triamcinolone aceton mariel 0.1 % topical cream Apply BID tor rash on arms and legs. Instructions * I counseled the patient regarding the following:Instructions: Neoplasms of Uncertain Behavior can be observed, biopsied or surgically removed depending on the level of clinical suspicion.Will reassess next visit * I counseled the patient regarding the following:Skin Care: Disseminated Superficial Actinic Porokeratoses can be treated with emollients, sun protection and observation. Retinoids, vitamin d analogs,imiquimod, cryotherapy have also been beneficial.Expectations: Disseminated Superficial Actinic Porokeratosis are scaly brown-red growths. Risk of malignant transformation is low. Recurrence rates are high despite varied treatment modalities.Contact Office if: Growth(s) change in size, shape, become tender or bleed.Advised that I do not know of any reliable treatment and if any lesions became symptomatic, she should return for further evaluation.I recommended the following: Broad Spectrum Sunscreen SPF 30+ * I counseled the patient regarding the following:Skin Care: Angiomas can resolve with lasers or electrodesiccation.Expectations: Angiomas are benign vascular growths. No treatment is necessary. Social History Code Activity Start Date End Date [id number] (SNOMED) Never smoker Sex female Sexual orientation Unspecified Gender identity Unspecified Vital Signs No data
[2025-05-28 10:16] VITALS: BP 90/60
--- OUTSIDE RECORDS SUMMARY | 2025-05-28 10:16 | XMS_ITS | Clinical Summary ---
Author Organization [facility] Address [address] [place] [id number] Care Team Providers Care Limb Driver Name Role Phone Debbi Beckham Primary Care Provider [phone] Allergies Active Allergy Reactions Criticality Noted Date [...] 72 06/06/2018 12:00 PM EDT Temperature 36.1 C (96.9 F) 06/06/2018 10:20 AM EDT Respiratory Rate 17 06/06/2018 12:00 PM EDT [...] 2023-2 5 season) 2024 Influenza Vaccine (#1) 2025 HPV Vaccines Aged Out No longer eligi ble based on patient's age to complete this topic Hepatitis A Vaccines Aged Out No long er eligible based on patient's age to complete this topic Meningococcal Vaccine Aged Out No katlyn kwame eligible based on patient's age to complete this topic Insurance [facility] Advance Directives For more information, please contact: [phone] Documents on File Type Date Recorded 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
--- OUTSIDE RECORDS SUMMARY | 2025-05-28 10:16 | XMS_ITS | Clinical Summary ---
Author Organization [facility] Address [address] [place] [address] Phone Care Team Providers Care Special Forces Specialist Name Role Phone Ned Alcantara MD Primary Care Provider [phone] Allergies Active Allergy Reactions Criticality Noted Date [...] 83 08/19/2024 11:22 AM EST Temperature 37 C (98.6 F) 08/19/2024 11:22 AM EST Respiratory Rate 20 [...] 09/23/2018 07/29/2018 Cholesterol Screening (Lipid Panel) 09/10/2022 Falls Risk Assessment 09/10/2022 Osteoporosis Screening (Bone Density Screening) 09/10/2022 Social Influencers of Health Screening 09/10/2022 Depression Screening 10/09/2024 COVID-19 Vaccine ( season) 2024 06/27/2024, 04/08/2024, 07/11/2023, Additional history exists Influenza Vaccine (#1) 2025 , 07/01/2023, 07/07/2022, Additional history exists Hypertension/CHF/CAD Annual BMP Blood Test 08/19/2025 08/19/2024 DTaP,Tdap,and Td Vaccines (2 - Td or Tdap) 07/05/2034 07/05/2024 RSV Immunization Adult Patients Completed 07/04/2023 HIB Vaccines Aged Out No longer eligi [...] mmol/L LAB CHEMISTRY METHOD 08/19/2024 1:52 PM [facility] Potassium 5.2 3.5 - 5.5 mmol/L LAB CHEMISTRY METHOD 08/19/2024 1:52 PM [facility] Chloride 106 96 - 110 mmol/L LAB CHEMISTRY METHOD 08/19/2024 1:52 PM [facility] CO2 25 21 - 32 mmol/L LAB CHEMISTRY METHOD 08/19/2024 1:52 PM [facility] Anion Gap 8 3 - 11 LAB CHEMISTRY METHOD 08/19/2024 1:52 PM [facility] Glucose 107(H) 70 - 100 mg/dL LAB CHEMISTRY METHOD 08/19/2024 1:52 PM [facility] BUN 47(H) 5 - 25 mg/dL LAB CHEMISTRY METHOD 08/19/2024 1:52 PM [facility] Creatinine 1.69(H) 0.50 - 1.10 mg/dL LAB CHEMISTRY METHOD 08/19/2024 1:52 PM [facility] eGFR 30(L) >=60 mL/min/1. 73m2 LAB CHEMISTRY METHOD 08/19/2024 1:52 PM [facility] Comment:Calculation based on the Chronic Kidney Disease Epidemiology Collaboration (CKD-EPI) equation refit without adjustment for race. BUN/Creatinine Ratio 27.8 LAB CHEMISTRY METHOD 08/19/2024 1:52 PM [facility] Calcium 10.3 8.5 - 10.5 mg/dL LAB CHEMISTRY METHOD 08/19/2024 1:52 PM EST [facility] AST (SGOT) 23 10 - 42 unit/L LAB CHEMISTRY METHOD 08/19/2024 1:52 PM [facility] ALT (SGPT) 26 10 - 60 unit/L LAB CHEMISTRY METHOD 08/19/2024 1:52 PM [facility] Alkaline Phosphatase 138(H) 42 - 121 unit/L LAB CHEMISTRY METHOD 08/19/2024 1:52 PM [facility] Total Protein 7.4 6.0 - 8.0 g/dL LAB CHEMISTRY METHOD 08/19/2024 1:52 PM [facility] Albumin 4.3 3.2 - 5.0 g/dL LAB CHEMISTRY METHOD 08/19/2024 1:52 PM [facility] Total Bilirubin 0.5 0.0 - 1.4 mg/dL LAB CHEMISTRY METHOD 08/19/2024 1:52 PM [facility] Blood Venous blood specimen / Unknown Venipuncture / Unknown 08/19/2024 12:58 PM EST 08/19/2024 1:17 PM EST Jarod Malagon MD LAB BLOOD ORDERABLES Final Res ult [facility] [address] [place] [address], from Last 3 Months or Most Recently Relevant to Health Maintenance Insurance [facility] Advance Directives Documents on File Type Date Recorded Patient Circuit Board Inspector Expl anation Health Care Decision (hx) 12/29/2015 [...] (hx) 12/23/2015 AD [place]WT[place] DIRECTIVE Care Teams Special Forces Specialist Relationship Specialty Start Date End Date Ned Alcantara MD [address] [place] [id number] PCP - General 10/27/21
== END 2025-05-28 10:16 | disposition home or self-care (01) ==
LOC: HO.HMCH 09:31
PROVIDERS: PCP Internal Medicine; Visit Provider Internal Medicine
DX: F33.1 Major depressive disorder, recurrent, moderate (principal); I95.0 Idiopathic hypotension; E78.5 Hyperlipidemia, unspecified; N18.4 Chronic kidney disease, stage 4 (severe); D64.9 Anemia, unspecified; R13.10 Dysphagia, unspecified

== ENCOUNTER 2025-07-09 08:03 | Outpatient (REF) | payer OTHER, SELFPAY ==
--- NOTE | ~2025-07-09 | FL_ITS ---
EXAMINATION: XR BARIUM SWALLOW CLINICAL INFORMATION: Dysphagia to solids and liquids COMPARISON: None available. TECHNIQUE: Routine barium swallow upright was performed with thick barium and barium coated saltine crackers and thin barium in prone lying position. FINDINGS: On oral administration of thick barium there is normal propagation of bolus from the oral cavity through the pharynx, esophagus into stomach without any evidence of obstruction, narrowing or stricture. On oral administration of saltine crackers coated barium there is normal oral mastication and propagation of bolus from the oral cavity through the pharynx, esophagus into stomach without obstruction or narrowing. There is no laryngeal penetration and aspiration seen. Mild esophageal mural thickening is seen likely secondary to esophagitis. No particular mucosal pattern seen to suspect any specific infection. Findings to consider is inflammatory or gravel nidus esophagitis. No focal stricture seen. On placing patient prone lying and oral administration of thin barium there is good distention of esophagus without obstruction narrowing. There is a small sliding hiatal hernia in supine view. FLUOROSCOPY TIME: 306 DOSE AREA PRODUCT: 1804 uGy-m2 (microgray-meter squared) FL/FL barium swallow IMPRESSION: Abnormal barium swallow suggestive of esophagitis likely inflammatory or granulomatous. Cannot exclude underlying superficial mucosal long segment lesion. Recommend urgent endoscopy. Electronically signed by: Francisco J Almaraz MD 07/09/2025 11:51 AM EDT
--- OUTSIDE RECORDS SUMMARY | 2025-07-09 08:13 | XMS_ITS | Clinical Summary ---
Author Organization [facility] Address [address] [place] [address] Phone Care Team Providers Care Gunstock Repairer Name Role Phone Ned Alcantara MD Primary Care Provider [phone] Allergies Active Allergy Reactions Criticality Noted Date [...] Vaccine: 50+ Years (2 of 2 - PCV20 or PCV21) 02/15/2017 02/16/2016, 10/13/2015 Zoster Vaccines (2 of 2) 09/23/2018 07/29/2018 Cholesterol Screening (Lipid Panel) 09/10/2022 Falls Risk Assessment 09/10/2022 Osteoporosis Screening (Bone Density Screening) 09/10/2022 Social Influencers of Health Screening 09/10/2022 Depression Screening 10/09/2024 COVID-19 Vaccine ( season) 2025 06/27/2024, 04/08/2024, 07/11/2023, Additional history exists Influenza [...] mmol/L LAB CHEMISTRY METHOD 08/19/2024 1:52 PM [facility] Potassium 5.2 3.5 - 5.5 mmol/L LAB CHEMISTRY METHOD 08/19/2024 1:52 PM [facility] Chloride 106 96 - 110 mmol/L LAB CHEMISTRY METHOD 08/19/2024 1:52 PM [facility] CO2 25 21 - 32 mmol/L LAB CHEMISTRY METHOD 08/19/2024 1:52 PM [facility] Anion Gap 8 3 - 11 LAB CHEMISTRY METHOD 08/19/2024 1:52 PM [facility] Glucose 107(H) 70 - 100 mg/dL LAB CHEMISTRY METHOD 08/19/2024 1:52 PM [facility] BUN 47(H) 5 - 25 mg/dL LAB CHEMISTRY METHOD 08/19/2024 1:52 PM [facility] Creatinine 1.69(H) 0.50 - 1.10 mg/dL LAB CHEMISTRY METHOD 08/19/2024 1:52 PM [facility] eGFR 30(L) >=60 mL/min/1. 73m2 LAB CHEMISTRY METHOD 08/19/2024 1:52 PM [facility] Comment:Calculation based on the Chronic Kidney Disease Epidemiology Collaboration (CKD-EPI) equation refit without adjustment for race. BUN/Creatinine Ratio 27.8 LAB CHEMISTRY METHOD 08/19/2024 1:52 PM [facility] Calcium 10.3 8.5 - 10.5 mg/dL LAB CHEMISTRY METHOD 08/19/2024 1:52 PM [facility] AST (SGOT) 23 10 - 42 unit/L LAB CHEMISTRY METHOD 08/19/2024 1:52 PM [facility] ALT (SGPT) 26 10 - 60 unit/L LAB CHEMISTRY METHOD 08/19/2024 1:52 PM [facility] Alkaline Phosphatase 138(H) 42 - 121 unit/L LAB CHEMISTRY METHOD 08/19/2024 1:52 PM [facility] Total Protein 7.4 6.0 - 8.0 g/dL LAB CHEMISTRY METHOD 08/19/2024 1:52 PM [facility] Albumin 4.3 3.2 - 5.0 g/dL LAB CHEMISTRY METHOD 08/19/2024 1:52 PM [facility] Total Bilirubin 0.5 0.0 - 1.4 mg/dL LAB CHEMISTRY METHOD 08/19/2024 1:52 PM [facility] Blood Venous blood specimen / Unknown Venipuncture / Unknown 08/19/2024 12:58 PM EST 08/19/2024 1:17 PM EST Jarod Malagon MD LAB BLOOD ORDERABLES Final Res ult [facility] [address] [place] [address], from Last 3 Months or Most Recently Relevant to Health Maintenance Insurance [facility] Advance Directives Documents on File Type Date Recorded Patient Junior Sales Representative Expl anation Health Care Decision (hx) 12/29/2015 [...] (hx) 12/23/2015 AD NEWTON DIRECTIVE Care Teams Gunstock Repairer Relationship Specialty Start Date End Date Ned Alcantara MD [address] [place] [address] PCP - General 10/27/21
--- OUTSIDE RECORDS SUMMARY | 2025-07-09 08:13 | XMS_ITS | Clinical Summary ---
Author Organization [facility] Address [address] [place] [address] Care Team Providers Care Bat Lathe Operator Name Role Phone Debbi Beckham Primary Care Provider [phone] Allergies Active Allergy Reactions Criticality Noted Date [...] COVID-19 Vaccine (1 - 2023-2 5 season) 2025 Influenza Vaccine (#1) 2025 HPV Vaccines Aged Out No longer eligi ble based on patient's age to complete this topic Hepatitis A Vaccines Aged Out No long er eligible based on patient's age to complete this topic Meningococcal Vaccine Aged Out No katlyn kwame eligible based on patient's age to complete this topic Insurance [facility] Advance Directives For more information, please contact: [phone] Documents on File Type Date Recorded Patient Lot Technician Expl anation Advance Directives 06/07/2018 2:23 PM Healthcare Agents on File Name Relationship Healthcare Agent Relationshi p Communication Kirsten Jairo Friend POA for [facility] prior to 07/09/2006 Care Teams Bat Lathe Operator Relationship Specialty Start Date End Date Debbi Beckham PA [address] [phone] PCP - General Family Medicine 05/23/18
--- OUTSIDE RECORDS SUMMARY | 2025-07-09 08:13 | XMS_ITS | Clinical Summary ---
Author Organization [facility] Address [address] [place] [address] Phone Care Team Providers Care Emd Special Education Teacher Name Role Phone Ned Alcantara MD Primary Care Provider [phone] Allergies Active Allergy Reactions Criticality Noted Date [...] patient's age to complete this topic Insurance [address] [place], [place] [address] [place] [address] [place] [address] Care Teams Emd Special Education Teacher Relationship Specialty Start Date End Date Ned Alcantara MD [address] [place] [address] PCP - General 10/19/20
== END 2025-07-09 08:04 | disposition home or self-care (01) ==
LOC: HO.XRAY 08:03
PROVIDERS: PCP Internal Medicine
DX: R13.10 Dysphagia, unspecified (principal)
CPT/HCPCS: 74220

== ENCOUNTER → 2025-07-09 08:05 | Outpatient (BNV) | payer OTHER, SELFPAY | PROVIDERS: PCP Internal Medicine; Visit Provider Radiology Diagnostic Radiology | DX: R13.10 Dysphagia, unspecified (principal) | CPT/HCPCS: 74221 ==

== ENCOUNTER 2025-07-25 12:12 | Outpatient (REF) | payer OTHER, SELFPAY ==
[2025-07-25 14:40] LABS: Appearance Urine Clear; Glucose Urine UA Negative (Negative); PH 6.0 (5.0-9.0); Specific Gravity - Urine 1.015 (1.005-1.025); UMIC TRIGGER UACC YES
--- OUTSIDE RECORDS SUMMARY | 2025-07-25 14:48 | XMS_ITS | Clinical Summary ---
Author Organization [facility] Address [address] [place] [address] Phone Care Team Providers Care Field Service Poultry Technician Name Role Phone Ned Alcantara MD Primary Care Provider [phone] Allergies Active Allergy Reactions Criticality Noted Date [...] mmol/L LAB CHEMISTRY METHOD 08/19/2024 1:52 PM [facility] Potassium 5.2 3.5 - 5.5 mmol/L LAB CHEMISTRY METHOD 08/19/2024 1:52 PM [facility] Chloride 106 96 - 110 mmol/L LAB CHEMISTRY METHOD 08/19/2024 1:52 PM [facility] CO2 25 21 - 32 mmol/L LAB CHEMISTRY METHOD 08/19/2024 1:52 PM [facility] Anion Gap 8 3 - 11 LAB CHEMISTRY METHOD 08/19/2024 1:52 PM [facility] Glucose 107(H) 70 - 100 mg/dL LAB CHEMISTRY METHOD 08/19/2024 1:52 PM [facility] BUN 47(H) 5 - 25 mg/dL LAB CHEMISTRY METHOD 08/19/2024 1:52 PM [facility] Creatinine 1.69(H) 0.50 - 1.10 mg/dL LAB CHEMISTRY METHOD 08/19/2024 1:52 PM [facility] eGFR 30(L) >=60 mL/min/1. 73m2 LAB CHEMISTRY METHOD 08/19/2024 1:52 PM [facility] Comment:Calculation based on the Chronic Kidney Disease Epidemiology Collaboration (CKD-EPI) equation refit without adjustment for race. BUN/Creatinine Ratio 27.8 LAB CHEMISTRY METHOD 08/19/2024 1:52 PM [facility] Calcium 10.3 8.5 - 10.5 mg/dL LAB CHEMISTRY METHOD 08/19/2024 1:52 PM [facility] AST (SGOT) 23 10 - 42 unit/L LAB CHEMISTRY METHOD 08/19/2024 1:52 PM [facility] ALT (SGPT) 26 10 - 60 unit/L LAB CHEMISTRY METHOD 08/19/2024 1:52 PM [facility] Alkaline Phosphatase 138(H) 42 - 121 unit/L LAB CHEMISTRY METHOD 08/19/2024 1:52 PM [facility] Total Protein 7.4 6.0 - 8.0 g/dL LAB CHEMISTRY METHOD 08/19/2024 1:52 PM [facility] Albumin 4.3 3.2 - 5.0 g/dL LAB CHEMISTRY METHOD 08/19/2024 1:52 PM [facility] Total Bilirubin 0.5 0.0 - 1.4 mg/dL LAB CHEMISTRY METHOD 08/19/2024 1:52 PM [facility] Blood Venous blood specimen / Unknown Venipuncture / Unknown 08/19/2024 12:58 PM EST 08/19/2024 1:17 PM EST Jarod Malagon MD LAB BLOOD ORDERABLES Final Res ult [facility] [address] [place] [address], from Last 3 Months or Most Recently Relevant to Health Maintenance Insurance [facility] Advance Directives Documents on File Type Date Recorded Patient Feeder Loader Expl anation Health Care Decision (hx) 12/29/2015 [...] (hx) 12/23/2015 AD NEWTON DIRECTIVE Care Teams Field Service Poultry Technician Relationship Specialty Start Date End Date Ned Alcantara MD [address] [place] [address] PCP - General 10/27/21
--- OUTSIDE RECORDS SUMMARY | 2025-07-25 14:48 | XMS_ITS | Clinical Summary ---
Author Organization [facility] Address [address] [place] [address] Care Team Providers Care Cancer Registry Manager Name Role Phone Debbi Beckham Primary Care Provider [phone] Allergies Active Allergy Reactions Criticality Noted Date [...] patient's age to complete this topic Insurance [facility] Advance Directives For more information, please contact: [phone] Documents on File Type Date Recorded Patient Smocker Expl anation Advance Directives 06/07/2018 2:23 PM Healthcare Agents on File Name Relationship Healthcare Agent Relationshi p Communication Kirsten Jairo Friend POA for [facility] re prior to 07/09/2006 Care Teams Cancer Registry Manager Relationship Specialty Start Date End Date Debbi Beckham PA [address] [phone] PCP - General Family Medicine 05/23/18
--- OUTSIDE RECORDS SUMMARY | 2025-07-25 14:48 | XMS_ITS | Data Portability ---
Author Organization [facility] [address] Address [address] [place] [address] Assessment No assessment recorded. Plan of Treatment [...] By Organization Details Last Modified Time 01/31/2023 [id number] Exercise. Its important to have a regular [...] Address Organization Details Recorded Time Hyperlip idemia 66752620 Active 2022 [facility] 16:32:31 Anxiety 26203971 Active 2022 [facility] 16:37:20 Autoimmu ne disease 38686229 Active 2022 [facility] 16:37:42 Chronic kidney disease stage 3 969826005 Active 2022 Shayna mcclellan, PA - [facility] 3 16:38:41 Clostrid ium difficil e colitis 907689327 Completed 202201/31/2023 Shayna mcclellan, PA - [facility] 3 16:40:26 Seizure disorder 250050124 Active 2022 Psychogen ic Shayna mcclellan, PA - [facility] 3 16:52:21 Depressi ve disorder 03179031 Active 2022 Shayna mcclellan, PA - [facility] 3 16:39:44 Gastroes ophageal reflux disease 673982734 Active 2022 Shayna mcclellan, PA - [facility] 3 16:39:51 Toxic shock syndrome 67602056 Completed 202201/31/2023 Shayna mcclellan PA - [facility] 3 16:40:20 Hyperten sive heart disease 16925000 Active 2022 Shayna mcclellan, PA - [facility] 3 16:40:49 Dissocia tive convulsi ons 748704036 Active 2022 Shayna mcclellan, PA - [facility] 3 16:41:14 Panic attack 150824051 Active 2022 Shayna mcclellan, PA - [facility] 16:41:30 Pyogenic granulom a 204391565 Active 2022 Shayna mcclellan, PA - [facility] 16:41:48 Orthosta tic hypotens ion 50238845 Active 2022 Shayna mcclellan, PA - [facility] 16:41:59 Problem Notes None recorded. Procedures Surgical History Date Name Laterality Status Provider Name and Address Organization Details Recorded Time Appendectomy completed Shayna MELISSA - [facility] 01/31/2023 16:42:52 arthroscopy of [...] Name and Address Organization Details Recorded Time 236285 aspirin medicatio n Not available Not available Not available 01/31/2023 1191 RxNorm Shayna mcclellan, PA - [facility] 16:35:27 054454 lactase medicatio n Not available Not available Not available 01/31/2023 36735 RxNorm Shayna mcclellan, PA - [facility] 16:35:32 028743 Demerol medicatio n Not available Not available Not available 01/31/2023 82096 1 RxNorm Shayna mcclellan, PA - [facility] 16:36:41 310738 Product containin g penicilli n (product) medicatio n Not available Not available Not available 01/31/2023 41972 8001 SNOMED Shayna [facility]llan, [facility] - [facility] [...] verbal numeric rating [Score] - Reported Systolic And Diastolic Provider Name and Address Organization Details Last Updated DateTime 3 170.18 cm 30.9 kg/m2 92083.7 g 99 % 99 % 81 /min 18 /min 97.2 [degF] 0 118/69 mm[Hg] Shayna MELISSA - [facility] 3 16:33:53 Social History [...] 16:32:53 Influenza, high-dose, trivalent, PF 7 completed Shaynabjorn Sorenson null, PA - [facility] 01/31/2023 16:32:53 Influenza, high-dose, trivalent, PF 6 completed Shaynabjorn Sorenson null, PA - [facility] 01/31/2023 16:32:53 Past Encounters Encounter ID Performer Location Encounter Start Date Encounter Closed Date Diagnosis/Indication Diagnosis SNOMED-CT Code Diagnosis ICD10 Code Diagnosis IMO Codes Diagnosis Note [id number] [address] [place] [address] 09/14/2019 13:42:16 09/14/2019 14:25:00 [id number] [address] [place] [address] 11/09/2017 11:47:21 11/09/2017 13:12:08 [id number] [address] [place] [address] 07/30/2018 11:07:33 07/30/2018 12:24:33 [id number] [address] [facility] [place] [address] 08/31/2016 08:30:25 08/31/2016 09:21:21 [id number] [address] [facility] [place] [address] 04/03/2016 11:04:22 04/03/2016 12:26:32 [id number] [address] [facility] [place] [address] 07/06/2018 11:34:50 07/06/2018 13:31:29 [id number] [address] [facility] [place] [address] 01/28/2016 18:05:08 01/28/2016 19:07:56 [id number] [address] [facility] [place] [address] 02/10/2016 16:53:28 02/10/2016 17:58:03 [id number] [address] [facility] [place] [address] 12/27/2015 16:29:56 12/27/2015 17:29:07 [id number] [address] [facility] [place] [address] 09/30/2015 15:05:01 09/30/2015 16:05:08 [id number] [address] [facility] [place] [address] 02/21/2018 17:57:32 02/21/2018 19:08:50 [id number] [address] [facility] [place] [address] 07/11/2020 16:25:03 07/11/2020 18:19:21 [id number] [address] [facility] [place] [address] 04/29/2016 08:27:37 04/29/2016 09:19:25 [id number] [address] [facility] [place] [address] 10/04/2015 09:33:14 10/04/2015 10:43:28 [id number] [address] [facility] [place] [address] 01/09/2019 09:06:31 01/09/2019 10:08:57 [id number] Tommy Arroyo, SHIPPING SUPERVISOR [address] [facility] [place] [address] 01/31/2023 15:37:57 01/31/2023 16:56:56 Pain of right hip joint [id number] [address] M25.551 strongly encouraged to follow up with her PCP or orthopedic as previously scheduled. Health Concerns Section Related Observation LastModified by Organization Detai ls LastModified Time None Recorded Concern Status LastModified by Organization Details LastModified Time None Recorded Advance Directives Directive None Recorded Payers Insurance Date Sequence Insurance Name Policy Number Policy Mcmullen Covered Member ID Mcmullen Member ID Guarantor Name 01/31/2023 1 [facility] (O) [id number] Liliana Gutierrez [id number] Liliana Gutierrez Notes Date Note Type Note Provider Name and Address Organization Details Recorded Time 01/31/2023 text/html Thigh / HipRepor jenny by PatientHPIFor alleviating factors, patient reportsnothing helps. For associated symptoms, patient reportspopping/clicking but reportsno weakness,no numbness,no tingling,no swelling,no redness,no warmth,no ecchymosis,no catching/locking,no buckling,no grinding,no instability,no drainage,no fever, andno chills. For previous pt, patient reportsdid not help. For source of patient information, patient reportsinformation obtained from patientandpatient arrived at urgent care ambulatory. For location, patient reportsright,anterior, andmedial. For quality, patient reportsaching. For severity, patient reportsmild. For duration, patient reports1 months. For timing, patient reportsacute. For context, patient reportscannot identify. For aggravating factors, patient reportscannot identify. For previous surgery, patient reportsnone. For prior imaging, patient reportsnone. For previous injections, patient reportsnone. Tommy Arroyo NP [address] [place], [address], [place] - [facility] 01/31/2023 16:56:09 OBGyn Episode No OBEpisode recorded.
--- OUTSIDE RECORDS SUMMARY | 2025-07-25 14:48 | XMS_ITS | Clinical Summary ---
Author Organization [facility] Address [address] [place] [address] Phone Care Team Providers Care Equipment Installation Professional Name Role Phone Ned Alcantara MD Primary Care Provider [phone] Allergies Active Allergy Reactions Criticality Noted Date [...] patient's age to complete this topic Insurance [address] [place], [place] [address] [place] [address] [place] [address] Care Teams Equipment Installation Professional Relationship Specialty Start Date End Date Ned Alcantara MD [address] [place] [address] PCP - General 10/19/20
[2025-07-25 15:08] LABS: UACC Culture Trigger YES
[2025-07-25 15:13] LABS: Anion Gap 13 (12-20); Blood Urea Nitrogen 53 mg/dL (9-16); Calcium 10.2 mg/dL (8.4-10.2); Carbon Dioxide 26 mmol/L (22-29); Chloride 107 mmol/L (96-108); Estimated Glomerular Filt Rate 27; Potassium 5.2 mmol/L (3.3-5.1); Sodium 141 mmol/L (135-145)
== END 2025-07-25 12:13 | disposition home or self-care (01) ==
LOC: HO.LAB 12:12
PROVIDERS: PCP Internal Medicine; Visit Provider Internal Medicine Hypertension Specialist
DX: N18.9 Chronic kidney disease, unspecified (principal)
CPT/HCPCS: 36415; 80048; 81001; 81003; 87086

== ENCOUNTER 2025-07-28 13:44 | Outpatient (AMB) | payer OTHER, SELFPAY ==
[2025-07-28 13:53] VITALS: BP 110/52; PULSE 70; O2SAT 96; BMI 27.4
--- NOTE | 2025-07-28 13:53 | HO.NEPHOV ---
Vital Signs 07/28/25 13:53 Height 5 ft 7 in Weight 175 lb BMI 27.4 BP 110/52 L Blood Pressure Location Lt brachial Position Sitting Pulse 70 Pulse Source Pulse Oximeter Pulse Oximetry (%) 96 Oxygen Delivery Method Room Air Intake Visit Reasons: 6 MO [facility]U-[facility] Senior Client Advisor Required: No Accompanied by: Self / Same As Patient Allergies aspirin (ASPIRIN) Allergy (Unknown, Verified 07/28/25 13:58) ANAPHYLAXIS meperidine (From DEMEROL) Allergy (Unknown, Verified 07/28/25 13:58) ANAPHYLAXIS Penicillins (PENICILLINS) Allergy (Unknown, Verified 07/28/25 13:58) ANAPHYLAXIS Sulfa (Sulfonamide Antibiotics) (SULFA (SULFONAMIDE ANTIBIOTICS)) Allergy (Unknown, Verified 07/28/25 13:58) UNKNOWN dairy Allergy (Unknown, Uncoded 05/28/25 10:02) unknown lactose intolerance Allergy (Unknown, Uncoded 05/28/25 10:02) Unknown Medication List - Last Reconciled 07/28/25 by Ronald Hunt MD bupropion HCl XL 150 mg PO DAILY buspirone 10 mg PO BID clopidogrel 75 mg PO DAILY ferrous sulfate 325 mg PO DAILY 90 days fludrocortisone 0.1 mg PO DAILY 90 days lorazepam 0.5 mg PO BID PRN midodrine 2.5 mg PO DAILY omeprazole 20 mg PO BID sacroiliac belt As directed sertraline 200 mg (2 x 100 mg) PO DAILY PRN 90 days zolpidem 5 mg PO BEDTIME PRN 30 days HPI Comments Details: Sarahy is a 84-year-old woman with a history of for CKD in a setting of hypertension. In the past she had significant involuntary movements and she was on high dose of Neurontin. After stopping Neurontin the involuntary movements resolved. Recently she has been lightheadedness and she has imbalance when she walks. She is being evaluated by Cardiology Dr. Nieto After adding Midodrine 2.5 mg QD, she feels much better 02/06/24 ; Having issues with UC ;Lomotil has been added 06/04/2024 ;She is having difficulty walking with unsteady gait. 07/09/24;Recently in [facility] for UTI ; Says she has had 2 seizures 01/28/25; Here for follow up;Went to ER in December but does not remember the event or the reason for the visit 03/14/25;84-year-old female presenting for follow-up on hypertension and chronic kidney disease management. She was recently hospitalized due to elevated blood pressure, which may have been complicated by a Klebsiella urinary tract infection. Her renal function remains relatively stable with a creatinine of 1.8 mg/dL. Orthostatic hypotension has been addressed with fludrocortisone and midodrine therapy, the continuation of which is under evaluation. She reports swollen wrists and a hematoma, attributed to insect bites, seeking resolution for associated itching. For dysphagia, which has led to aspiration on two occasions, she is scheduled for a barium swallow study and dietary education. These consultations were advised following her primary care and hospital team evaluations. 07/28/25 - The patient is an 84-year-old female presenting with chronic kidney disease management. - Dysphagia: Difficulty swallowing due to pharyngeal and tongue changes, causing choking on pills. Recent Barium swallow was reportedly normal - Chronic Kidney Disease: Stable renal function over the last two years. - Anemia: Managed with iron supplements, difficulty swallowing tablets noted. - Mild Hyperkalemia: Potassium level at 5.2 mmol/L, no high-potassium foods consumed. [facility] Medical History Orthostatic hypotension Dyspnea on exertion Chronic pain of both shoulders Wrist pain Obesity Depression Hyperlipidemia Hypertension Fall Surgical History Hx of colonoscopy History of biopsy History of surgical removal of lesion History of hysterectomy History of appendectomy Family History Father History of heart attack Mother Colon cancer Social History Household Members: None Housing: House Do you presently have visiting nurse or other home services: No Alcohol intake: never Comment: refuses fall socks, and camera for safety Patient Tobacco Use Status: Never used Tobacco Tobacco use type: Cigarette e-Cigarette/Vaping Use: Never Used Second Hand Smoke Exposure: No service: No Current occupational status: retired Cognitive needs: Yes (cane) Hearing needs: No Vision needs: Yes Physical Exam Vital Signs: Last Vital Signs Pulse 70 07/28/25 13:53 BP 110/52 L 07/28/25 13:53 Pulse Ox 96 07/28/25 13:53 Oxygen Delivery Method Room Air 07/28/25 13:53 BMI result Body Mass Index 27.4 Const General: comfortable Nutritional Appearance: well nourished Orientation/consciousness: patient oriented x3 HEENT Head: No normal to inspection Mouth: moist mucous membranes Neck Neck: Yes supple and Yes no JVD Resp Auscultation: clear to auscultation bilaterally and no rales Cardio Jugular venous distension: no JVD Palpation: no palpable S3 and no palpable S4 Heart sounds: no rubs GI Palpation (GI): Soft to palpation and nontender Percussion: No Fluid wave present General: Yes no CVA tenderness Back/Spine/Pelvis Back: no CVA tenderness Skin General skin exam: no rashes or lesions noted Neuro General: patient oriented x3 Extrem General: Yes no pedal edema and No clubbing Results Reviewed Nephrology Results: Hgb, (12.0-16.0) 9.2 g/dl L 05/28/25 WBC, (4.8-10.8) 6.7 X10*3/uL 05/28/25 Plt Count, (160-400) 107 X10*3/uL L Δ 05/28/25 Sodium, (135-145) 141 mmol/L 07/25/25 Potassium, (3.3-5.1) 5.2 mmol/L H 07/25/25 Chloride, (96-108) 107 mmol/L 07/25/25 Carbon Dioxide, (22-29) 26 mmol/L 07/25/25 BUN, (9-16) 53 mg/dL H 07/25/25 Creatinine, (0.5-1.4) 1.80 mg/dL H 07/25/25 Calcium, (8.4-10.2) 10.2 mg/dL 07/25/25 Urine Protein, (Neg-Trace) Negative mg/dL 07/25/25 Assessment & Plan Assessment & Plan (1) CKD (chronic kidney disease): Code(s): N18.9 - Chronic kidney disease, unspecified Category: Medical Qualifiers: Chronic kidney disease stage: stage 3 (moderate) Chronic kidney disease stage 3 subtype: stage 3b (GFR 30-44) Qualified Code(s): N18.32 - Chronic kidney disease, stage 3b Plan: Chronic disease in the setting of longstanding hypertension. Renal function stable she has stage III B /stage IV CKD. Renal function is close to baseline. eGFR 26- 30 ml/mt Goal is to slow the progression of renal disease. (2) Postural hypotension: Code(s): I95.1 - Orthostatic hypotension Category: Medical Plan: h/o Significant orthostatic hypotension. Keep midodrine 2.5 mg once a day in the morning and reassess her blood pressure. Agree with Fluorinef Change dose ot 0.1 mg QD from 0.2 mg (3) Hypercalcemia: Code(s): E83.52 - Hypercalcemia Category: Medical Plan: Mild asymptomatic hypercalcemia Mild hyperparathyroidism Follow PTH and Ca and will add Sensipar if needed Repeat Ca is normal (4) Anemia: Code(s): D64.9 - Anemia, unspecified Category: Medical Plan: Mild asymptomatic anemia with thrombocytopenia. Both are chronic. No indication for Epogen. Orders: Orders Basic Metabolic Panel 6 Months N18.4 - Chronic kidney disease, stage 4 (severe) Complete Blood Count Auto Diff 6 Months N18.4 - Chronic kidney disease, stage 4 (severe) Coding Level of Care Code Est Pt Level 4 (83575) Diagnoses Stage 3b chronic kidney disease N18.32 Chronic kidney disease stage: stage 3 (moderate) Chronic kidney disease stage 3 subtype: stage 3b (GFR 30-44) Postural hypotension I95.1 Hypercalcemia E83.52 Anemia D64.9
--- OUTSIDE RECORDS SUMMARY | 2025-07-28 17:06 | XMS_ITS | Clinical Summary ---
Author Organization [facility] Address [address] [place] [address] Phone Care Team Providers Care Lens Examiner Name Role Phone Ned Alcantara MD Primary Care Provider [phone] Allergies Active Allergy Reactions Criticality Noted Date [...] mmol/L LAB CHEMISTRY METHOD 08/19/2024 1:52 PM [facility] Potassium 5.2 3.5 - 5.5 mmol/L LAB CHEMISTRY METHOD 08/19/2024 1:52 PM [facility] Chloride 106 96 - 110 mmol/L LAB CHEMISTRY METHOD 08/19/2024 1:52 PM [facility] CO2 25 21 - 32 mmol/L LAB CHEMISTRY METHOD 08/19/2024 1:52 PM [facility] Anion Gap 8 3 - 11 LAB CHEMISTRY METHOD 08/19/2024 1:52 PM [facility] Glucose 107(H) 70 - 100 mg/dL LAB CHEMISTRY METHOD 08/19/2024 1:52 PM [facility] BUN 47(H) 5 - 25 mg/dL LAB CHEMISTRY METHOD 08/19/2024 1:52 PM [facility] Creatinine 1.69(H) 0.50 - 1.10 mg/dL LAB CHEMISTRY METHOD 08/19/2024 1:52 PM [facility] eGFR 30(L) >=60 mL/min/1. 73m2 LAB CHEMISTRY METHOD 08/19/2024 1:52 PM [facility] Comment:Calculation based on the Chronic Kidney Disease Epidemiology Collaboration (CKD-EPI) equation refit without adjustment for race. BUN/Creatinine Ratio 27.8 LAB CHEMISTRY METHOD 08/19/2024 1:52 PM [facility] Calcium 10.3 8.5 - 10.5 mg/dL LAB CHEMISTRY METHOD 08/19/2024 1:52 PM [facility] AST (SGOT) 23 10 - 42 unit/L LAB CHEMISTRY METHOD 08/19/2024 1:52 PM [facility] ALT (SGPT) 26 10 - 60 unit/L LAB CHEMISTRY METHOD 08/19/2024 1:52 PM [facility] Alkaline Phosphatase 138(H) 42 - 121 unit/L LAB CHEMISTRY METHOD 08/19/2024 1:52 PM [facility] Total Protein 7.4 6.0 - 8.0 g/dL LAB CHEMISTRY METHOD 08/19/2024 1:52 PM [facility] Albumin 4.3 3.2 - 5.0 g/dL LAB CHEMISTRY METHOD 08/19/2024 1:52 PM [facility] Total Bilirubin 0.5 0.0 - 1.4 mg/dL LAB CHEMISTRY METHOD 08/19/2024 1:52 PM [facility] Blood Venous blood specimen / Unknown Venipuncture / Unknown 08/19/2024 12:58 PM EST 08/19/2024 1:17 PM EST Jarod Malagon MD LAB BLOOD ORDERABLES Final Res ult [facility] [address] [place] [address], from Last 3 Months or Most Recently Relevant to Health Maintenance Insurance [facility] Advance Directives Documents on File Type Date Recorded 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
--- OUTSIDE RECORDS SUMMARY | 2025-07-28 17:06 | XMS_ITS | Clinical Summary ---
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
--- OUTSIDE RECORDS SUMMARY | 2025-07-28 17:06 | XMS_ITS | Data Portability ---
Author Organization [facility] [address] Address [address] [place] [address] Assessment No assessment recorded. Plan of Treatment [...] By Organization Details Last Modified Time 01/31/2023 [id number] Exercise. Its important to have a regular [...] Address Organization Details Recorded Time Hyperlip idemia 43697423 Active 2022 [facility] 16:32:31 Anxiety 95986221 Active 2022 [facility] 16:37:20 Autoimmu ne disease 10219791 Active 2022 [facility] 16:37:42 Chronic kidney disease stage 3 177942692 Active 2022 Shayna mcclellan, [place] - [facility] 16:38:41 Clostrid ium difficil e colitis 619698985 Completed 202201/31/2023 Shayna mcclellan, [place] - [facility] 16:40:26 Seizure disorder 231839845 Active 2022 Psychogen ic Shayna mcclellan, PA - [facility] 16:52:21 Depressi ve disorder 58576370 Active 2022 Shayna mcclellan, PA - [facility] 16:39:44 Gastroes ophageal reflux disease 188101061 Active 2022 Shayna mcclellan, PA - [facility] 16:39:51 Toxic shock syndrome 23811480 Completed 202201/31/2023 Shayna mcclellan PA - [facility] 16:40:20 Hyperten sive heart disease 00845262 Active 2022 Shayna mcclellan, PA - [facility] 16:40:49 Dissocia tive convulsi ons 292675817 Active 2022 Shayna mcclellan, PA - [facility] 16:41:14 Panic attack 777645918 Active 2022 Shayna mcclellan, PA - [facility] 16:41:30 Pyogenic granulom a 723009859 Active 2022 Shayna mcclellan, PA - [facility] 16:41:48 Orthosta tic hypotens ion 38806343 Active 2022 Shayna [facility], [facility] - [facility] [...] Name and Address Organization Details Recorded Time 471102 aspirin medicatio n Not available Not available Not available 01/31/2023 1191 RxNorm Shayna mcclellan, PA - [facility] 16:35:27 698130 lactase medicatio n Not available Not available Not available 01/31/2023 79072 RxNorm Shayna mcclellan, PA - [facility] 16:35:32 376669 Demerol medicatio n Not available Not available Not available 01/31/2023 37535 1 RxNorm Shayna mcclellan, [place] - [facility] 16:36:41 100797 Product containin g penicilli n (product) medicatio n Not available Not available Not available 01/31/2023 47722 8001 SNOMED Shayna [facility]an, [facility] - [facility] [...] Updated DateTime 3 170.18 cm 30.9 kg/m2 14760.7 g 99 % 99 % 81 /min 18 /min 97.2 [degF] 0 118/69 mm[Hg] Shayna MELISSA - [facility] 16:33:53 Social History None recorded. Functional Status Question Answer Note LastModified by Organizat ion Details LastModified Time Do you use any illicit or recreational drugs? No [email or web address] Information not available 01/31/2023 What is your level of alcohol consumption? None [email or web address] Information not available 01/31/2023 Mental Status None [...] ICD10 Code Diagnosis IMO Codes Diagnosis Note [id number] [address] [place] [address] 09/14/2019 13:42:16 09/14/2019 14:25:00 [id number] [address] [place] [address] 11/09/2017 11:47:21 11/09/2017 13:12:08 [id number] [address] [place] [address] 07/30/2018 11:07:33 07/30/2018 12:24:33 [id number] [address] [facility] [place] [address] 08/31/2016 08:30:25 08/31/2016 09:21:21 [id number] [address] [facility] [place] [address] 04/03/2016 11:04:22 04/03/2016 12:26:32 [id number] [address] [facility] [place] [address] 07/06/2018 11:34:50 07/06/2018 13:31:29 [id number] [address] [facility] [place] [address] 01/28/2016 18:05:08 01/28/2016 19:07:56 [id number] [address] [facility] [place] [address] 02/10/2016 16:53:28 02/10/2016 17:58:03 [id number] [address] [facility] [place] [address] 12/27/2015 16:29:56 12/27/2015 17:29:07 [id number] [address] [facility] [place] [address] 09/30/2015 15:05:01 09/30/2015 16:05:08 [id number] [address] [facility] [place] [address] 02/21/2018 17:57:32 02/21/2018 19:08:50 [id number] [address] [facility] [place] [address] 07/11/2020 16:25:03 07/11/2020 18:19:21 [id number] [address] [facility] [place] [address] 04/29/2016 08:27:37 04/29/2016 09:19:25 [id number] [address] [facility] [place] [address] 10/04/2015 09:33:14 10/04/2015 10:43:28 [id number] [address] [facility] [place] [address] 01/09/2019 09:06:31 01/09/2019 10:08:57 [id number] Tommy Arroyo, BOILER ASSISTANT OPERATOR [address] [facility] [place] [address] 01/31/2023 15:37:57 01/31/2023 16:56:56 Pain of right hip joint 2562354148 [address]16 M25.551 strongly encouraged to follow up with her PCP or orthopedic as previously scheduled. Health Concerns Section Related Observation LastModified by Organization Detai ls LastModified Time None Recorded Concern Status LastModified by Organization Details LastModified Time None Recorded Advance Directives Directive None Recorded Payers Insurance Date Sequence Insurance Name Policy Number Policy Mcmullen Covered Member ID Mcmullen Member ID Guarantor Name 01/31/2023 1 [facility] (O) [id number] Liliana Gutierrez [id number] Liliana Gutierrez Notes Date Note Type Note [...] Arroyo NP [address] [place], [address], [place] - [facility] 01/31/2023 16:56:09 OBGyn Episode No OBEpisode recorded.
--- OUTSIDE RECORDS SUMMARY | 2025-07-28 17:06 | XMS_ITS | Clinical Summary ---
Author Organization [facility] Address [address] [place] [address] Phone Care Team Providers Care Assistant Professor Of Forestry Name Role Phone Ned Alcantara MD Primary Care Provider [phone] Allergies Active Allergy Reactions Criticality Noted Date [...] patient's age to complete this topic Insurance [address] [place], [place] [address] [place] [place] [address] [place] [place] [address] Care Teams Assistant Professor Of Forestry Relationship Specialty Start Date End Date Ned Alcantara MD [address] [place] [address] PCP - General 10/19/20
== END 2025-07-28 14:12 | disposition home or self-care (01) ==
LOC: HO.HKA 13:46
PROVIDERS: PCP Internal Medicine; Visit Provider Internal Medicine Hypertension Specialist
DX: N18.32 Chronic kidney disease, stage 3b (principal); I95.1 Orthostatic hypotension; E83.52 Hypercalcemia; D64.9 Anemia, unspecified
CPT/HCPCS: 99214

== ENCOUNTER 2025-08-11 10:00 | Outpatient (REF) | payer OTHER, SELFPAY ==
--- NOTE | ~2025-08-11 | XR_ITS ---
EXAMINATION: XR LUMBOSACRAL SPINE CLINICAL INFORMATION: M54.50 - Low back pain, unspecified COMPARISON: 07/10/2020. TECHNIQUE: Three views of the lumbosacral spine. FINDINGS: There is a mild levoconvex scoliosis. There is a normal lumbar lordosis. There is no significant subluxation. There is no fracture, compression deformity, or suspicious bone lesion. There is mild to moderate diffuse degenerative disc disease, with more significant changes at L5-S1. There is mild sclerosis of the L5-S1 endplates. There is normal facet alignment. There are hypertrophic degenerative facet changes most notable L4-S1. Soft tissues demonstrate vascular calcifications. Popcorn type calcifications in the pelvis are likely secondary to degenerated uterine fibroids. XR/XR lumbar spine 2-3V IMPRESSION: 1. No acute findings of the lumbar spine. 2. Mild levoconvex scoliosis, and mild to moderate lumbar spondylosis. No significant interval changes from 2019. Electronically signed by: Juanjo Torres MD 08/11/2025 10:55 AM [facility]
--- OUTSIDE RECORDS SUMMARY | 2025-08-11 11:55 | XMS_ITS | Clinical Summary ---
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
--- OUTSIDE RECORDS SUMMARY | 2025-08-11 11:55 | XMS_ITS | Data Portability ---
Author Organization BELÉN Mcginnis [facility] [address] Address [address] [place] [id number] Assessment No assessment recorded. Plan of Treatment [...] By Organization Details Last Modified Time 01/31/2023 [id number] Exercise. Its important to have a regular [...] Address Organization Details Recorded Time Hyperlip idemia 16531711 Active 2022 [facility] 16:32:31 Anxiety 24372289 Active 2022 [facility] 16:37:20 Autoimmu ne disease 38226346 Active 2022 [facility] 16:37:42 Chronic kidney disease stage 3 888201278 Active 2022 Shayna mcclellan, PA - [facility] 16:38:41 Clostrid ium difficil e colitis 138975445 Completed 202201/31/2023 Shayna mcclellan, PA - [facility] 16:40:26 Seizure disorder 448378018 Active 2022 Psychogen ic Shayna mcclellan, PA - [facility] 16:52:21 Depressi ve disorder 49277147 Active 2022 Shayna mcclellan, PA - [facility] 16:39:44 Gastroes ophageal reflux disease 814466481 Active 2022 Shayna mcclellan, PA - [facility] 16:39:51 Toxic shock syndrome 06668135 Completed 202201/31/2023 Shayna mcclellan PA - [facility] 16:40:20 Hyperten sive heart disease 28501922 Active 2022 Shayna mcclellan, PA - [facility] 16:40:49 Dissocia tive convulsi ons 879076418 Active 2022 Shayna mcclellan, PA - [facility] 16:41:14 Panic attack 190862920 Active 2022 Shayna mcclellan, PA - [facility] 16:41:30 Pyogenic granulom a 041612234 Active 2022 Shayna mcclellan, PA - [facility] 16:41:48 Orthosta tic hypotens ion 13919827 Active 2022 Shayna [facility]llan, [facility] - [facility] [...] Name and Address Organization Details Recorded Time 087210 aspirin medicatio n Not available Not available Not available 01/31/2023 1191 RxNorm Shayna mcclellan, PA - [facility] 16:35:27 618422 lactase medicatio n Not available Not available Not available 01/31/2023 35846 RxNorm Shayna mcclellan, PA - [facility] 16:35:32 368202 Demerol medicatio n Not available Not available Not available 01/31/2023 98587 1 RxNorm Shayna mcclellan, PA - [facility] 16:36:41 054577 Product containin g penicilli n (product) medicatio n Not available Not available Not available 01/31/2023 86816 8001 SNOMED Shayna [facility]llan, [facility] - [facility] [...] Updated DateTime 3 170.18 cm 30.9 kg/m2 14373.7 g 99 % 99 % 81 /min 18 /min 97.2 [degF] 0 118/69 mm[Hg] Shayna MELISSA - [facility] 16:33:53 Social History None recorded. Functional Status Question Answer Note LastModified by Organizat ion Details LastModified Time Do you use any illicit or recreational drugs? No Information not available 01/31/2023 What is your level of alcohol consumption? None [email or web address] Information not available 01/31/2023 Mental Status None [...] ICD10 Code Diagnosis IMO Codes Diagnosis Note [id number] [address] [place] [address] 09/14/2019 13:42:16 09/14/2019 14:25:00 [id number] [address] [place] [address] 11/09/2017 11:47:21 11/09/2017 13:12:08 [id number] [address] [place] [address] 07/30/2018 11:07:33 07/30/2018 12:24:33 [id number] [address] [facility] [place] [address] 08/31/2016 08:30:25 08/31/2016 09:21:21 [id number] [address] [facility] [place] [address] 04/03/2016 11:04:22 04/03/2016 12:26:32 [id number] [address] [facility] [place] [address] 07/06/2018 11:34:50 07/06/2018 13:31:29 [id number] [address] [facility] [place] [address] 01/28/2016 18:05:08 01/28/2016 19:07:56 [id number] [address] [facility] [place] [address] 02/10/2016 16:53:28 02/10/2016 17:58:03 [id number] [address] [facility] [place] [address] 12/27/2015 16:29:56 12/27/2015 17:29:07 [id number] [address] [facility] [place] [address] 09/30/2015 15:05:01 09/30/2015 16:05:08 [id number] [address] [facility] [place] [address] 02/21/2018 17:57:32 02/21/2018 19:08:50 [id number] [address] [facility] [place] [address] 07/11/2020 16:25:03 07/11/2020 18:19:21 [id number] [address] [facility] [place] [address] 04/29/2016 08:27:37 04/29/2016 09:19:25 [id number] [address] [facility] [place] [address] 10/04/2015 09:33:14 10/04/2015 10:43:28 [id number] [address] [facility] [place] [address] 01/09/2019 09:06:31 01/09/2019 10:08:57 [id number] Tommy Arroyo, LEAK DETECTOR [address] [facility] [place] [address] 01/31/2023 15:37:57 01/31/2023 16:56:56 Pain of right hip joint [id number] 46994 M25.551 strongly encouraged to follow up with her PCP or orthopedic as previously scheduled. Health Concerns Section Related Observation LastModified by Organization Detai ls LastModified Time None Recorded Concern Status LastModified by Organization Details LastModified Time None Recorded Advance Directives Directive None Recorded Payers Insurance Date Sequence Insurance Name Policy Number Policy Mcmullen Covered Member ID Mcmullen Member ID Guarantor Name 01/31/2023 1 [facility] (O) [id number] Liliana Gutierrez [id number] Liliana Gutierrez Notes Date Note Type Note [...] Arroyo NP [address] [place], [address], [place] - [facility] 01/31/2023 16:56:09 OBGyn Episode No OBEpisode recorded.
--- OUTSIDE RECORDS SUMMARY | 2025-08-11 11:55 | XMS_ITS | Clinical Summary ---
Author Organization [facility] Address [address] [place] [address] Phone Care Team Providers Care Performance Improvement Director Name Role Phone Ned Alcantara MD Primary Care Provider [phone] Allergies Active Allergy Reactions Criticality Noted Date [...] patient's age to complete this topic Insurance [address] [place], [place] [address] [place] [address] [facility] [place] [address] Care Teams Performance Improvement Director Relationship Specialty Start Date End Date Ned Alcantara MD [address] [place] [address] PCP - General 10/19/20
--- OUTSIDE RECORDS SUMMARY | 2025-08-11 11:55 | XMS_ITS | Clinical Summary ---
Author Organization [facility] Address [address] [place] [address] Phone Care Team Providers Care Cardiology Physician Assistant Name Role Phone Ned Alcantara MD Primary Care Provider [phone] Allergies Active Allergy Reactions Criticality Noted Date [...] PM EST 08/19/2024 1:17 PM EST Jarod Malgaon MD LAB BLOOD ORDERABLES Final Res ult [facility] [address] [place] [address], from Last 3 Months or Most Recently Relevant to Health Maintenance Insurance [facility] Advance Directives Documents on File Type Date Recorded 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 [place] [id number] PCP - General 10/27/21
== END 2025-08-11 10:01 | disposition home or self-care (01) ==
LOC: HO.XRAY 10:00
PROVIDERS: PCP Internal Medicine; Visit Provider Internal Medicine
DX: M54.50 Low back pain, unspecified (principal)
CPT/HCPCS: 72100

== ENCOUNTER → 2025-08-11 10:05 | Outpatient (BNV) | payer OTHER, SELFPAY | PROVIDERS: PCP Internal Medicine; Visit Provider Radiology Diagnostic Radiology | DX: M47.816 Spondylosis without myelopathy or radiculopathy, lumbar region (principal); M41.86 Other forms of scoliosis, lumbar region | CPT/HCPCS: 72100 ==

== ENCOUNTER 2025-08-13 13:13 | Outpatient (AMB) | payer OTHER, SELFPAY ==
--- NOTE | 2025-08-13 13:17 | A.OFFPC_ITS ---
Vital Signs 08/13/25 13:18 Height 5 ft 7 in Weight 175 lb BMI 27.4 BP 108/70 Blood Pressure Location Lt brachial Position Sitting Pulse 65 Pulse Source Pulse Oximeter Temp 97.0 F Temp Source Temporal Artery Scan Pulse Oximetry (%) 100 Oxygen Delivery Method Room Air Intake Visit Reasons: Discuss medications Typesetter Apprentice Required: No Accompanied by: Self / Same As Patient Allergies aspirin (ASPIRIN) Allergy (Unknown, Verified 08/13/25 13:28) ANAPHYLAXIS meperidine (From DEMEROL) Allergy (Unknown, Verified 08/13/25 13:28) ANAPHYLAXIS Penicillins (PENICILLINS) Allergy (Unknown, Verified 08/13/25 13:28) ANAPHYLAXIS Sulfa (Sulfonamide Antibiotics) (SULFA (SULFONAMIDE ANTIBIOTICS)) Allergy (Unknown, Verified 08/13/25 13:28) UNKNOWN dairy Allergy (Unknown, Uncoded 08/13/25 13:28) unknown lactose intolerance Allergy (Unknown, Uncoded 08/13/25 13:28) Unknown Medication List - Last Reconciled 08/13/25 by Tawana Sanchez MD bupropion HCl XL 150 mg PO DAILY buspirone 10 mg PO BID clopidogrel 75 mg PO DAILY ferrous sulfate 325 mg PO DAILY 90 days fludrocortisone 0.1 mg PO DAILY 90 days lorazepam 0.5 mg PO BID PRN midodrine 2.5 mg PO DAILY omeprazole 20 mg PO BID sacroiliac belt As directed sertraline 200 mg (2 x 100 mg) PO DAILY PRN 90 days zolpidem 5 mg PO BEDTIME PRN 30 days Tobacco use date assessed: 08/13/25 Fall risk assessment: No Falls in past year Last assessed Fall Risk: 08/13/25 Dental Screening Dental Screen Date: 08/13/25 Did you have a dental visit in the last 12 months?: Yes Did you have a dental problem in the last 6 months where you did not have access to dental care?: No Was dental information given to patient?: Patient has dentist HPI HPI Comments History of Present Illness Details This is an 84-year-old female with history of ulcerative colitis, chronic kidney disease stage 4 with a GFR of 27, anemia of chronic kidney disease and thrombocytopenia, chronic low back pain secondary to lumbar spondylosis and difficulty swallowing pills with an abnormal barium swallow showing esophagitis and requiring urgent endoscopy. As per patient she has seizures on procedures and this is why [facility] refused to see her as per patient. She also has idiopathic hypotension but blood pressure has been stable with midodrine and fludrocortisone. She has moderate recurrent major depression and anxiety with panic attacks that has been stable with bupropion, sertraline and buspirone. She will hold bupropion for 2 weeks to see how she feels about it. She use applesauce with jarrell melanie to swallow her pills. Denies any active bleeding. Will be referred to hematology due to thrombocytop enia and anemia. Walks with a cane for gait stability due to chronic low back pain. [facility] Medical History (Updated 08/13/25 @ 13:44 by Tawana Sanchez MD) Orthostatic hypotension Dyspnea on exertion Chronic pain of both shoulders Wrist pain Obesity Depression Hyperlipidemia Hypertension Fall Surgical History Hx of colonoscopy History of biopsy History of surgical removal of lesion History of hysterectomy History of appendectomy Family History Father History of heart attack Mother Colon cancer Social History Household Members: None Housing: House Do you presently have visiting nurse or other home services: No Alcohol intake: never Comment: refuses fall socks, and camera for safety Patient Tobacco Use Status: Never used Tobacco Tobacco use type: Cigarette e-Cigarette/Vaping Use: Never Used Second Hand Smoke Exposure: No service: No Current occupational status: retired Cognitive needs: Yes (cane) Hearing needs: No Vision needs: Yes Questionnaire PHQ-9 Over the last 2 weeks, how often have you been bothered by any of the following problems? 1. Little interest or pleasure in doing things: not at all 2. Feeling down, depressed, or hopeless: not at all 3. Trouble falling or staying asleep, or sleeping too much: not at all 4. Feeling tired or having little energy: not at all 5. Poor appetite or overeating: not at all 6. Feeling bad about yourself - or that you are a failure or have let yourself or your family down: not at all 7. Trouble concentrating on things, such as reading the newspaper or watching television: not at all 8. Moving or speaking so slowly that other people could have noticed. Or the opposite - being so fidgety or restless that you have been moving around a lot more than usual: not at all 9. Thoughts that you would be better off or of hurting yourself in some way: not at all Total score: 0 Depression Screening Interpretation: Negative Depression Screening Done: Yes 73346 - PHQ-9 Billing: Yes Source: Developed by Drs. Mitchell De Oliveira, Meryl Garcia, Rigoberto Post and colleagues, with an educational romi from [employer]. Thrive Questionnaire Date Thrive assessed: 03/18/25 I am a: Patient What is your living situation today?: I have a steady place to live Within the past 12 months, did the food you bought not last and you didn't have the money to get more?: I choose not to answer this question Within the past 12 months, did you worry whether your food would run out before you got money to buy more?: I choose not to answer this question Do you have trouble paying for medicines?: No Do you have trouble getting transportation to medical appointments?: No Do you have trouble paying your heating and electricity bill?: No Do you have trouble taking care of your child, family member or friend?: No Do you have trouble with day-to-day activities such as bathing, preparing meals, shopping, managing finances, etc.?: No Are you currently unemployed and looking for a job?: No Are you interested in more education?: No Please select the resources that you would like help with: None Currently or been in a relationship where the following occur: I choose not to answer THRIVE Score: 0 AUDIT C Alcohol Use Questionnaire (AUDIT-C) 1. How often do you have a drink containing alcohol?: Never 3. How often do you have six or more drinks on one occasion?: Never Total Score: 0 HUMBERTO-7 AMB Questionnaire HUMBERTO-7 Date HUMBERTO - 7 assessed: 03/10/25 Feeling nervous, anxious, or on edge: 0 = Not at all Not being able to stop or control worryin = Not at all Worrying too much about different things: 0 = Not at all Trouble relaxin = Not at all Being so restless that it is hard to sit still: 0 = Not at all Becoming easily annoyed or irritable: 0 = Not at all Feeling afraid as if something awful might happen: 0 = Not at all Total HUMBERTO-7 score (0-4 normal; 5-9 mild; 10-14 moderate; 15-21 severe): 0 Source: Developed by Drs. Mitchell De Oliveira, Meryl Garcia, Rigoberto Post and colleagues, with an educational romi from [employer]. HUMBERTO-7 Assessment Billing HUMBERTO-7 Assessment Tool: HUMBERTO-7 Assessment 20623 Review of Systems Const All systems reviewed & are unremarkable except as noted in HPI and below Card Denies chest pain at rest, Denies chest pain with activity, Denies edema, Denies irregular heart rhythm, Denies claudication, Denies dyspnea, Denies dyspnea on exertion, Denies orthopnea, Denies paroxysmal nocturnal dyspnea and Denies slow heart rate Resp Denies cough, Denies dyspnea and Denies dyspnea on exertion Physical exam (Primary Care) Vital Signs: Last Vital Signs Temp 97.0 F 08/13/25 13:18 Pulse 65 08/13/25 13:18 BP 108/70 08/13/25 13:18 Pulse Ox 100 08/13/25 13:18 Oxygen Delivery Method Room Air 08/13/25 13:18 BMI result Body Mass Index 27.4 BMI Assessment/Plan discussion: High BMI High, discussed plan: lifestyle, weight reduction, dietary and physical activity Tobacco/Smoking Status: Tobacco use Status Tobacco use date assessed 08/13/25 08/13/25 13:25 Patient Tobacco Use Status Never used Tobacco 08/13/25 13:21 Tobacco use type Cigarette 08/13/25 13:21 e-Cigarette/Vaping Use Never Used 08/13/25 13:21 PHQ-9: PHQ-9 Score PHQ-9: Total score 0 08/13/25 13:25 Depression Screening Interpretation: Negative Thrive Assessment: Date of Thrive Assessment Date Thrive assessed 03/18/25 08/13/25 13:21 Currently or been in a relationship where the following occur: I choose not to answer Resp Effort & Inspection: normal respiratory effort Auscultation: clear to auscultation bilaterally Cardio Jugular venous distension: no JVD Rate: regular rate Rhythm: regular rhythm Heart sounds: S1 normal heart sound present and S2 normal heart sound present Coding Level of Care Code Est Pt Level 4 (48821) Complex EM visit Add On G2211 Diagnoses Major depressive disorder, recurrent, moderate F33.1 Generalized anxiety disorder with panic attacks F41.1; F41.0 Idiopathic hypotension I95.0 Thrombocytopenia D69.6 Ulcerative colitis K51.90 CKD (chronic kidney disease) stage 4, GFR 15-29 ml/min N18.4 Anemia D64.9 Additional Codes PHQ-9 - 11497 - PHQ-9 Billing: Yes ([id number]) HUMBERTO-7 Assessment Billing - HUMBERTO-7 Assessment Tool: HUMBERTO-7 Assessment 09806 ([id number]) Time Spent (min) 24 Assessment & Plan Assessment & Plan (1) Major depressive disorder, recurrent, moderate: Code(s): F33.1 - Major depressive disorder, recurrent, moderate Category: Medical (2) Generalized anxiety disorder with panic attacks: Code(s): F41.1 - Generalized anxiety disorder; F41.0 - Panic disorder [episodic par oxysmal anxiety] Category: Medical (3) Idiopathic hypotension: Code(s): I95.0 - Idiopathic hypotension Category: Medical (4) Thrombocytopenia: Code(s): D69.6 - Thrombocytopenia, unspecified Category: Medical (5) Ulcerative colitis: Code(s): K51.90 - Ulcerative colitis, unspecified, without complications Category: Medical (6) CKD (chronic kidney disease) stage 4, GFR 15-29 ml/min: Code(s): N18.4 - Chronic kidney disease, stage 4 (severe) Category: Medical (7) Anemia: Code(s): D64.9 - Anemia, unspecified Category: Medical Plan Continue same medications. Referred to Hematology-Oncology and [facility]. Orders: Orders Complete Blood Count Auto Diff Today D64.9 - Anemia, unspecified IRON PROFILE Today D64.9 - Anemia, unspecified Vitamin B12 and Folate Today E53.8 - Deficiency of other specified B group vitamins Vitamin D 25-OH Total Today E55.9 - Vitamin D deficiency, unspecified Referrals Gastroenterology Referral K51.90 - Ulcerative colitis, unspecified, without complications, R13.10 - Dysphagia, unspecified, R93.3 - Abnormal findings on diagnostic imaging of other parts of digestive tract Hematology & Oncology Referral D64.9 - Anemia, unspecified, D69.6 - Thrombocytopenia, unspecified Medications: Refilled lorazepam 0.5 mg PO BID PRN 60 tabs 1RF anxiety
[2025-08-13 13:18] VITALS: BP 108/70; PULSE 65; TEMP 36.1; O2SAT 100; BMI 27.4
--- OUTSIDE RECORDS SUMMARY | 2025-08-13 16:02 | XMS_ITS | Data Portability ---
Author Organization BELÉN Mcginnis [facility]ina [address] Address [address] [place] [address] Assessment No assessment recorded. Plan of Treatment [...] By Organization Details Last Modified Time 01/31/2023 [id number] Exercise. Its important to have a regular [...] Address Organization Details Recorded Time Hyperlip idemia 60476841 Active 2022 [facility] 16:32:31 Anxiety 78419410 Active 2022 [facility] 16:37:20 Autoimmu ne disease 61990741 Active 2022 [facility] 16:37:42 Chronic kidney disease stage 3 799008799 Active 2022 Shayna mcclellan, PA - [facility] 16:38:41 Clostrid ium difficil e colitis 957262882 Completed 202201/31/2023 Shayna mcclellan, PA - [facility] 3 16:40:26 Seizure disorder 853451180 Active 2022 Psychogen ic Shayna mcclellan, [place] - [facility] 3 16:52:21 Depressi ve disorder 13792312 Active 2022 Shayna mcclellan, PA - [facility] 3 16:39:44 Gastroes ophageal reflux disease 952248652 Active 2022 Shayna mcclellan, PA - [facility] 3 16:39:51 Toxic shock syndrome 22812625 Completed 202201/31/2023 Shayna mcclellan PA - [facility] 3 16:40:20 Hyperten sive heart disease 99682892 Active 2022 Shayna mcclellan, PA - [facility] 3 16:40:49 Dissocia tive convulsi ons 355587697 Active 2022 Shayna mcclellan, PA - [facility] 3 16:41:14 Panic attack 977633432 Active 2022 Shayna mcclellan, PA - [facility] 16:41:30 Pyogenic granulom a 735179071 Active 2022 Shayna mcclellan, PA - [facility] 16:41:48 Orthosta tic hypotens ion 77965011 Active 2022 Shayna [facility]lellan, [facility] - [facility] [...] Name and Address Organization Details Recorded Time 911196 aspirin medicatio n Not available Not available Not available 01/31/2023 1191 RxNorm Shayna mcclellan, [place] - [facility] 16:35:27 686619 lactase medicatio n Not available Not available Not available 01/31/2023 31870 RxNorm Shayna mcclellan, PA - [facility] 16:35:32 167010 Demerol medicatio n Not available Not available Not available 01/31/2023 61115 1 RxNorm Shayna mcclellan, [place] - [facility] 16:36:41 304215 Product containin g penicilli n (product) medicatio n Not available Not available Not available 01/31/2023 64314 8001 SNOMED Shayna [facility]lellan, [facility] - [facility] [...] Updated DateTime 3 170.18 cm 30.9 kg/m2 49298.7 g 99 % 99 % 81 /min 18 /min 97.2 [degF] 0 118/69 mm[Hg] Shayna MELISSA - [facility] 3 16:33:53 Social History None recorded. Functional Status Question Answer Note LastModified by Organizat ion Details LastModified Time Do you use any illicit or recreational drugs? No [email or web address] Information not available 01/31/2023 What is your level of alcohol consumption? None [email or web address] Information not available 01/31/2023 Mental Status None [...] ICD10 Code Diagnosis IMO Codes Diagnosis Note [id number] [address] [place] [address] 09/14/2019 13:42:16 09/14/2019 14:25:00 [id number] [address] [place] [address] 11/09/2017 11:47:21 11/09/2017 13:12:08 [id number] [address] [place] [address] 07/30/2018 11:07:33 07/30/2018 12:24:33 [id number] [address] [place] [address] 08/31/2016 08:30:25 08/31/2016 09:21:21 [id number] [address] [place] [address] 04/03/2016 11:04:22 04/03/2016 12:26:32 [id number] [address] [place] [address] 07/06/2018 11:34:50 07/06/2018 13:31:29 [id number] [address] [place] [address] 01/28/2016 18:05:08 01/28/2016 19:07:56 [id number] [address] [place] [address] 02/10/2016 16:53:28 02/10/2016 17:58:03 [id number] [address] [place] [address] 12/27/2015 16:29:56 12/27/2015 17:29:07 [id number] [address] [place] [address] 09/30/2015 15:05:01 09/30/2015 16:05:08 [id number] [address] [place] [address] 02/21/2018 17:57:32 02/21/2018 19:08:50 [id number] [address] [place] [address] 07/11/2020 16:25:03 07/11/2020 18:19:21 [id number] [address] [place] [address] 04/29/2016 08:27:37 04/29/2016 09:19:25 [id number] [address] [place] [address] 10/04/2015 09:33:14 10/04/2015 10:43:28 [id number] [address] [place] [address] 01/09/2019 09:06:31 01/09/2019 10:08:57 [id number] Tommy Arroyo, BALL HOLDER [address] [place] [address] 01/31/2023 15:37:57 01/31/2023 16:56:56 Pain of right hip joint 7300545197 31111 M25.551 strongly encouraged to follow up with her PCP or orthopedic as previously scheduled. Health Concerns Section Related Observation LastModified by Organization Detai ls LastModified Time None Recorded Concern Status LastModified by Organization Details LastModified Time None Recorded Advance Directives Directive None Recorded Payers Insurance Date Sequence Insurance Name Policy Number Policy Mcmullen Covered Member ID Mcmullen Member ID Guarantor Name 01/31/2023 1 [facility] (O) [id number] Liliana Gutierrez [id number] Liliana Gutierrez Notes Date Note Type Note [...] Arroyo NP [address] [place], [address], [place] - [facility] 01/31/2023 16:56:09 OBGyn Episode No OBEpisode recorded.
--- OUTSIDE RECORDS SUMMARY | 2025-08-13 16:02 | XMS_ITS | Clinical Summary ---
Author Organization [facility] Address [address] [place] [address] Phone Care Team Providers Care Credentials Specialist Name Role Phone Ned Alcantara MD Primary Care Provider [phone] Allergies Active Allergy Reactions Criticality Noted Date [...] patient's age to complete this topic Insurance [address] [place], [place] [address] [place] [address] [place] [address] Care Teams Credentials Specialist Relationship Specialty Start Date End Date Ned Alcantara MD [address] [place] [address] PCP - General 10/19/20
--- OUTSIDE RECORDS SUMMARY | 2025-08-13 16:02 | XMS_ITS | Clinical Summary ---
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
--- OUTSIDE RECORDS SUMMARY | 2025-08-13 16:02 | XMS_ITS | Clinical Summary ---
Author Organization [facility] Address [address] [place] [address] Phone Care Team Providers Care Claims Assistant Name Role Phone Ned Alcantara MD Primary Care Provider [phone] Allergies Active Allergy Reactions Criticality Noted Date [...] [facility] Comment:Calculation based on the Chronic Kidney [...] MD LAB BLOOD ORDERABLES Final Res ult [facility] [address] [place] [address], from Last 3 Months or Most Recently Relevant to Health Maintenance Insurance [facility] Advance Directives Documents on File Type Date Recorded Patient Patient Access Director Expl anation Health Care Decision (hx) 12/29/2015 [...] (hx) 12/23/2015 AD NEWTON DIRECTIVE Care Teams Claims Assistant Relationship Specialty Start Date End Date Ned Alcantara MD [address] [place] [address] PCP - General 10/27/21
== END 2025-08-13 13:53 | disposition home or self-care (01) ==
PROVIDERS: PCP Internal Medicine; Visit Provider Internal Medicine
DX: F41.1 Generalized anxiety disorder (principal); F33.1 Major depressive disorder, recurrent, moderate; K51.90 Ulcerative colitis, unspecified, without complications; N18.4 Chronic kidney disease, stage 4 (severe); F41.0 Panic disorder [episodic paroxysmal anxiety]; I95.0 Idiopathic hypotension; D69.6 Thrombocytopenia, unspecified; D64.9 Anemia, unspecified

== ENCOUNTER → 2025-08-13 13:13 | Outpatient (BNVA) | payer OTHER, SELFPAY | PROVIDERS: PCP Internal Medicine; Visit Provider Internal Medicine | DX: N18.4 Chronic kidney disease, stage 4 (severe) (principal); D63.1 Anemia in chronic kidney disease; M47.816 Spondylosis without myelopathy or radiculopathy, lumbar region; F33.1 Major depressive disorder, recurrent, moderate; F41.1 Generalized anxiety disorder; F41.0 Panic disorder [episodic paroxysmal anxiety]; I95.0 Idiopathic hypotension; D69.6 Thrombocytopenia, unspecified; K51.90 Ulcerative colitis, unspecified, without complications | CPT/HCPCS: 96127 ==

== ENCOUNTER 2025-08-20 07:58 | Outpatient (AMB) | payer OTHER, SELFPAY ==
--- OUTSIDE RECORDS SUMMARY | 2025-08-20 08:01 | XMS_ITS | Clinical Summary ---
Author Organization [facility] Address [address] [place] [address] Care Team Providers Care Clerk To Justice Name Role Phone Debbi Beckham Primary Care Provider Allergies Active Allergy Reactions [...] patient's age to complete this topic Insurance [facility] Advance Directives For more information, please contact: [phone] Documents on File Type Date Recorded Patient Machine Ii Cutter Expl anation Advance Directives 06/07/2018 2:23 PM Healthcare Agents on File Name Relationship Healthcare Agent Relationshi p Communication Kirsten Jairo Friend POA for [facility] prior to 07/09/2006 Care Teams Clerk To Justice Relationship Specialty Start Date End Date Debbi Beckham PA [address] [phone] PCP - General Family Medicine 05/23/18
--- OUTSIDE RECORDS SUMMARY | 2025-08-20 08:01 | XMS_ITS | Clinical Summary ---
Author Organization [facility] Address [address] [place] [address] Phone Care Team Providers Care Winding Department Supervisor Name Role Phone Ned Alcantara MD Primary Care Provider [phone] Allergies Active Allergy Reactions Criticality Noted Date [...] mmol/L LAB CHEMISTRY METHOD 08/19/2024 1:52 PM [facility] Potassium 5.2 3.5 - 5.5 mmol/L LAB CHEMISTRY METHOD 08/19/2024 1:52 PM [facility] Chloride 106 96 - 110 mmol/L LAB CHEMISTRY METHOD 08/19/2024 1:52 PM [facility] CO2 25 21 - 32 mmol/L LAB CHEMISTRY METHOD 08/19/2024 1:52 PM [facility] Anion Gap 8 3 - 11 LAB CHEMISTRY METHOD 08/19/2024 1:52 PM [facility] Glucose 107(H) 70 - 100 mg/dL LAB CHEMISTRY METHOD 08/19/2024 1:52 PM [facility] BUN 47(H) 5 - 25 mg/dL LAB CHEMISTRY METHOD 08/19/2024 1:52 PM [facility] Creatinine 1.69(H) 0.50 - 1.10 mg/dL LAB CHEMISTRY METHOD 08/19/2024 1:52 PM [facility] eGFR 30(L) >=60 mL/min/1. 73m2 LAB CHEMISTRY METHOD 08/19/2024 1:52 PM [facility] Comment:Calculation based on the Chronic Kidney Disease Epidemiology Collaboration (CKD-EPI) equation refit without adjustment for race. BUN/Creatinine Ratio 27.8 LAB CHEMISTRY METHOD 08/19/2024 1:52 PM [facility] Calcium 10.3 8.5 - 10.5 mg/dL LAB CHEMISTRY METHOD 08/19/2024 1:52 PM [facility] AST (SGOT) 23 10 - 42 unit/L LAB CHEMISTRY METHOD 08/19/2024 1:52 PM [facility] ALT (SGPT) 26 10 - 60 unit/L LAB CHEMISTRY METHOD 08/19/2024 1:52 PM [facility] Alkaline Phosphatase 138(H) 42 - 121 unit/L LAB CHEMISTRY METHOD 08/19/2024 1:52 PM [facility] Total Protein 7.4 6.0 - 8.0 g/dL LAB CHEMISTRY METHOD 08/19/2024 1:52 PM [facility] Albumin 4.3 3.2 - 5.0 g/dL LAB CHEMISTRY METHOD 08/19/2024 1:52 PM [facility] Total Bilirubin 0.5 0.0 - 1.4 mg/dL LAB CHEMISTRY METHOD 08/19/2024 1:52 PM [facility] Blood Venous blood specimen / Unknown Venipuncture / Unknown 08/19/2024 12:58 PM EST 08/19/2024 1:17 PM EST Jarod Malagon MD LAB BLOOD ORDERABLES Final Res ult [facility] [address] [place] [address], from Last 3 Months or Most Recently Relevant to Health Maintenance Insurance [facility] Advance Directives Documents on File Type Date Recorded Patient Nuclear Medicine Technician Expl anation Health Care Decision (hx) 12/29/2015 [...] (hx) 12/23/2015 AD NEWTON DIRECTIVE Care Teams Winding Department Supervisor Relationship Specialty Start Date End Date Ned Alcantara MD [address] [place] [address] PCP - General 10/27/21
--- OUTSIDE RECORDS SUMMARY | 2025-08-20 08:01 | XMS_ITS | Data Portability ---
Author Organization BELÉN Mcginnis [facility] [address] Address [address] [place] [address] Assessment No assessment recorded. Plan of Treatment [...] By Organization Details Last Modified Time 01/31/2023 [id number] Exercise. Its important to have a regular [...] Address Organization Details Recorded Time Hyperlip idemia 80683057 Active 2022 [facility] 16:32:31 Anxiety 39360618 Active 2022 [facility] 16:37:20 Autoimmu ne disease 47018068 Active 2022 [facility] 16:37:42 Chronic kidney disease stage 3 312399725 Active 2022 Shayna mcclellan, PA - [facility] 3 16:38:41 Clostrid ium difficil e colitis 245748546 Completed 202201/31/2023 Shayna mcclellan, PA - [facility] 3 16:40:26 Seizure disorder 916187010 Active 2022 Psychogen ic Shayna mcclellan, PA - [facility] 3 16:52:21 Depressi ve disorder 73825902 Active 2022 Shayna mcclellan, PA - [facility] 3 16:39:44 Gastroes ophageal reflux disease 910834968 Active 2022 Shayna mcclellan, PA - [facility] 16:39:51 Toxic shock syndrome 82325515 Completed 202201/31/2023 Shayna mcclellan PA - [facility] 3 16:40:20 Hyperten sive heart disease 66317613 Active 2022 Shayna mcclellan, PA - [facility] 3 16:40:49 Dissocia tive convulsi ons 964232117 Active 2022 Shayna mcclellan, PA - [facility] 3 16:41:14 Panic attack 905248372 Active 2022 Shayna mcclellan, PA - [facility] 16:41:30 Pyogenic granulom a 866072270 Active 2022 Shayna mcclellan, PA - [facility] 16:41:48 Orthosta tic hypotens ion 49851310 Active 2022 Shayna mcclellan, [facility] - [facility] [...] Name and Address Organization Details Recorded Time 025808 aspirin medicatio n Not available Not available Not available 01/31/2023 1191 RxNorm Shayna mcclellan, PA - [facility] 16:35:27 177747 lactase medicatio n Not available Not available Not available 01/31/2023 54871 RxNorm Shayna mcclellan, PA - [facility] 16:35:32 226514 Demerol medicatio n Not available Not available Not available 01/31/2023 75500 1 RxNorm Shayna mcclellan, PA - [facility] 16:36:41 619796 Product containin g penicilli n (product) medicatio n Not available Not available Not available 01/31/2023 32223 8001 SNOMED Shayna mcclellan, [facility] - [facility] [...] Updated DateTime 3 170.18 cm 30.9 kg/m2 12338.7 g 99 % 99 % 81 /min 18 /min 97.2 [degF] 0 118/69 mm[Hg] Shayna MELISSA - [facility] 3 16:33:53 Social History None recorded. Functional Status Question Answer Note LastModified by Organizat ion Details LastModified Time Do you use any illicit or recreational drugs? No Information not available 01/31/2023 What is your level of alcohol consumption? None [email or web address] Information not available 01/31/2023 Mental Status None [...] ICD10 Code Diagnosis IMO Codes Diagnosis Note [id number] [address] [place] [address] 09/14/2019 13:42:16 09/14/2019 14:25:00 [id number] [address] [place] [address] 11/09/2017 11:47:21 11/09/2017 13:12:08 [id number] [address] [place] [address] 07/30/2018 11:07:33 07/30/2018 12:24:33 [id number] [address] [place] [address] 08/31/2016 08:30:25 08/31/2016 09:21:21 [id number] [address] [place] [address] 04/03/2016 11:04:22 04/03/2016 12:26:32 [id number] [address] [place] [address] 07/06/2018 11:34:50 07/06/2018 13:31:29 [id number] [address] [place] [address] 01/28/2016 18:05:08 01/28/2016 19:07:56 [id number] [address] [place] [address] 02/10/2016 16:53:28 02/10/2016 17:58:03 [id number] [address] [place] [address] 12/27/2015 16:29:56 12/27/2015 17:29:07 [id number] [address] [place] [address] 09/30/2015 15:05:01 09/30/2015 16:05:08 [id number] [address] [place] [address] 02/21/2018 17:57:32 02/21/2018 19:08:50 [id number] [address] [place] [address] 07/11/2020 16:25:03 07/11/2020 18:19:21 [id number] [address] [place] [address] 04/29/2016 08:27:37 04/29/2016 09:19:25 [id number] [address] [place] [address] 10/04/2015 09:33:14 10/04/2015 10:43:28 [id number] [address] [place] [address] 01/09/2019 09:06:31 01/09/2019 10:08:57 [id number] Tommy Arroyo, CROP OR GRAIN FARMER [address] [place] [address] 01/31/2023 15:37:57 01/31/2023 16:56:56 Pain of right hip joint 6274127403 06[address] M25.551 strongly encouraged to follow up with her PCP or orthopedic as previously scheduled. Health Concerns Section Related Observation LastModified by Organization Detai ls LastModified Time None Recorded Concern Status LastModified by Organization Details LastModified Time None Recorded Advance Directives Directive None Recorded Payers Insurance Date Sequence Insurance Name Policy Number Policy Mcmullen Covered Member ID Mcmullen Member ID Guarantor Name 01/31/2023 1 [facility] (O) [id number] 6 Liliana Gutierrez [id number] Liliana Gutierrez Notes Date Note Type Note [...] Arroyo NP [address] [place], [address], [place] - [facility] 01/31/2023 16:56:09 OBGyn Episode No OBEpisode recorded.
--- NOTE | 2025-08-20 08:26 | MHC.OFFVIS ---
Intake Visit Reasons: New Prob-Right Knee Pain Intake Note: Liliana Valladares) is a 84 year old female who presents today as an established patient, new problem visit to evaluate right knee pain. Patient reports her pain has been present for years. She has concerns that her knee pops out every once in a while with ambulation, states as if her knee will give out. Her discomfort is located at the anterior aspect radiating into her medial side of knee. She has had physical therapy in past. She does not want injections, stating not painful all the time. She is interested in knee bracing. Hx of right knee surgery x3. Allergies aspirin (ASPIRIN) Allergy (Unknown, Verified 08/20/25 08:37) ANAPHYLAXIS meperidine (From DEMEROL) Allergy (Unknown, Verified 08/20/25 08:37) ANAPHYLAXIS Penicillins (PENICILLINS) Allergy (Unknown, Verified 08/20/25 08:37) ANAPHYLAXIS Sulfa (Sulfonamide Antibiotics) (SULFA (SULFONAMIDE ANTIBIOTICS)) Allergy (Unknown, Verified 08/20/25 08:37) UNKNOWN dairy Allergy (Unknown, Uncoded 08/20/25 08:37) unknown lactose intolerance Allergy (Unknown, Uncoded 08/20/25 08:37) Unknown Medication List - Last Reconciled 08/20/25 by Anca Kelly PA-C bupropion HCl XL 150 mg PO DAILY buspirone 10 mg PO BID clopidogrel 75 mg PO DAILY ferrous sulfate 325 mg PO DAILY 90 days fludrocortisone 0.1 mg PO DAILY 90 days lorazepam 0.5 mg PO BID PRN midodrine 2.5 mg PO DAILY omeprazole 20 mg PO BID sacroiliac belt As directed sertraline 200 mg (2 x 100 mg) PO DAILY PRN 90 days zolpidem 5 mg PO BEDTIME PRN 30 days HPI HPI New Prob-Right Knee Pain: Details: 84-year-old female presents to the office today for right knee pain. She has a long history of running several road races including marathons. She is quite active and experiences intermittent right knee pain with activities. She is going on a trip and would like something to help with stability. [facility] Medical History Orthostatic hypotension Dyspnea on exertion Chronic pain of both shoulders Wrist pain Obesity Depression Hyperlipidemia Hypertension Fall Surgical History Hx of colonoscopy History of biopsy History of surgical removal of lesion History of hysterectomy History of appendectomy Family History Father History of heart attack Mother Colon cancer Social History Household Members: None Housing: House Do you presently have visiting nurse or other home services: No Alcohol intake: never Comment: refuses fall socks, and camera for safety Patient Tobacco Use Status: Never used Tobacco Tobacco use type: Cigarette e-Cigarette/Vaping Use: Never Used Second Hand Smoke Exposure: No service: No Current occupational status: retired Cognitive needs: Yes (cane) Hearing needs: No Vision needs: Yes Review of Systems Const All systems reviewed & are unremarkable except as noted in HPI and below Physical Exam Extrem Other: Right knee normal to inspection. She has full range of motion with crepitus. No direct tenderness to palpation. No ligamentous laxity. Calf is supple and nontender neurovascularly intact. Results Reviewed Results Reviewed: X-rays of the right knee obtained in the office today and reviewed by me show moderate medial compartment and patellofemoral arthritis Assessment & Plan Assessment & Plan (1) Osteoarthritis of right knee: Code(s): M17.11 - Unilateral primary osteoarthritis, right knee Category: Medical Plan: We discussed options today which includes conservative management with activities as tolerated and knee bracing. She was fit for a stabilizing knee brace in the office today. She will advance activities as tolerated modifying activities as needed. She will contact our office if symptoms worsen or there is any concerns otherwise she will follow up as needed. Orders: Orders XR knee RT 3V Today M17.11 - Unilateral primary osteoarthritis, right knee Coding Level of Care Code Est Pt Level 3 (08841) Complex EM visit Add On G2211 Diagnoses Osteoarthritis of right knee M17.11
== END 2025-08-20 09:59 | disposition home or self-care (01) ==
LOC: HO.HOS 07:59
PROVIDERS: PCP Internal Medicine; Visit Provider Physician Assistant
DX: M17.11 Unilateral primary osteoarthritis, right knee (principal)
CPT/HCPCS: 99213

== ENCOUNTER → 2025-08-20 08:00 | Outpatient (BNV) | payer OTHER, SELFPAY | PROVIDERS: Visit Provider Radiology Diagnostic Radiology | DX: M17.11 Unilateral primary osteoarthritis, right knee (principal); I25.10 Atherosclerotic heart disease of native coronary artery without angina pectoris; M76.891 Other specified enthesopathies of right lower limb, excluding foot | CPT/HCPCS: 73562 ==

== ENCOUNTER 2025-08-20 14:26 | Outpatient (REF) | payer OTHER, SELFPAY ==
--- NOTE | ~2025-08-20 | XR_ITS ---
EXAMINATION: XR KNEE, RIGHT CLINICAL INFORMATION: M17.11 - Unilateral primary osteoarthritis, right knee COMPARISON: February 10, 2016. TECHNIQUE: AP view in standing position both knees. Lateral and sunrise view of the right knee. FINDINGS: Joint space narrowing involving mostly the medial compartment. Sclerosis along the articular surface. Small marginal osteophyte formation in the medial compartment. No acute cortical disruption or malalignment. No suprapatellar bursa joint effusion. Exostosis at the quadriceps tendon insertion. Vascular calcifications. No lytic or blastic lesions. XR/XR knee RT 3V IMPRESSION: Bicompartmental osteoarthrosis/osteoarthritis involving mostly the medial compartment, mild to moderate. Atherosclerosis disease, peripheral. Enthesopathy, quadriceps tendon. Electronically signed by: Jameel Singer MD 08/20/2025 08:13 AM [facility]
--- OUTSIDE RECORDS SUMMARY | 2025-08-21 17:53 | XMS_ITS | Clinical Summary ---
Author Organization [facility] Address [address] [place] [address] Phone Care Team Providers Care Oil Dipper Name Role Phone Ned Alcantara MD Primary Care Provider [phone] Allergies Active Allergy Reactions Criticality Noted Date [...] mmol/L LAB CHEMISTRY METHOD 08/19/2024 1:52 PM [facility] Potassium 5.2 3.5 - 5.5 mmol/L LAB CHEMISTRY METHOD 08/19/2024 1:52 PM [facility] Chloride 106 96 - 110 mmol/L LAB CHEMISTRY METHOD 08/19/2024 1:52 PM [facility] CO2 25 21 - 32 mmol/L LAB CHEMISTRY METHOD 08/19/2024 1:52 PM [facility] Anion Gap 8 3 - 11 LAB CHEMISTRY METHOD 08/19/2024 1:52 PM [facility] Glucose 107(H) 70 - 100 mg/dL LAB CHEMISTRY METHOD 08/19/2024 1:52 PM [facility] BUN 47(H) 5 - 25 mg/dL LAB CHEMISTRY METHOD 08/19/2024 1:52 PM [facility] Creatinine 1.69(H) 0.50 - 1.10 mg/dL LAB CHEMISTRY METHOD 08/19/2024 1:52 PM [facility] eGFR 30(L) >=60 mL/min/1. 73m2 LAB CHEMISTRY METHOD 08/19/2024 1:52 PM [facility] Comment:Calculation based on the Chronic Kidney Disease Epidemiology Collaboration (CKD-EPI) equation refit without adjustment for race. BUN/Creatinine Ratio 27.8 LAB CHEMISTRY METHOD 08/19/2024 1:52 PM [facility] Calcium 10.3 8.5 - 10.5 mg/dL LAB CHEMISTRY METHOD 08/19/2024 1:52 PM [facility] AST (SGOT) 23 10 - 42 unit/L LAB CHEMISTRY METHOD 08/19/2024 1:52 PM [facility] ALT (SGPT) 26 10 - 60 unit/L LAB CHEMISTRY METHOD 08/19/2024 1:52 PM [facility] Alkaline Phosphatase 138(H) 42 - 121 unit/L LAB CHEMISTRY METHOD 08/19/2024 1:52 PM [facility] Total Protein 7.4 6.0 - 8.0 g/dL LAB CHEMISTRY METHOD 08/19/2024 1:52 PM [facility] Albumin 4.3 3.2 - 5.0 g/dL LAB CHEMISTRY METHOD 08/19/2024 1:52 PM [facility] Total Bilirubin 0.5 0.0 - 1.4 mg/dL LAB CHEMISTRY METHOD 08/19/2024 1:52 PM [facility] Blood Venous blood specimen / Unknown Venipuncture / Unknown 08/19/2024 12:58 PM EST 08/19/2024 1:17 PM EST Jarod Malagon MD LAB BLOOD ORDERABLES Final Res ult [facility] [address] [place] [address], from Last 3 Months or Most Recently Relevant to Health Maintenance Insurance [facility] Advance Directives Documents on File Type Date Recorded 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
--- OUTSIDE RECORDS SUMMARY | 2025-08-21 17:53 | XMS_ITS | Clinical Summary ---
Author Organization [facility] Address [address] [place] [address] Phone Care Team Providers Care Oral And Maxillofacial Surgery Name Role Phone Ned Alcantara MD Primary Care Provider [phone] Allergies Active Allergy Reactions Criticality Noted Date [...] patient's age to complete this topic Insurance [address] [place], [place] [address] [place] [address] [place] [address] Care Teams Oral And Maxillofacial Surgery Relationship Specialty Start Date End Date Ned Alcantara MD [address] [place] [address] PCP - General 10/19/20
--- OUTSIDE RECORDS SUMMARY | 2025-08-21 17:53 | XMS_ITS | Clinical Summary ---
Author Organization [facility] Address [address] [place] [address] Care Team Providers Care Hospital Account Manager Name Role Phone Debbi Beckham Primary Care Provider [phone] Allergies Active Allergy Reactions Criticality Noted Date [...] patient's age to complete this topic Insurance [facility] Advance Directives For more information, please contact: [phone] Documents on File Type Date Recorded Patient Trolley Car Overhauler Expl anation Advance Directives 06/07/2018 2:23 PM Healthcare Agents on File Name Relationship Healthcare Agent Relationshi p Communication Kirsten Jairo Friend POA for [facility] prior to 07/09/2006 Care Teams Hospital Account Manager Relationship Specialty Start Date End Date Debbi Beckham PA [address] [phone] PCP - General Family Medicine 05/23/18
== END 2025-08-20 14:27 | disposition home or self-care (01) ==
LOC: HO.HOSX 14:26
PROVIDERS: Visit Provider Physician Assistant
DX: M17.11 Unilateral primary osteoarthritis, right knee (principal)
CPT/HCPCS: 73562

== ENCOUNTER 2025-08-22 11:13 | Outpatient (REF) | payer OTHER, SELFPAY ==
[2025-08-22 12:53] LABS: Hematocrit 27.4 % (37.0-47.0); Hemoglobin 9.3 g/dl (12.0-16.0); Imm Gran Abs Auto 0.08 X10*3/uL (0.00-0.03); Imm Gran Pct Auto 1.5 % (0.0-0.4); Lymphocytes Absolute Auto 0.8 X10*3/uL (1.2-4.9); MANUAL DIFF FLAG SCAN; Mean Corpuscular HGB Conc 33.9 g/dl (31.0-35.0); Mean Corpuscular Hemoglobin 35.9 pg (27.0-33.0); Mean Corpuscular Volume 105.8 fL (80.0-98.0); NRBC Abs Auto 0.050 X10*3/uL (0.0-0.012); NRBC Pct Auto 0.9 /100WBC (0.0-0.2); PLT CLUMP 1; Red Blood Count 2.59 X10*6/uL (4.20-5.50); SCAN SMEAR FLAG 1
[2025-08-22 13:17] LABS: Platelet Count 110 X10*3/uL (160-400); White Blood Count 5.5 X10*3/uL (4.8-10.8)
[2025-08-22 13:45] LABS: Iron 154 mcg/dL (30-160); Percent Iron Saturation 51 % (15-50); Total Iron Binding Capacity 304 mcg/dL (228-428); Unsaturated Iron Binding 150 ug/dL
[2025-08-22 14:33] LABS: Folate 10.9 ng/mL (> or = 4.0); Vitamin B12 1084 pg/mL (200-900)
--- OUTSIDE RECORDS SUMMARY | 2025-08-22 17:11 | XMS_ITS | Data Portability ---
Author Organization [facility] [address] Address [address] [place] [address] Assessment No assessment recorded. Plan of Treatment [...] By Organization Details Last Modified Time 01/31/2023 [id number] Exercise. Its important to have a regular [...] Address Organization Details Recorded Time Hyperlip idemia 57137884 Active 2022 [facility] 16:32:31 Anxiety 45540381 Active 2022 [facility] 16:37:20 Autoimmu ne disease 42862128 Active 2022 [facility] 16:37:42 Chronic kidney disease stage 3 178045068 Active 2022 Shayna mcclellan, [place] - [facility] 3 16:38:41 Clostrid ium difficil e colitis 606335881 Completed 202201/31/2023 Shayna mcclellan, [place] - [facility] 3 16:40:26 Seizure disorder 620308336 Active 2022 Psychogen ic Shayna mcclellan, [place] - [facility] 3 16:52:21 Depressi ve disorder 05319000 Active 2022 Shayna mcclellan, PA - [facility] 3 16:39:44 Gastroes ophageal reflux disease 754601997 Active 2022 Shayna mcclellan, PA - [facility] 3 16:39:51 Toxic shock syndrome 71195906 Completed 202201/31/2023 Shayna mcclellan PA - [facility] 3 16:40:20 Hyperten sive heart disease 02309252 Active 2022 Shayna mcclellan, PA - [facility] 3 16:40:49 Dissocia tive convulsi ons 225527578 Active 2022 Shayna mcclellan, PA - [facility] 3 16:41:14 Panic attack 323772857 Active 2022 Shayna mcclellan, PA - [facility] 16:41:30 Pyogenic granulom a 480329011 Active 2022 Shayna mcclellan, PA - [facility] 16:41:48 Orthosta tic hypotens ion 18075455 Active 2022 Shayna [facility]an, [facility] - [facility] [...] Name and Address Organization Details Recorded Time 021019 aspirin medicatio n Not available Not available Not available 01/31/2023 1191 RxNorm Shayna mcclellan, [place] - [facility] 16:35:27 814122 lactase medicatio n Not available Not available Not available 01/31/2023 93915 RxNorm Shayna mcclellan, [place] - [facility] 16:35:32 873913 Demerol medicatio n Not available Not available Not available 01/31/2023 77413 1 RxNorm Shayna mcclellan, [place] - [facility] 16:36:41 404972 Product containin g penicilli n (product) medicatio n Not available Not available Not available 01/31/2023 49718 8001 SNOMED Shayna [facility]llan, [facility] - [facility] [...] Updated DateTime 3 170.18 cm 30.9 kg/m2 22181.7 g 99 % 99 % 81 /min 18 /min 97.2 [degF] 0 118/69 mm[Hg] Shayna MELISSA - [facility] 3 16:33:53 Social History None recorded. Functional Status Question Answer Note LastModified by Organizat ion Details LastModified Time Do you use any illicit or recreational drugs? No [email or web address] Information not available 01/31/2023 What is your [...] ICD10 Code Diagnosis IMO Codes Diagnosis Note [id number] [address] [place] [address] 09/14/2019 13:42:16 09/14/2019 14:25:00 [id number] [address] [place] [address] 11/09/2017 11:47:21 11/09/2017 13:12:08 [id number] [address] [place] [address] 07/30/2018 11:07:33 07/30/2018 12:24:33 [id number] [address] [place] [address] 08/31/2016 08:30:25 08/31/2016 09:21:21 [id number] [address] [place] [address] 04/03/2016 11:04:22 04/03/2016 12:26:32 [id number] [address] [facility] [place] [address] 07/06/2018 11:34:50 07/06/2018 13:31:29 [id number] [address] [facility] [place] [address] 01/28/2016 18:05:08 01/28/2016 19:07:56 [id number] [address] [facility] [place] [address] 02/10/2016 16:53:28 02/10/2016 17:58:03 [id number] [address] [facility] [place] [address] 12/27/2015 16:29:56 12/27/2015 17:29:07 [id number] [address] [facility] [place] [address] 09/30/2015 15:05:01 09/30/2015 16:05:08 [id number] [address] [facility] [place] [address] 02/21/2018 17:57:32 02/21/2018 19:08:50 [id number] [address] [facility] [place] [address] 07/11/2020 16:25:03 07/11/2020 18:19:21 [id number] [address] [facility] [place] [address] 04/29/2016 08:27:37 04/29/2016 09:19:25 [id number] [address] [facility] [place] [address] 10/04/2015 09:33:14 10/04/2015 10:43:28 [id number] [address] [facility] [place] [address] 01/09/2019 09:06:31 01/09/2019 10:08:57 [id number] Tommy Arroyo, LAB COURIER [address] [facility] [place] [address] 01/31/2023 15:37:57 01/31/2023 16:56:56 Pain of right hip joint [id number] 12092 M25.551 strongly encouraged to follow up with her PCP or orthopedic as previously scheduled. Health Concerns Section Related Observation LastModified by Organization Detai ls LastModified Time None Recorded Concern Status LastModified by Organization Details LastModified Time None Recorded Advance Directives Directive None Recorded Payers Insurance Date Sequence Insurance Name Policy Number Policy Mcmullen Covered Member ID Mcmullen Member ID Guarantor Name 01/31/2023 1 [facility] (O) [id number] Liliana Gutierrez [id number] Liliana Gutierrez Notes Date Note Type Note [...] Arroyo NP [address] [place], [address], [place] - [facility] 01/31/2023 16:56:09 OBGyn Episode No OBEpisode recorded.
--- OUTSIDE RECORDS SUMMARY | 2025-08-22 17:11 | XMS_ITS | Clinical Summary ---
Author Organization [facility] Address [address] [place] [address] Phone Care Team Providers Care Pallet Stone Inserter Name Role Phone Ned Alcantara MD Primary Care Provider [phone] Allergies Active Allergy Reactions Criticality Noted Date [...] patient's age to complete this topic Insurance [address] [place], [place] [address] [place] [id number] [place] [address] Care Teams Pallet Stone Inserter Relationship Specialty Start Date End Date Ned Alcantara MD [address] [place] [address] PCP - General 10/19/20
--- OUTSIDE RECORDS SUMMARY | 2025-08-22 17:11 | XMS_ITS | Clinical Summary ---
Author Organization [facility] Address [address] [place] [address] Phone Care Team Providers Care Reed Worker Name Role Phone Ned Alcantara MD Primary Care Provider [phone] Allergies Active Allergy Reactions Criticality Noted Date [...] PM [facility] Comment:Calculation based on the Chronic [...] LAB BLOOD ORDERABLES Final Res ult [facility] [address] [place] [address], from Last 3 Months or Most Recently Relevant to Health Maintenance Insurance [facility] Advance Directives Documents on File Type Date Recorded Patient Sales Consultant Residential Manager Expl anation Health Care Decision (hx) 12/29/2015 [...] (hx) 12/23/2015 AD NEWTON DIRECTIVE Care Teams Reed Worker Relationship Specialty Start Date End Date Ned Alcantara MD [address] [place] [address] PCP - General 10/27/21
--- OUTSIDE RECORDS SUMMARY | 2025-08-22 17:11 | XMS_ITS | Clinical Summary ---
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
== END 2025-08-22 11:14 | disposition home or self-care (01) ==
LOC: HO.LAB 11:13
PROVIDERS: PCP Internal Medicine; Visit Provider Internal Medicine
DX: E53.8 Deficiency of other specified B group vitamins (principal); D64.9 Anemia, unspecified; E55.9 Vitamin D deficiency, unspecified
CPT/HCPCS: 36415; 82306; 82607; 82746; 83540; 85025

== ENCOUNTER → 2025-09-08 13:04 | Outpatient (BNV) | payer OTHER, SELFPAY | PROVIDERS: PCP Internal Medicine; Visit Provider Nurse Practitioner Family | DX: D61.818 Other pancytopenia (principal); R70.1 Abnormal plasma viscosity | CPT/HCPCS: 99204 ==

== ENCOUNTER 2025-09-17 13:03 | Outpatient (AMB) | payer OTHER, SELFPAY ==
[2025-09-17 13:13] VITALS: BP 128/68; PULSE 72; O2SAT 98; BMI 27.6
--- NOTE | 2025-09-17 13:13 | MHC.PC.OV ---
Vital Signs 09/17/25 13:13 Height 5 ft 7 in Weight 176 lb BMI 27.6 BP 128/68 Blood Pressure Location Lt brachial Position Sitting Pulse 72 Pulse Source Pulse Oximeter Pulse Oximetry (%) 98 Oxygen Delivery Method Room Air Intake Visit Reasons: ckd Submarine Advisory Team Watch Officer Required: No Accompanied by: Self / Same As Patient Allergies aspirin (ASPIRIN) Allergy (Unknown, Verified 09/17/25 13:32) ANAPHYLAXIS meperidine (From DEMEROL) Allergy (Unknown, Verified 09/17/25 13:32) ANAPHYLAXIS Penicillins (PENICILLINS) Allergy (Unknown, Verified 09/17/25 13:32) ANAPHYLAXIS Sulfa (Sulfonamide Antibiotics) (SULFA (SULFONAMIDE ANTIBIOTICS)) Allergy (Unknown, Verified 09/17/25 13:32) UNKNOWN dairy Allergy (Unknown, Uncoded 09/17/25 13:32) unknown lactose intolerance Allergy (Unknown, Uncoded 09/17/25 13:32) Unknown Medication List - Last Reconciled 09/17/25 by Tawana Sanchez MD bupropion HCl XL 150 mg PO DAILY buspirone 10 mg PO BID clopidogrel 75 mg PO DAILY ferrous sulfate 325 mg PO DAILY 90 days fludrocortisone 0.1 mg PO DAILY 90 days lorazepam 0.5 mg PO BID PRN midodrine 2.5 mg PO DAILY omeprazole 20 mg PO BID sacroiliac belt As directed sertraline 200 mg (2 x 100 mg) PO DAILY PRN 90 days zolpidem 5 mg PO BEDTIME PRN 30 days Tobacco use date assessed: 08/13/25 Fall risk assessment: No Falls in past year Last assessed Fall Risk: 09/17/25 Dental Screening Dental Screen Date: 08/13/25 HPI HPI Comments History of Present Illness Details The patient is an 84-year-old female presenting for management of multiple chronic conditions. Her blood pressure is reported as good today, although she has had high readings in the hospital in September, which were taken with a machine. Her hemoglobin has been stable at 9.1 g/dL, and she receives Procrit injections every two weeks for anemia. She has also received iron infusions in the past and had a bone marrow biopsy which showed CD4 cells, with results to be discussed with hematology. Her insurance, [employer], reportedly wants her to receive shots at home via a nurse, which is considered more expensive. The patient has chronic kidney disease stage 4, which is followed by nephrology and has remained stable. She has an upcoming CT scan of the abdomen and pelvis with contrast scheduled, and there was some concern about contrast use due to her kidney function. She experiences pill-induced dysphagia, reporting she can eat any food but chokes only on pills. She uses applesauce to take her other pills. Although an esophagram was abnormal, she has refused an endoscopy or a gastroenterology consultation. For musculoskeletal issues, she has knee osteoarthritis and lumbar scoliosis, using a knee brace for stability. She uses a cane for stability when outside her home but walks without it inside her house. 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 A skin biopsy of a lesion on her foot came back as basal cell carcinoma. She has a very mild heart murmur and recalls having a heart ultrasound in the past with no abnormal findings, and she no longer follows up with cardiology. [facility] Medical History (Updated 09/18/25 @ 04:19 by Tawana Sanchez MD) Pill-induced gastritis Malignant neoplasm determined by biopsy of skin Orthostatic hypotension Dyspnea on exertion Chronic pain of both shoulders Wrist pain Obesity Depression Hyperlipidemia Hypertension Fall Surgical History (Updated 09/08/25 @ 15:14 by Patria Avina NP) Hx of colonoscopy History of biopsy History of surgical removal of lesion History of hysterectomy History of appendectomy Family History Father History of heart attack Mother Colon cancer Social History Household Members: None Housing: House Do you presently have visiting nurse or other home services: No Alcohol intake: never Comment: refuses fall socks, and camera for safety Patient Tobacco Use Status: Never used Tobacco Tobacco use type: Cigarette e-Cigarette/Vaping Use: Never Used Second Hand Smoke Exposure: No service: No Current occupational status: retired Cognitive needs: Yes (cane) Hearing needs: No Vision needs: Yes Questionnaire Thrive Questionnaire Date Thrive assessed: 03/18/25 I am a: Patient What is your living situation today?: I have a steady place to live Within the past 12 months, did the food you bought not last and you didn't have the money to get more?: I choose not to answer this question Within the past 12 months, did you worry whether your food would run out before you got money to buy more?: I choose not to answer this question Do you have trouble paying for medicines?: No Do you have trouble getting transportation to medical appointments?: No Do you have trouble paying your heating and electricity bill?: No Do you have trouble taking care of your child, family member or friend?: No Do you have trouble with day-to-day activities such as bathing, preparing meals, shopping, managing finances, etc.?: No Are you currently unemployed and looking for a job?: No Are you interested in more education?: No Please select the resources that you would like help with: None Currently or been in a relationship where the following occur: I choose not to answer THRIVE Score: 0 HUMBERTO-7 AMB Questionnaire HUMBERTO-7 Date HUMBERTO - 7 assessed: 03/10/25 Source: Developed by Drs. Mitchell De Oliveira, Meryl Garcia, Rigoberto Post and colleagues, with an educational romi from [employer]. Review of Systems Const All systems reviewed & are unremarkable except as noted in HPI and below Card Denies chest pain at rest, Denies chest pain with activity, Denies edema, Denies irregular heart rhythm, Denies claudication, Denies dyspnea, Denies dyspnea on exertion, Denies orthopnea, Denies paroxysmal nocturnal dyspnea and Denies slow heart rate Resp Denies cough, Denies dyspnea and Denies dyspnea on exertion GI Denies abdominal pain, Denies change in bowel habits, Denies excessive flatus, Denies nausea and Denies vomiting Physical exam (Primary Care) Vital Signs: Last Vital Signs Pulse 72 09/17/25 13:13 BP 128/68 09/17/25 13:13 Pulse Ox 98 09/17/25 13:13 Oxygen Delivery Method Room Air 09/17/25 13:13 BMI result Body Mass Index 27.6 Tobacco/Smoking Status: Tobacco use Status Tobacco use date assessed 08/13/25 09/17/25 13:13 Patient Tobacco Use Status Never used Tobacco 09/17/25 13:13 Tobacco use type Cigarette 09/17/25 13:13 e-Cigarette/Vaping Use Never Used 09/17/25 13:13 Thrive Assessment: Date of Thrive Assessment Date Thrive assessed 03/18/25 09/17/25 13:13 Currently or been in a relationship where the following occur: I choose not to answer Resp Effort & Inspection: normal respiratory effort Auscultation: clear to auscultation bilaterally Cardio Jugular venous distension: no JVD Rate: regular rate Rhythm: regular rhythm Heart sounds: S1 normal heart sound present and S2 normal heart sound present Extrem General: Yes full ROM Coding Level of Care Code Add On Preventative Visit Only Diagnoses Major depressive disorder, recurrent, moderate F33.1 Idiopathic hypotension I95.0 Thrombocytopenia D69.6 Abnormal barium swallow R93.3 CKD (chronic kidney disease) stage 4, GFR 15-29 ml/min N18.4 Anemia D64.9 Time Spent (min) 23 Assessment & Plan Assessment & Plan (1) Major depressive disorder, recurrent, moderate: Code(s): F33.1 - Major depressive disorder, recurrent, moderate Category: Medical (2) Idiopathic hypotension: Code(s): I95.0 - Idiopathic hypotension Category: Medical (3) Thrombocytopenia: Code(s): D69.6 - Thrombocytopenia, unspecified Category: Medical (4) Abnormal barium swallow: Code(s): R93.3 - Abnormal findings on diagnostic imaging of other parts of digestive tract Category: Medical (5) CKD (chronic kidney disease) stage 4, GFR 15-29 ml/min: Code(s): N18.4 - Chronic kidney disease, stage 4 (severe) Category: Medical (6) Anemia: Code(s): D64.9 - Anemia, unspecified Category: Medical Plan Plan 1. Anemia And Thrombocytopenia The patient's anemia and thrombocytopenia are stable. She will continue with Procrit injections every two weeks and will follow up with hematology to discuss the results of her bone marrow biopsy. She will continue taking ferrous sulfate and vitamin C. She does not currently require a blood transfusion. 2. Chronic Kidney Disease, Stage 4 The patient's stage 4 chronic kidney disease has not changed significantly. She will continue to follow up with her bunch trimmer mold, with her next appointment scheduled for January 26. She is scheduled for a CT scan of the abdomen and pelvis with contrast. 3. Idiopathic Hypotension The patient's blood pressure is well-controlled on her current regimen of midodrine and fludrocortisone, which she continues to take. It was suggested that she request manual blood pressure checks at future appointments due to discrepancies with machine readings. 4. Knee Osteoarthritis And Lumbar Scoliosis The patient manages her knee arthritis and lumbar scoliosis with a knee brace for stability and uses a cane when needed for balance, primarily outside the home. She continues to follow with orthopedics for her knee. 5. Pill-Induced Dysphagia The patient has pill-induced dysphagia and an abnormal esophagram but declines further evaluation with endoscopy or a gastroenterology referral. She will continue to manage symptoms by taking pills with applesauce.
== END 2025-09-17 13:55 | disposition home or self-care (01) ==
LOC: HO.HMCH 13:04
PROVIDERS: PCP Internal Medicine; Visit Provider Internal Medicine
DX: F33.1 Major depressive disorder, recurrent, moderate (principal); I95.0 Idiopathic hypotension; D69.6 Thrombocytopenia, unspecified; R93.3 Abnormal findings on diagnostic imaging of other parts of digestive tract; N18.4 Chronic kidney disease, stage 4 (severe); D64.9 Anemia, unspecified

== ENCOUNTER 2025-09-23 08:03 | Outpatient (REF) | payer OTHER, SELFPAY ==
--- NOTE | ~2025-09-23 | CT_ITS ---
EXAMINATION: CT ABDOMEN PELVIS WITHOUT IV CONTRAST, CT CHEST WITHOUT IV CONTRAST INDICATION: F/u abnormal findings CT A/P from 02/2025 COMPARISON: Comparison is made with the prior chest CT dated 09/27/[address] of the abdomen and pelvis dated 02/24/2025 TECHNIQUE: CT scan of the chest, abdomen and pelvis was performed without contrast using standard departmental protocol. Coronal and sagittal reformatted images were generated and reviewed. The patient received oral contrast material. This CT exam was performed with one or more of the following dose reduction techniques: automated exposure control, adjustment of the mA and/or kV according to patient size, use of iterative reconstruction technique. DLP: 698 mGy-cm CHEST: THYROID: The thyroid is unremarkable. LUNGS: There is a 1.5 cm opacity at the anteromedial aspect of the right middle lobe which may represent subsegmental atelectasis, a mass is not excluded (series 5, images 72-79). There are thickened interlobular septae at the peripheral aspects of the lungs, suggestive of mild fibrosis. No significant honeycombing. MEDIASTINUM: There is no mediastinal lymphadenopathy. GRACIELA: Evaluation of the hilar regions is limited by lack of intravenous contrast material. CARDIOVASCULATURE: The heart is mildly enlarged. There is no pericardial effusion. There is dilatation of the ascending thoracic aorta measuring up to 4.0 cm in diameter. DEGREE OF CORONARY CALCIFICATION: moderate PLEURA: There is no pleural effusion. No pneumothorax. MAIN AIRWAYS: The mainstem bronchi and proximal branches are patent. AXILLA: There is no axillary lymphadenopathy. SOFT TISSUES: Unremarkable. BONES: There is degenerative disc disease of the spine. ABDOMEN: LIVER: The liver is normal in size and contour. The liver has an unremarkable unenhanced appearance. GALLBLADDER / BILE DUCTS: The gallbladder is unremarkable. There is no intra or extrahepatic biliary ductal dilatation. SPLEEN: The spleen is top normal in size and has an unremarkable unenhanced appearance. PANCREAS: The pancreas has an unremarkable unenhanced appearance. ADRENAL GLANDS: Unremarkable. KIDNEYS/RETROPERITONEUM: Again seen is extensive renal scarring likely secondary to chronic pyelonephritis. The previously seen left perinephric soft tissue stranding has resolved. No renal calculi are identified. There is no hydronephrosis. There is a probable 2.3 cm cyst at the lower pole of the right kidney. LYMPH NODES: No retroperitoneal lymphadenopathy is identified in the abdomen or pelvis. VASCULATURE: The abdominal aorta demonstrates atherosclerotic calcification, but is normal in caliber. MESENTERY/PERITONEUM: No free fluid. No masses. There is no free intraperitoneal gas. STOMACH: The stomach is collapsed, limiting evaluation. SMALL BOWEL: The small bowel is normal in caliber. COLON: There is a large amount of stool throughout the colon. APPENDIX: The appendix is not seen, however no inflammatory changes are seen adjacent to the cecum. URINARY BLADDER/PELVIC ORGANS: The urinary bladder is collapsed, limiting detailed evaluation. The patient is status post hysterectomy. BONES / SOFT TISSUES: No suspicious bony or soft tissue abnormalities. CT/CT abdomen pelvis wo IV con IMPRESSION: 1. Findings suggestive of mild pulmonary fibrosis. 2. 1.5 cm opacity at the anteromedial aspect of the right middle lobe which may represent subsegmental atelectasis, although a mass is not excluded. Follow-up is recommended. 3. Extensive bilateral renal scarring, likely secondary to chronic pyelonephritis. The previously seen left perinephric soft tissue stranding has resolved. Electronically signed by: Mitchell Pandya MD 09/23/2025 11:02 AM [facility]
--- OUTSIDE RECORDS SUMMARY | 2025-09-23 08:13 | XMS_ITS | Clinical Summary ---
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
--- OUTSIDE RECORDS SUMMARY | 2025-09-23 08:13 | XMS_ITS | Clinical Summary ---
Author Organization [facility] Address [address] [place] [phone] Phone Care Team Providers Care Coin Counter And Wrapper Name Role Phone Ned Alcantara MD Primary Care Provider [phone] Allergies Active Allergy Reactions Criticality Noted Date [...] mmol/L LAB CHEMISTRY METHOD 08/19/2024 1:52 PM [facility] Potassium 5.2 3.5 - 5.5 mmol/L LAB CHEMISTRY METHOD 08/19/2024 1:52 PM [facility] Chloride 106 96 - 110 mmol/L LAB CHEMISTRY METHOD 08/19/2024 1:52 PM [facility] CO2 25 21 - 32 mmol/L LAB CHEMISTRY METHOD 08/19/2024 1:52 PM [facility] Anion Gap 8 3 - 11 LAB CHEMISTRY METHOD 08/19/2024 1:52 PM [facility] Glucose 107(H) 70 - 100 mg/dL LAB CHEMISTRY METHOD 08/19/2024 1:52 PM [facility] BUN 47(H) 5 - 25 mg/dL LAB CHEMISTRY METHOD 08/19/2024 1:52 PM [facility] Creatinine 1.69(H) 0.50 - 1.10 mg/dL LAB CHEMISTRY METHOD 08/19/2024 1:52 PM [facility] eGFR 30(L) >=60 mL/min/1. 73m2 LAB CHEMISTRY METHOD 08/19/2024 1:52 PM [facility] Comment:Calculation based on the Chronic Kidney Disease Epidemiology Collaboration (CKD-EPI) equation refit without adjustment for race. BUN/Creatinine Ratio 27.8 LAB CHEMISTRY METHOD 08/19/2024 1:52 PM [facility] Calcium 10.3 8.5 - 10.5 mg/dL LAB CHEMISTRY METHOD 08/19/2024 1:52 PM EST [facility] AST (SGOT) 23 10 - 42 unit/L LAB CHEMISTRY METHOD 08/19/2024 1:52 PM [facility] ALT (SGPT) 26 10 - 60 unit/L LAB CHEMISTRY METHOD 08/19/2024 1:52 PM [facility] Alkaline Phosphatase 138(H) 42 - 121 unit/L LAB CHEMISTRY METHOD 08/19/2024 1:52 PM [facility] Total Protein 7.4 6.0 - 8.0 g/dL LAB CHEMISTRY METHOD 08/19/2024 1:52 PM [facility] Albumin 4.3 3.2 - 5.0 g/dL LAB CHEMISTRY METHOD 08/19/2024 1:52 PM [facility] Total Bilirubin 0.5 0.0 - 1.4 mg/dL LAB CHEMISTRY METHOD 08/19/2024 1:52 PM [facility] Blood Venous blood specimen / Unknown Venipuncture / Unknown 08/19/2024 12:58 PM EST 08/19/2024 1:17 PM EST Jarod Malagon MD LAB BLOOD ORDERABLES Final Res ult [facility] [address] [place] [address], from Last 3 Months or Most Recently Relevant to Health Maintenance Insurance [facility] Advance Directives Documents on File Type Date Recorded 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
--- OUTSIDE RECORDS SUMMARY | 2025-09-23 08:14 | XMS_ITS | Data Portability ---
Author Organization [facility] [address] Address [address] [place] [phone] Assessment No assessment recorded. Plan of Treatment [...] By Organization Details Last Modified Time 01/31/2023 [id number] Exercise. Its important to have a regular [...] Address Organization Details Recorded Time Hyperlip idemia 79959835 Active 2022 [facility] 16:32:31 Anxiety 42689644 Active 2022 [facility] 16:37:20 Autoimmu ne disease 61167458 Active 2022 [facility] 16:37:42 Chronic kidney disease stage 3 927621199 Active 2022 Shayna mcclellan, PA - [facility] 3 16:38:41 Clostrid ium difficil e colitis 058689066 Completed 202201/31/2023 Shayna mcclellan, PA - [facility] 3 16:40:26 Seizure disorder 683744261 Active 2022 Psychogen ic Shayna mcclellan, PA - [facility] 3 16:52:21 Depressi ve disorder 08272690 Active 2022 Shayna mcclellan, PA - [facility] 3 16:39:44 Gastroes ophageal reflux disease 021539659 Active 2022 Shayna mcclellan, PA - [facility] 3 16:39:51 Toxic shock syndrome 82204692 Completed 202201/31/2023 Shayna mcclellan PA - [facility] 3 16:40:20 Hyperten sive heart disease 92226470 Active 2022 Shayna mcclellan, PA - [facility] 3 16:40:49 Dissocia tive convulsi ons 294336860 Active 2022 Shayna mcclellan, PA - [facility] 3 16:41:14 Panic attack 551734926 Active 2022 Shayna mcclellan, PA - [facility] 16:41:30 Pyogenic granulom a 553618470 Active 2022 Shayna mcclellan, PA - [facility] 16:41:48 Orthosta tic hypotens ion 73032934 Active 2022 Shayna [facility]llan, [facility] - [facility] [...] Name and Address Organization Details Recorded Time 897263 aspirin medicatio n Not available Not available Not available 01/31/2023 1191 RxNorm Shayna mcclellan, PA - [facility] 16:35:27 941892 lactase medicatio n Not available Not available Not available 01/31/2023 31637 RxNorm Shayna mcclellan, PA - [facility] 16:35:32 696459 Demerol medicatio n Not available Not available Not available 01/31/2023 52953 1 RxNorm Shayna mcclellan, PA - [facility] 16:36:41 594172 Product containin g penicilli n (product) medicatio n Not available Not available Not available 01/31/2023 55944 8001 SNOMED Shayna [facility]llan, [facility] - [facility] [...] mass index (BMI) Body weight Oxygen saturation Heart rate Respiratory rate Body temperature Pain severity - 0-10 verbal numeric rating [Score] - Reported Systolic And Diastolic Provider Name and Address Organization Details Last Updated DateTime 3 170.18 cm 30.9 kg/m2 93360.7 g 99 % 81 /min 18 /min 97.2 [degF] 0 118/69 mm[Hg] Shayna MELISSA - [facility] 3 16:33:53 Social History None recorded. Functional Status Question Answer Note LastModified by Organizat ion Details LastModified Time Do you use any illicit or recreational drugs? No [email or web address] Information not available 01/31/2023 What is your [...] Pneumococcal conjugate PCV 13 6 completed Shayna [facility]cclellan, [facility] - [facility] [...] ICD10 Code Diagnosis IMO Codes Diagnosis Note [id number] [address] [place] [address] 09/14/2019 13:42:16 09/14/2019 14:25:00 [id number] [address] [place] [address] 11/09/2017 11:47:21 11/09/2017 13:12:08 [id number] [address] [place] [address] 07/30/2018 11:07:33 07/30/2018 12:24:33 [id number] [address] [place] [address] 08/31/2016 08:30:25 08/31/2016 09:21:21 [id number] [address] [facility], [place] [address] 04/03/2016 11:04:22 04/03/2016 12:26:32 [id number] [address] [facility], [place] [address] 07/06/2018 11:34:50 07/06/2018 13:31:29 [id number] [address] [facility], [place] [address] 01/28/2016 18:05:08 01/28/2016 19:07:56 [id number] [address] [facility], [place] [address] 02/10/2016 16:53:28 02/10/2016 17:58:03 [id number] [address] [facility], [place] [address] 12/27/2015 16:29:56 12/27/2015 17:29:07 [id number] [address] [facility], [place] [address] 09/30/2015 15:05:01 09/30/2015 16:05:08 [id number] [address] [facility], [place] [address] 02/21/2018 17:57:32 02/21/2018 19:08:50 [id number] [address] [facility], [place] [address] 07/11/2020 16:25:03 07/11/2020 18:19:21 [id number] [address] [place] [address] 04/29/2016 08:27:37 04/29/2016 09:19:25 [id number] [address] [place] [address] 10/04/2015 09:33:14 10/04/2015 10:43:28 [id number] [address] [place] [address] 01/09/2019 09:06:31 01/09/2019 10:08:57 [id number] Tommy Arroyo, [employer] [address] [place] [address] 01/31/2023 15:37:57 01/31/2023 16:56:56 Pain of right hip joint [id number] 32407 M25.551 strongly encouraged to follow up with [...] Member ID Guarantor Name 01/31/2023 1 [facility] [id number] Liliana Gutierrez [id number] Liliana Gutierrez Notes Date Note Type Note [...] Arroyo NP [address] [place], [address], [place] - [facility] 01/31/2023 16:56:09 OBGyn Episode No OBEpisode recorded.
[2025-09-23] MEDS: Barium Sulfate Oral (Vanilla) 450 ML ORAL.SUSP 900 ML PO (10:46)
== END 2025-09-23 08:04 | disposition home or self-care (01) ==
LOC: HO.CT 08:03
PROVIDERS: PCP Internal Medicine; Visit Provider Nurse Practitioner Family
DX: R93.89 Abnormal findings on diagnostic imaging of other specified body structures (principal); R93.3 Abnormal findings on diagnostic imaging of other parts of digestive tract; R93.5 Abnormal findings on diagnostic imaging of other abdominal regions, including retroperitoneum; D64.9 Anemia, unspecified; R06.02 Shortness of breath; R06.09 Other forms of dyspnea
CPT/HCPCS: 71250; 74176

== ENCOUNTER → 2025-09-23 08:07 | Outpatient (BNV) | payer OTHER, SELFPAY | PROVIDERS: PCP Internal Medicine; Visit Provider Radiology Diagnostic Radiology | DX: R91.8 Other nonspecific abnormal finding of lung field (principal) | CPT/HCPCS: 71250; 74176 ==

== ENCOUNTER 2025-09-29 10:07 | Emergency (ER) | payer OTHER, SELFPAY ==
--- NOTE | ~2025-09-29 | CT_ITS ---
EXAMINATION: CT HEAD WITHOUT CONTRAST CLINICAL INFORMATION: Head head on wall. On Plavix. COMPARISON: CT 11/05/2014 TECHNIQUE: Contiguous axial imaging was performed from the skull base to vertex without intravenous administration of contrast. This CT examination was performed using dose optimization techniques as appropriate, variously including the following: *Automated exposure control *Adjustment of mA and/or kV according to patient size (this includes techniques or standardized protocols for targeted exams where dose is matched to indication/reason for exam; i.e. extremities or head) *Use of iterative reconstruction technique FINDINGS: There is no evidence of acute intracranial hemorrhage or edematous large vessel territorial infarction. No abnormal mass effect or midline shift is seen. Reeder to white matter differentiation is well preserved. No abnormal extra-axial fluid collections are identified. Commensurate prominence of the ventricles and sulci is compatible with generalized parenchymal volume loss. There is mild periventricular and subcortical white matter hypoattenuation, most likely representing microangiopathic disease. No acute calvarial fracture.. Paranasal sinuses and mastoid air cells are well-aerated. CT/CT head/brain wo IV con IMPRESSION: No CT evidence of acute intracranial hemorrhage or edematous territorial infarction.. Electronically signed by: Nikhil Valerio MD 09/29/2025 11:39 AM EST
[2025-09-29 10:12] VITALS: PULSE 68; RESP 12; TEMP 36.6; O2SAT 98; BMI 29.3
[2025-09-29 10:22] VITALS: PULSE 63; RESP 16; O2SAT 98
--- NOTE | 2025-09-29 10:24 | ECG_ITS ---
Test Reason : ?seizure Blood Pressure : */* mmHG Vent. Rate : 64 BPM Atrial Rate : 64 BPM P-R Int : 158 ms QRS Dur : 68 ms QT Int : 402 ms P-R-T Axes : -16 18 55 degrees QTcB Int : 414 ms Sinus rhythm with Premature atrial complexes Otherwise normal ECG When compared with ECG of 24-Feb-2025 10:49, Premature atrial complexes are now Present Referred By: Ying Abdi Electronically Signed By: VÍCTOR ONTIVEROS MD
--- NOTE | 2025-09-29 10:24 | ED.GENADULT ---
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 Patient was awake and alert during entire incident, did not lose postural tone, no incontinence tongue biting or postictal state. admits to hitting head on wall. Denies LOC. Admits to similar symptoms in the past - which she takes Ativan for. Denies recent illness, fever/chills, headache, neck pain, CP/SOB, abdominal pain Related Data Home Medications ?Medication ?Instructions ?Recorded ?Confirmed bupropion HCl 150 mg 24 hr tablet, 150 mg PO DAILY 02/24/25 09/25/25 extended release Previous Rx's ?Medication ?Instructions ?Recorded sacroiliac belt #1 ea 08/25/24 clopidogrel 75 mg tablet 75 mg PO DAILY #90 tabs 10/29/24 omeprazole 20 mg capsule,delayed 20 mg PO BID #180 caps 03/10/25 release midodrine 2.5 mg tablet 2.5 mg PO DAILY #90 tabs 03/14/25 ferrous sulfate 325 mg (65 mg 325 mg PO DAILY 90 days #90 tabs 05/28/25 iron) tablet sertraline 100 mg tablet 200 mg (2 x 100 mg) PO DAILY PRN 06/17/25 for depressive disorder 90 days #180 tabs buspirone 10 mg tablet 10 mg PO BID #180 tabs 07/08/25 fludrocortisone 0.1 mg tablet 0.1 mg PO DAILY 90 days #90 tabs 07/08/25 lorazepam 0.5 mg tablet 0.5 mg PO BID PRN anxiety #60 tabs 08/13/25 zolpidem 5 mg tablet 5 mg PO BEDTIME PRN sleep 30 days 09/29/25 #30 tabs Allergies Allergy/AdvReac Type Severity Reaction Status Date / Time aspirin (ASPIRIN) Allergy Unknown ANAPHYLAXIS Verified 09/29/25 10:12 meperidine (From DEMEROL) Allergy Unknown ANAPHYLAXIS Verified 09/29/25 10:12 Penicillins (PENICILLINS) Allergy Unknown ANAPHYLAXIS Verified 09/29/25 10:12 Sulfa (Sulfonamide Allergy Unknown UNKNOWN Verified 09/29/25 10:12 Antibiotics) (SULFA (SULFONAMIDE ANTIBIOTICS)) dairy Allergy Unknown unknown Uncoded 09/25/25 09:53 lactose intolerance Allergy Unknown Unknown Uncoded 09/25/25 09:53 Review of Systems Review of Systems: Yes all other systems are reviewed and are negative Constitutional: Constitutional: Reports as per HPI Neurologic: Denies Abnormal speech present [facility] Past Medical History Attestation statement: The following information was validated with the patient. Source: old records reviewed Medical History Pill-induced gastritis Malignant neoplasm determined by biopsy of skin Orthostatic hypotension Dyspnea on exertion Chronic pain of both shoulders Wrist pain Obesity Depression Hyperlipidemia Hypertension Fall Surgical History Hx of colonoscopy History of biopsy History of surgical removal of lesion History of hysterectomy History of appendectomy Family History Family History Father History of heart attack Mother Colon cancer Social History Social History Household Members: None Housing: House Do you presently have visiting nurse or other home services: No Alcohol intake: never Comment: refuses fall socks, and camera for safety Patient Tobacco Use Status: Never used Tobacco Tobacco use type: Cigarette Smoked in Last 30 Days: No e-Cigarette/Vaping Use: Never Used Second Hand Smoke Exposure: No Advance Directives: No Advance Directives Information Provided: Yes service: No Current occupational status: retired Cognitive needs: Yes (cane) Hearing needs: No Vision needs: Yes Physical Exam ED Vital Signs: Vital Signs - 24 hr 09/29/25 10:12 09/29/25 10:22 09/29/25 10:37 Temperature 97.8 F Pulse Rate 68 63 Respiratory Rate 12 16 Blood Pressure 118/56 L Pulse Oximetry 98 98 Oxygen Delivery Method Room Air Room Air 09/29/25 12:03 Temperature 98.7 F Pulse Rate 58 Respiratory Rate 16 Blood Pressure 116/62 Pulse Oximetry 98 Oxygen Delivery Method Room Air BMI result Body Mass Index 29.3 Const General: cooperative, healthy appearing and no acute distress Orientation/consciousness: patient oriented x3 Limitations: no limitations HENMT Head: Yes normal to inspection and Yes atraumatic Ears: hearing grossly normal bilaterally General nose exam: Normal external nose present Face and sinus: Yes normal facial exam Eyes General: appearance normal, both eyes and all related structures EOM: EOMs intact bilaterally Neck Neck: Yes normal visual inspection and Yes no meningeal signs Resp Effort & Inspection: normal respiratory effort and no respiratory distress Auscultation: clear to auscultation bilaterally Cardio Rate: regular rate Heart sounds: S1 normal heart sound present and S2 normal heart sound present GI Inspection: Yes normal to inspection Palpation (GI): Soft to palpation, nontender, no guarding and not rigid Skin Rashes: no rashes Wounds: no wounds Neuro General: patient oriented x3, tone normal, moves all extremities, no meningeal signs, no focal motor deficits and CN's II-XI intact bilaterally Cranial nerves: Yes CN's II-XII intact bilaterally and Yes Bilaterally intact EOM present Cognition (Neuro): normal cognition Speech: No Abnormal speech present Motor exam (neuro): 5/5 motor strength present throughout Extrem General: Yes normal to inspection Course Course Course Narrative: 12:05 PM 09/29/2025 (Ying Abdi PA-C): labs reassuring/at patient's baseline CT head/brain wo IV con IMPRESSION: No CT evidence of acute intracranial hemorrhage or edematous territorial infarction. Results discussed with patient including worrisome signs and symptoms and strict return precautions, and when to return to the emergency department. They verbalized understanding and feel safe for discharge at this time. 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 Patient was awake and alert during entire incident, did not lose postural tone, no incontinence tongue biting or postictal state. On exam vital signs stable, NAD, nontoxic appearing, physical exam as noted above. No focal neuro deficits. Concern for nonepileptic seizure/anxiety/panic attack. Rule out ICH and metabolic abnormalities. Low suspicion for infectious etiology. Rule out anemia Plan: EKG, labs, head CT Please refer to course for remaining clinical decision making, interpretation of labs/imaging results, and discussions with consultants and/or family members. Differential Diagnosis Differential Diagnoses: The differential diagnosis associated with the presentation includes As above Admission/Observation Consideration of admission/observation: Escalation of care including admission/observation considered Lab Data MDM Lab Attestation statement: I reviewed the patient's lab results. 09/29/25 10:54 09/29/25 10:54 Labs: Lab Results 09/29/25 Range/Units 10:54 WBC 4.5 L (4.8-10.8) X10*3/uL RBC 2.87 L (4.20-5.50) X10*6/uL Hgb 10.3 L (12.0-16.0) g/dl Hct 30.8 L (37.0-47.0) % MCV 107.3 H (80.0-98.0) fL MCH 35.9 H (27.0-33.0) pg MCHC 33.4 (31.0-35.0) g/dl RDW 16.5 H (11.0-16.0) % Plt Count 85 L (160-400) X10*3/uL MPV Not Reportable Immature Gran % (Auto) Cancelled Neut % (Auto) Cancelled Lymph % (Auto) Cancelled [place] % (Auto) Cancelled Eos % (Auto) Cancelled Baso % (Auto) Cancelled Lymph # (Auto) Cancelled [place] # (Auto) Cancelled Eos # (Auto) Cancelled Baso # (Auto) Cancelled Abs Immat Gran (auto) Cancelled Absolute Neuts (auto) Cancelled Absolute Nucleated RBC 0.030 H (0.0-0.012) X10*3/uL Nucleated RBC % (auto) 0.6 H (0.0-0.2) /100WBC Neutrophils % (Manual) 68 (45-73) % Band Neutrophils % 9 H (3-5) % Lymphocytes % (Manual) 14 L (20-40) % Monocytes % (Manual) 6 (2-11) % Eosinophils % (Manual) 2 (0-4) % Basophils % (Manual) 1 (0-2) % Abs Neuts (Manual) 3.5 (2.0-8.3) X10*3/uL Lymphocytes # (Manual) 0.6 L (1.2-4.9) X10*3/uL Monocytes # (Manual) 0.3 (0.1-1.2) X10*3/uL Eosinophils # (Manual) 0.1 (0.0-0.4) X10*3/uL Platelet Estimate DECREASED (NORMAL) Plt Morphology Comment NORMAL RBC Morphology NOTED Basophilic Stippling 1+ (0-2) /OIF Tear Drop Cells 1+ (0-2) /OIF Ovalocytes 1+ (5-14) /OIF Acanthocytes (Spur) 1+ (0-2) /OIF Sodium 143 (135-145) mmol/L Potassium 4.5 (3.3-5.1) mmol/L Chloride 109 H (96-108) mmol/L Carbon Dioxide 26 (22-29) mmol/L Anion Gap 13 (12-20) BUN 48 H (9-16) mg/dL Creatinine 1.73 H (0.5-1.4) mg/dL Estim Creat Clear Calc 27.0 Estimated GFR 28 Random Glucose 96 (60-115) mg/dL Calcium 9.8 (8.4-10.2) mg/dL Magnesium 2.4 (1.6-2.6) mg/dL Total Bilirubin 0.8 (0.0-1.0) mg/dL Direct Bilirubin 0.3 (0.0-0.5) mg/dL AST 24 (5-31) U/L ALT 12 (0-31) U/L Alkaline Phosphatase 94 (39-117) U/L Total Protein 6.6 (6.5-8.0) g/dL Albumin 4.6 (3.5-5.0) g/dL Independent Interpretation I performed an independent interpretation of an: EKG and CT Scan Radiology Impression Discussion of test interpretation with radiology: I have reviewed the radiologist's reading. Independent Historian Clinical information obtained from an independent historian. History obtained from or confirmed by: Other External Record Review External record reviewed: Inpatient record, Office record, Outpatient record, Prior outpatient labs, Prior outpatient radiology, Primary care record and Outside ED record Tests considered The following testing was considered but not selected: As above Prescription Management I considered prescription management with: Other Chronic Conditions Patient?s care impacted by: Cancer and Other Social Determinants Patient?s care significantly limited by Social Determinants of Health including: Problems related to primary support group and Other Social Determinant of Health Discharge Plan Discharge Clinical Impression: Psychogenic nonepileptic seizure Patient Disposition: Home, Self-Care Prescriptions: No Action (DME) sacroiliac belt Kit See Rx Instructions .Route Qty: 1 0RF Rx Instructions: As directed clopidogrel 75 mg tablet 75 mg PO DAILY Qty: 90 3RF omeprazole 20 mg capsule,delayed release(DR/EC) 20 mg PO BID Qty: 180 2RF sertraline 100 mg tablet 200 mg PO DAILY PRN (Reason: for depressive disorder) 90 Days Qty: 180 3RF buspirone 10 mg tablet 10 mg PO BID Qty: 180 1RF fludrocortisone 0.1 mg tablet 0.1 mg PO DAILY 90 Days Qty: 90 1RF zolpidem 5 mg tablet 5 mg PO BEDTIME PRN (Reason: sleep) 30 Days Qty: 30 0RF bupropion HCl 150 mg tablet extended release 24 hr 150 mg PO DAILY midodrine 2.5 mg tablet 2.5 mg PO DAILY Qty: 90 1RF ferrous sulfate 325 mg (65 mg iron) tablet 325 mg PO DAILY 90 Days Qty: 90 1RF lorazepam 0.5 mg tablet 0.5 mg PO BID PRN (Reason: anxiety) Qty: 60 1RF Print Language: [place]
[2025-09-29 10:37] VITALS: BP 118/56
[2025-09-29 11:07] LABS: Hematocrit 30.8 % (37.0-47.0); Hemoglobin 10.3 g/dl (12.0-16.0); Mean Corpuscular HGB Conc 33.4 g/dl (31.0-35.0); Mean Corpuscular Hemoglobin 35.9 pg (27.0-33.0); Mean Corpuscular Volume 107.3 fL (80.0-98.0); NRBC Abs Auto 0.030 X10*3/uL (0.0-0.012); NRBC Pct Auto 0.6 /100WBC (0.0-0.2); PLT CLUMP 1; Red Blood Count 2.87 X10*6/uL (4.20-5.50)
[2025-09-29 11:09] LABS: White Blood Count 4.5 X10*3/uL (4.8-10.8)
[2025-09-29 11:21] LABS: Alanine Aminotransferase 12 U/L (0-31); Albumin Level 4.6 g/dL (3.5-5.0); Alkaline Phosphatase 94 U/L (39-117); Anion Gap 13 (12-20); Aspartate Amino Transferase 24 U/L (5-31); Blood Urea Nitrogen 48 mg/dL (9-16); Calcium 9.8 mg/dL (8.4-10.2); Carbon Dioxide 26 mmol/L (22-29); Chloride 109 mmol/L (96-108); Creatinine Clr Calc Pharmacy 27.0; Estimated Glomerular Filt Rate 28; Magnesium 2.4 mg/dL (1.6-2.6); Potassium 4.5 mmol/L (3.3-5.1); Sodium 143 mmol/L (135-145); Total Protein 6.6 g/dL (6.5-8.0)
[2025-09-29 11:31] LABS: Platelet Count 85 X10*3/uL (160-400)
[2025-09-29 11:36] LABS: Band Neutrophils Percent 9 % (3-5); Basophils Percent Manual 1 % (0-2); Eosinophils Absolute Manual 0.1 X10*3/uL (0.0-0.4); Eosinophils Percent Manual 2 % (0-4); Lymphocytes Absolute Manual 0.6 X10*3/uL (1.2-4.9); Lymphocytes Percent Manual 14 % (20-40); Monocytes Absolute Manual 0.3 X10*3/uL (0.1-1.2); Monocytes Percent Manual 6 % (2-11); Neutrophils Absolute Manual 3.5 X10*3/uL (2.0-8.3); Neutrophils Percent Manual 68 % (45-73)
[2025-09-29 11:38] LABS: Acanthocytes 1+ (0-2) /OIF; Ovalocytes 1+ (5-14) /OIF; RBC Morphology NOTED
[2025-09-29 11:39] LABS: Basophilic Stippling 1+ (0-2) /OIF; Tear Drop Cells 1+ (0-2) /OIF
[2025-09-29 12:03] VITALS: BP 116/62; PULSE 58; RESP 16; TEMP 37.1; O2SAT 98
[2025-09-29 14:14] VITALS: BP 116/62; PULSE 58; RESP 16; TEMP 37.1; O2SAT 98
--- OUTSIDE RECORDS SUMMARY | 2025-09-29 14:40 | XMS_ITS | Clinical Summary ---
Author Organization [facility] Address [address] [place] [address] Care Team Providers Care Milk Condenser Name Role Phone Debbi Beckham Primary Care [...] patient's age to complete this topic Insurance [facility] Advance Directives For more information, please contact: [phone] Documents on File Type Date Recorded Patient Barometers Calibrator Expl anation Advance Directives 06/07/2018 2:23 PM Healthcare Agents on File Name Relationship Healthcare Agent Relationshi p Communication Kirsten Jairo Friend Health Care Repr esentative or POA prior to 07/09/2006 Care Teams Milk Condenser Relationship Specialty Start Date End Date Debbi Beckham PA [address] [phone] PCP - General Family Medicine 05/23/18
--- OUTSIDE RECORDS SUMMARY | 2025-09-29 14:40 | XMS_ITS | Clinical Summary ---
Author Organization [facility] Address [address] [place] [phone] Phone Care Team Providers Care Plasma Processor Name Role Phone Ned Alcantara MD Primary Care Provider [phone] Allergies Active Allergy Reactions Criticality Noted Date [...] LAB CHEMISTRY METHOD 08/19/2024 1:52 PM EST [facility] AST (SGOT) 23 10 [...] Final Res ult [facility] [address] [place] [address], from Last 3 Months or Most Recently Relevant to Health Maintenance Insurance [facility] Advance Directives Documents on File Type Date Recorded Patient Health Care Assistant Expl anation Health Care Decision (hx) 12/29/2015 [...] (hx) 12/23/2015 AD [place] DIRECTIVE Care Teams Plasma Processor Relationship Specialty Start Date End Date Ned Alcantara MD [address] [place] [id number] PCP - General 10/27/21
--- OUTSIDE RECORDS SUMMARY | 2025-09-29 14:40 | XMS_ITS | Clinical Summary ---
Author Organization [facility] Address [address] [place] [address] Phone Care Team Providers Care Traffic Workforce Representative Name Role Phone Ned Alcantara MD Primary Care Provider [phone] Allergies Active Allergy Reactions Criticality Noted Date [...] patient's age to complete this topic Insurance [address] [place], [place] [address] [place] [id number] [place] [place] [address] Care Teams Traffic Workforce Representative Relationship Specialty Start Date End Date Ned Alcantara MD [address] [place] [address] PCP - General 10/19/20
== END 2025-09-29 13:00 | disposition home or self-care (01) ==
PROVIDERS: Physician Assistant; Emergency Provider Emergency Medicine; PCP Internal Medicine
DX: G40.409 Other generalized epilepsy and epileptic syndromes, not intractable, without status epilepticus (principal); Z79.899 Other long term (current) drug therapy
CPT/HCPCS: 36415; 70450; 80048; 80076; 83735; 85007; 85025; 85027; 93005; 99284

== ENCOUNTER → 2025-09-29 10:24 | Outpatient (BNV) | payer OTHER, SELFPAY | PROVIDERS: Emergency Provider Emergency Medicine; PCP Internal Medicine; Visit Provider Internal Medicine Cardiovascular Disease | DX: I49.1 Atrial premature depolarization (principal) | CPT/HCPCS: 93010 ==

== ENCOUNTER → 2025-09-29 10:25 | Outpatient (BNV) | payer OTHER, SELFPAY | PROVIDERS: Emergency Provider Emergency Medicine; PCP Internal Medicine; Visit Provider Radiology Diagnostic Ultrasound | DX: S09.90XA Unspecified injury of head, initial encounter (principal) | CPT/HCPCS: 70450 ==